=== PATIENT | female | born 1995 | race African-American/Black ===

== ENCOUNTER 2024-03-09 06:44 | Emergency (ER) | payer OTHER, SELFPAY ==
--- NOTE | ~2024-03-09 | US_ITS ---
Pelvic ultrasound. Clinical History: First trimester , pelvic pain Technique: Realtime transabdominal and transvaginal scanning of the pelvis was performed. Color flow Doppler and Doppler spectral analysis were performed. Findings: The uterus is retroverted.. There is an early intrauterine gestational sac, with estimated gestational age of 5 weeks 3 days based on average sac diameter 7 mm. Probable subtle yolk sac presen t without definite visible pole this time.. The right ovary measures 3.5 x 2.1 x 1.7 cm. No significant right ovarian or adnexal mass is seen. The left ovary measures 3.1 x 2.4 x 2.7 cm. Left ovarian corpus luteal cyst is seen. There is small amount of free fluid in the cul de sac. Impression: Intrauterine gestation with estimated gestational age of 5 weeks 3 days based on average sac diameter . No pole identified this time, commensurate with the early gestational age. Reviewed, dictated and finalized at [facility]. [employer]ER Impression: Intrauterine gestation with estimated gestational age of 5 weeks 3 days based o n average sac diameter. No pole identified this time, commensurate with t he early gestational age.
[2024-03-09 06:46] VITALS: BP 108/72; PULSE 79; RESP 17; TEMP 36.6; O2SAT 100
[2024-03-09 07:02] LABS: BEDSIDEPREGUCG Positive (Negative)
[2024-03-09 07:13] LABS: Add Urine Microscopic? YES; Appearance Urine Cloudy (Clear); Bacteria Urine Rare /hpf; Bilirubin Urine Negative (Negative); Blood Urine Negative (Negative); Color Urine Yellow (Yellow); Glucose Urine UA Negative (Negative); Ketones Urine Negative (Negative); Leukocyte Esterase Ur Negative LEU/UL (Negative); Nitrate Urine Negative (Negative); Non Pathogenic Casts 0-2; Protein Urine Negative (Negative); RBC Urine 0-2 /hpf (0-2); Specific Grav Ur 1.016 (1.001-1.035); Squamous Epithelial Cell Urine Many /hpf (Few); Urobilinogen Urine 0.2 mg/dL (<2.0); pH Urine 5.5 (5.0-9.0)
--- NOTE | 2024-03-09 08:04 | ED_ITS ---
HPI - Abdominal Pain General Chief Complaint: Abdominal Pain Stated Complaint: abd pain Time Seen by Provider: 03/09/24 07:10 History of Present Illness HPI narrative: Patient is a 29-year-old female who presents ER with lower abdominal cramping. Began this morning. She is , LMP January 31, 2024. Was diagnosed with BV last week but only took 4 pills. No dysuria. No vaginal bleeding. Denies fevers or chills or sweats. No additional concerns at this time. Related Data Allergies Allergy/AdvReac Type Severity Reaction Status Date / Time No Known Allergies Allergy Verified 03/09/24 06:51 Review of Systems 2 Review of Systems: All systems reviewed & are unremarkable except as noted in HPI and below Constitutional: Constitutional: Reports no additional constitutional complaints Cardiovascular: Cardiovascular: Reports no additional cardiovascular complaints Respiratory: Respiratory: Reports no additional respiratory complaints Gastrointestinal: Gastrointestinal: Reports no additional gastrointestinal complaints Genitourinary: Genitourinary: Denies abnormal vaginal bleeding, Denies nocturia, Denies dysuria, Reports pelvic pain and Reports vaginal discharge PMFSH Past Medical History Medical History (Updated 03/09/24 @ 10:53 by Enrico Odom MD) Healthy female adult Surgical History Surgical History (Updated 03/09/24 @ 08:05 by Enrico Odom MD) No history of previous surgery Exam 2 Narrative: GENERAL: Well-appearing, well-nourished, and in no acute distress. HEAD: Normocephalic, atraumatic. ENT: Mucous membranes moist. CHEST: Clear to auscultation. No respiratory distress. HEART: Regular rate and rhythm. Normal peripheral pulses. ABDOMEN: Soft, nontender, nondistended. Pelvic: Normal external genitalia, moderate thick white discharge. Cervix finger tip and non-friable. EXTREMITIES: Normal range of motion. No edema. SKIN: Warm, dry, no rash. NEURO: Alert and oriented x3. PSYCH: Normal mood and affect. Course Course Emergency Course: Patient resting comfortably. Informed of results. Discharge home. Will treat for BV. Vital Signs Vital signs: Vital Signs Temperature 97.8 F 03/09/24 06:46 Pulse Rate 79 03/09/24 06:46 Respiratory Rate 17 03/09/24 06:46 Blood Pressure 108/72 03/09/24 06:46 Pulse Oximetry 100 03/09/24 06:46 Oxygen Delivery Room Air 03/09/24 06:46 Temperature 97.8 F 03/09/24 06:46 Pulse Rate 89 03/09/24 10:48 Respiratory Rate 18 03/09/24 10:48 Blood Pressure 119/80 03/09/24 10:48 Pulse Oximetry 100 03/09/24 10:48 Oxygen Delivery Room Air 03/09/24 06:46 MDM - Abdominal Pain Lab Data 03/09/24 08:07 03/09/24 09:12 Labs: Lab Results 03/09/24 03/09/24 03/09/24 Range/Units 06:59 07:00 08:07 WBC 5.4 (4.5-10.0) K/mm3 RBC 5.07 (4.2-5.4) M/mm3 Hgb 14.1 (12.0-15.0) g/dL Hct 44.3 (37.0-47.0) % MCV 87.4 (80-100) fl MCH 27.8 (26-34) pg MCHC 31.8 L (32-36) g/dl RDW 13.6 (11.5-14.5) % Plt Count 196 (150-375) k/mm3 MPV 11.0 H (7.4-10.4) fl Immature Gran % (Auto) 0.6 H (0-0.5) % Neut % (Auto) 54.1 (45.5-73.1) % Lymph % (Auto) 37.0 (18.3-44.2) % [place] % (Auto) 6.8 (2.6-8.5) % Eos % (Auto) 0.9 (0-4.4) % Baso % (Auto) 0.6 (0.2-1.2) % Lymph # (Auto) 2.01 (0.9-3.2) K/mm3 [place] # (Auto) 0.4 (0.1-0.6) K/mm3 Eos # (Auto) 0.1 (0-0.3) K/mm3 Baso # (Auto) 0.0 (0.0-0.1) K/mm3 Abs Immat Gran (auto) 0.03 (0.00-0.031) K/mm3 Absolute Neuts (auto) 2.9 (1.3-6.7) K/mm3 Absolute Nucleated RBC 0.000 (0.0-0.012) K/mm3 Nucleated RBC % 0.0 (0.0-0.2) % Sodium (137-145) mmol/L Potassium (3.4-5.0) mmol/L Chloride (98-107) mmol/L Carbon Dioxide (22-30) mmol/L Anion Gap (4-12) mmol/L BUN (7-17) mg/dL Creatinine (0.7-1.0) mg/dL Estim Creat Clear Calc ml/min Estimated GFR (59 - ) Glucose (65-110) mg/dL Calcium (8.4-10.2) mg/dL Total Bilirubin (0.2-1.3) mg/dL AST (14-36) U/L ALT (6-35) U/L Alkaline Phosphatase (38-126) U/L Total Protein (6.3-8.2) g/dL Albumin (3.5-5.1) g/dL Lipase (23-300) U/L Urine Color Yellow (Yellow) Urine Appearance Cloudy H (Clear) Urine pH 5.5 (5.0-9.0) Ur Specific [place] 1.016 (1.001-1.035) Urine Protein Negative (Negative) mg/dL Urine Glucose (UA) Negative (Negative) mg/dL Urine Ketones Negative (Negative) mg/dL Ur Blood (Man) Negative (Negative) Urine Nitrate Negative (Negative) Urine Bilirubin Negative (Negative) Urine Urobilinogen 0.2 (<2.0) mg/dL Leukocyte Esterase Rfl Negative (Negative) JEFFRY/UL Urine RBC 0-2 (0-2) /hpf Urine WBC 6-10 H (0-3) /hpf Ur Squamous Epith Cells Many H (Few) /hpf Urine Bacteria Rare /hpf Urine Casts 0-2 POC Urine HCG, Qual Positive (Negative) C. trachomatis (PCR) Not detected (NOT DETECTE) N. gonorrhoeae (PCR) Not detected (NOT DETECTE) T. vaginalis (PCR) Not detected (NOT DETECTE) 03/09/24 Range/Units 09:12 WBC (4.5-10.0) K/mm3 RBC (4.2-5.4) M/mm3 Hgb (12.0-15.0) g/dL Hct (37.0-47.0) % MCV (80-100) fl MCH (26-34) pg MCHC (32-36) g/dl RDW (11.5-14.5) % Plt Count (150-375) k/mm3 MPV (7.4-10.4) fl Immature Gran % (Auto) (0-0.5) % Neut % (Auto) (45.5-73.1) % Lymph % (Auto) (18.3-44.2) % [place] % (Auto) (2.6-8.5) % Eos % (Auto) (0-4.4) % Baso % (Auto) (0.2-1.2) % Lymph # (Auto) (0.9-3.2) K/mm3 [place] # (Auto) (0.1-0.6) K/mm3 Eos # (Auto) (0-0.3) K/mm3 Baso # (Auto) (0.0-0.1) K/mm3 Abs Immat Gran (auto) (0.00-0.031) K/mm3 Absolute Neuts (auto) (1.3-6.7) K/mm3 Absolute Nucleated RBC (0.0-0.012) K/mm3 Nucleated RBC % (0.0-0.2) % Sodium 136 L (137-145) mmol/L Potassium 3.8 (3.4-5.0) mmol/L Chloride 106 (98-107) mmol/L Carbon Dioxide 21 L (22-30) mmol/L Anion Gap 9 (4-12) mmol/L BUN 9 (7-17) mg/dL Creatinine 0.80 (0.7-1.0) mg/dL Estim Creat Clear Calc 87 ml/min Estimated GFR > 60 (59 - ) Glucose 92 (65-110) mg/dL Calcium 9.6 (8.4-10.2) mg/dL Total Bilirubin 0.6 (0.2-1.3) mg/dL AST 21 (14-36) U/L ALT 17 (6-35) U/L Alkaline Phosphatase 70 (38-126) U/L Total Protein 9.0 H (6.3-8.2) g/dL Albumin 4.9 (3.5-5.1) g/dL Lipase 52 (23-300) U/L Urine Color (Yellow) Urine Appearance (Clear) Urine pH (5.0-9.0) Ur Specific [place] (1.001-1.035) Urine Protein (Negative) mg/dL Urine Glucose (UA) (Negative) mg/dL Urine Ketones (Negative) mg/dL Ur Blood (Man) (Negative) Urine Nitrate (Negative) Urine Bilirubin (Negative) Urine Urobilinogen (<2.0) mg/dL Leukocyte Esterase Rfl (Negative) JEFFRY/UL Urine RBC (0-2) /hpf Urine WBC (0-3) /hpf Ur Squamous Epith Cells (Few) /hpf Urine Bacteria /hpf Urine Casts POC Urine HCG, Qual (Negative) C. trachomatis (PCR) (NOT DETECTE) N. gonorrhoeae (PCR) (NOT DETECTE) T. vaginalis (PCR) (NOT DETECTE) Imaging Data Radiologist's impression: ITS Impressions Obstetrics Ultrasound 03/09/24 09:19 Impression: Intrauterine gestation with estimated gestational age of 5 weeks 3 days based on average sac diameter. No pole identified this time, commensurate with the early gestational age. Discharge Plan Discharge Clinical Impression: Bacterial vaginosis Patient Disposition: Home, Self-Care Condition: Stable Instructions: Bacterial Vaginosis (ED) Additional Instructions: Return to the emergency department if you develop severe abdominal pain, severe nausea and vomiting to the point where you are unable to keep down fluids, if you develop chest pain or difficulty breathing, blood in your stool, dizziness or fainting, or if you develop any other new or concerning symptoms as these could be signs of more serious medical illness. Try to stay well hydrated. Patient Language: Slovak Prescriptions: New ondansetron 4 mg tablet,disintegrating 4 mg PO Q6H PRN (Reason: nausea and vomiting) Qty: 10 0RF metronidazole 500 mg tablet 500 mg PO Q12H Qty: 14 0RF Follow-up/Referrals: Rober Cook MD [Primary Care Provider] - 1 Week
[2024-03-09 08:16] LABS: Basophils Percent Auto 0.6 % (0.2-1.2); Eosinophils Absolute Auto 0.1 K/mm3 (0-0.3); Eosinophils Percent Auto 0.9 % (0-4.4); Hematocrit 44.3 % (37.0-47.0); Hemoglobin 14.1 g/dL (12.0-15.0); Immature Granulocyte Absolute 0.03 K/mm3 (0.00-0.031); Immature Granulocyte Percent A 0.6 % (0-0.5); Lymphocytes Absolute Auto 2.01 K/mm3 (0.9-3.2); Mean Corpuscular HGB Conc 31.8 g/dl (32-36); Mean Corpuscular Hemoglobin 27.8 pg (26-34); Mean Corpuscular Volume 87.4 fl (80-100); Monocytes Absolute Auto 0.4 K/mm3 (0.1-0.6); Monocytes Percent Auto 6.8 % (2.6-8.5); Neutrophils Absolute Auto 2.9 K/mm3 (1.3-6.7); Neutrophils Percent Auto 54.1 % (45.5-73.1); Platelet Count Result 196 k/mm3 (150-375); Red Blood Count 5.07 M/mm3 (4.2-5.4); Red Cell Distribution Width 13.6 % (11.5-14.5); White Blood Count 5.4 K/mm3 (4.5-10.0)
[2024-03-09 09:37] LABS: Trichomonas Vag PCR NOT DETECTED (NOT DETECTE)
[2024-03-09 09:38] LABS: Alanine Aminotransferase 17 U/L (6-35); Albumin Level 4.9 g/dL (3.5-5.1); Alkaline Phosphatase 70 U/L (38-126); Anion Gap 9 mmol/L (4-12); Aspartate Amino Transferase 21 U/L (14-36); Bilirubin,Total 0.6 mg/dL (0.2-1.3); Blood Urea Nitrogen 9 mg/dL (7-17); Calcium 9.6 mg/dL (8.4-10.2); Carbon Dioxide 21 mmol/L (22-30); Chloride 106 mmol/L (98-107); Estimated CRCL calculation 87 ml/min; Estimated Glomerular Filt Rate > 60; Glucose 92 mg/dL (65-110); Lipase 52 U/L (23-300); Potassium 3.8 mmol/L (3.4-5.0); Sodium 136 mmol/L (137-145)
[2024-03-09 10:02] LABS: Chlamydia trachomatis NOT DETECTED (NOT DETECTE); Neisseria gonorrhoeae PCR NOT DETECTED (NOT DETECTE)
[2024-03-09 10:48] VITALS: BP 119/80; PULSE 89; RESP 18; O2SAT 100
== END 2024-03-09 11:08 | disposition home or self-care (01) ==
PROVIDERS: Emergency Medicine; Emergency Provider Emergency Medicine; PCP Family Medicine
DX: O23.591 Infection of other part of genital tract in pregnancy, first trimester (principal); N76.0 Acute vaginitis; B96.89 Other specified bacterial agents as the cause of diseases classified elsewhere; Z3A.01 Less than 8 weeks gestation of pregnancy
CPT/HCPCS: 36415; 76801; 76817; 80053; 81001; 81025; 83690; 85025; 87086; 87491; 87591; 87661; 99284

== ENCOUNTER 2024-03-16 12:38 | Emergency (ER) | payer OTHER, SELFPAY ==
[2024-03-16 12:43] VITALS: BP 125/80; PULSE 103; RESP 16; TEMP 36.4; O2SAT 100
--- NOTE | 2024-03-16 16:11 | ED.NAVMDI ---
HPI - Nausea/Vomiting/Diarrhea General Chief complaint: Nausea/Vomiting/Diarrhea Stated complaint: vomiting, 5 wks Focused HPI: this is a 29-year-old female who is reportedly 5 weeks presents to the ED for N/V over the past 4 days. Reports it got worse today so she came in. She is . This was unplanned and she plans to terminate electively at a later date. States that anything she tries to eat or drink comes right back up. She has not taken any antiemetics at home. Endorses radiation of epigastric pain into the chest. Denies fevers, chills, flank pain, urinary symptoms, vaginal symptoms, or lower abdominal pain. GENERAL: Well-appearing, well-nourished, and in no acute distress. HEAD: Normocephalic, atraumatic. CHEST: Clear to auscultation. No respiratory distress. HEART: Regular rate and rhythm. NEURO: Alert and oriented x3. Patient screened in triage and initial orders placed. Additional care and disposition to be based upon diagnostic testing and treatment. Source: patient Mode of arrival: ambulatory Limitations: no limitations Related Data Allergies Allergy/AdvReac Type Severity Reaction Status Date / Time No Known Allergies Allergy Verified 03/09/24 06:51 [facility] Past Medical History Medical History (Updated 03/10/24 @ 00:01 by Susan Soni) Healthy female adult Surgical History Surgical History (Updated 03/09/24 @ 08:05 by Enrico Odom MD) No history of previous surgery Course Vital Signs Vital signs: Vital Signs Temperature 97.6 F 03/16/24 12:43 Pulse Rate 103 H 03/16/24 12:43 Respiratory Rate 16 03/16/24 12:43 Blood Pressure 125/80 03/16/24 12:43 Pulse Oximetry 100 03/16/24 12:43 Oxygen Delivery Room Air 03/16/24 12:43 Temperature 97.6 F 03/16/24 12:43 Pulse Rate 103 H 03/16/24 12:43 Respiratory Rate 16 03/16/24 12:43 Blood Pressure 125/80 03/16/24 12:43 Pulse Oximetry 100 03/16/24 12:43 Oxygen Delivery Room Air 03/16/24 12:43 Discharge Plan Discharge Patient Language: Nepali Prescriptions: No Action ondansetron 4 mg tablet,disintegrating 4 mg PO Q6H PRN (Reason: nausea and vomiting) Qty: 10 0RF metronidazole 500 mg tablet 500 mg PO Q12H Qty: 14 0RF Follow-up/Referrals: PHYSICIAN,[employer] [Primary Care Provider] -
--- NOTE | 2024-03-16 19:22 | PC.NURSE ---
Called PT back to triage to obtain blood under [facility] orders. Pt came back and after I told her I was going to draw some blood, stated they just did this the other day when I was here and screwed up my arm, no thank you and proceeded back to triage, Ana Lombardo RN notified.
--- OUTSIDE RECORDS SUMMARY | 2024-03-24 00:24 | XMS_ITS | Encounter Summary ---
Author Organization [facility] Address [address] [place] [address] Care Team Providers Care Director Personal Name Role Phone Abhijit Solis MD Primary Care Provider Encounter Details Date Type Department Care Team (Latest Contact Info) Description 08/18/2023 Travel Social History Tobacco Use Types Packs/Day Years Used Date Smoking Tobacco: Never Assessed Sex and Gender Information Value Date Recorded Sex Assigned at Not on file Gender Identity Not on file Sexual Orientation Not on file documented as of this encounter Plan of Treatment Not on file documented as of this encounter Visit Diagnoses Not on filedocumented in this encounter Care Teams Director Personal Relationship Specialty Start Date End Date Abhijit Solis MD PCP - General 10/04/12 documented as of this encounter
--- OUTSIDE RECORDS SUMMARY | 2024-03-24 00:24 | XMS_ITS | Clinical Summary ---
Author Organization [facility] Address [address] [place] [address] Care Team Providers Care Dermatologist Managing Partner Name Role Phone No, Physician Primary Care Provider [phone] Allergies Active Allergy Reactions Criticality Noted Date Comments Ibuprofen Hives Medium 08/27/2020 Latex Hives Medium 05/11/2021 Other Rash High 05/16/2016 Shellfish Medications doxylamine (UNISOM) 25 mg tablet Take 1 tablet (25 mg total) by mouth nightly as needed for sleep 15 tablet 09/11/2023 Active pyridoxine (VITAMIN B6) 25 mg tablet Take 1 tablet (25 mg total) by mouth every 6 (six) hours as needed (nausea) 15 tablet 09/11/2023 Active Active Problems Estimated Date of Delivery Comme nts Yes 11/10/2024 No known active problems Encounters Date Type Department Care Team Description 03/23/2024 3:25 AM [facility] - 03/23/2024 12:49 PM [facility] Emergency [facility] [address] [place] [address] Miscarriage (Primary Dx); Hypokalemia; Hyponatremia Discharge Disposition: Discharge to home or self care 03/19/2024 5:28 PM [facility] - 03/19/2024 10:06 PM [facility] Emergency [facility] Emergency Department [address] [place] [id number] Discharge Disposition: Left without being seen from Last 3 Months Surgical History Surgery Date Site/Laterality Comments NO PAST SURGERIES Medical History Medical History Date Comments 1 para 1 Social History Tobacco Use Types Packs/Day Years Used Date Smoking Tobacco: Never Tobacco Cessation:Counseling Given: Not Answered Alcohol Use Standard Drinks/Week Comments Never 0 (1 standard drink = 0.6 oz pur e alcohol) Personal Safety Answer Date Recorded Have you ever been in or are you currently in a harmful physical or emotional relationship or is someone making you feel afraid or unsafe? Denies 03/23/2024 Estimated Date of Delivery Comme nts Yes 11/10/2024 Sex and Gender Information Value Date Recorded Sex Assigned at Not on file Legal Sex Female 9:02 PM ENTERPRISE ARCHITECT MANAGER Gender Identity Not on file Sexual Orientation Not on file Obstetrics History Para Term AB IAB SAB Ectopic Multiple Livin g Live Births 2 1 1 1 Date Outcome GA Total Labor Labor/2nd/3rd Weight Sex Type Anes PTL Yeimi A1 A5 Name Clin Term Current Summary Episode Dates Number of Fetuses Estimated Date of Delivery 09/11/2023 - Present (03/24/2024) 11/10/2024 (set by Leelee Carter RN on 03/19/2024 based on Last Menstrual Period on 02/04/2024) Dating Summary Based On JESSICA GA Diff Last Menstrual Period on 02/04/2024 11/10/2024 Working Vitals Pregravid Weight Height TWG (As of 03/24/2024) Pregrav id BMI 160 cm (5' 3 ) Date GA Fund Present FHR Mvmt BP Weight Edema Alb Glu Ket Dil/ Eff/Sta 4 -20w6d Inpatient data not displayed here. See encounter summary. Last Filed Vital Signs Vital Sign Reading Time Taken Comments Blood Pressure 123/86 03/23/2024 9:05 AM ENTERPRISE ARCHITECT MANAGER Pulse 92 03/23/2024 9:05 AM ENTERPRISE ARCHITECT MANAGER Temperature 36.6 ??C (97.9 ??F) 03/23/2024 3:40 AM CS T Respiratory Rate 16 03/23/2024 9:05 AM ENTERPRISE ARCHITECT MANAGER Oxygen Saturation 100% 03/23/2024 5:30 AM ENTERPRISE ARCHITECT MANAGER Inhaled Oxygen Concentration - - Weight 66.7 kg (147 lb) 03/23/2024 3:28 AM ENTERPRISE ARCHITECT MANAGER Height 157.5 cm (5' 2 ) 03/23/2024 3:28 AM ENTERPRISE ARCHITECT MANAGER Body Mass Index 26.89 03/23/2024 3:28 AM ENTERPRISE ARCHITECT MANAGER Plan of Treatment Health Maintenance Due Date Last Done Comments Cervical Cancer Screening 1997 Depression Screening 1997 Hepatitis C Screening 1997 HPV Vaccines (2 - 3-dose series) 12/05/2012 11/07/2012 Regular Well Visit/Exam 18-64 2015 Influenza Vaccine (#1) 2023 DTaP/Tdap/Td Vaccine (9 - Td or Tdap) 05/23/2025 05/24/2015, 05/24/2015, 11/07/2012, Additional history exists Varicella Vaccines Completed 11/07/2012, 10/23/1998 Pneumococcal vaccine <65 Aged Out No longer eligible based on patient's age to complete this topic Procedures Procedure Name Priority Date/Time Associated Diagnosis Comments EGFR STAT 03/23/2024 5:18 AM ENTERPRISE ARCHITECT MANAGER BASIC METABOLIC PANEL STAT 03/23/2024 5:18 AM ENTERPRISE ARCHITECT MANAGER MAGNESIUM STAT 03/23/2024 5:18 AM ENTERPRISE ARCHITECT MANAGER B ABO / RH CONFIRMATION TESTING STAT 03/23/2024 5:18 AM ENTERPRISE ARCHITECT MANAGER EGFR STAT 03/23/2024 3:39 AM ENTERPRISE ARCHITECT MANAGER DIFFERENTIAL AUTO STAT 03/23/2024 3:3 9 AM ENTERPRISE ARCHITECT MANAGER ANTIBODY SCREEN STAT 03/23/2024 3:39 AM ENTERPRISE ARCHITECT MANAGER ABO/RH STAT 03/23/2024 3:39 AM ENTERPRISE ARCHITECT MANAGER TYPE AND SCREEN STAT 03/23/2024 3:39 AM ENTERPRISE ARCHITECT MANAGER COMPREHENSIVE METABOLIC PANEL STAT 03/23/2024 3:39 AM ENTERPRISE ARCHITECT MANAGER CBC WITH AUTO DIFFERENTIAL STAT 03/23/2024 3:39 AM ENTERPRISE ARCHITECT MANAGER EGFR STAT 03/19/2024 6:42 PM ENTERPRISE ARCHITECT MANAGER DIFFERENTIAL AUTO STAT 03/19/2024 6:4 2 PM ENTERPRISE ARCHITECT MANAGER HCG, BLOOD, QUANTITATIVE STAT 03/19/2024 6:42 PM ENTERPRISE ARCHITECT MANAGER COMPREHENSIVE METABOLIC PANEL STAT 03/19/2024 6:42 PM ENTERPRISE ARCHITECT MANAGER CBC WITH AUTO DIFFERENTIAL STAT 03/19/2024 6:42 PM ENTERPRISE ARCHITECT MANAGER from Last 3 Months Results * eGFR (03/23/2024 5:18 AM ENTERPRISE ARCHITECT MANAGER) eGFR >90 >=60 mL/min/1. 73 m2 Comment: Interpretive Data Reference Interval Normal ?>/= 90 mL/min/1.73m2 Mildly decreased* ? 60 - 89 mL/min/1.73m2 Mildly to moderately decreased ?45 - 59 mL/min/1.73m2 Moderately to severely decreased ??30 - 44 mL/min/1.73m2 Severely decreased ?15 - 29 mL/min/1.73m2 Kidney Failure ?< 15 ??mL/min/1.73m2 *Relative to young adult level Estimated glomerular filtration rate is determined by the 2020 CKD-EPI equation recommended by the National Kidney Foundation (A Unifying Approach to GFR Estimation: Recommendations of the NKF-ASK Task Force on Reassessing the Inclusion of Race in Diagnosing Kidney Disease, JASN 2020). The CKD-EPI equation should not be used for patients with unstable renal function and has not been validated in children and those over 70. Current interpretive data was last reviewed 2021. Blood 03/23/2024 5:18 AM ENTERPRISE ARCHITECT MANAGER 03/23/2024 5:25 AM ENTERPRISE ARCHITECT MANAGER us Sonya SANCHEZ LAB BLOOD ORDERABLES Final Resul t [id number] [facility] Department [place] [address] * ABO / Rh Confirmation Testing (03/23/2024 5:18 AM ENTERPRISE ARCHITECT MANAGER) [facility] ABO/Rh Confirmation O Positive MHB Blood 03/23/2024 5:18 AM ENTERPRISE ARCHITECT MANAGER 03/23/2024 5:26 AM ENTERPRISE ARCHITECT MANAGER Roe Montgomery MD LAB BLOOD ORDERABLES Final Result Performing Organization Address [facility] de Phone Number [address] [address] MHB * Magnesium (03/23/2024 5:18 AM ENTERPRISE ARCHITECT MANAGER) [facility] Magnesium 1.9 1.4 - 2.5 mg/dL Blood 03/23/2024 5:18 AM ENTERPRISE ARCHITECT MANAGER 03/23/2024 5:25 AM ENTERPRISE ARCHITECT MANAGER Sonya SANCHEZ LAB BLOOD ORDERABLES Final Resul t Performing Organization Address [facility] de Phone Number [address] [address] * (ABNORMAL) Basic metabolic panel (03/23/2024 5:18 AM ENTERPRISE ARCHITECT MANAGER) [facility] Sodium 129(L) 135 - 145 mmol/L Potassium, pl 2.7(L) 3.3 - 4.9 mmol/L [facility] Chloride 94(L) 97 - 110 mmol/L [facility] CO2 22 22 - 32 mmol/L [facility] Anion gap 13 2 - 15 mmol/L [facility] BUN 9 6 - 25 mg/dL [facility] Creatinine 0.69 0.60 - 1.10 mg/dL [facility] Glucose 94 70 - 199 mg/dL [facility] Comment: Interpretive Data Fasting glucose >/= 126 mg/dl is diagnostic for diabetes. ?? Fasting is defined as no caloric intake for at least 8 hours. Fasting glucose between 100 mg/dl to 125 mg/dl is diagnostic of prediabetes. In a patient with classic symptoms of hyperglycemia or hyperglycemic crisis, a random glucose >/= 200 mg/dl is diagnostic for diabetes. In the absence of unequivocal hyperglycemia, results should be confirmed by repeat testing. The classification and Diagnosis of Diabetes Diabetes Care 202; 46: S19-S40. Current interpretive data was last revised 2022. Calcium 8.3(L) 8.5 - 10.3 mg/dL [facility] Blood 03/23/2024 5:18 AM ENTERPRISE ARCHITECT MANAGER 03/23/2024 5:25 AM ENTERPRISE ARCHITECT MANAGER us Sonya SANCHEZ LAB BLOOD ORDERABLES Final Resul t [facility] [id number] [facility] Department [place] [address] * eGFR (03/23/2024 3:39 AM ENTERPRISE ARCHITECT MANAGER) eGFR >90 >=60 mL/min/1. 73 m2 Comment: Interpretive Data Reference Interval Normal ?>/= 90 mL/min/1.73m2 Mildly decreased* ? 60 - 89 mL/min/1.73m2 Mildly to moderately decreased ?45 - 59 mL/min/1.73m2 Moderately to severely decreased ??30 - 44 mL/min/1.73m2 Severely decreased ?15 - 29 mL/min/1.73m2 Kidney Failure ?< 15 ??mL/min/1.73m2 *Relative to young adult level Estimated glomerular filtration rate is determined by the 2020 CKD-EPI equation recommended by the National Kidney Foundation (A Unifying Approach to GFR Estimation: Recommendations of the NKF-ASK Task Force on Reassessing the Inclusion of Race in Diagnosing Kidney Disease, JASN 2020). The CKD-EPI equation should not be used for patients with unstable renal function and has not been validated in children and those over 70. Current interpretive data was last reviewed 2021. Blood 03/23/2024 3:39 AM ENTERPRISE ARCHITECT MANAGER 03/23/2024 4:04 AM ENTERPRISE ARCHITECT MANAGER us Roe Montgomery MD LAB BLOOD ORDERABLES Final Result [facility] [id number] [facility] Department [place] [address] * (ABNORMAL) Differential, auto (03/23/2024 3:39 AM ENTERPRISE ARCHITECT MANAGER) Pathologist [facility] Neutrophil abs 3.7 1.5 - 6.5 K/cumm Imm gran abs 0.1 0.0 - 0.1 K/cumm [facility] Lymphocyte abs 1.9 0.8 - 3.3 K/cumm [facility] Monocyte abs 0.9(H) 0.2 - 0.8 K/cumm [facility] Eosinophil abs 0.0 0.0 - 0.5 K/cumm [facility] Basophil abs 0.1 0.0 - 0.1 K/cumm [facility] Neutrophil pct 55.3 % [facility] Comment: Interpretive Data Percent cell count reference ranges are not reported, since discordance with absolute values may lead to misinterpretation of CBC data. Current Interpretive Data was last revised on 2017. Imm gran pct 0.8 % [facility] Comment: Interpretive Data Percent cell count reference ranges are not reported, since discordance with absolute values may lead to misinterpretation of CBC data. Current Interpretive Data was last revised on 2017. Lymphocyte pct 29.1 % [facility] Comment: Interpretive Data Percent cell count reference ranges are not reported, since discordance with absolute values may lead to misinterpretation of CBC data. Current Interpretive Data was last revised on 2017. Monocyte pct 13.7 % [facility] Comment: Interpretive Data Percent cell count reference ranges are not reported, since discordance with absolute values may lead to misinterpretation of CBC data. Current Interpretive Data was last revised on 2017. Eosinophil pct 0.3 % [facility] Comment: Interpretive Data Percent cell count reference ranges are not reported, since discordance with absolute values may lead to misinterpretation of CBC data. Current Interpretive Data was last revised on 2017. Basophil pct 0.8 % [facility] Comment: Interpretive Data Percent cell count reference ranges are not reported, since discordance with absolute values may lead to misinterpretation of CBC data. Current Interpretive Data was last revised on 2017. Blood 03/23/2024 3:39 AM ENTERPRISE ARCHITECT MANAGER 03/23/2024 4:04 AM ENTERPRISE ARCHITECT MANAGER Roe Montgomery MD LAB BLOOD ORDERABLES Final Result Performing Organization Address [facility] Co de Phone Number [address] [place] [address] * (ABNORMAL) CBC with auto differential (03/23/2024 3:39 AM ENTERPRISE ARCHITECT MANAGER) [facility] WBC 6.6 3.8 - 9.9 K/cumm Hgb 13.5 11.9 - 15.5 g/dL [facility] Hct 38.4 35.6 - 45.5 % [facility] Plt 255 150 - 400 K/cumm [facility] MPV 11.8 9.1 - 12.3 fL [facility] RBC 4.85 3.90 - 5.20 M/cumm [facility] MCV 79.2(L) 81.3 - 96.4 fL [facility] MCH 27.8 27.1 - 33.3 pg [facility] MCHC 35.2 32.3 - 35.7 g/dL [facility] RDW CV 11.9 11.1 - 14.9 % [facility] RDW SD 34.0(L) 35.7 - 48.1 fL [facility] NRBC abs 0.00 0.00 - 0.01 K/cumm [facility] Blood 03/23/2024 3:39 AM ENTERPRISE ARCHITECT MANAGER 03/23/2024 4:04 AM ENTERPRISE ARCHITECT MANAGER Roe Montgomery MD LAB BLOOD ORDERABLES Final Result Performing Organization Address [facility] Co de Phone Number [facility] [address] [place] [phone] * ABO/Rh (03/23/2024 3:39 AM ENTERPRISE ARCHITECT MANAGER) [facility] ABO/Rh O Positive Blood 03/23/2024 3:39 AM ENTERPRISE ARCHITECT MANAGER 03/23/2024 4:03 AM ENTERPRISE ARCHITECT MANAGER Narrative [facility] - 03/23/2024 4:40 AM ENTERPRISE ARCHITECT MANAGER Has the patient had Daratumumab or Isatuximab in the past 6 months?->Unknown Roe Montgomery MD LAB BLOOD BANK TEST ORDERAB LES Final Result Performing Organization Address [facility] Co de Phone Number [address] [address] * Antibody screen (03/23/2024 3:39 AM ENTERPRISE ARCHITECT MANAGER) [facility] Bruce, indirect, Gel Interpretation Negative ABSC Blood 03/23/2024 3:39 AM ENTERPRISE ARCHITECT MANAGER 03/23/2024 4:03 AM ENTERPRISE ARCHITECT MANAGER Narrative [facility] - 03/23/2024 4:40 AM ENTERPRISE ARCHITECT MANAGER Has the patient had Daratumumab or Isatuximab in the past 6 months?->Unknown Roe Montgomery MD LAB BLOOD BANK TEST ORDERAB LES Final Result Performing Organization Address [facility] Phone Number [address] [address] * (ABNORMAL) Comprehensive metabolic panel (03/23/2024 3:39 AM ENTERPRISE ARCHITECT MANAGER) [facility] Sodium 125(L) 135 - 145 mmol/L Potassium, pl 2.6(L) 3.3 - 4.9 mmol/L [facility] Chloride 88(L) 97 - 110 mmol/L [facility] CO2 22 22 - 32 mmol/L [facility] Anion gap 15 2 - 15 mmol/L [facility] BUN 9 6 - 25 mg/dL [facility] Creatinine 0.74 0.60 - 1.10 mg/dL [facility] Glucose 128 70 - 199 mg/dL [facility] Comment: Interpretive Data Fasting glucose >/= 126 mg/dl is diagnostic for diabetes. ?? Fasting is defined as no caloric intake for at least 8 hours. Fasting glucose between 100 mg/dl to 125 mg/dl is diagnostic of prediabetes. In a patient with classic symptoms of hyperglycemia or hyperglycemic crisis, a random glucose >/= 200 mg/dl is diagnostic for diabetes. In the absence of unequivocal hyperglycemia, results should be confirmed by repeat testing. The classification and Diagnosis of Diabetes Diabetes Care 202; 46: S19-S40. Current interpretive data was last revised 2022. Calcium 9.7 8.5 - 10.3 mg/dL [facility] Bilirubin, total 1.6(H) 0.1 - 1.2 mg/dL [facility] Protein, pl 7.3 6.5 - 8.5 g/dL [facility] Albumin 4.3 3.5 - 5.0 g/dL [facility] Alk phos 68 40 - 130 Units/L [facility] ALT 55(H) 7 - 45 Units/L [facility] AST 35 10 - 45 Units/L [facility] Blood 03/23/2024 3:39 AM ENTERPRISE ARCHITECT MANAGER 03/23/2024 4:04 AM ENTERPRISE ARCHITECT MANAGER us Roe Montgomery MD LAB BLOOD ORDERABLES Final Result [facility] [address] [facility] Department [place] [address] * eGFR (03/19/2024 6:42 PM ENTERPRISE ARCHITECT MANAGER) eGFR >90 >=60 mL/min/1. 73 m2 Comment: Interpretive Data Reference Interval Normal ?>/= 90 mL/min/1.73m2 Mildly decreased* ? 60 - 89 mL/min/1.73m2 Mildly to moderately decreased ?45 - 59 mL/min/1.73m2 Moderately to severely decreased ??30 - 44 mL/min/1.73m2 Severely decreased ?15 - 29 mL/min/1.73m2 Kidney Failure ?< 15 ??mL/min/1.73m2 *Relative to young adult level Estimated glomerular filtration rate is determined by the 2020 CKD-EPI equation recommended by the National Kidney Foundation (A Unifying Approach to GFR Estimation: Recommendations of the NKF-ASK Task Force on Reassessing the Inclusion of Race in Diagnosing Kidney Disease, JASN 2020). The CKD-EPI equation should not be used for patients with unstable renal function and has not been validated in children and those over 70. Current interpretive data was last reviewed 2021. Testing performed by: [address] [address] Blood 03/19/2024 6:42 PM ENTERPRISE ARCHITECT MANAGER 03/19/2024 6:47 PM ENTERPRISE ARCHITECT MANAGER us Jonas Downing NP LAB BLOOD ORDERABLES Final Resul t [id number] Department [place] [address] * (ABNORMAL) Differential, auto (03/19/2024 6:42 PM ENTERPRISE ARCHITECT MANAGER) Neutrophil abs 6.0 1.5 - 6.5 K/cumm Comment:Testing performed by : [address] [address] Imm gran abs 0.0 0.0 - 0.1 K/cumm [facility] Comment:Testing performed by : [address] [address] Lymphocyte abs 2.5 0.8 - 3.3 K/cumm [facility] Comment:Testing performed by : [address] [address] Monocyte abs 0.9(H) 0.2 - 0.8 K/cumm [facility] Comment:Testing performed by : [address] [address] Eosinophil abs 0.0 0.0 - 0.5 K/cumm [facility] Comment:Testing performed by : [address] [address] Basophil abs 0.1 0.0 - 0.1 K/cumm [facility] Comment:Testing performed by : [address] [address] Neutrophil pct 62.9 % [facility] Comment: Interpretive Data Percent cell count reference ranges are not reported, since discordance with absolute values may lead to misinterpretation of CBC data. Current Interpretive Data was last revised on 2017. Testing performed by: [address] [address] Imm gran pct 0.4 % [facility] Comment: Interpretive Data Percent cell count reference ranges are not reported, since discordance with absolute values may lead to misinterpretation of CBC data. Current Interpretive Data was last revised on 2017. Testing performed by: [address] [address] Lymphocyte pct 26.0 % [facility] Comment: Interpretive Data Percent cell count reference ranges are not reported, since discordance with absolute values may lead to misinterpretation of CBC data. Current Interpretive Data was last revised on 2017. Testing performed by: [address] [address] Monocyte pct 9.6 % [facility] Comment: Interpretive Data Percent cell count reference ranges are not reported, since discordance with absolute values may lead to misinterpretation of CBC data. Current Interpretive Data was last revised on 2017. Testing performed by: [address] [address] Eosinophil pct 0.3 % [facility] Comment: Interpretive Data Percent cell count reference ranges are not reported, since discordance with absolute values may lead to misinterpretation of CBC data. Current Interpretive Data was last revised on 2017. Testing performed by: [address] [address] Basophil pct 0.8 % [facility] Comment: Interpretive Data Percent cell count reference ranges are not reported, since discordance with absolute values may lead to misinterpretation of CBC data. Current Interpretive Data was last revised on 2017. Testing performed by: [address] [address] Blood 03/19/2024 6:42 PM ENTERPRISE ARCHITECT MANAGER 03/19/2024 6:47 PM ENTERPRISE ARCHITECT MANAGER us Jonas Downing NP LAB BLOOD ORDERABLES Final Resul t [facility]ONG [address] [facility] Department [place] [address] * (ABNORMAL) CBC with auto differential (03/19/2024 6:42 PM ENTERPRISE ARCHITECT MANAGER) WBC 9.5 3.8 - 9.9 K/cumm Comment:Testing performed by : [address] [address] Hgb 15.2 11.9 - 15.5 g/dL [facility] CHONG Comment:Testing performed by : [address] [address] Hct 43.6 35.6 - 45.5 % [facility] Comment:Testing performed by : [address] [address] Plt 322 150 - 400 K/cumm [facility] Comment:Testing performed by : [address] [address] MPV 11.0 9.1 - 12.3 fL [facility] Comment:Testing performed by : [address] [address] RBC 5.43(H) 3.90 - 5.20 M/cumm [facility] Comment:Testing performed by : [address] [address] MCV 80.3(L) 81.3 - 96.4 fL [facility] Comment:Testing performed by : [address] [address] MCH 28.0 27.1 - 33.3 pg [facility] CHONG Comment:Testing performed by : [address] [address] MCHC 34.9 32.3 - 35.7 g/dL [facility] CHONG Comment:Testing performed by : [address] [address] RDW CV 12.6 11.1 - 14.9 % [facility] Comment:Testing performed by : [address] [address] RDW SD 35.8 35.7 - 48.1 fL [facility] CHONG Comment:Testing performed by : [address] [address] NRBC abs 0.00 0.00 - 0.01 K/cumm [facility] CHONG Comment:Testing performed by : [address] [address] Blood 03/19/2024 6:42 PM ENTERPRISE ARCHITECT MANAGER 03/19/2024 6:47 PM ENTERPRISE ARCHITECT MANAGER Jonas Downing LAB BLOOD ORDERABLES Final Resul t Performing Organization Address [facility] de Phone Number [address] [id number] * (ABNORMAL) hCG, blood, quantitative (03/19/2024 6:42 PM ENTERPRISE ARCHITECT MANAGER) Pathologist [facility] hCG, quant 56,680.0( H) 0.0 - 5.0 IUnits/L Comment: Interpretive Data Male: < 5 IU/L Non- premenopausal Female: <5 IU/L The [employer] hCG Beta Quant assay procedure was used. Results from different manufacturers or methods may not be comparable. ??Serial testing should be performed using the same method. Interpretive Data was last revised on 2023 Testing performed by: [address], [address] Blood 03/19/2024 6:42 PM ENTERPRISE ARCHITECT MANAGER 03/19/2024 6:47 PM ENTERPRISE ARCHITECT MANAGER Jonas Downing LAB BLOOD ORDERABLES Final Resul t Performing Organization Address [facility] de Phone Number [address] [place] [address] * (ABNORMAL) Comprehensive metabolic panel (03/19/2024 6:42 PM ENTERPRISE ARCHITECT MANAGER) [facility] Sodium 131(L) 135 - 145 mmol/L Comment:Testing performed by : [address] [address] Potassium, pl 3.0(L) 3.3 - 4.9 mmol/L [facility] Comment:Testing performed by : [address], [place]., [address] Chloride 94(L) 97 - 110 mmol/L [facility] Comment:Testing performed by : [address], [place]., [address] CO2 21(L) 22 - 32 mmol/L [facility] Comment:Testing performed by : [address], [place]., [address] Anion gap 16(H) 2 - 15 mmol/L [facility] Comment:Testing performed by : [address] [address] BUN 14 6 - 25 mg/dL [facility] Comment:Testing performed by : [address] [address] Creatinine 0.70 0.60 - 1.10 mg/dL [facility] Comment:Testing performed by : [address] [address] Glucose 108 70 - 199 mg/dL [facility] Comment: Interpretive Data Fasting glucose >/= 126 mg/dl is diagnostic for diabetes. ?? Fasting is defined as no caloric intake for at least 8 hours. Fasting glucose between 100 mg/dl to 125 mg/dl is diagnostic of prediabetes. In a patient with classic symptoms of hyperglycemia or hyperglycemic crisis, a random glucose >/= 200 mg/dl is diagnostic for diabetes. In the absence of unequivocal hyperglycemia, results should be confirmed by repeat testing. The classification and Diagnosis of Diabetes Diabetes Care 202; 46: S19-S40. Current interpretive data was last revised 2022. Testing performed by: [address] [address] Calcium 10.4(H) 8.5 - 10.3 mg/dL [facility] Comment:Testing performed by : [address], [place]., [address] Bilirubin, total 1.4(H) 0.1 - 1.2 mg/dL [facility] Comment:Testing performed by : [address] [address] Protein, pl 8.4 6.5 - 8.5 g/dL [facility] Comment:Testing performed by : [address] [address] Albumin 4.8 3.5 - 5.0 g/dL [facility] Comment:Testing performed by : [address] [address] Alk phos 72 40 - 130 Units/L [facility] Comment:Testing performed by : [address] [address] ALT 20 7 - 45 Units/L [facility] Comment:Testing performed by : [address] [address] AST 21 10 - 45 Units/L EMIR Comment:Testing performed by : [address] [address] Blood 03/19/2024 6:42 PM ENTERPRISE ARCHITECT MANAGER 03/19/2024 6:47 PM ENTERPRISE ARCHITECT MANAGER Jonas Downing NP LAB BLOOD ORDERABLES Final Resul t Performing Organization Address City/State/[facility] Co de Phone Number EMIR [address] [facility] Department [place] [address] from Last 3 Months [facility] AETNA BETTER [facility] Care Teams Dermatologist Managing Partner Relationship Specialty Start Date End Date No, Physician PCP - General 06/06/23
--- OUTSIDE RECORDS SUMMARY | 2024-03-24 00:24 | XMS_ITS | Referral Summary ---
Author Organization [facility] Address [address] [place] [address] Care Team Providers Care Filter Press Tender Name Role Phone No, Physician Primary Care Provider [phone] Encounters Date Type Department Care Team Description 03/23/2024 3:25 AM ELECTRIC METER INSTALLER - 03/23/2024 12:49 PM [facility] [address] [place] [address] Miscarriage (Primary Dx); Hypokalemia; Hyponatremia Discharge Disposition: Discharge to home or self care 03/19/2024 5:28 PM ELECTRIC METER INSTALLER - 03/19/2024 10:06 PM [facility] Emergency Department [address] [place] [id number] Discharge Disposition: Left without being seen from Last 3 Months Allergies Active Allergy Reactions Criticality Noted Date [...] nts Yes 11/10/2024 No known active problems Social History Tobacco Use Types Packs/Day Years [...] on file Legal Sex Female 9:02 PM ELECTRIC METER INSTALLER Gender Identity Not on file Sexual Orientation Not on file Last Filed Vital Signs Vital Sign Reading Time Taken Comments Blood Pressure 123/86 03/23/2024 9:05 AM ELECTRIC METER INSTALLER Pulse 92 03/23/2024 9:05 AM ELECTRIC METER INSTALLER Temperature 36.6 ??C (97.9 ??F) 03/23/2024 3:40 AM CS T Respiratory Rate 16 03/23/2024 9:05 AM ELECTRIC METER INSTALLER Oxygen Saturation 100% 03/23/2024 5:30 AM ELECTRIC METER INSTALLER Inhaled Oxygen Concentration - - Weight 66.7 kg (147 lb) 03/23/2024 3:28 AM ELECTRIC METER INSTALLER Height 157.5 cm (5' 2 ) 03/23/2024 3:28 AM ELECTRIC METER INSTALLER Body Mass Index 26.89 03/23/2024 3:28 AM ELECTRIC METER INSTALLER Plan of Treatment Not on file Procedures Procedure Name Priority Date/Time Associated Diagnosis Comments EGFR STAT 03/23/2024 5:18 AM ELECTRIC METER INSTALLER BASIC METABOLIC PANEL STAT 03/23/2024 5:18 AM ELECTRIC METER INSTALLER MAGNESIUM STAT 03/23/2024 5:18 AM ELECTRIC METER INSTALLER B ABO / RH CONFIRMATION TESTING STAT 03/23/2024 5:18 AM ELECTRIC METER INSTALLER EGFR STAT 03/23/2024 3:39 AM ELECTRIC METER INSTALLER DIFFERENTIAL AUTO STAT 03/23/2024 3:3 9 AM ELECTRIC METER INSTALLER ANTIBODY SCREEN STAT 03/23/2024 3:39 AM ELECTRIC METER INSTALLER ABO/RH STAT 03/23/2024 3:39 AM ELECTRIC METER INSTALLER TYPE AND SCREEN STAT 03/23/2024 3:39 AM ELECTRIC METER INSTALLER COMPREHENSIVE METABOLIC PANEL STAT 03/23/2024 3:39 AM ELECTRIC METER INSTALLER CBC WITH AUTO DIFFERENTIAL STAT 03/23/2024 3:39 AM ELECTRIC METER INSTALLER EGFR STAT 03/19/2024 6:42 PM ELECTRIC METER INSTALLER DIFFERENTIAL AUTO STAT 03/19/2024 6:4 2 PM ELECTRIC METER INSTALLER HCG, BLOOD, QUANTITATIVE STAT 03/19/2024 6:42 PM ELECTRIC METER INSTALLER COMPREHENSIVE METABOLIC PANEL STAT 03/19/2024 6:42 PM ELECTRIC METER INSTALLER CBC WITH AUTO DIFFERENTIAL STAT 03/19/2024 6:42 PM ELECTRIC METER INSTALLER from Last 3 Months Results * eGFR (03/23/2024 5:18 AM ELECTRIC METER INSTALLER) [facility] eGFR >90 >=60 mL/min/1. 73 m2 Comment: [...] last reviewed 2021. Blood 03/23/2024 5:18 AM ELECTRIC METER INSTALLER 03/23/2024 5:25 AM ELECTRIC METER INSTALLER Sonya SANCHEZ LAB BLOOD ORDERABLES Final Resul t Performing Organization Address [facility] de Phone Number [address] [address] * ABO / Rh Confirmation Testing (03/23/2024 5:18 AM ELECTRIC METER INSTALLER) Pathologist [facility] ABO/Rh Confirmation O Positive [facility] Blood 03/23/2024 5:18 AM ELECTRIC METER INSTALLER 03/23/2024 5:26 AM ELECTRIC METER INSTALLER Roe Montgomery MD LAB BLOOD ORDERABLES Final Result Performing Organization Address [facility] de Phone Number [address] [address] MHB * Magnesium (03/23/2024 5:18 AM ELECTRIC METER INSTALLER) [facility] Magnesium 1.9 1.4 - 2.5 mg/dL Blood 03/23/2024 5:18 AM ELECTRIC METER INSTALLER 03/23/2024 5:25 AM ELECTRIC METER INSTALLER Sonya SANCHEZ LAB BLOOD ORDERABLES Final Resul t Performing Organization Address [facility] de Phone Number [address] [address] * (ABNORMAL) Basic metabolic panel (03/23/2024 5:18 AM ELECTRIC METER INSTALLER) [facility] Sodium 129(L) 135 - 145 mmol/L Potassium, pl 2.7(L) 3.3 - 4.9 mmol/L [facility] Chloride 94(L) 97 - 110 mmol/L [facility] CO2 22 22 - 32 mmol/L [facility] Anion gap 13 2 - 15 mmol/L [facility] BUN 9 6 - 25 mg/dL [facility] Creatinine 0.69 0.60 - 1.10 mg/dL [facility] Glucose 94 70 - 199 mg/dL [facility] Comment: Interpretive Data Fasting glucose >/= [...] 2022. Calcium 8.3(L) 8.5 - 10.3 mg/dL [facility] Blood 03/23/2024 5:18 AM ELECTRIC METER INSTALLER 03/23/2024 5:25 AM ELECTRIC METER INSTALLER us Sonya SANCHEZ LAB BLOOD ORDERABLES Final Resul t [facility] [address] [facility] Department [place] [address] * eGFR (03/23/2024 3:39 AM ELECTRIC METER INSTALLER) eGFR >90 >=60 mL/min/1. 73 m2 Comment: [...] last reviewed 2021. Blood 03/23/2024 3:39 AM ELECTRIC METER INSTALLER 03/23/2024 4:04 AM ELECTRIC METER INSTALLER us Roe Montgomery MD LAB BLOOD ORDERABLES Final Result [place] [id number] [facility] Department [place] [address] * (ABNORMAL) Differential, auto (03/23/2024 3:39 AM ELECTRIC METER INSTALLER) Neutrophil abs 3.7 1.5 - 6.5 K/cumm Imm gran abs 0.1 0.0 - 0.1 K/cumm [facility] Lymphocyte abs 1.9 0.8 - 3.3 K/cumm [facility] Monocyte abs 0.9(H) 0.2 - 0.8 K/cumm [facility] Eosinophil abs 0.0 0.0 - 0.5 K/cumm [facility] Basophil abs 0.1 0.0 - 0.1 K/cumm [facility] Neutrophil pct 55.3 % [facility] Comment: Interpretive Data Percent cell count reference ranges are not reported, since discordance with absolute values may lead to misinterpretation of CBC data. Current Interpretive Data was last revised on 2017. Imm gran pct 0.8 % [facility] Comment: Interpretive Data Percent cell count reference ranges are not reported, since discordance with absolute values may lead to misinterpretation of CBC data. Current Interpretive Data was last revised on 2017. Lymphocyte pct 29.1 % [facility] Comment: Interpretive Data Percent cell count reference ranges are not reported, since discordance with absolute values may lead to misinterpretation of CBC data. Current Interpretive Data was last revised on 2017. Monocyte pct 13.7 % [facility] Comment: Interpretive Data Percent cell count reference ranges are not reported, since discordance with absolute values may lead to misinterpretation of CBC data. Current Interpretive Data was last revised on 2017. Eosinophil pct 0.3 % [facility] Comment: Interpretive Data Percent cell count reference ranges are not reported, since discordance with absolute values may lead to misinterpretation of CBC data. Current Interpretive Data was last revised on 2017. Basophil pct 0.8 % [facility] Comment: Interpretive Data Percent cell count reference ranges are not reported, since discordance with absolute values may lead to misinterpretation of CBC data. Current Interpretive Data was last revised on 2017. Blood 03/23/2024 3:39 AM ELECTRIC METER INSTALLER 03/23/2024 4:04 AM ELECTRIC METER INSTALLER us Roe Montgomery MD LAB BLOOD ORDERABLES Final Result [facility] [address] [facility] Department [place] [address] * (ABNORMAL) CBC with auto differential (03/23/2024 3:39 AM ELECTRIC METER INSTALLER) WBC 6.6 3.8 - 9.9 K/cumm Hgb 13.5 11.9 - 15.5 g/dL [facility] Hct 38.4 35.6 - 45.5 % [facility] Plt 255 150 - 400 K/cumm [facility] MPV 11.8 9.1 - 12.3 fL [facility] RBC 4.85 3.90 - 5.20 M/cumm [facility] MCV 79.2(L) 81.3 - 96.4 fL [facility] MCH 27.8 27.1 - 33.3 pg [facility] MCHC 35.2 32.3 - 35.7 g/dL [facility] RDW CV 11.9 11.1 - 14.9 % [facility] RDW SD 34.0(L) 35.7 - 48.1 fL [facility] NRBC abs 0.00 0.00 - 0.01 K/cumm [facility] Blood 03/23/2024 3:39 AM ELECTRIC METER INSTALLER 03/23/2024 4:04 AM ELECTRIC METER INSTALLER Roe Montgomery MD LAB BLOOD ORDERABLES Final Result Performing Organization Address [facility] Co de Phone Number [address] [address] * ABO/Rh (03/23/2024 3:39 AM ELECTRIC METER INSTALLER) Pathologist [facility] ABO/Rh O Positive Blood 03/23/2024 3:39 AM ELECTRIC METER INSTALLER 03/23/2024 4:03 AM ELECTRIC METER INSTALLER Narrative [facility] - 03/23/2024 4:40 AM ELECTRIC METER INSTALLER Has the patient had Daratumumab or Isatuximab in the past 6 months?->Unknown Roe Montgomery MD LAB BLOOD BANK TEST ORDERAB LES Final Result Performing Organization Address [facility] de Phone Number [address] [address] * Antibody screen (03/23/2024 3:39 AM ELECTRIC METER INSTALLER) Pathologist [facility] Bruce, indirect, Gel Interpretation Negative ABSC Blood 03/23/2024 3:39 AM ELECTRIC METER INSTALLER 03/23/2024 4:03 AM ELECTRIC METER INSTALLER Narrative [facility] - 03/23/2024 4:40 AM ELECTRIC METER INSTALLER Has the patient had Daratumumab or Isatuximab in the past 6 months?->Unknown Roe Montgomery MD LAB BLOOD BANK TEST ORDERAB LES Final Result Performing Organization Address [facility] de Phone Number [address] [address] * (ABNORMAL) Comprehensive metabolic panel (03/23/2024 3:39 AM ELECTRIC METER INSTALLER) [facility] Sodium 125(L) 135 - 145 mmol/L Potassium, pl 2.6(L) 3.3 - 4.9 mmol/L [facility] Chloride 88(L) 97 - 110 mmol/L [facility] CO2 22 22 - 32 mmol/L [facility] Anion gap 15 2 - 15 mmol/L [facility] BUN 9 6 - 25 mg/dL [facility] Creatinine 0.74 0.60 - 1.10 mg/dL [facility] Glucose 128 70 - 199 mg/dL [facility] Comment: Interpretive Data Fasting glucose >/= [...] 2022. Calcium 9.7 8.5 - 10.3 mg/dL [facility] Bilirubin, total 1.6(H) 0.1 - 1.2 mg/dL [facility] Protein, pl 7.3 6.5 - 8.5 g/dL [facility] Albumin 4.3 3.5 - 5.0 g/dL [facility] Alk phos 68 40 - 130 Units/L [facility] ALT 55(H) 7 - 45 Units/L [facility] AST 35 10 - 45 Units/L [facility] Blood 03/23/2024 3:39 AM ELECTRIC METER INSTALLER 03/23/2024 4:04 AM ELECTRIC METER INSTALLER us Roe Montgomery MD LAB BLOOD ORDERABLES Final Result [facility] [address] [facility] Department [place] [address] * eGFR (03/19/2024 6:42 PM ELECTRIC METER INSTALLER) eGFR >90 >=60 mL/min/1. 73 m2 Comment: [...] was last reviewed 2021. Testing performed by: [address] [address] Blood 03/19/2024 6:42 PM ELECTRIC METER INSTALLER 03/19/2024 6:47 PM ELECTRIC METER INSTALLER us Jonas Downing NP LAB BLOOD ORDERABLES Final Resul t [facility] [address] [facility] Department [place] [address] * (ABNORMAL) Differential, auto (03/19/2024 6:42 PM ELECTRIC METER INSTALLER) Neutrophil abs 6.0 1.5 - 6.5 K/cumm Comment:Testing performed by : [address] [address] Imm gran abs 0.0 0.0 - 0.1 K/cumm EMIR Comment:Testing performed by : [address] [address] Lymphocyte abs 2.5 0.8 - 3.3 K/cumm EMIR Comment:Testing performed by : [address] [address] Monocyte abs 0.9(H) 0.2 - 0.8 K/cumm [facility] Comment:Testing performed by : [address] [address] Eosinophil abs 0.0 0.0 - 0.5 K/cumm [facility] Comment:Testing performed by : [address] [address] Basophil abs 0.1 0.0 - 0.1 K/cumm [facility] Comment:Testing performed by : [address] [address] Neutrophil pct 62.9 % [facility] Comment: Interpretive Data Percent cell count reference ranges are not reported, since discordance with absolute values may lead to misinterpretation of CBC data. Current Interpretive Data was last revised on 2017. Testing performed by: [address] [address] Imm gran pct 0.4 % [facility] Comment: Interpretive Data Percent cell count reference ranges are not reported, since discordance with absolute values may lead to misinterpretation of CBC data. Current Interpretive Data was last revised on 2017. Testing performed by: [address] [address] Lymphocyte pct 26.0 % [facility] Comment: Interpretive Data Percent cell count reference ranges are not reported, since discordance with absolute values may lead to misinterpretation of CBC data. Current Interpretive Data was last revised on 2017. Testing performed by: [address] [address] Monocyte pct 9.6 % [facility] Comment: Interpretive Data Percent cell count reference ranges are not reported, since discordance with absolute values may lead to misinterpretation of CBC data. Current Interpretive Data was last revised on 2017. Testing performed by: [address] [address] Eosinophil pct 0.3 % [facility] Comment: Interpretive Data Percent cell count reference ranges are not reported, since discordance with absolute values may lead to misinterpretation of CBC data. Current Interpretive Data was last revised on 2017. Testing performed by: [address] [address] Basophil pct 0.8 % [facility]ONG Comment: Interpretive Data Percent cell count reference ranges are not reported, since discordance with absolute values may lead to misinterpretation of CBC data. Current Interpretive Data was last revised on 2017. Testing performed by: [address] [address] Blood 03/19/2024 6:42 PM ELECTRIC METER INSTALLER 03/19/2024 6:47 PM ELECTRIC METER INSTALLER us Jonas Downing NP LAB BLOOD ORDERABLES Final Resul t [facility]IR [facility] Department [place] [address] * (ABNORMAL) CBC with auto differential (03/19/2024 6:42 PM ELECTRIC METER INSTALLER) WBC 9.5 3.8 - 9.9 K/cumm Comment:Testing performed by : [address] [address] Hgb 15.2 11.9 - 15.5 g/dL EMIR CHONG Comment:Testing performed by : [address] [address] Hct 43.6 35.6 - 45.5 % EMIR CHONG Comment:Testing performed by : [address] [address] Plt 322 150 - 400 K/cumm EMIR CHONG Comment:Testing performed by : [address] [address] MPV 11.0 9.1 - 12.3 fL EMIR CHONG Comment:Testing performed by : [address] [address] RBC 5.43(H) 3.90 - 5.20 M/cumm EMIR CHONG Comment:Testing performed by : [address] [address] MCV 80.3(L) 81.3 - 96.4 fL EMIR CHONG Comment:Testing performed by : [address] [address] MCH 28.0 27.1 - 33.3 pg EMIR CHONG Comment:Testing performed by : [address] [address] MCHC 34.9 32.3 - 35.7 g/dL EMIR CHONG Comment:Testing performed by : [address] [address] RDW CV 12.6 11.1 - 14.9 % EMIR CHONG Comment:Testing performed by : [address] [address] RDW SD 35.8 35.7 - 48.1 fL EMIR CHONG Comment:Testing performed by : [address] [address] NRBC abs 0.00 0.00 - 0.01 K/cumm EMIR CHONG Comment:Testing performed by : [address] [address] Blood 03/19/2024 6:42 PM ELECTRIC METER INSTALLER 03/19/2024 6:47 PM ELECTRIC METER INSTALLER us Jonas Downing NP LAB BLOOD ORDERABLES Final Resul t [facility] [address] [facility] Department [place] [address] * (ABNORMAL) hCG, blood, quantitative (03/19/2024 6:42 PM ELECTRIC METER INSTALLER) [facility] hCG, quant 56,680.0( H) 0.0 - 5.0 IUnits/L Comment: Interpretive Data Male: < 5 IU/L Non- premenopausal Female: <5 IU/L The Yannick hCG Beta Quant assay procedure was used. Results from different manufacturers or methods may not be comparable. ??Serial testing should be performed using the same method. Interpretive Data was last revised on 2023 Testing performed by: [address] [address] Blood 03/19/2024 6:42 PM ELECTRIC METER INSTALLER 03/19/2024 6:47 PM ELECTRIC METER INSTALLER us Jonas Downing NP LAB BLOOD ORDERABLES Final Resul t [facility] [address] [facility] Department [place] [address] * (ABNORMAL) Comprehensive metabolic panel (03/19/2024 6:42 PM ELECTRIC METER INSTALLER) Sodium 131(L) 135 - 145 mmol/L Comment:Testing performed by : [address] [address] Potassium, pl 3.0(L) 3.3 - 4.9 mmol/L EMIR Comment:Testing performed by : [address] [address] Chloride 94(L) 97 - 110 mmol/L EMIR Comment:Testing performed by : [address] [address] CO2 21(L) 22 - 32 mmol/L EMIR Comment:Testing performed by : [address] [address] Anion gap 16(H) 2 - 15 mmol/L EMIR Comment:Testing performed by : [address] [address] BUN 14 6 - 25 mg/dL EMIR Comment:Testing performed by : [address] [address] Creatinine 0.70 0.60 - 1.10 mg/dL EMIR Comment:Testing performed by : [address] [address] Glucose 108 70 - 199 mg/dL EMIR Comment: Interpretive Data Fasting glucose >/= 126 [...] was last revised 2022. Testing performed by: [facility], [address] [place] [address]., [address] Calcium 10.4(H) 8.5 - 10.3 mg/dL EMIR Comment:Testing performed by : [address] [address] Bilirubin, total 1.4(H) 0.1 - 1.2 mg/dL EMIR Comment:Testing performed by : [address] [address] Protein, pl 8.4 6.5 - 8.5 g/dL EMIR Comment:Testing performed by : [address] [address] Albumin 4.8 3.5 - 5.0 g/dL EMIR Comment:Testing performed by : [address] [address] Alk phos 72 40 - 130 Units/L EMIR Comment:Testing performed by : [address] [address] ALT 20 7 - 45 Units/L EMIR Comment:Testing performed by : [address] [address] AST 21 10 - 45 Units/L EMIR Comment:Testing performed by : [address] [address] Blood 03/19/2024 6:42 PM ELECTRIC METER INSTALLER 03/19/2024 6:47 PM ELECTRIC METER INSTALLER us Jonas Downing NP LAB BLOOD ORDERABLES Final Resul t [facility] [address] [facility] Department [place] [address] from Last 3 [place] [address] [place] [facility] [place] AET[place] BETTER [facility] Care Teams Filter Press Tender Relationship Specialty Start Date End Date No, Physician PCP - General 06/06/23
--- OUTSIDE RECORDS SUMMARY | 2024-03-24 00:24 | XMS_ITS | Referral Summary ---
Author Organization [facility] Address [address] [place] [address] Care Team Providers Care Publicity Agent Name Role Phone Abhijit Solis MD Primary Care Provider [phone] Source Comments [facility],non-owned Affiliates and Associated Physician Practices is amultiple site organization consisting of ambulatory clinics and hospital sitesin [place], [place], [place] and [place]. This disclosure is being madepursuant to the Care Everywhere program and may not contain all information available regarding this patient. Last updated 17.[facility] Encounters Date Type Department Care Team Description 03/19/2024 Travel 03/19/2024 7:11 PM WET TRIMMER - 03/19/2024 8:05 PM [facility] Emergency [facility] [address] [place] [id number] Discharge Disposition: Left Against Medical Advice/Discontinued Care from Last 3 Months Allergies No known active allergies Medications * Be aware that medications may not be up to date on this document. Alwaysverify current medications with the patient. Medication Sig Dispensed Refills Start Date End Date Status hydrocodone-acetaminop hen (NORCO) 5-325 MG tablet Take 1 Tab by mouth every 8 hours as needed for Pain. 10 Tab 0 10/04/2012 Active Social History Tobacco Use Types Packs/Day Years Used Date Smoking Tobacco: Never Smokeless Tobacco: Never Tobacco Cessation:Counseling Given: Not Answered Alcohol Use Standard Drinks/Week Comments Not Currently 0 (1 standard drink = 0.6 oz pur e alcohol) Sex and Gender Information Value Date Recorded Sex Assigned at Not on file Gender Identity Not on file Sexual Orientation Not on file Last Filed Vital Signs Vital Sign Reading Time Taken Comments Blood Pressure 118/86 03/19/2024 2:38 PM WET TRIMMER Pulse 100 03/19/2024 2:38 PM WET TRIMMER Temperature 37.2 ??C (99 ??F) 03/19/2024 2:38 PM WET TRIMMER Respiratory Rate 18 03/19/2024 2:38 PM WET TRIMMER Oxygen Saturation 97% 03/19/2024 2:38 PM WET TRIMMER Inhaled Oxygen Concentration - - Weight 59 kg (130 lb) 03/19/2024 2:38 PM WET TRIMMER Height 160 cm (5' 3 ) 03/19/2024 2:38 PM WET TRIMMER Body Mass Index 23.03 03/19/2024 2:38 PM WET TRIMMER Plan of Treatment Not on file Care Teams Publicity Agent Relationship Specialty Start Date End Date Abhijit Solis MD PCP - General 10/04/12
--- OUTSIDE RECORDS SUMMARY | 2024-03-24 00:24 | XMS_ITS | Encounter Summary ---
Author Organization [facility] Healthcare Address [address] [place] [address] Care Team Providers Care Wood Filler Name Role Phone No, Physician Primary Care Provider [phone] Reason for Referral * Diagnostic Imaging (Routine) - Authorized Specialty Diagnoses / Procedures Referred By Contac t Referred To Contact Diagnoses Less than 8 weeks gestation of Procedures US Ob Limited Lisa Walker MD [address] [address] Phone: tel: fax: [address] [phone] Referral ID Status Reason Start Date Expiration Date V isits Requested Visits Authorized [id number] Authorized 09/11/2023 10/10/2024 1 1 Reason for Visit * Reason Comments Abdominal Pain Problem Encounter Details Date Type Department Care Team (Late st Contact Info) Description 09/11/2023 4:17 PM CDT - 09/11/2023 8:56 PM CDT Emergency [facility] Emergency Department [address] [place] [id number] Abdominal pain (Primary Dx); Less than 8 weeks gestation of Discharge Disposition: Discharge to home or self care Social History Tobacco Use Types Packs/Day Years Used Date Smoking Tobacco: Never Alcohol Use Standard Drinks/Week Comments Never 0 (1 standard drink = 0.6 oz pur e alcohol) Personal Safety Answer Date Recorded Have you ever been in or are you currently in a harmful physical or emotional relationship or is someone making you feel afraid or unsafe? 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 Gender Identity Not on file Sexual Orientation Not on file documented as of this encounter Last Filed Vital Signs Vital Sign Reading Time Taken Comments Blood Pressure 139/86 09/11/2023 8:30 PM CDT Pulse 90 09/11/2023 8:30 PM CDT Temperature 36.8 ??C (98.3 ??F) 09/11/2023 6:00 PM CD T Respiratory Rate 18 09/11/2023 8:30 PM CDT Oxygen Saturation 97% 09/11/2023 8:30 PM CDT Inhaled Oxygen Concentration - - Weight 66.7 kg (147 lb) 09/11/2023 2:48 PM CDT Height 160 cm (5' 3 ) 09/11/2023 2:48 PM CDT Body Mass Index 26.04 09/11/2023 2:48 PM CDT documented in this encounter Discharge Instructions * Discharge Instructions* Jonas Downing NP - 09/11/2023 8:41 PM CDT Take these medicines prescribed, follow up with OBGYN as was instructed to you, return to ED immediately for any worsening symptoms. documented in this encounter Medications at Time of Discharge doxylamine (UNISOM) 25 mg tablet Take 1 tablet (25 mg total) by mouth nightly as needed for sleep 15 tablet 09/11/2023 pyridoxine (VITAMIN B6) 25 mg tablet Take 1 tablet (25 mg total) by mouth every 6 (six) hours as needed (nausea) 15 tablet 09/11/2023 documented as of this encounter Ordered Prescriptions Prescription Sig Dispense Quantity Refills Last Filled Start Date End Date pyridoxine (VITAMIN B6) 25 mg tablet Take 1 tablet (25 mg total) by mouth every 6 (six) hours as needed (nausea) 15 tablet 09/11/2023 doxylamine (UNISOM) 25 mg tablet Take 1 tablet (25 mg total) by mouth nightly as needed for sleep 15 tablet 09/11/2023 documented in this encounter Discharge Disposition Disposition Code Departure Means Destination Comment s Discharge to home or self care documented in this encounter Consult Notes * Lisa Walker MD - 09/11/2023 6:24 PM CDTAssociated Order(s): IP CONSULT TO COMMUNITY SERVICE OFFICER COORDINATOR Images from the original note were not included. [facility] CONSULT NOTE Bed: [facility] ED3-03/ED3-03 Pelvic bed: Yes Reason for consult: r/o ectopic CC: c/f ectopic HPI: 28 y.o. patient at 5w3d by LMP p/w LLQ, nausea, and + test. ED provider examwith e/o yeast infection, no CMT. Vitals WNL. Hb 13.6. HCG ~45,000. Meena reports unintentional and undesired . Has LLQ pain since yesterday evening. Nausea has been significant over the past week. Improved with reglan in the ED. Has tolerated some PO intake. Denies vaginal bleeding, fevers, chills, SOB. Of note, she was seen in OSH ED on 08/17 for pelvic pain. UPT was negative at that time. She had STItesting that resulted negative. Left prior to being see. Medical History none Surgical History No PSH Obstetric History Gynecologic History Cycles: regular Contraception: none Prior STIs: gonorrhea,s/p treatment Most recent pap: reports abnormal one year ago Past Medical History: Diagnosis Date 1 para 1 Past Surgical History: Procedure Laterality Date NO PAST SURGERIES OB History 2 Para 1 Term 1 AB Living 1 SAB IAB Ectopic Multiple Live Births No current facility-administered medications for this encounter. No current outpatient medications on file. Allergies as of 09/11/2023 - Reviewed 09/11/2023 Allergen Reaction Noted Other Rash 05/16/2016 Ibuprofen Hives 08/27/2020 Latex Hives 05/11/2021 No family history on file. Social History Tobacco Use Smoking status: Never Smokeless tobacco: None Substance and Sexual Activity Alcohol use: Never Drug use: Never Sexual activity: Defer Labs: Labs Reviewed COMPREHENSIVE METABOLIC PANEL - Abnormal Result Value Sodium 135 Potassium, pl 3.3 Chloride 97 CO2 21 (*) Anion gap 17 (*) BUN 12 Creatinine 0.81 Glucose 80 Calcium 9.8 Bilirubin, total 1.0 Protein, pl 8.5 Albumin 5.1 (*) Alk phos 68 ALT 14 AST 17 HCG, BLOOD, QUANTITATIVE - Abnormal hCG, quant 44,938.0 (*) DIFFERENTIAL AUTO - Abnormal Neutrophil abs 5.2 Imm gran abs 0.0 Lymphocyte abs 2.5 Monocyte abs 0.9 (*) Eosinophil abs 0.0 Basophil abs 0.1 Neutrophil pct 59.5 Imm gran pct 0.5 Lymphocyte pct 29.0 Monocyte pct 9.9 Eosinophil pct 0.5 Basophil pct 0.6 POCT HCG, URINE - Abnormal HCG, ur, POC Positive (*) Lot Number [id number] QC Backgroud Clear Acceptable QC Control Line Acceptable URINALYSIS AND REFLEX TO MICROSCOPIC AND CULTURE N. GONORRHOEAE/C. TRACHOMATIS AMPLIFICATION TRICHOMONAS VAGINALIS PCR CBC WITH AUTO DIFFERENTIAL WBC 8.7 Hgb 13.6 Hct 41.1 Plt 272 MPV 11.4 RBC 4.88 MCV 84.2 MCH 27.9 MCHC 33.1 RDW CV 13.2 RDW SD 40.6 NRBC abs 0.00 LIPASE Lipase 18 EGFR eGFR >90 Imaging: BSUS: Uploaded to [facility] Intrauterine gestational sac seen: yes Gestational sac summary: yolk sac seen Right adnexa: irregular CL cyst in right adnexa Left adnexa: visualized and normal Fluid in Cul-de-sac: none Right adnexa w/ CL Physical exam: Temp: [36.8 ??C (98.2 ??F)-36.8 ??C (98.3 ??F)] 36.8 ??C (98.3 ??F) Pulse: [75-103] 87 Resp: [16-20] 18 BP: (104-123)/(72-85) 104/85 General: appears uncomfortable Pulmonary: non-labored and clear to ausculation bilaterally Cardiovascular: Regular rate and rhythm Abdomen: TTP suprapubic and LLQ, soft, nondistended, no rebound or guarding. Extremities: Warm and well perfused GENITAL EXAM: External: normal appearing Vagina: normal appearing vaginal mucosa, normal physiologic discharge Cervix: normal appearing cervix A/P: 28 y.o. p/w LLQ and IUP. #Early -GS with YS, no FP. RO ovary with what appears to be irregular corpus luteum, normal LO. - Hb 13.6, vitals wnl - Recommend formal US if she would like to continue . Will task for our clinic follow up with her - is currently undesired. Offered [place] Booklet and provided information on termination services #N/v of : -No signs or symptoms of infection, afebrile with normal WBC. -Agree w IVF, PRN anti-emetics per ED, please use reglan or compazine ats first line over zofran. -Please po challenge patient. If passes po challenge, dispo w rx for Pyridoxine 25mg po q6h PRN, Doxylamine 12.5mg po nightly #LLQ - Does not appear to be Plastic Top Assembler in origin. Consider r/o or GI etiologies. Patient number: See Epic demographics Discussed with Dr. Almanzar 09/11/23 Lisa Walker MD OBGYN PGY3 Cosigned by Corrie Almanzar MD at 09/12/2023 7:00 PM CDT Associated attestation - Corrie Almanzar MD - 09/12/2023 7:00 PM CDT The resident/fellow saw and examined the patient, we discussed their findings, and I am in agreement with the plan based on the discussion with the resident/fellow. I did not personally examine the patient. documented in this encounter ED Notes * Ana Galvez PA - 09/11/2023 4:49 PM CDT HPI Chief Complaint Patient presents with Abdominal Pain Problem eMena Muñoz is a 28 y.o. year-old female, with no past medical history, who presents to the ED with concerns for abdominal pain that began earlier today. Patient states that over the last 4 days she has been experiencing ongoing nausea and vomiting. She was seen at an outside hospital ED where she was treated for her symptoms and was told she is . At that time, the patient had negativeSTI testing as well. The patient notes that since leaving that ED, she has continued experiencing the nausea and vomiting; however, earlier today she developed LLQ/pelvic pain. Patient describes the pain as a pressure-like sensation and notes that it does not radiate. The patient denies any fevers, chills, diarrhea, chest pain, shortness of breath, dysuria, hematuria, or vaginal bleeding. LMP 08/02 History provided by: Patient and medical records Patient History: There are no problems to display for this patient. Past Medical History: Diagnosis Date 1 para 1 Past Surgical History: Procedure Laterality Date NO PAST SURGERIES No family history on file. Social History Tobacco Use Smoking status: Never Smokeless tobacco: None Substance and Sexual Activity Alcohol use: Never Drug use: Never Sexual activity: Defer Social History Social History Narrative Not on file Review of Systems Review of Systems Constitutional: Negative for chills and fever. HENT: Negative for ear pain and sore throat. Eyes: Negative for pain and visual disturbance. Respiratory: Negative for cough and shortness of breath. Cardiovascular: Negative for chest pain and palpitations. Gastrointestinal: Positive for abdominal pain, nausea and vomiting. Genitourinary: Positive for pelvic pain. Negative for dysuria and hematuria. Musculoskeletal: Negative for arthralgias and back pain. Skin: Negative for color change and rash. Neurological: Negative for syncope and light-headedness. All other systems reviewed and are negative. Physical Exam ED Triage Vitals [09/11/23 1448] Temp Pulse Resp BP SpO2 36.8 ??C (98.2 ??F) 103 20 123/78 100 % Temp src Heart Rate Source Patient Position BP Location FiO2 (%) Oral -- -- -- -- Height Height Method Weight Weight Method 1.6 m (5' 3 ) Stated 66.7 kg (147 lb) Stated Physical Exam Vitals and nursing note reviewed. Exam conducted with a roentgenologist present. Constitutional: General: She is not in acute distress. Appearance: She is well-developed. HENT: Head: Normocephalic and atraumatic. Mouth/Throat: Mouth: Mucous membranes are dry. Eyes: Conjunctiva/sclera: Conjunctivae normal. Cardiovascular: Rate and Rhythm: Normal rate and regular rhythm. Heart sounds: No murmur heard. Pulmonary: Effort: Pulmonary effort is normal. No respiratory distress. Breath sounds: Normal breath sounds. No decreased breath sounds, wheezing, rhonchi or rales. Abdominal: Palpations: Abdomen is soft. Tenderness: There is abdominal tenderness (mild) in the left lower quadrant. Genitourinary: General: Normal vulva. Cervix: Normal. No cervical motion tenderness, friability, lesion, erythema or cervical bleeding. Comments: No CMT. Moderate amount of white discharge in the vaginal canal. Musculoskeletal: General: No swelling. Cervical back: Neck supple. Skin: General: Skin is warm and dry. Capillary Refill: Capillary refill takes less than 2 seconds. Neurological: Mental Status: She is alert. Psychiatric: Mood and Affect: Mood normal. [facility] Medical Decision Making Patient is a 28 y.o. female with no past medical history, who presents to the ED with concerns for abdominal pain that began earlier today. Confirmed . No vaginal bleeding PEx as above. Non-toxic appearing. Vital signs stable. No hypoxia or tachypnea. No airway compromise or respiratory distress. Afebrile. Pt resting comfortably here in the ED. DDx: ectopic , PID, UTI, diverticulitis Plan: basic labs, UA, HCG, fluids, antiemetics, and OBGYN consult Dispo: pending workup and OBGYN recommendation Amount and/or Complexity of Data Reviewed External Data Reviewed: notes. Details: 08/17 - OSH ED visit Labs: ordered. Decision-making details documented in ED Course. Discussion of management or test interpretation with external provider(s): OBGYN Risk Prescription drug management. ED Course as of 09/11/23 2135 Time: 09/10 1641 Comment: Negative hCG on 08/17 at OSH. LMP 08/02 By: Ana Galvez PA Time: 09/11 1711 Value: HCG, ur, POC(!): Positive Comment: (Reviewed) By: Ana Galvez PA Time: 09/10 1820 Comment: Consult to OBGYN placed By: Ana Galvez PA Time: 09/10 1825 Comment: Discussed case with OBGYN who will come down and see the patient. By: Ana Galvez PA Time: 09/10 1856 Value: HCG, quant(!): 44,938.0 Comment: (Reviewed) By: Ana Galvez PA Time: 09/10 1899 Comment: Patient care signed out at shift change. Dispo pending OBGYN evaluation and treatment By: Ana Galvez PA Final diagnoses: Abdominal pain Ana Galvez PA 09/11/232137 * Fabiana Weller RN - 09/11/2023 2:43 PM CDT Pt complains of abd pain and vomiting states she feels a lot of pressure states was seen at [facility] 4 days ago and told she was 3 weeks denies nay vaginal bleeding documented in this encounter Miscellaneous Notes * ED Re-evaluation Note - Jonas Downing NP - 09/11/2023 8:41 PM CDT ED Re-evaluation Obtained care from DANIEL Perez. OB resident did ultrasound, notified me that there is no ectopic , she is recommended me medicine for nausea and vomiting that is prescribed to her, explained this to patient, advised to make sure to follow up with her OBGYN for re-evaluation return to ED immediately for any worsening symptoms. She agrees with this plan. Jonas Downing NP 09/11/232043 documented in this encounter Plan of Treatment Scheduled Orders Name Type Priority Associated Diagnoses Order Schedule Urinalysis reflex to microscopic and culture Urine Microbiology STAT STAT for 1 Occurrences starting 09/11/2023 until 09/11/2023 N. gonorrhoeae/C. trachomatis Amplification Urine Microbiology STAT STAT for 1 Occurrences starting 09/11/2023 until 09/11/2023 Trichomonas vaginalis PCR Urine Microbiology Routine Once for 1 Occurrences starting 09/11/2023 until 09/11/2023 Ob Limited Imaging Schedule Routine, Read Routine (OP Routine) Less than 8 weeks gestation of Expected: 09/11/2023, Expires: 09/10/2024 documented as of this encounter Procedures Procedure Name Priority Date/Time Associated Diagnosis Comments EGFR STAT 09/11/2023 5:51 PM CDT DIFFERENTIAL AUTO STAT 09/11/2023 5:5 1 PM CDT CBC WITH AUTO DIFFERENTIAL STAT 09/11/2023 5:51 PM CDT HCG, BLOOD, QUANTITATIVE STAT 09/11/2023 5:51 PM CDT LIPASE STAT 09/11/2023 5:51 PM CDT COMPREHENSIVE METABOLIC PANEL STAT 09/11/2023 5:51 PM CDT POCT HCG, URINE Routine 09/11/2023 5:01 PM CDT documented in this encounter Results * eGFR (09/11/2023 5:51 PM CDT) eGFR >90 >=60 mL/min/1. 73 m2 Comment: [...] of Race in Diagnosing Kidney Disease, JASN 202). The CKD-EPI equation should not be used for patients with unstable renal function and has not been validated in children and those over 70. Current interpretive data was last reviewed 2021. Blood 09/11/2023 5:51 PM CDT 09/11/2023 6:00 PM CDT Ana SANCHEZ LAB BLOOD ORDERABLES Final Result [facility] Department [place] [address] * (ABNORMAL) Differential, auto (09/11/2023 5:51 PM CDT) Neutrophil abs 5.2 1.5 - 6.5 K/cumm Imm gran abs 0.0 0.0 - 0.1 K/cumm [facility] Lymphocyte abs 2.5 0.8 - 3.3 K/cumm [facility] Monocyte abs 0.9(H) 0.2 - 0.8 K/cumm [facility] Eosinophil abs 0.0 0.0 - 0.5 K/cumm [facility] Basophil abs 0.1 0.0 - 0.1 K/cumm [facility] Neutrophil pct 59.5 % [facility] Comment: Interpretive Data Percent cell count reference ranges are not reported, since discordance with absolute values may lead to misinterpretation of CBC data. Current Interpretive Data was last revised on 2017. Imm gran pct 0.5 % [facility] Comment: Interpretive Data Percent cell count reference ranges are not reported, since discordance with absolute values may lead to misinterpretation of CBC data. Current Interpretive Data was last revised on 2017. Lymphocyte pct 29.0 % [facility] Comment: Interpretive Data Percent cell count reference ranges are not reported, since discordance with absolute values may lead to misinterpretation of CBC data. Current Interpretive Data was last revised on 2017. Monocyte pct 9.9 % [facility] Comment: Interpretive Data Percent cell count reference ranges are not reported, since discordance with absolute values may lead to misinterpretation of CBC data. Current Interpretive Data was last revised on 2017. Eosinophil pct 0.5 % [facility] Comment: Interpretive Data Percent cell count reference ranges are not reported, since discordance with absolute values may lead to misinterpretation of CBC data. Current Interpretive Data was last revised on 2017. Basophil pct 0.6 % [facility] Comment: Interpretive Data Percent cell count reference ranges are not reported, since discordance with absolute values may lead to misinterpretation of CBC data. Current Interpretive Data was last revised on 2017. Blood 09/11/2023 5:51 PM CDT 09/11/2023 6:00 PM CDT Ana SANCHEZ LAB BLOOD ORDERABLES Final Result Performing Organization Address [facility] Phone Number [facility] [place] [address] * Lipase (09/11/2023 5:51 PM CDT) Lipase 18 10 - 99 Units/L Blood 09/11/2023 5:51 PM CDT 09/11/2023 6:00 PM CDT Ana Galvez [place] LAB BLOOD ORDERABLES Final Result Performing Organization Address [facility] Phone Number [facility] [employer] [place] [address] * (ABNORMAL) hCG, blood, quantitative (09/11/2023 5:51 PM CDT) hCG, quant 44,938.0( H) 0.0 - 5.0 IUnits/L Comment: Interpretive Data Male: < 5 IU/L Non- premenopausal Female: <5 IU/L The Yannick hCG Beta Quant assay procedure was used. Results from different manufacturers or methods may not be comparable. ??Serial testing should be performed using the same method. Interpretive Data was last revised on 2023 Blood 09/11/2023 5:51 PM CDT 09/11/2023 6:00 PM CDT Ana Galvez [place] LAB BLOOD ORDERABLES Final Result Performing Organization Address [facility] de Phone Number [facility] [employer] [place] [address] * (ABNORMAL) Comprehensive metabolic panel (09/11/2023 5:51 PM CDT) Sodium 135 135 - 145 mmol/L Potassium, pl 3.3 3.3 - 4.9 mmol/L [facility] Chloride 97 97 - 110 mmol/L [facility] CO2 21(L) 22 - 32 mmol/L [facility] Anion gap 17(H) 2 - 15 mmol/L [facility] BUN 12 6 - 25 mg/dL [facility] Creatinine 0.81 0.60 - 1.10 mg/dL [facility] Glucose 80 70 - 199 mg/dL [facility] Comment: Interpretive Data Fasting glucose >/= 126 [...] classification and Diagnosis of Diabetes Diabetes Care 2021; 46: S19-S40. Current interpretive data was last revised 2022. Calcium 9.8 8.5 - 10.3 mg/dL [facility] Bilirubin, total 1.0 0.1 - 1.2 mg/dL [facility] Protein, pl 8.5 6.5 - 8.5 g/dL [facility] Albumin 5.1(H) 3.5 - 5.0 g/dL [facility] Alk phos 68 40 - 130 Units/L [facility] ALT 14 7 - 45 Units/L [facility] AST 17 10 - 45 Units/L [facility] Blood 09/11/2023 5:51 PM CDT 09/11/2023 6:00 PM CDT us Ana SANCHEZ LAB BLOOD ORDERABLES Final Result [facility] Department [place] [address] * CBC with auto differential (09/11/2023 5:51 PM CDT) [facility] WBC 8.7 3.8 - 9.9 K/cumm Hgb 13.6 11.9 - 15.5 g/dL [facility] Hct 41.1 35.6 - 45.5 % [facility] Plt 272 150 - 400 K/cumm [facility] MPV 11.4 9.1 - 12.3 fL [facility] RBC 4.88 3.90 - 5.20 M/cumm [facility] MCV 84.2 81.3 - 96.4 fL [facility] MCH 27.9 27.1 - 33.3 pg [facility] MCHC 33.1 32.3 - 35.7 g/dL [facility] RDW CV 13.2 11.1 - 14.9 % [facility] RDW SD 40.6 35.7 - 48.1 fL [facility] NRBC abs 0.00 0.00 - 0.01 K/cumm [facility] Blood 09/11/2023 5:51 PM CDT 09/11/2023 6:00 PM CDT Ana SANCHEZ LAB BLOOD ORDERABLES Final Result [facility] Department [place] [address] * (ABNORMAL) POCT hCG, urine (09/11/2023 5:01 PM CDT) [facility] HCG, ur, POC Positive(A) Negative Lot Number [id number] QC Backgroud Clear Acceptable QC Control Line Acceptable Urine 09/11/2023 5:01 PM CDT Ana SANCHEZ POINT OF CARE TEST ORDERABL ES Final Result documented in this encounter Visit Diagnoses Diagnosis Abdominal pain- Primary Abdominal pain, unspecified site Less than 8 weeks gestation of documented in this encounter Administered Medications Inactive Administered Medications - up to 3 most recent administrations Medication Order MAR Action Action Date Dose Rate Site metoclopramide (REGLAN) 5 mg/mL injection 10 mg 10 mg, intravenous, Administer over 1 Minutes, Once, On 09/11/23 at 1813, For 1 dose Given 09/11/2023 6:27 PM CDT 10 mg sodium chloride 0.9% bolus 1,000 mL 1,000 mL, intravenous, at 1,000 mL/hr, Administer over 1 Hours, Once, On 09/11/23 at 1758, For 1 dose New Bag 09/11/2023 6:27 PM CDT 1,000 mL 100 0 mL/hr documented in this encounter Active and Recently Administered Medications Times are shown in CDT. Scheduled Medication Order 09/09/2023 09/10/2023 09/11/2023 metoclopramide (REGLAN) 5 mg/mL injection 10 mg (COMPLETED) 10 mg, intravenous, Administer over 1 Minutes, Once, On 09/11/23 at 1813, For 1 dose 1827 (Given - Provid er: Raymond Mackay RN) sodium chloride 0.9% bolus 1,000 mL (COMPLETED) 1,000 mL, intravenous, at 1,000 mL/hr, Administer over 1 Hours, Once, On 09/11/23 at 1758, For 1 dose 1827 (New Bag - Prov ider: Raymond Mackay RN)2028 (Stopped - Provider: Raymond Mackay RN) documented in this encounter Orders Consult Count Last Ordered Date First Orde red Date IP CONSULT TO COMMUNITY SERVICE OFFICER COORDINATOR 1 09/11/2023 documented in this encounter Care Teams Wood Filler Relationship Specialty Start Date End Date No, Physician PCP - General 06/06/23 documented as of this encounter
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
--- OUTSIDE RECORDS SUMMARY | 2024-03-24 00:24 | XMS_ITS | Clinical Summary ---
Author Organization [facility] [employer] Address [address] [place] [address] Care Team Providers Care Paper Cleaner Name Role Phone Abhijit Solis MD Primary Care Provider [phone] Source Comments [facility],non-owned Affiliates and Associated Physician Practices is amultiple site organization consisting of ambulatory clinics and hospital sitesin [place], [place], [place] and [place]. This disclosure is being madepursuant to the Care Everywhere program and may not contain all information available regarding this patient. Last updated 17.[facility] Allergies No known active allergies Medications * Be aware that medications may not be up to date on this document. Alwaysverify current medications with the patient. Medication Sig Dispensed Refills Start Date End Date Status hydrocodone-acetaminop hen (NORCO) 5-325 MG tablet Take 1 Tab by mouth every 8 hours as needed for Pain. 10 Tab 0 10/04/2012 Active Encounters Date Type Department Care Team Description 03/19/2024 7:11 PM PRINTING PRESS MACHINE OPERATOR - 03/19/2024 8:05 PM [facility] Emergency [facility] [address] [place] [address] Discharge Disposition: Left Against Medical Advice/Discontinued Care 03/19/2024 Travel from Last 3 Months Social History Tobacco Use Types Packs/Day Years [...] Comments Blood Pressure 118/86 03/19/2024 2:38 PM PRINTING PRESS MACHINE OPERATOR Pulse 100 03/19/2024 2:38 PM PRINTING PRESS MACHINE OPERATOR Temperature 37.2 ??C (99 ??F) 03/19/2024 2:38 PM PRINTING PRESS MACHINE OPERATOR Respiratory Rate 18 03/19/2024 2:38 PM PRINTING PRESS MACHINE OPERATOR Oxygen Saturation 97% 03/19/2024 2:38 PM PRINTING PRESS MACHINE OPERATOR Inhaled Oxygen Concentration - - Weight 59 kg (130 lb) 03/19/2024 2:38 PM PRINTING PRESS MACHINE OPERATOR Height 160 cm (5' 3 ) 03/19/2024 2:38 PM PRINTING PRESS MACHINE OPERATOR Body Mass Index 23.03 03/19/2024 2:38 PM PRINTING PRESS MACHINE OPERATOR Plan of Treatment Health Maintenance Due Date Last Done Comments PAP SMEAR 1997 HIV SCREENING 02/16/2012 HEPATITIS C SCREENING 02/11/2015 DTAP/TDAP/TD VACCINES (1 - Tdap) 02/16/2016 HEPATITIS B VACCINE (1 of 3 - 19+ 3-dose series) 02/16/2016 COVID-19 VACCINE (2 - 2023-2 5 season) 2023 02/23/2023 INFLUENZA VACCINE (#1) 2023 02/23/2023 DEPRESSION SCREENING 03/21/2024 ZOSTER VACCINE (1 of 2) 2047 HIB VACCINE Aged Out No longer eligi ble based on patient's age to complete this topic HPV VACCINE Aged Out No longer eligi ble based on patient's age to complete this topic MENINGOCOCCAL VACCINE Aged Out No jeremy cindy eligible based on patient's age to complete this topic PNEUMOCOCCAL VACCINE Aged Out No long er eligible based on patient's age to complete this topic Care Teams Paper Cleaner Relationship Specialty Start Date End Date Abhijit Solis MD [facility] - General 10/04/12
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
--- OUTSIDE RECORDS SUMMARY | 2024-03-24 00:24 | XMS_ITS | Encounter Summary ---
Author Organization [facility] Healthcare Address [address] [place] [id number] Care Team Providers Care Communications Executive Name Role Phone No, Physician Primary Care Provider [phone] Reason for Visit * Reason Comments Nausea Vomiting Encounter Details Date Type Department Care Team (Late st Contact Info) Description 09/13/2023 10:53 AM CDT - 09/13/2023 12:53 PM CDT Emergency [facility] Emergency Department [address] [place] [address] Discharge Disposition: Left without being seen Social History Tobacco Use Types Packs/Day Years Used Date Smoking Tobacco: Never Alcohol Use Standard Drinks/Week Comments Never 0 (1 standard drink = 0.6 oz pur e alcohol) Personal Safety Answer Date Recorded Have you ever been in or are you currently in a harmful physical or emotional relationship or is someone making you feel afraid or unsafe? 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 Gender Identity Not on file Sexual Orientation Not on file documented as of this encounter Last Filed Vital Signs Vital Sign Reading Time Taken Comments Blood Pressure 107/74 09/13/2023 10:56 AM CDT Pulse 76 09/13/2023 10:56 AM CDT Temperature 36.8 ??C (98.3 ??F) 09/13/2023 10:56 AM C DT Respiratory Rate 16 09/13/2023 10:56 AM CDT Oxygen Saturation 99% 09/13/2023 10:56 AM CDT Inhaled Oxygen Concentration - - Weight - - Height - - Body Mass Index - - documented in this encounter Medications at Time of Discharge doxylamine (UNISOM) 25 mg tablet Take 1 tablet (25 mg total) by mouth nightly as needed for sleep 15 tablet 09/11/2023 pyridoxine (VITAMIN B6) 25 mg tablet Take 1 tablet (25 mg total) by mouth every 6 (six) hours as needed (nausea) 15 tablet 09/11/2023 documented as of this encounter Discharge Disposition Disposition Code Departure Means Destination Left without being seen documented in this encounter ED Notes * Karley Madsen RN - 09/13/2023 10:57 AM CDT Pt to ED w/ n/v & lower abd pain x1 day. Pt is 5wks 5days , no care set up. Ptalso endorsing yellow vaginal discharge. VSS, NAD documented in this encounter Plan of Treatment Not on file documented as of this encounter Procedures Procedure Name Priority Date/Time Associated Diagnosis Comments EGFR STAT 09/13/2023 11:19 AM CDT DIFFERENTIAL AUTO STAT 09/13/2023 11: 19 AM CDT CBC WITH AUTO DIFFERENTIAL STAT 09/13/2023 11:19 AM CDT LIPASE STAT 09/13/2023 11:19 AM CDT COMPREHENSIVE METABOLIC PANEL STAT 09/13/2023 11:19 AM CDT URINALYSIS AND REFLEX TO MICROSCOPIC STAT 09/13/2023 11:10 AM CDT URINALYSIS, MICROSCOPIC ONLY STAT 09/13/2023 11:10 AM CDT documented in this encounter Results * eGFR (09/13/2023 11:19 AM CDT) eGFR >90 >=60 mL/min/1. 73 m2 [...] interpretive data was last reviewed 2021. Blood 09/13/2023 11:1 9 AM CDT 09/13/2023 11:35 AM CDT us You Prado MD LAB BLOOD ORDERABLES Final Result Performing Organization Address City/State/[facility] Co de Phone Number [facility] [address] [place] [address] * Differential, auto (09/13/2023 11:19 AM CDT) Neutrophil abs 4.5 1.5 - 6.5 K/cumm Imm gran abs 0.0 0.0 - 0.1 K/cumm [facility] Lymphocyte abs 1.8 0.8 - 3.3 K/cumm [facility] Monocyte abs 0.6 0.2 - 0.8 K/cumm [facility] Eosinophil abs 0.0 0.0 - 0.5 K/cumm [facility] Basophil abs 0.1 0.0 - 0.1 K/cumm [facility] Neutrophil pct 64.1 % [facility] Comment: Interpretive Data Percent cell count reference ranges are not reported, since discordance with absolute values may lead to misinterpretation of CBC data. Current Interpretive Data was last revised on 2017. Imm gran pct 0.3 % [facility] Comment: Interpretive Data Percent cell count reference ranges are not reported, since discordance with absolute values may lead to misinterpretation of CBC data. Current Interpretive Data was last revised on 2017. Lymphocyte pct 25.9 % [facility] Comment: Interpretive Data Percent cell count reference ranges are not reported, since discordance with absolute values may lead to misinterpretation of CBC data. Current Interpretive Data was last revised on 2017. Monocyte pct 8.3 % [facility] Comment: Interpretive Data Percent cell count reference ranges are not reported, since discordance with absolute values may lead to misinterpretation of CBC data. Current Interpretive Data was last revised on 2017. Eosinophil pct 0.4 % [facility] Comment: Interpretive Data Percent cell count reference ranges are not reported, since discordance with absolute values may lead to misinterpretation of CBC data. Current Interpretive Data was last revised on 2017. Basophil pct 1.0 % [facility] Comment: Interpretive Data Percent cell count reference ranges are not reported, since discordance with absolute values may lead to misinterpretation of CBC data. Current Interpretive Data was last revised on 2017. Blood 09/13/2023 11:1 9 AM CDT 09/13/2023 11:35 AM CDT us You Prado MD LAB BLOOD ORDERABLES Final Result [facility] [address] [facility] Department [place] [address] * Lipase (09/13/2023 11:19 AM CDT) Lipase 20 10 - 99 Units/L Blood (Blood, Venous) 09/13/2023 11:19 AM CDT 09/13/2023 11:35 AM CDT us You Prado MD LAB BLOOD ORDERABLES Final Result [facility] [address] [facility] [place] [address] * (ABNORMAL) Comprehensive metabolic panel (09/13/2023 11:19 AM CDT) [facility] Sodium 137 135 - 145 mmol/L Potassium, pl 3.5 3.3 - 4.9 mmol/L [facility] Chloride 102 97 - 110 mmol/L [facility] CO2 20(L) 22 - 32 mmol/L [facility] Anion gap 15 2 - 15 mmol/L [facility] BUN 11 6 - 25 mg/dL [facility] Creatinine 0.78 0.60 - 1.10 mg/dL [facility] Glucose 77 70 - 199 mg/dL [facility] Comment: Interpretive Data Fasting glucose >/= [...] 2022. Calcium 9.8 8.5 - 10.3 mg/dL [facility] Bilirubin, total 1.1 0.1 - 1.2 mg/dL [facility] Protein, pl 8.3 6.5 - 8.5 g/dL [facility] Albumin 4.6 3.5 - 5.0 g/dL [facility] Alk phos 64 40 - 130 Units/L [facility] ALT 11 7 - 45 Units/L [facility] AST 20 10 - 45 Units/L [facility] Blood 09/13/2023 11:1 9 AM CDT 09/13/2023 11:35 AM CDT You Prado MD LAB BLOOD ORDERABLES Final Result Performing Organization Address City/[facility]/ZIP Co de Phone Number [facility] [place] [address] * CBC with auto differential (09/13/2023 11:19 AM CDT) Pathologist [facility] WBC 7.0 3.8 - 9.9 K/cumm Hgb 14.2 11.9 - 15.5 g/dL [facility] Hct 42.4 35.6 - 45.5 % [facility] Plt 257 150 - 400 K/cumm [facility] MPV 11.2 9.1 - 12.3 fL [facility] RBC 5.03 3.90 - 5.20 M/cumm [facility] MCV 84.3 81.3 - 96.4 fL [facility] MCH 28.2 27.1 - 33.3 pg [facility] MCHC 33.5 32.3 - 35.7 g/dL [facility] RDW CV 13.3 11.1 - 14.9 % [facility] RDW SD 41.0 35.7 - 48.1 fL [facility] NRBC abs 0.00 0.00 - 0.01 K/cumm [facility] Blood (Blood, Venous) 09/13/2023 11:19 AM CDT 09/13/2023 11:35 AM CDT You Prado MD LAB BLOOD ORDERABLES Final Result Performing Organization Address City/[facility]/ZIP Co de Phone Number [facility] [place] [address] * (ABNORMAL) Urinalysis, microscopic only (09/13/2023 11:10 AM CDT) WBC, ur 6-10(A) 0 - 5 /HPF RBC, ur 0-2 0 - 2 /HPF [facility] Epithelial cells, squamous, ur 6-10(A) 0 - 5 /HPF [facility] Comment:Suggestive of contam ination. Consider recollection by clean catch. Bacteria, ur Trace(A) [facility] Mucous, ur Present(A ) [facility] Urine 09/13/2023 11:1 0 AM CDT 09/13/2023 11:21 AM CDT You Prado MD LAB URINE ORDERABLES Final Result Performing Organization Address City/State/[facility] Co de Phone Number [facility] [address] [place] [address] * (ABNORMAL) Urinalysis reflex to microscopic (09/13/2023 11:10 AM CDT) Color, ur Yellow Yellow Clarity, ur Clear Clear [facility] Specific gravity, ur 1.036(H) 1.003 - 1.030 [facility] pH, urine 6.5 [facility] Comment: Interpretive Data ? Urine pH is affected by diet, medications, systemic acid-base disturbances, and renal tubular function. ??pH may affect urinary stone formation. ??For example, urine pH below 6.0 may help reduce the tendency for calcium phosphate stones and pH greater than 6.0 may reduce the tendency for uric acid stone formation. Source: [facility] Current Interpretive Data was last revised on 2017 Protein, ur ql 1+(A) Negative [facility] Glucose, ur ql Trace(A) Negative [facility] Ketones, ur 4+(A) Negative [facility] Bilirubin, ur Negative Negative [facility] Blood, ur Negative Negative [facility] Urobilinogen, ur 2.0(A) <2.0 mg/dL [facility] Nitrite, ur Negative Negative [facility] Leukocyte esterase, ur 3+(A) Negative [facility] UA reflex comment Reflex to microscopic UA will be performed. [facility] Urine 09/13/2023 11:1 0 AM CDT 09/13/2023 11:21 AM CDT You Prado MD LAB URINE ORDERABLES Final Result [facility] [address] Department [place] [address] documented in this encounter Visit Diagnoses Not on filedocumented in this encounter Active and Recently Administered Medications Orders Medications Ordered That Ja ht Not Have Been Administered Count Last Ordered Date First Ordered Date dextrose 5% and Lactated Ringer's infusion 1 09/13/2023 documented in this encounter Care Teams Communications Executive Relationship Specialty Start Date End Date No, Physician PCP - General 06/06/23 documented as of this encounter
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
--- OUTSIDE RECORDS SUMMARY | 2024-03-24 00:24 | XMS_ITS | Encounter Summary ---
Author Organization [facility] Address [address] [place] [address] Care Team Providers Care It Administrator Name Role Phone Abhijit Solis MD Primary Care Provider [phone] Reason for Visit * Reason Comments Pain Pelvic Pt states she had nolasco spicious cells when her pelvic was done last year. The pt was referred for further treatment, but she was afraid so she never sought treatment. Pt states that the last time she had intercourse it was very painful, especially on the left side. Encounter Details Date Type Department Care Team (Late st Contact Info) Description 08/18/2023 12:35 PM CDT - 08/18/2023 2:34 PM CDT Emergency [facility]PARTMENT [address] [place] [id number] Discharge Disposition: Left Against Medical Advice/Discontinued Care Social History Tobacco Use Types Packs/Day Years Used Date Smoking Tobacco: Never Assessed Sex and Gender Information Value Date Recorded Sex Assigned at Not on file Gender Identity Not on file Sexual Orientation Not on file documented as of this encounter Last Filed Vital Signs Vital Sign Reading Time Taken Comments Blood Pressure 129/83 08/18/2023 10:42 AM CDT Pulse 90 08/18/2023 10:42 AM CDT Temperature 36.6 ??C (97.8 ??F) 08/18/2023 10:42 AM C DT Respiratory Rate 18 08/18/2023 10:42 AM CDT Oxygen Saturation 100% 08/18/2023 10:42 AM CDT Inhaled Oxygen Concentration - - Weight 59 kg (130 lb) 08/18/2023 10:42 AM CDT Height 160 cm (5' 3 ) 08/18/2023 10:42 AM CDT Body Mass Index 23.03 08/18/2023 10:42 AM CDT documented in this encounter Medications at Time of Discharge Medication Sig Dispensed Refills Start Date End Date hydrocodone-acetaminophen (NORCO) 5-325 MG tablet Take 1 Tab by mouth every 8 hours as needed for Pain. 10 Tab 0 10/04/2012 documented as of this encounter ED Notes * Mena Hayes RN - 08/18/2023 2:30 PM CDT Pt not found in room or WR at this time. Pt believed to have left the ED. global director air and climate change notified. * Lyle Monterroso RN - 08/18/2023 1:50 PM CDT Patient pressed call light to ask about wait time. Patient requests to leave if doctor does not enter room before 1400 documented in this encounter Plan of Treatment Not on file documented as of this encounter Procedures Procedure Name Priority Date/Time Associated Diagnosis Comments URINE MICROSCOPIC ONLY REFLEX TO CULTURE STAT 08/18/2023 11:30 AM CDT TRICHOMONAS VAGINALIS AMPLIFIED PROBE STAT 08/18/2023 11:30 AM CDT CHLAMYDIA + GC AMPLIFIED PROBE STAT 08/18/2023 11:30 AM CDT URINALYSIS REFLEX MICROSCOPIC REFLEX CULTURE STAT 08/18/2023 11:30 AM CDT CULTURE URINE STAT 08/18/2023 11:30 AM CDT CBC W AUTO DIFFERENTIAL STAT 08/18/2023 11:14 AM CDT BASIC METABOLIC PANEL (CALCIUM TOTAL) STAT 08/18/2023 11:14 AM CDT HCG BETA BLOOD QUANTITATIVE STAT 08/18/2023 11:14 AM CDT documented in this encounter Results * TRICHOMONAS VAGINALIS AMPLIFIED PROBE (08/18/2023 11:30 AM CDT) Trichomonas vaginalis Amplified Probe Negative Negative 08/19/2023 12:24 AM CDT [facility]CROBI[facility] Microbiology URINE / Unknown Collection / Unknown 08/18/2023 11:30 AM CDT 08/18/2023 12:22 PM CDT Narrative [facility]CRO[facility] - 08/19/2023 12:24 AM CDT This test was developed and its performance characteristics determined by the [facility] Microbiology Laboratory, [facility]. Urine specimens tested by the [facility] have not been cleared or approved by [...] - MICROBIOLOGY Dayana SORIANO Performing Organization Address City/[facility] Co de Phone Number [facility] [address] [place], [place] [address] [place] [address] * CHLAMYDIA + GC AMPLIFIED PROBE (08/18/2023 11:30 AM CDT) Chlamydia Amplified Probe Negative Negative 08/19/2023 12:24 AM CDT [facility] GC Amplified Probe Negative Negative 08/19/2023 12:24 AM CDT [facility]CROBI[facility] Microbiology URINE / Unknown Collection / Unknown 08/18/2023 11:30 AM CDT 08/18/2023 12:22 PM CDT Narrative [facility]CRO[facility] - 08/19/2023 12:24 AM CDT Results based on detection/no detection of ribosomal RNA by amplified method. Agustin Sims MD LAB - MICROBIOLOGY O BO [facility]CROBI[facility] [address] [place] [address], [facility] [phone] * CULTURE URINE (08/18/2023 11:30 AM CDT) Culture Urine 10,000-50,000 CFU/mL urogenital estela MARCELINO 08/19/2023 4:46 PM CDT [facility] Urine URINE SPECIMEN OBTAINED BY CLEAN CATCH PROCEDURE / Unknown Collection / Unknown 08/18/2023 11:30 AM CDT 08/18/2023 11:54 AM CDT Agustin Sims MD LAB - MICROBIOLOGY O RDERABLES [facility] [address] [place] [address], [facility] [phone] * (ABNORMAL) URINE MICROSCOPIC ONLY REFLEX TO CULTURE (08/18/2023 11:30 AM CDT) Reflex Status Culture to follow 08/18/2023 11:54 AM CDT [facility] WBC UA 0-5 None Seen, 0-5 /HPF 08/18/2023 11:54 AM CDT [facility] Bacteria UA Trace(A) None /HPF 08/18/2023 11:54 AM CDT [facility] Squamous Epithelial Cells UA 11-20(A) None Seen, 0-2, 3-5 /HPF 08/18/2023 11:54 AM CDT [facility] Mucus UA 1+ /LPF 08/18/2023 11:54 AM CDT [facility] Urine URINE SPECIMEN OBTAINED BY CLEAN CATCH PROCEDURE / Unknown Collection / Unknown 08/18/2023 11:30 AM CDT 08/18/2023 11:33 AM CDT Narrative [facility] - 08/18/2023 11:54 AM CDT Agustin Sims MD LAB - URINALYSIS ORD ERABLES [facility] [address] [place] [address], [place] [phone] * (ABNORMAL) URINALYSIS REFLEX MICROSCOPIC REFLEX CULTURE (08/18/2023 11:30 AM CDT) Color UA Yellow Straw, Yellow 08/18/2023 11:43 AM [facility] Clarity UA t Cloudy(A) Clear 08/18/2023 11:43 AM [facility] Specific [place] UA 1.024 1.005 - 1.030 08/18/2023 11:43 AM [facility] pH UA 6.0 5.0 - 8.0 pH 08/18/2023 11:43 AM [facility] Protein UA Negative Negative 08/18/2023 11:43 AM [facility] Glucose UA Negative Negative 08/18/2023 11:43 AM [facility] Ketone UA Negative Negative 08/18/2023 11:43 AM [facility] Bilirubin UA Negative Negative 08/18/2023 11:43 AM [facility] Blood UA Negative Negative 08/18/2023 11:43 AM [facility] Nitrite UA Negative Negative 08/18/2023 11:43 AM [facility] Leukocyte Esterase Trace(A) Negative 08/18/2023 11:43 AM [facility] Urobilinogen UA Negative Negative mg/dL 08/18/2023 11:43 AM [facility] Urine URINE SPECIMEN OBTAINED BY CLEAN CATCH PROCEDURE / Unknown Collection / Unknown 08/18/2023 11:30 AM T 08/18/2023 11:33 AM [facility] Narrative [facility] - 08/18/2023 11:43 AM [facility] Agustin Sims MD LAB - URINALYSIS ORD ERABLES [facility] [address] [place] [id number], [facility] [phone] * HCG BETA BLOOD QUANTITATIVE (08/18/2023 11:14 AM CDT) Beta-hCG Total Quantitative <3 mIU/mL 08/18/2023 12:10 PM [facility] Comment: HCG Numeric Result Interpretation: ? Non- [...] Sims MD LAB - CHEMISTRY KACEY GONZALEZ [facility] [address] [place] [address], [facility] [phone] * (ABNORMAL) BASIC METABOLIC PANEL (CALCIUM TOTAL) (08/18/2023 11:14 AM CDT) BUN 12 7 - 26 mg/dL 08/18/2023 12:06 PM [facility] Creatinine 0.88 0.56 - 0.96 mg/dL 08/18/2023 12:06 PM [facility] Sodium 139 136 - 145 mmol/L 08/18/2023 12:06 PM [facility] Potassium 3.6 3.5 - 4.5 mmol/L 08/18/2023 12:06 PM [facility] Chloride 109(H) 98 - 107 mmol/L 08/18/2023 12:06 PM [facility] CO2 21(L) 22 - 29 mmol/L 08/18/2023 12:06 PM [facility] Glucose 90 70 - 115 mg/dL 08/18/2023 12:06 PM [facility] Calcium 8.8 8.4 - 10.2 mg/dL 08/18/2023 12:06 PM [facility] Anion Gap 9 6 - 16 08/18/2023 12:06 PM [facility] BUN/Creatinine Ratio 14 7 - 23 08/18/2023 12:06 PM [facility] Osmolality Calculated 287 275 - 295 mOsm/kg 08/18/2023 12:06 PM [facility] eGFR by CKD-EPI >90 >=90 mL/min/1.7 3 m2 08/18/2023 12:06 PM [facility] Blood BLOOD SPECIMEN / Unknown Venipuncture / Unknown 08/18/2023 11:14 AM CDT 08/18/2023 11:36 AM T Agustin Sims MD LAB - CHEMISTRY KACEY GONZALEZ [facility] Organization Address City/State/ZIP Co de Phone Number [facility] [address] [place] [address], [facility] [phone] * (ABNORMAL) CBC W AUTO DIFFERENTIAL (08/18/2023 11:14 AM T) WBC 4.4 4.0 - 10.7 x10E9/L 08/18/2023 11:41 AM [facility] RBC Count 4.69 3.90 - 5.20 x10E12/L 08/18/2023 11:41 AM [facility] Hemoglobin 12.9 11.9 - 15.8 g/dL 08/18/2023 11:41 AM [facility] Hematocrit 40.7 34.8 - 46.1 % 08/18/2023 11:41 AM [facility] MCV 86.8 80.0 - 98.0 fL 08/18/2023 11:41 AM [facility] MCH 27.5 26.7 - 33.6 pg 08/18/2023 11:41 AM [facility] MCHC 31.7 31.7 - 36.3 g/dL 08/18/2023 11:41 AM [facility] RDW-CV 13.6 11.3 - 14.8 % 08/18/2023 11:41 AM [facility] Platelet Count 226 150 - 420 x10E9/L 08/18/2023 11:41 AM [facility] MPV 11.4 7.8 - 11.4 fL 08/18/2023 11:41 AM [facility] Neutrophil % 40.0(L) 41.0 - 74.0 % 08/18/2023 11:41 AM [facility] Lymphocyte % 51.0(H) 17.0 - 47.0 % 08/18/2023 11:41 AM [facility] Monocyte % 7.0 3.0 - 11.0 % 08/18/2023 11:41 AM [facility] Eosinophil % 0.7 0.0 - 7.0 % 08/18/2023 11:41 AM [facility] Basophil % 1.1 0.0 - 1.6 % 08/18/2023 11:41 AM [facility] Immature Granulocytes % 0.2 0.0 - 1.0 % 08/18/2023 11:41 AM [facility] Neutrophil Absolute 1.77 1.60 - 7.50 x10E9/L 08/18/2023 11:41 AM [facility] Lymphocyte Absolute 2.26 1.00 - 4.40 x10E9/L 08/18/2023 11:41 AM [facility] Monocyte Absolute 0.31 0.15 - 1.00 x10E9/L 08/18/2023 11:41 AM [facility] Eosinophil Absolute 0.03 0.00 - 0.60 x10E9/L 08/18/2023 11:41 AM [facility] Basophil Absolute 0.05 0.00 - 0.13 x10E9/L 08/18/2023 11:41 AM [facility] Blood BLOOD SPECIMEN / Unknown Venipuncture / Unknown 08/18/2023 11:14 AM T 08/18/2023 11:36 AM [facility] Agustin Sims MD LAB - HEMATOLOGY ORD ERABLES [facility] [address] [place] [address], [facility] [phone] documented in this encounter Visit Diagnoses Not on filedocumented in this encounter Administered Medications Inactive Administered Medications - up to 3 most recent administrations Medication Order MAR Action Action Date Dose Rate Site 0.9% NaCl injection 1-10 mL 1-10 mL, Intracatheter, PRN, Other, peripheral line flush, Starting on Alondra 08/18/23 at 1106, Until Alondra 08/18/23 at 1535, Flush peripheral IV catheter with 1-10 mL of normal saline before and after medications and prn to clear blood from the line or to verify patency. 0.9% NaCl injection 3 mL 3 mL, Intracatheter, EVERY 8 HOURS, First dose on Alondra 08/18/23 at 1400, Until Discontinued, Flush peripheral IV catheter with 3 mL of normal saline every 8 hours. documented in this encounter Active and Recently Administered Medications Times are shown in CDT. Scheduled Medication Order 08/16/2023 08/17/2023 08/18/2023 0.9% NaCl injection 3 mL(Linked Group 1) 3 mL, Intracatheter, EVERY 8 HOURS, First dose on Alondra 08/18/23 at 1400, Until Discontinued, Flush peripheral IV catheter with 3 mL of normal saline every 8 hours. 1400 (Due) PRN Medication Order 08/16/2023 08/17/2023 08/18/2023 0.9% NaCl injection 1-10 mL(Linked Group 1) 1-10 mL, Intracatheter, PRN, Other, peripheral line flush, Starting on Alondra 08/18/23 at 1106, Until Alondra 08/18/23 at 1535, Flush peripheral IV catheter with 1-10 mL of normal saline before and after medications and prn to clear blood from the line or to verify patency. Linked Groups Order Group 1: SALINE LOCK, INSERT AND MAINTAIN (CANCELED) Routine, CONTINUOUS, Starting on Alondra 08/18/23 at 1115, Until Specified, New collection And 0.9% NaCl injection 3 mLJump to med 3 mL, Intracatheter, EVERY 8 HOURS, First dose on Alondra 08/18/23 at 1400, Until Discontinued, Flush peripheral IV catheter with 3 mL of normal saline every 8 hours. And 0.9% NaCl injection 1-10 mLJump to med 1-10 mL, Intracatheter, PRN, Other, peripheral line flush, Starting on Alondra 08/18/23 at 1106, Until Alondra 08/18/23 at 1535, Flush peripheral IV catheter with 1-10 mL of normal saline before and after medications and prn to clear blood from the line or to verify patency. documented in this encounter Care Teams It Administrator Relationship Specialty Start Date End Date Abhijit Solis MD PCP - General 10/04/12 documented as of this encounter
--- OUTSIDE RECORDS SUMMARY | 2024-03-24 00:25 | XMS_ITS | Encounter Summary ---
Author Organization [facility] Address [address] [place] [address] Care Team Providers Care Venue Attendant Name Role Phone Unavailable Primary Care Provider Unavailabl e Encounter Details Date Type Department Care Team (Latest Contact Info) Description 05/19/2015 12:03 PM ORIENTAL RUG STRETCHER - 05/19/2015 5:10 PM ORIENTAL RUG STRETCHER Hospital Encounter [facility] Josiah Cr MD [address] [place] [id number] Other specified diseases and conditions complicating , childbirth and the puerperium; 38 weeks gestation of Social History Tobacco Use Types Packs/Day Years Used Date Smoking Tobacco: Never Assessed Comments Unknown Sex and Gender Information Value Date Recorded Sex Assigned at Not on file Legal Sex Female 9:02 PM ORIENTAL RUG STRETCHER Gender Identity Not on file Sexual Orientation Not on file documented as of this encounter Last Filed Vital Signs Vital Sign Reading Time Taken Comments Blood Pressure 117/65 05/19/2015 12:25 PM ORIENTAL RUG STRETCHER Pulse 86 05/19/2015 12:25 PM ORIENTAL RUG STRETCHER Temperature 36.5 ??C (97.7 ??F) 05/19/2015 12:[address] Respiratory Rate - - Oxygen Saturation 100% 05/19/2015 12:25 PM ORIENTAL RUG STRETCHER Inhaled Oxygen Concentration - - Weight 64 kg (141 lb) 05/19/2015 12:25 PM ORIENTAL RUG STRETCHER Height 160 cm (5' 3 ) 05/19/2015 12:25 PM [employer]IENTAL RUG STRETCHER Body Mass Index 24.98 05/19/2015 12:25 PM ORIENTAL RUG STRETCHER Body Mass Index Percentile 81.46% 05/19/2015 12: 25 PM ORIENTAL RUG STRETCHER Growth Chart: CDC (Girls, 2- 20 Years) documented in this encounter Plan of Treatment Not on file documented as of this encounter Procedures Procedure Name Priority Date/Time Associated Diagnosis Comments URINALYSIS AND REFLEX TO MICROSCOPIC AND CULTURE Routine 05/19/2015 12:00 PM ORIENTAL RUG STRETCHER DRUGS OF ABUSE SCREEN, URINE WITHOUT CONFIRMATION Routine 05/19/2015 12:00 PM ORIENTAL RUG STRETCHER documented in this encounter Results * (ABNORMAL) Urinalysis reflex to microscopic and culture (05/19/2015 12:00 PM ORIENTAL RUG STRETCHER) Ur Collection Type CLEAN CATCH Ur Culture Indicated? C&S NOT INDICATED Urine Color STRAW YELLOW Urine Clarity HAZY CLEAR Urine Glucose (UA) NORMAL NORMAL mg/dL Urine Bilirubin NEGATIVE NEGATIVE mg/dl Urine Ketones 80(H) NEGATIVE mg/dL Ur Specific [place] 1.009 1.005 - 1.025 Urine Blood NEGATIVE NEGATIVE mg/dl Urine pH 7.0 5.0 - 8.0 Urine Protein NEGATIVE NEGATIVE mg/dL Urine Urobilinogen NORMAL NORMAL mg/dL Urine Nitrite NEGATIVE NEGATIVE Ur Leukocyte Esterase 250(H) NEGATIVE Dc/ul Ur Microscopic Review Indicated or Ordered Urine RBC 1 0 - 2 /HPF Urine WBC 1 0 - 2 /HPF Urine Bacteria Rare /HPF Urine Mucus Rare /LPF Ur Squamous Epith Cells Rare /HPF 05/19/2015 12:0 0 PM ORIENTAL RUG STRETCHER 05/19/2015 12:28 PM ORIENTAL RUG STRETCHER Narrative [facility] HISTORICAL RESULTS - 05/19/2015 12:37 PM ORIENTAL RUG STRETCHER us Josiah Cr MD LAB MICROBIOLOGY - GENERAL ORD ERABLES Final Result [facility] HISTORICAL RESULTS * Drug Screen, Urine (05/19/2015 12:00 PM ORIENTAL RUG STRETCHER) Ur Amphetamine Screen NEGATIVE NEGATIVE Comment: Cutoff Limit: ??1000 ng/mL ??Detects MDMA, MDA, d-Amphetamine, d-Methamphetamine, ?MBDB-HCl, MDEA and BDB-HCl Note: ??Positive results from this drug screen are unconfirmed. ??Unconfirmed screening results should not be used for non-medical purposes. Ur Barbiturates Screen NEGATIVE NEGATIVE Comment: Cutoff limit: ??200 ng/mL ??Detects Secobarbitol, Cyclopentobarbital, Aprobarbital, ?Butalbital, Allobarbital, Butabarbital, ?Pentobarbital, Amobarbital and Phenobarbital U Benzodiazepines Scrn NEGATIVE NEGATIVE Comment:Cutoff limit: 300 ng /mL U Cannabinoids Screen NEGATIVE NEGATIVE Comment:Cutoff Limit: 50 ng/ mL U Cocaine Metab Screen NEGATIVE NEGATIVE Comment:Cutoff limit: 300 ng /mL Urine Opiates Screen NEGATIVE NEGATIVE 05/19/2015 1:05 PM ORIENTAL RUG STRETCHER [facility] HISTORICAL RESULTS Comment: Cutoff Limit: ??300 ng/mL Detects Morphine, Codeine, Ethyl Morphine, ?Diacetylmorphine, 6-Acetylmorphine, Dihydrocodeine, ?[id number] and Hydrocodone Ur Oxycodone Screen NEGATIVE NEGATIVE 1:05 PM ORIENTAL RUG STRETCHER [facility] HISTORICAL RESULTS Comment:Cutoff Limit: 100 ng /mL Urine Creatinine/DARIAN 72.0 mg/dL Comment:If Creatinine is < 4 0 mg/dL, recollection is suggested. 05/19/2015 12:0 0 PM ORIENTAL RUG STRETCHER 05/19/2015 12:28 PM ORIENTAL RUG STRETCHER us Josiah Cr MD LAB URINE ORDERABLES Final Res ult [facility] HISTORICAL RESULTS documented in this encounter Visit Diagnoses Diagnosis Other specified diseases and conditions complicating , childbirth and the puerperium 38 weeks gestation of documented in this encounter
--- OUTSIDE RECORDS SUMMARY | 2024-03-24 00:25 | XMS_ITS | Encounter Summary ---
Author Organization [facility] Healthcare Address [address] [place] [address] Care Team Providers Care Certified Vehicle Fire Investigator Name Role Phone Unavailable Primary Care Provider Unavailabl e Encounter Details Date Type Department Care Team (Latest Contact Info) Description 04/08/2015 11:04 AM CLOTH DESIGNER - 04/08/2015 2:20 PM CLOTH DESIGNER Hospital Encounter [facility] Josiah Cr MD [address] [place] [id number] Other specified diseases and conditions complicating , childbirth and the puerperium; Abdominal pain; 32 weeks gestation of Social History Tobacco Use Types Packs/Day Years Used Date Smoking Tobacco: Never Assessed Comments Unknown Sex and Gender Information Value Date Recorded Sex Assigned at Not on file Legal Sex Female 9:02 PM CLOTH DESIGNER Gender Identity Not on file Sexual Orientation Not on file documented as of this encounter Last Filed Vital Signs Vital Sign Reading Time Taken Comments Blood Pressure 109/58 04/08/2015 11:15 AM CLOTH DESIGNER Pulse 102 04/08/2015 11:15 AM CLOTH DESIGNER Temperature 36.8 ??C (98.3 ??F) 04/08/2015 11:[address] Respiratory Rate - - Oxygen Saturation - - Inhaled Oxygen Concentration - - Weight 61.7 kg (136 lb) 04/08/2015 11:15 AM CLOTH DESIGNER Height 162.6 cm (5' 4 ) 04/08/2015 11:15 AM CLOTH DESIGNER Body Mass Index 23.34 04/08/2015 11:15 AM CLOTH DESIGNER Body Mass Index Percentile 71.15% 04/08/2015 11: 15 AM CLOTH DESIGNER Growth Chart: CDC (Girls, 2- 20 Years) documented in this encounter Plan of Treatment Not on file documented as of this encounter Procedures Procedure Name Priority Date/Time Associated Diagnosis Comments HIV-1 AND HIV-2 ANTIBODY, RAPID Routine 04/08/2015 1:45 PM CLOTH DESIGNER CBC WITH AUTO DIFFERENTIAL Routine 04/08/2015 1:45 PM CLOTH DESIGNER GLUCOSE TOLERANCE, 1 HOUR Routine 04/08/2015 1:45 PM CLOTH DESIGNER RUBELLA IGG Routine 04/08/2015 1:45 PM CLOTH DESIGNER RPR Routine 04/08/2015 1:45 PM CLOTH DESIGNER HEPATITIS B SURFACE ANTIGEN Routine 04/08/2015 1:45 PM CLOTH DESIGNER GLUCOSE, 1 HOUR 100GM, GESTATIONAL SCREEN Routine 04/08/2015 12:21 PM CLOTH DESIGNER MICROBIOLOGY SPECIMEN REPORT (CONVERTED) Routine 04/08/2015 11:15 AM CLOTH DESIGNER URINALYSIS AND REFLEX TO MICROSCOPIC AND CULTURE Routine 04/08/2015 11:15 AM CLOTH DESIGNER DRUGS OF ABUSE SCREEN, URINE WITHOUT CONFIRMATION Routine 04/08/2015 11:15 AM CLOTH DESIGNER documented in this encounter Results * (ABNORMAL) Glucose tolerance, 1 hour (04/08/2015 1:45 PM CLOTH DESIGNER) Glucose GTT 1 117(L) 120 - 170 mg/dL 04/08/2015 1:45 PM CLOTH DESIGNER 04/08/2015 1:50 PM CLOTH DESIGNER Narrative [facility] HISTORICAL RESULTS - 04/08/2015 2:16 PM CLOTH DESIGNER GTT1 GTT1 GEST GLU1 from [id number]. us Josiah Cr MD LAB BLOOD ORDERABLES Final Res ult [facility] HISTORICAL RESULTS * RPR, serum (04/08/2015 1:45 PM CLOTH DESIGNER) Treponemal IgG NONREACTIVE NONREACTIVE 04/08/19 16 2:33 PM CLOTH DESIGNER [facility] HISTORICAL RESULTS Comment: As of 15, new immunoassay to determine antibodies to Treponema pallidum is in use on ADVIA Centaur. 04/08/2015 1:45 PM CLOTH DESIGNER 04/08/2015 1:50 PM CLOTH DESIGNER Josiah Cr MD LAB MICROBIOLOGY - GENERAL ORD ERABLES Final Result Performing Organization Address [facility] de Phone Number [facility] HISTORICAL RESULTS * Rubella IgG (04/08/2015 1:45 PM CLOTH DESIGNER) Rubella IgG IMMUNE Comment: Siemens Centaur XP using chemiluminescent technology. Use of assay to diagnose current infection (acute and convalescent) is not recommended. 04/08/2015 1:45 PM CLOTH DESIGNER 04/08/2015 1:50 PM CLOTH DESIGNER Josiah Cr MD LAB MICROBIOLOGY - GENERAL ORD ERABLES Final Result Performing Organization Address [facility] Phone Number [facility] HISTORICAL RESULTS * HIV-1 and HIV-2 antibody, rapid (04/08/2015 1:45 PM CLOTH DESIGNER) HIV 1/2 Ab NONREACTIVE NONREACTIVE Comment: Note: ??A Non-Reactive result indicates an absence of detectable HIV-1/2 antibodies in the patient. However, it does not rule out recent exposure or past infection with HIV. 04/08/2015 1:45 PM CLOTH DESIGNER 04/08/2015 1:50 PM CLOTH DESIGNER Josiah Cr MD LAB BLOOD ORDERABLES Final Res ult Performing Organization Address [facility] Co de Phone Number [facility] HISTORICAL RESULTS * Hepatitis B Surface Antigen (04/08/2015 1:45 PM CLOTH DESIGNER) Pathologist [facility] HepBsAg NONREACT NONREACTIVE Comment: Siemens CentaurXP using REAL (chemiluminescent immunoassay) technology. NONREACTIVE: IgM antibodies to Hepatitis B Surface antigen not detected. REACTIVE: IgM antibodies to Hepatitis B Surface antigen detected. Reactive results will be confirmed by neutralization testing. 04/08/2015 1:45 PM CLOTH DESIGNER 04/08/2015 1:50 PM CLOTH DESIGNER us Josiah Cr MD LAB MICROBIOLOGY - GENERAL ORD ERABLES Final Result [facility] HISTORICAL RESULTS * (ABNORMAL) CBC with auto differential (04/08/2015 1:45 PM CLOTH DESIGNER) [facility] WBC 6.0 4.6 - 10.2 x10 3/ul 04/08/2015 1:55 PM [facility] RBC 3.42(L) 3.76 - 4.80 x10 6/ul Hemoglobin 9.4(L) 11.0 - 15.0 g/dl 04/08/2015 1:55 PM [facility] Hct 29.3(L) 33.0 - 43.0 % MCV 85.7 80.0 - 97.0 fl MCH 27.5 27.0 - 31.2 pg MCHC 32.1 31.8 - 35.4 g/dl 04/08/2015 1:55 PM [facility] RESULTS RDW 13.4 11.6 - 14.8 % Plt Count 167 124 - 400 x10 3/ul MPV 11.3(H) 7.4 - 10.4 fl 04/08/2015 1:55 PM [facility] Differential Method AUTOMATED DIFF --------- -- Neut % 62.0 37.0 - 85.0 % Immature Gran % 0.7 0.0 - 3.0 % Lymph % 27.6 5.0 - 45.0 % [place] % 7.9 3.0 - 15.0 % Eos % 1.3 0.0 - 7.0 % Baso % 0.5 0.0 - 2.0 % ABSOLUTE COUNTS ABSOLUTE COUNTS --------- -- Absolute Neuts (auto) 3.7 1.7 - 8.7 x10 3/ul Immature Gran # 0.0 0.0 - 0.3 x10 3/ul Absolute Lymphs (auto) 1.7 0.2 - 4.6 x10 3/ul Absolute Monos (auto) 0.5 0.1 - 1.5 x10 3/ul Absolute Eos (auto) 0.1 0.0 - 0.7 x10 3/ul Absolute Basos (auto) 0.0 0.0 - 0.2 x10 3/ul 04/08/2015 1:45 PM CLOTH DESIGNER 04/08/2015 1:50 PM [facility] us Josiah Cr MD LAB BLOOD ORDERABLES Final Res ult Performing Organization Address [facility] Co de Phone Number [facility] HISTORICAL RESULTS * Glucose, 1 hour 100gm, gestational screen (04/08/2015 12:21 PM CLOTH DESIGNER) Gestat Glucose Screen Comment: TRUTOL REQUIRED: 5.0 ounces (Screen for Gestational Diabetes) 04/08/2015 12:2 1 PM CLOTH DESIGNER Narrative [facility] HISTORICAL RESULTS - 04/08/2015 2:16 PM CLOTH DESIGNER us Josiah Cr MD LAB BLOOD ORDERABLES Final Res ult Performing Organization Address [facility] Co de Phone Number [facility] HISTORICAL RESULTS * Microbiology Specimen Report (Converted) (04/08/2015 11:15 AM CLOTH DESIGNER) 04/08/2015 11:1 5 AM CLOTH DESIGNER 04/08/2015 11:40 AM CLOTH DESIGNER Narrative [facility] HISTORICAL RESULTS - 04/08/2015 11:15 AM CLOTH DESIGNER Microbiology Specimen Report (Converted) SPECIMEN [id number] ?? COLLECTED: 2015-04-08 11:15:00 MT ?? REQ#: [id number] REQUESTING DR: Josiah Cr MD ?? SOURCE: URINE ?? SP DESC: CLEAN CATC --- PROCEDURE --- ?--- RESULT --- ?? CULTURE URINE ??(Final) ??- ??Performed at [facility] ?* COLONY COUNT: >100,000 CFU/ml ?* [facility] - [facility] ? [address] ? [place] [address] ? Ken Fan MD Procedure Note 06/10/2018 Microbiology Specimen Report (Converted) SPECIMEN [id number] COLLECTED: 2015-04-08 11:15:00 MO REQ#:[id number] REQUESTING DR: Josiah Cr MD SOURCE: URINE SP DESC: CLEAN CATC --- PROCEDURE --- --- RESULT --- CULTURE URINE (Final) - Performed at [facility] * COLONY COUNT: >100,000 CFU/ml * [facility] [address] [place] [address] Ken Fan MD Josiah Cr MD LAB BLOOD ORDERABLES Final Res ult [facility] HISTORICAL RESULTS * (ABNORMAL) Urinalysis reflex to microscopic and culture (04/08/2015 11:15 AM CLOTH DESIGNER) Ur Collection Type CLEAN CATCH Ur Culture Indicated? C&S INDICATED Comment:Culture report to viktoriya ellison. Urine Color YELLOW YELLOW Urine Clarity HAZY CLEAR Urine Glucose (UA) 150(H) NORMAL mg/dL Urine Bilirubin NEGATIVE NEGATIVE mg/dl Urine Ketones NEGATIVE NEGATIVE mg/dL Ur Specific [place] 1.012 1.005 - 1.025 Urine Blood NEGATIVE NEGATIVE mg/dl Urine pH 6.5 5.0 - 8.0 Urine Protein 10(H) NEGATIVE mg/dL Urine Urobilinogen NORMAL NORMAL mg/dL Urine Nitrite NEGATIVE NEGATIVE Ur Leukocyte Esterase 500(H) NEGATIVE Dc/ul Ur Microscopic Review Indicated or Ordered Urine RBC 1 0 - 2 /HPF Urine WBC 22 0 - 2 /HPF Urine Mucus Few /LPF Ur Squamous Epith Cells Mod /HPF 04/08/2015 11:1 5 AM CLOTH DESIGNER 04/08/2015 11:40 AM [facility] Narrative [facility] HISTORICAL RESULTS - 04/08/2015 12:02 PM CLOTH DESIGNER us Josiah Cr MD LAB MICROBIOLOGY - GENERAL ORD ERABLES Final Result [facility] HISTORICAL RESULTS * Drug Screen, Urine (04/08/2015 11:15 AM CLOTH DESIGNER) Ur Amphetamine Screen NEGATIVE NEGATIVE Comment: Cutoff Limit: ??1000 ng/mL Note: ??Positive results from this drug screen are unconfirmed. ??Unconfirmed screening results should not be used for non-medical purposes. Ur Barbiturates Screen NEGATIVE NEGATIVE Comment:Cutoff limit: 200 ng /mL U Benzodiazepines Scrn NEGATIVE NEGATIVE Comment:Cutoff limit: 300 ng /mL U Cannabinoids Screen NEGATIVE NEGATIVE Comment:Cutoff Limit: 50 ng/ mL U Cocaine Metab Screen NEGATIVE NEGATIVE Comment:Cutoff limit: 300 ng /mL Urine Opiates Screen NEGATIVE NEGATIVE Comment:Cutoff Limit: 300 ng /mL Urine Creatinine/DARIAN 138.0 mg/dL Comment:If Creatinine is < 4 0 mg/dL, recollection is suggested. 04/08/2015 11:1 5 AM CLOTH DESIGNER 04/08/2015 11:40 AM CLOTH DESIGNER Narrative [facility] HISTORICAL RESULTS - 04/08/2015 12:16 PM CLOTH DESIGNER Collected By mt us Josiah Cr MD LAB URINE ORDERABLES Final Res ult [facility] HISTORICAL RESULTS documented in this encounter Visit Diagnoses Diagnosis Other specified diseases and conditions complicating , childbirth and the puerperium Abdominal pain Abdominal pain, unspecified site 32 weeks gestation of documented in this encounter
--- OUTSIDE RECORDS SUMMARY | 2024-03-24 00:25 | XMS_ITS | Encounter Summary ---
Author Organization [facility] Healthcare Address [address] [place] [address] Care Team Providers Care Supervisory Air Intercept Controller Name Role Phone Mauro Grady MD Primary Care Provider [phone] Reason for Visit * Reason Comments GI Problem Encounter Details Date Type Department Care Team (Late st Contact Info) Description 11/28/2020 1:52 PM CDT - 11/28/2020 3:40 PM CDT Emergency [address] [address] Vaginal discharge (Primary Dx) Discharge Disposition: Discharge to home or self care Social History Tobacco Use Types Packs/Day Years Used Date Smoking Tobacco: Never Assessed Comments No Sex and Gender Information Value Date Recorded Sex Assigned at Not on file 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 Gender Identity Not on file Sexual Orientation Not on file documented as of this encounter Last Filed Vital Signs Vital Sign Reading Time Taken Comments Blood Pressure 116/74 11/28/2020 1:04 PM CDT Pulse 91 11/28/2020 1:04 PM CDT Temperature 36.6 ??C (97.8 ??F) 11/28/2020 1:04 PM CD T Respiratory Rate 22 11/28/2020 1:04 PM CDT Oxygen Saturation 100% 11/28/2020 1:04 PM CDT Inhaled Oxygen Concentration - - Weight 64.4 kg (142 lb) 11/28/2020 1:04 PM CDT Height 160 cm (5' 3 ) 11/28/2020 1:04 PM CDT Body Mass Index 25.15 11/28/2020 1:04 PM CDT documented in this encounter Discharge Instructions * Discharge Instructions* GeorgeJulee anderson NP - 11/28/2020 3:37 PM CDT Use over the counter Tylenol and Motrin per manufacturers guidelines for relief of pain and fever. Follow up with Dr. Grady without fail. * Attachments The following attachments cannot be sent through Care Everywhere. * Vaginal Discharge (AfterCare(R) Instructions(ER/ED)) (Paraguayan) documented in this encounter Medications at Time of Discharge metroNIDAZOLE (FLAGYL) 500 mg tablet Take 1 tablet (500 mg total) by mouth 3 (three) times a day for 10 days 30 tablet 11/28/2020 12/08/2020 documented as of this encounter Ordered Prescriptions Prescription Sig Dispense Quantity Refills Last Filled Start Date End Date fluconazole (DIFLUCAN) 200 mg tablet Take 1 tablet (200 mg total) by mouth daily for 1 day Repeat in 1 week if symptoms persist 1 tablet 11/28/2020 1 metroNIDAZOLE (FLAGYL) 500 mg tablet Take 1 tablet (500 mg total) by mouth 3 (three) times a day for 10 days 30 tablet 11/28/2020 1 documented in this encounter Discharge Disposition Disposition Code Departure Means Destination Discharge to home or self care documented in this encounter ED Notes * Julee Vazquez NP - 11/28/2020 3:40 PM CDT HPI Chief Complaint Patient presents with ??? GI Problem 25 y.o. year old female with No past medical history on file.; accompanied by self presents to ED with c/o GI Problem Denies fever, chills, nausea, vomiting, diarrhea, SOB, CP, numbness, tingling. Pt noticed thick white vaginal discharge with no odor for 1 day. Denies urinary urgency, frequency or burning. Pt is unsure of STD exposure. No other complaint at this time. Patient History: There are no problems to display for this patient. No past medical history on file. No past surgical history on file. No family history on file. Social History Tobacco Use ??? Smoking status: Not on file Substance Use Topics ??? Alcohol use: Not on file ??? Drug use: Not on file Social History Social History Narrative ??? Not on file Review of Systems Review of Systems Constitutional: Negative. HENT: Negative. Respiratory: Negative. Cardiovascular: Negative. Gastrointestinal: Negative. Genitourinary: Positive for vaginal discharge. Musculoskeletal: Negative. Skin: Negative. Neurological: Negative. All other systems reviewed and are negative. Physical Exam ED Triage Vitals [11/28/20 1304] Temp Pulse Resp BP SpO2 36.6 ??C (97.8 ??F) 91 22 116/74 100 % Temp src Heart Rate Source Patient Position BP Location FiO2 (%) Oral Monitor Sitting Right arm -- Physical Exam Vitals and nursing note reviewed. Constitutional: General: She is awake. She is not in acute distress. Appearance: Normal appearance. She is not ill-appearing, toxic-appearing or diaphoretic. HENT: Head: Normocephalic and atraumatic. Right Ear: Hearing and external ear normal. Left Ear: Hearing and external ear normal. Nose: Nose normal. Mouth/Throat: Lips: [place]. Mouth: Mucous membranes are moist. Eyes: General: Lids are normal. Cardiovascular: Pulses: Normal pulses. No decreased pulses. Pulmonary: Effort: Pulmonary effort is normal. Breath sounds: Normal breath sounds and air entry. No stridor, decreased air movement or transmitted upper airway sounds. No decreased breath sounds, wheezing, rhonchi or rales. Abdominal: General: Abdomen is flat. Bowel sounds are normal. Palpations: Abdomen is soft. Tenderness: There is no abdominal tenderness. There is no right CVA tenderness or left CVA tenderness. Musculoskeletal: Cervical back: Full passive range of motion without pain, normal range of motion and neck supple. Lymphadenopathy: Cervical: No cervical adenopathy. Skin: General: Skin is warm. Capillary Refill: Capillary refill takes less than 2 seconds. Neurological: General: No focal deficit present. Mental Status: She is alert and easily aroused. Psychiatric: Behavior: Behavior is cooperative. [facility] ED Course as of Nov 28 2299 Time: 11/28 1534 Comment: Discussed lab results with patient. Advised to use Tylenol and Motrin for relief of fever and pain, to follow up with PMD for further evaluation and treatment. Pt verbalized understanding. All questions answered at this time. By: Julee Vazquez NP Final diagnoses: Vaginal discharge Julee Vazquez NP 11/28/20 2300 Cosigned by Zara Brito MD at 12/11/2020 11:55 AM CDT * Swathi Santos RN - 11/28/2020 1:13 PM CDT Patient c/o lower abdominal pain and bladder pain with white vaginal discharge that started last noc. Denies itching, denies urinary sx. Had unprotected sexual encounter documented in this encounter Plan of Treatment Not on file documented as of this encounter Procedures Procedure Name Priority Date/Time Associated Diagnosis Comments N. GONORRHOEAE/C. TRACHOMATIS AMPLIFICATION STAT 11/28/2020 1:26 PM CDT TRICHOMONAS VAGINALIS PCR STAT 11/28/2020 1:26 PM CDT URINALYSIS AND REFLEX TO MICROSCOPIC AND CULTURE STAT 11/28/2020 1:26 PM CDT URINALYSIS, MICROSCOPIC ONLY STAT 11/28/2020 1:26 PM CDT documented in this encounter Results * (ABNORMAL) Urinalysis, microscopic only (11/28/2020 1:26 PM CDT) WBC, ur 0-5 0 - 5 /HPF CERNER RBC, ur 3-5(A) 0 - 2 /HPF [facility] Epithelial cells, squamous, ur >50(A) 0 - 5 /HPF [facility] Comment:Suggestive of contam ination. Consider recollection by clean catch. Mucous, ur Present(A) [facility] Culture Reflex Comment Reflex conditions for urine culture (WBC >10) not met. [facility] Urine 11/28/2020 1:26 PM CDT 11/28/2020 1:38 PM CDT Julee Vazquez LAB URINE ORDERABLES Final Result Performing Organization Address [facility] Co de Phone Number [address] [place] [place] [address] * Trichomonas vaginalis PCR Urine (11/28/2020 1:26 PM CDT) Trichomonas DNA Not Detected Not Detected [facility] Comment: Interpretive Data Testing performed by [facility] using Nucleic Acid Amplification with the [employer] Xpert TV Assay. ??This assay detects DNA from Trichomonas vaginalis using Real-Time PCR. ??This test is cleared by the [place] Food and Drug Administration for endocervical swabs, vaginal swabs, female urine (first-catch), and male urine (first-catch). ??The performance characteristics for these specimen types have been verified by the [facility]. ??Excess blood in specimens may be inhibitory and result in false negative results. ??The performance of this test has not been evaluated in women or individuals less than 18 years of age. Current Interpretive Data was last revised on 2018. Testing performed by: [facility], [address] [place]., [address] Urine 11/28/2020 1:26 PM CDT 11/28/2020 4:19 PM CDT Julee Vazquez NP LAB MICROBIOLOGY - GENERAL ORDERABLES Final Result Performing Organization Address [facility]/ZIP Co de Phone Number [place] [email or web address] [facility] [place] [address] * N. gonorrhoeae/C. trachomatis Amplification Urine (11/28/2020 1:26 PM CDT) C. trachomatis Not Detected Not Detected [facility] Comment:Testing performed by : [facility], [address] [place] [address]., [id number] N. gonorrhoeae Not Detected Not Detected [facility] Comment: Testing performed by the [facility]. This assay detects Chlamydia trachomatis and Neisseria gonorrhoeae by nucleic acid amplification testing (NAAT). This test is approved by the [facility] Food and Drug Administration and the performance characteristics have been verified by the laboratory. The performance characteristics of this test have not been evaluated in women or individuals less than 16 years of age. Testing performed by: [facility], [address] [place] [address]., [id number] Urine (None) 11/28/2020 1:26 PM CDT 11/30/2020 9:18 PM CDT Julee Vazquez NP LAB MICROBIOLOGY - GENERAL ORDERABLES Final Result [place] [id number] [facility] Department [place] [address] * (ABNORMAL) Urinalysis reflex to microscopic and culture Urine (11/28/2020 1:26 PM CDT) Color, ur Yellow Yellow [facility] Clarity, ur Cloudy(A) Clear [facility] Specific gravity, ur 1.027(H) 1.010 - 1.025 [facility] pH, urine 6.0 [facility] Protein, ur ql 1+(A) Negative [facility] Glucose, ur ql Negative Negative [facility] Ketones, ur Negative Negative [facility] Bilirubin, ur Negative Negative [facility] Blood, ur Negative Negative [facility] Urobilinogen, ur <2.0 <2.0 mg/dL [facility] Nitrite, ur Negative Negative [facility] Leukocyte esterase, ur 3+(A) Negative [facility] UA reflex comment Reflex to microscopic UA will be performed. [facility] Urine 11/28/2020 1:26 PM CDT 11/28/2020 1:38 PM CDT Narrative EMIR CHONG - 11/28/2020 1:43 PM CDT ?? Urine pH is affected by diet, medications, systemic acid-base disturbances, and renal tubular function. ??pH may affect urinary stone formation. ??For example, urine pH below 6.0 may help reduce the tendency for calcium phosphate stones and pH greater than 6.0 may reduce the tendency for uric acid stone formation. Source: [employer]. Last revised 03-31-2017 us Julee Vazquez NP LAB MICROBIOLOGY - GENERAL ORDERABLES Final Result EMIR CHONG [address] [facility] Department [place] [address] documented in this encounter Visit Diagnoses Diagnosis Vaginal discharge- Primary Leukorrhea, not specified as infective documented in this encounter Care Teams Supervisory Air Intercept Controller Relationship Specialty Start Date End Date Mauro Grady MD PCP - General 07/30/20 06/05/23 documented as of this encounter
--- OUTSIDE RECORDS SUMMARY | 2024-03-24 00:25 | XMS_ITS | Encounter Summary ---
Author Organization [facility] Healthcare Address [address] [place] [address] Care Team Providers Care Cider Press Operator Name Role Phone Mauro Grady MD Primary Care Provider [phone] Reason for Visit * Reason Comments Vomiting Encounter Details Date Type Department Care Team (Late st Contact Info) Description 03/16/2021 6:56 PM EXTRUSION ENGINEER - 03/16/2021 10:12 PM EXTRUSION ENGINEER Emergency [address] [address] Discharge Disposition: Left without being seen Social History Tobacco Use Types Packs/Day Years Used Date Smoking Tobacco: Never Comments No Sex and Gender Information Value Date Recorded Sex Assigned at Not on file Legal Sex Female 9:02 PM EXTRUSION ENGINEER Gender Identity Not on file Sexual Orientation Not on file documented as of this encounter Last Filed Vital Signs Vital Sign Reading Time Taken Comments Blood Pressure 113/69 03/16/2021 7:00 PM EXTRUSION ENGINEER Pulse 88 03/16/2021 7:00 PM EXTRUSION ENGINEER Temperature 36.7 ??C (98.1 ??F) 03/16/2021 7:00 PM CS T Respiratory Rate 18 03/16/2021 7:00 PM EXTRUSION ENGINEER Oxygen Saturation 99% 03/16/2021 7:00 PM EXTRUSION ENGINEER Inhaled Oxygen Concentration - - Weight 62.6 kg (138 lb 0.1 oz) 03/16/2021 7:00 P M EXTRUSION ENGINEER Height 160 cm (5' 3 ) 03/16/2021 7:00 PM EXTRUSION ENGINEER Body Mass Index 24.45 03/16/2021 7:00 PM EXTRUSION ENGINEER documented in this encounter Discharge Disposition Disposition Code Departure Means Destination Left without being seen documented in this encounter ED Notes * Nneka Newby, FATIMAH - 03/16/2021 7:14 PM CST PT states, I feel light headed and I've been vomiting for a few days. I only threw up once today. EMS told me my blood sugar was low USION ENGINEER documented in this encounter Plan of Treatment Scheduled Orders Name Type Priority Associated Diagnoses Orde r Schedule Urinalysis reflex to microscopic and culture Urine Microbiology STAT STAT for 1 Occurrences starting 03/16/2021 until 03/16/2021 documented as of this encounter Procedures Procedure Name Priority Date/Time Associated Diagnosis Comments ECG 12-LEAD Routine 03/16/2021 7:30 PM EXTRUSION ENGINEER POCT GLUCOSE DEVICE Routine 03/16/2021 7 :20 PM EXTRUSION ENGINEER documented in this encounter Results * ECG 12 lead (03/16/2021 7:30 PM EXTRUSION ENGINEER) Pathologist [facility] Ventricular Rate EKG/Min 82 BPM [facility] Atrial Rate 82 BPM [facility] DC-Interval (MSEC) 134 ms [facility] QRS-Interval (MSEC) 82 ms [facility] QT-Interval (MSEC) 350 ms [facility] QTc 408 ms [facility] P [place] 81 degrees [facility] R [place] 77 degrees [facility] T [place] 52 degrees [facility] Diagnosis Normal sinus rhythm T wave abnormality, consider anterior ischemia Abnormal ECG When compared with ECG of 27-AUG-2020 02:23, T wave inversion now evident in Anterior leads [facility] 03/16/2021 7:30 PM EXTRUSION ENGINEER 03/16/2021 8:00 PM EXTRUSION ENGINEER us Ashley SANCHEZ ECG ORDERABLES Final Result [facility] * POCT glucose (03/16/2021 7:20 PM EXTRUSION ENGINEER) Glucose, POC 98 70 - 199 mg/dL [facility] Blood 03/16/2021 7:20 PM EXTRUSION ENGINEER 03/16/2021 7:20 PM EXTRUSION ENGINEER us Notinfile Unknown LAB POCT ORDERABLES - DEVICE F inal Result [facility] Department [place] [address] documented in this encounter Visit Diagnoses Not on filedocumented in this encounter Administered Medications Inactive Administered Medications - up to 3 most recent administrations Medication Order MAR Action Action Date Dose Rate Site ondansetron ODT (ZOFRAN-ODT) disintegrating tablet 4 mg 4 mg, oral, Once, On Tue03/16/21 at 1920, For 1 dose Given 03/16/2021 7:22 PM EXTRUSION ENGINEER 4 mg documented in this encounter Active and Recently Administered Medications Times are shown in EXTRUSION ENGINEER. Scheduled Medication Order 03/14/2021 03/15/2021 03/16/2021 ondansetron ODT (ZOFRAN-ODT) disintegrating tablet 4 mg (COMPLETED) 4 mg, oral, Once, On Tue03/16/21 at 1920, For 1 dose 1921 (Given - Provid er: Nneka Newby RN) documented in this encounter Orders Medications Ordered That Ja ht Not Have Been Administered Count Last Ordered Date First Ordered Date ondansetron ODT (ZOFRAN-ODT) disintegrating tablet 4 mg 1 03/16/2021 sodium chloride 0.9% bolus 1,000 mL 1 03/16 Lab Orders Without Results Count Last Ordered D ate First Ordered Date POCT GLUCOSE DEVICE 1 03/16/2021 documented in this encounter Care Teams Cider Press Operator Relationship Specialty Start Date End Date Mauro Grady MD PCP - General 07/30/20 06/05/23 documented as of this encounter
--- OUTSIDE RECORDS SUMMARY | 2024-03-24 00:25 | XMS_ITS | Encounter Summary ---
Author Organization [facility] Healthcare Address [address] [place] [address] Care Team Providers Care Oyster Grader Name Role Phone Unavailable Primary Care Provider Unavailabl e Encounter Details Date Type Department Care Team (Late st Contact Info) Description 01/02/2020 7:30 PM CDT Lab [address] [address] Social History Tobacco Use Types Packs/Day Years Used Date Smoking Tobacco: Never Assessed Comments Unknown Sex and Gender Information Value Date Recorded Sex Assigned at Not on file Legal Sex Female 9:02 PM AUTO BODY CUSTOMIZER Gender Identity Not on file Sexual Orientation Not on file documented as of this encounter Plan of Treatment Not on file documented as of this encounter Procedures Procedure Name Priority Date/Time Associated Diagnosis Comments MEASLES IGG ANTIBODY Routine 01/02/2020 3:45 PM CDT RUBELLA IGG Routine 01/02/2020 3:45 PM CDT VARICELLA ZOSTER ANTIBODY, IGG Routine 01/02/2020 3:45 PM CDT MUMPS IGG ANTIBODY Routine 01/02/2020 3: 45 PM CDT documented in this encounter Results * Varicella Zoster (VZV) IgG Blood (01/02/2020 3:45 PM CDT) VZV IgG Nonreactive Nonreactive [facility] Comment:No IgG antibodies sp ecific to Varicella Zoster virus detected.?? Patient is presumed not to have had a previous exposure to Varicella Zoster through??infection or vaccination. ?? Blood specimen (specimen) 01/02/2020 3:45 PM CDT 01/02/2020 7:26 PM CDT Frank Boykin MD LAB MICROBIOLOGY - GENERAL OR DERABLES Final Result Performing Organization Address [facility] Co de Phone Number [facility] [place] [address] * (ABNORMAL) Rubeola antibody IgG (01/02/2020 3:45 PM CDT) Measles IgG Positive(A ) Negative [facility] Blood specimen (specimen) 01/02/2020 3:45 PM CDT 01/02/2020 7:26 PM CDT Frank Boykin MD LAB MICROBIOLOGY - GENERAL OR DERABLES Final Result Performing Organization Address [facility] [place] [address] * Rubella IgG (01/02/2020 3:45 PM CDT) Rubella IgG Reactive [facility] Comment: Interpretive Data Nonreactive: ??No detectable antibody to rubella. Such individuals are presumed to be uninfected with rubella and to be susceptible to primary infection. Equivocal: Presence or absence of detectable antibody to rubella cannot be determined and test should be repeated. ?? Reactive: Indicates the presence of detectable antibody to rubella. ??Indicative of current or past infection. Current Interpretive Data was last revised on 2018. Blood specimen (specimen) 01/02/2020 3:45 PM CDT 01/02/2020 7:26 PM CDT Frank Boykin MD LAB MICROBIOLOGY - GENERAL OR DERABLES Final Result Performing Organization Address [facility] [place] [address] * (ABNORMAL) Mumps antibody, IgG (01/02/2020 3:45 PM CDT) Mumps IgG Positive( A) Negative [facility] Comment: Interpretive Data Negative: No detectable IgG antibody to mumps. Such individuals are presumed to be uninfected with the mumps and to be susceptible to primary infection. Equivocal: Presence or absence of the Mumps IgG antibody cannot be determined. Positive: Indicates presence of detectable IgG antibody to mumps. Indicative of current or previous infection or vaccination. The individual may be at risk of transmitting mumps infection, but is not necessarily currently contagious. Current interpretive data was last revised on 2016. Blood specimen (specimen) 01/02/2020 3:45 PM CDT 01/02/2020 7:26 PM CDT us Frank oBykin MD LAB MICROBIOLOGY - GENERAL OR DERABLES Final Result [facility] [place] [facility] Department [place] [address] documented in this encounter Visit Diagnoses Not on filedocumented in this encounter
--- OUTSIDE RECORDS SUMMARY | 2024-03-24 00:25 | XMS_ITS | Encounter Summary ---
Author Organization [facility] Healthcare Address [address] [place] [id number] Care Team Providers Care Dining Room Attendant Name Role Phone Mauro Grady MD Primary Care Provider Reason for Visit * Reason Comments Vaginal Discharge Encounter Details Date Type Department Care Team (Late st Contact Info) Description 05/11/2021 10:02 AM PRESETTER OPERATOR - 05/11/2021 11:45 AM PRESETTER OPERATOR Emergency [address] [address] Vulvovaginal candidiasis (Primary Dx); Concern about STD in female without diagnosis Discharge Disposition: Discharge to home or self care Social History Tobacco Use Types Packs/Day Years Used Date Smoking Tobacco: Never Alcohol Use Standard Drinks/Week Comments Never 0 (1 standard drink = 0.6 oz pur e alcohol) Comments No Sex and Gender Information Value Date Recorded Sex Assigned at Not on file Legal Sex Female 9:02 PM PRESETTER OPERATOR Gender Identity Not on file Sexual Orientation Not on file documented as of this encounter Last Filed Vital Signs Vital Sign Reading Time Taken Comments Blood Pressure 108/62 05/11/2021 9:20 AM PRESETTER OPERATOR Pulse 88 05/11/2021 9:20 AM PRESETTER OPERATOR Temperature 36.8 ??C (98.2 ??F) 05/11/2021 9:20 AM CS T Respiratory Rate 18 05/11/2021 9:20 AM PRESETTER OPERATOR Oxygen Saturation 100% 05/11/2021 9:20 AM PRESETTER OPERATOR Inhaled Oxygen Concentration - - Weight 62.7 kg (138 lb 3.7 oz) 05/11/2021 9:20 A M PRESETTER OPERATOR Height 160 cm (5' 3 ) 05/11/2021 9:20 AM PRESETTER OPERATOR Body Mass Index 24.49 05/11/2021 9:20 AM PRESETTER OPERATOR documented in this encounter Discharge Instructions * Discharge Instructions* Shandra Roberts PA - 05/11/2021 10:55 AM PRESETTER OPERATOR Return immediately for any new symptoms, worsening of symptoms, or persistent symptoms Follow-up as recommended is mandatory You MUST follow up for further evaluation of all incidental abnormal radiographic and laboratory findings, Have your physician obtain records from this visit and address all the incidental abnormal findings. This may include final results of lab testing, cultures, final x-ray reports which may not have been available during the time of the visit. ETTER OPERATOR * Attachments The following attachments cannot be sent through Care Everywhere. * Vulvovaginal Candidiasis (AfterCare(R) Instructions(ER/ED)) (Togolese) documented in this encounter Medications at Time of Discharge fluconazole (DIFLUCAN) 150 mg tablet Take 1 tablet (150 mg total) by mouth once for 1 dose 1 tablet 05/11/2021 05/11/2021 documented as of this encounter Ordered Prescriptions Prescription Sig Dispense Quantity Refills Last Filled Start Date End Date fluconazole (DIFLUCAN) 150 mg tablet Take 1 tablet (150 mg total) by mouth once for 1 dose 1 tablet 05/11/2021 05/11/2021 documented in this encounter Discharge Disposition Disposition Code Departure Means Destination Comment s Discharge to home or self care seen and dc by erp documented in this encounter ED Notes * Shandra Roberts PA - 05/11/2021 11:45 AM CST HPI Chief Complaint Patient presents with ??? Vaginal Discharge HPI 9:49 PM Meena Muñoz is a 26 y.o. female presenting to the ED c/o thick white vaginal discharge, vaginal itching after using clindamycin vaginal cream. States she was seen at outside hospital, treated for STDs as well as a bacterial infection. She is on day 3 of the clindamycin cream. Denies any other new medications, no change in hygiene products, no urinary symptoms, no vaginal bleeding. She finds return home to [place] today. Patient History: History reviewed. No pertinent past medical history. History reviewed. No pertinent surgical history. History reviewed. No pertinent family history. Social History Tobacco Use ??? Smoking status: Never Smoker Substance Use Topics ??? Alcohol use: Never ??? Drug use: Never No current facility-administered medications for this encounter. No current outpatient medications on file. Review of Systems Review of Systems Constitutional: Negative for chills and fever. HENT: Negative for ear pain and sore throat. Eyes: Negative for pain and visual disturbance. Respiratory: Negative for cough and shortness of breath. Cardiovascular: Negative for chest pain and palpitations. Gastrointestinal: Negative for abdominal pain, nausea and vomiting. Genitourinary: Positive for vaginal discharge. Negative for dysuria, flank pain, frequency, hematuria, pelvic pain, urgency and vaginal bleeding. Musculoskeletal: Negative for arthralgias and back pain. Skin: Negative for color change and rash. Neurological: Negative for seizures and syncope. All other systems reviewed and are negative. All systems reviewed and are neg or non contributory for this patients presentation today other than as stated in the HPI . Physical Exam ED Triage Vitals [05/11/21 0920] Temp Pulse Resp BP SpO2 36.8 ??C (98.2 ??F) 88 18 108/62 100 % Temp src Heart Rate Source Patient Position BP Location FiO2 (%) Oral Monitor Sitting Right arm -- Physical Exam Vitals and nursing note reviewed. Constitutional: General: She is not in acute distress. Appearance: Normal appearance. She is well-developed. HENT: Head: Normocephalic and atraumatic. Right Ear: External ear normal. Left Ear: External ear normal. Nose: Nose normal. Mouth/Throat: Mouth: Mucous membranes are moist. Eyes: Conjunctiva/sclera: Conjunctivae normal. Cardiovascular: Rate and Rhythm: Normal rate and regular rhythm. Heart sounds: Normal heart sounds. No murmur heard. Pulmonary: Effort: Pulmonary effort is normal. No respiratory distress. Breath sounds: Normal breath sounds. Musculoskeletal: General: Normal range of motion. Cervical back: Neck supple. Skin: General: Skin is warm and dry. Neurological: Mental Status: She is alert and oriented to person, place, and time. Procedures MDM Labs Reviewed URINALYSIS AND REFLEX TO MICROSCOPIC AND CULTURE - Abnormal Result Value Color, ur Raisa Clarity, ur Turbid (*) Specific gravity, ur 1.027 pH, urine 5.0 Protein, ur ql 1+ (*) Glucose, ur ql Negative Ketones, ur Negative Bilirubin, ur Negative Blood, ur Negative Urobilinogen, ur <2.0 Nitrite, ur Negative Leukocyte esterase, ur 4+ (*) UA reflex comment Reflex to microscopic UA will be performed. Narrative: Urine pH is affected by diet, medications, systemic acid-base disturbances, and renal tubular function. pH may affect urinary stone formation. For example, urine pH below 6.0 may help reduce the tendency for calcium phosphate stones and pH greater than 6.0 may reduce the tendency for uric acid stone formation. Source: [facility] [place].Last revised 03-31-2017 URINALYSIS, MICROSCOPIC ONLY - Abnormal WBC, ur >50 (*) RBC, ur >50 (*) Epithelial cells, squamous, ur >50 (*) Mucous, ur Present (*) Culture Reflex Comment Reflex to urine culture will be performed. URINE CULTURE Report Value: Final Report: Less than 100,000 colonies/mL (clinically insignificant growth based on current clinical standards) Organism (CLINICALLY INSIGNIFICANT GROWTH Narrative: Urine culture reflexed based upon urinalysis results. Testing performed by [facility] ([phone]) POCT HCG, URINE HCG, ur, POC Negative Lot Number [id number] QC Backgroud Clear Acceptable QC Control Line Acceptable No orders to display BP 108/62 (BP Location: Right arm, Patient Position: Sitting) Pulse 88 Temp 36.8 ??C (98.2 ??F)(Oral) Resp 18 Ht 160 cm (5' 3 ) Wt 62.7 kg (138 lb 3.7 oz) LMP 04/30/2021 (Exact Date) SpO2 100% BMI 24.49 kg/m?? [facility] ED Course as of 05/12/21 2150 Time: 05/11 1032 Value: Urinalysis reflex to microscopic and culture Urine, clean voided(!): Color, ur Raisa Clarity, ur Turbid(!) Specific gravity, ur 1.027 pH, urine 5.0 Protein, ur ql 1+(!) Glucose, ur ql Negative Ketones, ur Negative Bilirubin, ur Negative Blood, ur Negative Urobilinogen, ur <2.0 Nitrite, ur Negative Leukocyte esterase, ur 4+(!) UA reflex comment Reflex to microscopic UA will be performed. Comment: (Reviewed) By: Shandra Roberts PA Time: 05/11 1031 Value: Urinalysis, microscopic only(!): WBC, ur >50(!) RBC, ur >50(!) Epithelial cells, squamous, ur >50(!) Mucous, ur Present(!) Culture Reflex Comment Reflex to urine culture will be performed. Comment: (Reviewed) By: Shandra Roberts PA Time: 05/11 1031 Value: POCT hCG, urine: HCG, ur, POC Negative Lot # [id number] QC Backgroud Clear Acceptable QC Control Line Acceptable Comment: (Reviewed) By: Shandra Roberts PA Time: 05/12 2148 Comment: Will treat for a yeast infection. By: Shandra Roberts PA This examination was transcribed using the [employer] voice recognition system without human payment collector. In an effort to expedite patient care, this report has not been adjusted for typographical, grammatical, and syntax by a trained medical office manager. Clinical Impression: Vulvovaginal candidiasis Concern about STD in female without diagnosis Shandra Roberts PA 05/12/212149 Cosigned by Deuce Alcantara DO at 05/21/2021 2:12 AM PRESETTER OPERATOR ETTER OPERATOR ETTER OPERATOR Associated attestation - Deuce Alcantara DO - 05/21/2021 2:12 AM PRESETTER OPERATOR ED Attestation This patient was independently evaluated by the APC. I was available for immediate consultation andin-person evaluation if required but was not asked to do so. * Criss Graham RN - 05/11/2021 11:45 AM CST This RN attempted to call the pt as a discharge follow up with no success. No VM was left at this time due to the mailbox being full. Criss Graham RN 05/12/21 1157 Criss Graham RN 05/12/21 1158 ETTER OPERATOR ETTER OPERATOR * Ashkan Dang RN - 05/11/2021 9:54 AM CST Pt states shew was prescribed an antibacterial cream and has increased tenderness and white vaginaldischarge. ETTER OPERATOR documented in this encounter Plan of Treatment Not on file documented as of this encounter Procedures Procedure Name Priority Date/Time Associated Diagnosis Comments POCT HCG, URINE Routine 05/11/2021 10:11 AM PRESETTER OPERATOR URINALYSIS AND REFLEX TO MICROSCOPIC AND CULTURE STAT 05/11/2021 10:04 AM PRESETTER OPERATOR URINALYSIS, MICROSCOPIC ONLY STAT 05/11/2021 10:04 AM PRESETTER OPERATOR URINE CULTURE STAT 05/11/2021 10:04 AM PRESETTER OPERATOR documented in this encounter Results * POCT hCG, urine (05/11/2021 10:11 AM PRESETTER OPERATOR) HCG, ur, POC Negative Lot Number [id number] QC Backgroud Clear Acceptable QC Control Line Acceptable Urine 05/11/2021 10:1 1 AM PRESETTER OPERATOR Shandra SANCHEZ POINT OF CARE TEST ORDERABLES Final Result * Urine culture Urine, clean voided (05/11/2021 10:04 AM PRESETTER OPERATOR) Report Final Report: Less than 100,000 colonies/mL (clinically insignificant growth based on current clinical standards) EMIR Comment:Testing performed by : [facility], [address] [place]., [address] Organism (CLINICALLY INSIGNIFICANT GROWTH EMIR Urine, clean voided 05/11/2021 10:04 AM PRESETTER OPERATOR 05/11/2021 2:06 PM PRESETTER OPERATOR Narrative EMIR - 05/12/2021 4:27 PM PRESETTER OPERATOR Urine culture reflexed based upon urinalysis results. Testing performed by [facility] ([phone]) Shandra SANCHEZ LAB MICROBIOLOGY - GENERAL OR DERABLES Final Result [facility] [address] [facility] [place] [address] * (ABNORMAL) Urinalysis, microscopic only (05/11/2021 10:04 AM PRESETTER OPERATOR) WBC, ur >50(A) 0 - 5 /HPF [facility] RBC, ur >50(A) 0 - 2 /HPF [facility] Epithelial cells, squamous, ur >50(A) 0 - 5 /HPF [facility] Comment:Suggestive of contam ination. Consider recollection by clean catch. Mucous, ur Present(A) EMIR Culture Reflex Comment Reflex to urine culture will be performed. EMIR Urine, clean voided 05/11/2021 10:04 AM PRESETTER OPERATOR 05/11/2021 10:10 AM PRESETTER OPERATOR Shandra SANCHEZ LAB URINE ORDERABLES Final Re sult Performing Organization Address [facility]/ZIP Co de Phone Number EMIR CHONG [phone] [facility] [place] [address] * (ABNORMAL) Urinalysis reflex to microscopic and culture Urine, clean voided (05/11/2021 10:04 AM PRESETTER OPERATOR) Color, ur Raisa Yellow [facility] Clarity, ur Turbid(A) Clear [facility] Specific gravity, ur 1.027 1.003 - 1.030 [facility] pH, urine 5.0 [facility] Protein, ur ql 1+(A) Negative [facility] Glucose, ur ql Negative Negative [facility] Ketones, ur Negative Negative [facility] Bilirubin, ur Negative Negative [facility] Blood, ur Negative Negative [facility] Urobilinogen, ur <2.0 <2.0 mg/dL [facility] Nitrite, ur Negative Negative [facility] Leukocyte esterase, ur 4+(A) Negative [facility] UA reflex comment Reflex to microscopic UA will be performed. [facility] Urine, clean voided 05/11/2021 10:04 AM PRESETTER OPERATOR 05/11/2021 10:10 AM PRESETTER OPERATOR Narrative [facility] - 05/11/2021 10:14 AM PRESETTER OPERATOR ?? Urine pH is affected by diet, medications, systemic acid-base disturbances, and renal tubular function. ??pH may affect urinary stone formation. ??For example, urine pH below 6.0 may help reduce the tendency for calcium phosphate stones and pH greater than 6.0 may reduce the tendency for uric acid stone formation. Source: [facility] [place]. Last revised 03-31-2017 Shandra SANCHEZ LAB MICROBIOLOGY - GENERAL OR DERABLES Final Result Performing Organization Address [facility] Co de Phone Number EMIR CHONG [phone] [facility] Department [place] [address] documented in this encounter Visit Diagnoses Diagnosis Vulvovaginal candidiasis- Primary Concern about STD in female without diagnosis documented in this encounter Administered Medications Inactive Administered Medications - up to 3 most recent administrations Medication Order MAR Action Action Date Dose Rate Site cefTRIAXone (ROCEPHIN) 500 mg in lidocaine PF (XYLOCAINE) 1.4 mL injection 500 mg, intramuscular, Once, On Tue05/11/21 at 1056, For 1 dose, Reconstitute 500 mg vial with 1 mL Lidocaine 1% for injection. Resulting solution is 350 mg/mL., Indications: Sexually Transmitted InfectionIndications:Sexu ally Transmitted Infection Given 05/11/2021 10:59 AM PRESETTER OPERATOR 500 mg Right Dorsogluteal/Butto ck documented in this encounter Active and Recently Administered Medications Times are shown in PRESETTER OPERATOR. Scheduled Medication Order 05/09/2021 05/10/2021 05/11/2021 cefTRIAXone (ROCEPHIN) 500 mg in lidocaine PF (XYLOCAINE) 1.4 mL injection (COMPLETED) 500 mg, intramuscular, Once, On Tue05/11/21 at 1056, For 1 dose, Reconstitute 500 mg vial with 1 mL Lidocaine 1% for injection. Resulting solution is 350 mg/mL., Indications: Sexually Transmitted Infection 1059 (Given - Provid er: Mercy Munoz RN) documented in this encounter Orders Medications Ordered That Ja ht Not Have Been Administered Count Last Ordered Date First Ordered Date cefTRIAXone (ROCEPHIN) 500 m g in lidocaine PF (XYLOCAINE) 1.4 mL injection 1 05/11/2021 documented in this encounter Care Teams Dining Room Attendant Relationship Specialty Start Date End Date Mauro Grady MD PCP - General 07/30/20 06/05/23 documented as of this encounter
--- OUTSIDE RECORDS SUMMARY | 2024-03-24 00:25 | XMS_ITS | Encounter Summary ---
Author Organization [facility] Healthcare Address [address] [place] [id number] Care Team Providers Care Cnc Machinist 2Nd Shift Name Role Phone Mauro Grady MD Primary Care Provider [phone] Reason for Visit * Reason Comments Vaginal Bleeding Encounter Details Date Type Department Care Team (Late st Contact Info) Description 05/07/2023 7:34 PM JAVA SOFTWARE DEVELOPER - 05/07/2023 9:03 PM [facility] Emergency [facility] Emergency Department [facility] [place] [address] Enrico Fu MD [address] [place] [id number] Vaginal bleeding (Primary Dx) Discharge Disposition: Discharge to home [...] making you feel afraid or unsafe? Denies 05/07/2023 Comments No Sex and Gender Information Value Date Recorded Sex Assigned at Not on file Legal Sex Female 9:02 PM JAVA SOFTWARE DEVELOPER Gender Identity Not on file Sexual Orientation Not on file documented as of this encounter Last Filed Vital Signs Vital Sign Reading Time Taken Comments Blood Pressure 112/85 05/07/2023 8:00 PM JAVA SOFTWARE DEVELOPER Pulse 78 05/07/2023 8:00 PM JAVA SOFTWARE DEVELOPER Temperature 36.8 ??C (98.2 ??F) 05/07/2023 6:07 PM CS T Respiratory Rate 18 05/07/2023 8:00 PM JAVA SOFTWARE DEVELOPER Oxygen Saturation 100% 05/07/2023 8:00 PM JAVA SOFTWARE DEVELOPER Inhaled Oxygen Concentration - - Weight 83 kg (182 lb 15.7 oz) 05/07/2023 6:07 PM JAVA SOFTWARE DEVELOPER Height 160 cm (5' 3 ) 05/07/2023 6:07 PM JAVA SOFTWARE DEVELOPER Body Mass Index 32.41 05/07/2023 6:07 PM JAVA SOFTWARE DEVELOPER documented in this encounter Discharge Instructions * Discharge Instructions* Enrico Fu MD - 05/07/2023 8:39 PM JAVA SOFTWARE DEVELOPER You were seen today for vaginal bleeding after taking Plan B. This is expected. For pain you may take 2 aleve twice daily as needed. If you need additional pain medication, take 2 extra strength tylenol every 4-6 hours as needed. Call your screen stretcher in [place] to schedule a follow-up appointment. Also follow-up with your primary care provider. Return to the emergency department of worsening bleeding, dizziness, lightheadedness, uncontrolled pain, fever, or for other concern. SOFTWARE DEVELOPER * Attachments The following attachments cannot be sent through Care Everywhere. * Abnormal (Dysfunctional) Uterine Bleeding (AfterCare(R) Instructions(ER/ED)) (Yemeni) documented in this encounter Discharge Disposition Disposition Code Departure Means Destination Comment s Discharge to home or self care documented in this encounter ED Notes * Enrico Fu MD - 05/07/2023 8:29 PM CST HPI Chief Complaint Patient presents with Vaginal Bleeding Pt presents for vaginal bleeding after taking Plan B. She is a , LMP ~2 wks ago. Had unprotected sex Tuesday. Sat took Plan B. Has been having vaginal bleeding and low abd cramping. Using 4-5 pads/ day. No preceding vaginal discharge. No dysuria / flank pain. No orthostatic dizziness, lightheadedness, or other complaint. Has has a PULP TESTER provider in [place] but did not call her. States she did not know what the effects of Plan B would be. Patient History: There are no problems to display for this patient. Past Medical History: Diagnosis Date 1 para 1 Past Surgical History: Procedure Laterality Date NO PAST SURGERIES History reviewed. No pertinent family history. Social History Tobacco Use Smoking status: Never Smokeless tobacco: None Substance and Sexual Activity Alcohol use: Never Drug use: Never Sexual activity: Defer Social History Social History Narrative Not on file Review of Systems Review of Systems Constitutional: Negative for chills and fever. Cardiovascular: Negative for chest pain. Gastrointestinal: Positive for abdominal pain and nausea. Negative for diarrhea and vomiting. Genitourinary: Positive for vaginal bleeding. Negative for dysuria, flank pain and vaginal discharge. Musculoskeletal: Negative for back pain and neck pain. Skin: Negative for rash. Neurological: Negative for dizziness and light-headedness. Psychiatric/Behavioral: Negative for confusion. Physical Exam ED Triage Vitals [05/07/23 1807] Temp Pulse Resp BP SpO2 36.8 ??C (98.2 ??F) 84 18 111/79 100 % Temp src Heart Rate Source Patient Position BP Location FiO2 (%) Oral -- -- -- -- Height Height Method Weight Weight Method 1.6 m (5' 3 ) Stated 83 kg (182 lb 15.7 oz) -- Physical Exam Vitals and nursing note reviewed. Constitutional: General: She is not in acute distress. HENT: Head: Normocephalic and atraumatic. Nose: Nose normal. Mouth/Throat: Mouth: Mucous membranes are moist. Eyes: Extraocular Movements: Extraocular movements intact. Cardiovascular: Rate and Rhythm: Normal rate and regular rhythm. Pulses: Normal pulses. Heart sounds: Normal heart sounds. Pulmonary: Effort: Pulmonary effort is normal. Breath sounds: Normal breath sounds. Abdominal: General: Abdomen is flat. Bowel sounds are normal. Palpations: Abdomen is soft. Tenderness: There is no abdominal tenderness. There is no right CVA tenderness, left CVA tenderness, guarding or rebound. Musculoskeletal: General: No swelling or tenderness. Normal range of motion. Skin: General: Skin is warm and dry. Capillary Refill: Capillary refill takes less than 2 seconds. Neurological: Mental Status: She is alert. Psychiatric: Mood and Affect: Mood normal. Behavior: Behavior normal. Thought Content: Thought content normal. Judgment: Judgment normal. [facility] Medical Decision Making Pt presents for vaginal bleeding after taking Plan B. She is a , LMP ~2 wks ago. Had unprotected sex Tuesday. Sat took Plan B. Has been having vaginal bleeding and low abd cramping. Using 4-5 pads/ day. No preceding vaginal discharge. No dysuria / flank pain. No orthostatic dizziness, lightheadedness, or other complaint. Has has a PULP TESTER provider in [place] but did not call her. States she did not know what the effects of Plan B would be. DDx includes effect of Plan B, DUB, miscarriage, ectopic Amount and/or Complexity of Data Reviewed External Data Reviewed: labs, radiology and notes. Labs: ordered. Decision-making details documented in ED Course. Risk Decision regarding hospitalization. ED Course as of 05/07/232039 Time: 05/07 2019 Comment: CBC unremarkable CMP unremarkable HCG neg By: Enrico Fu MD Time: 05/07 2019 Value: Nitrite, ur: Negative Comment: (Reviewed) By: Enrico Fu MD Time: 05/07 2019 Value: Leukocyte esterase, ur: Negative Comment: (Reviewed) By: Enrico Fu MD Time: 05/07 2019 Value: WBC, ur(!): 21-50 Comment: (Reviewed) By: Enrico Fu MD Time: 05/07 2019 Value: RBC, ur(!): >50 Comment: (Reviewed) By: Enrico Fu MD Time: 05/07 2019 Value: Epithelial cells, squamous, ur(!): >50 Comment: (Reviewed) By: Enrico Fu MD Time: 05/07 2038 Comment: DC / Follow-up instructions You were seen today for vaginal bleeding after taking Plan B. This is expected. For pain you may take 2 aleve twice daily as needed. If you need additional pain medication, take 2 extra strength tylenol every 4-6 hours as needed. Call your screen stretcher in [place] to schedule a follow-up appointment. Also follow-up with your primary care provider. Return to the emergency department of worsening bleeding, dizziness, lightheadedness, uncontrolled pain, fever, or for other concern. By: Enrico Fu MD Final diagnoses: Vaginal bleeding Enrico Fu MD 05/07/232039 SOFTWARE DEVELOPER * Jodie Warner RN - 05/07/2023 6:05 PM CST Pt reports that since Tuesday she has been bleeding through 4 pads a day. Pt states that she had unprotected sex a week ago and took plan B the next morning. Pt also endorses suprapubic abd pain SOFTWARE DEVELOPER documented in this encounter Plan of Treatment Not on file documented as of this encounter Procedures Procedure Name Priority Date/Time Associated Diagnosis Comments N. GONORRHOEAE/C. TRACHOMATIS AMPLIFICATION STAT 05/07/2023 7:38 PM JAVA SOFTWARE DEVELOPER TRICHOMONAS VAGINALIS PCR STAT 05/07/2023 7:38 PM JAVA SOFTWARE DEVELOPER POCT HCG, URINE Routine 05/07/2023 6:43 PM JAVA SOFTWARE DEVELOPER URINALYSIS AND REFLEX TO MICROSCOPIC AND CULTURE STAT 05/07/2023 6:20 PM JAVA SOFTWARE DEVELOPER URINALYSIS, MICROSCOPIC ONLY STAT 05/07/2023 6:20 PM JAVA SOFTWARE DEVELOPER URINE CULTURE STAT 05/07/2023 6:20 PM JAVA SOFTWARE DEVELOPER EGFR STAT 05/07/2023 6:18 PM JAVA SOFTWARE DEVELOPER DIFFERENTIAL AUTO STAT 05/07/2023 6:1 8 PM JAVA SOFTWARE DEVELOPER CBC WITH AUTO DIFFERENTIAL STAT 05/07/2023 6:18 PM JAVA SOFTWARE DEVELOPER COMPREHENSIVE METABOLIC PANEL STAT 05/07/2023 6:18 PM JAVA SOFTWARE DEVELOPER documented in this encounter Results * Trichomonas vaginalis PCR Urine (05/07/2023 7:38 PM JAVA SOFTWARE DEVELOPER) Trichomonas DNA Not Detected Not Detected [facility] Comment: Interpretive Data This assay detects Trichomonas vaginalis by nucleic acid amplification testing (NAAT). This assay has been cleared by the [place] Food and Drug administration. The performance characteristics of this test have been verified by the [facility] Molecular Infectious Disease laboratory. Excess blood in specimens may be inhibitory and result in false negative results. ??The performance of this test has not been evaluated in women or individuals less than 18 years of age. Current Interpretive Data last revised 2023. Testing performed by: [facility], [address] [facility], [place]., [address] Urine 05/07/2023 7:38 PM JAVA SOFTWARE DEVELOPER 05/07/2023 10:15 PM JAVA SOFTWARE DEVELOPER Sonya SANCHEZ LAB MICROBIOLOGY - GENERAL ORDER KACEY Final Result Performing Organization Address [facility] de Phone Number [id number] [address] * (ABNORMAL) N. gonorrhoeae/C. trachomatis Amplification Urine (05/07/2023 7:38 PM JAVA SOFTWARE DEVELOPER) Pathologist [facility] C. trachomatis Not Detected Not Detected [facility] Comment:Testing performed by : [facility], [address] [place] [address]., [address] N. gonorrhoeae Detected(A) Not Detected [facility] Comment: Interpretive Data This assay detects Chlamydia trachomatis and Neisseria gonorrhoeae by nucleic acid amplification testing (NAAT). This assay has been cleared by the [place] Food and Drug administration. The performance characteristics of this test have been verified by the [facility]. The performance characteristics of this test have not been evaluated in individuals less than 14 years of age. Current Interpretive Data last revised 2023. Testing performed by: [facility], [address] [place] [address]., [address] Urine (None) 05/07/2023 7:38 PM JAVA SOFTWARE DEVELOPER 05/07/2023 7:43 PM JAVA SOFTWARE DEVELOPER Carole SANCHEZ LAB MICROBIOLOGY - GEN ERAL ORDERABLES Final Result Performing Organization Address [facility] de Phone Number [place] [phone] [facility] [place] [address] * POCT hCG, urine (05/07/2023 6:43 PM JAVA SOFTWARE DEVELOPER) Pathologist [facility] HCG, ur, POC Negative Negative Lot Number [id number] QC Backgroud Clear Acceptable QC Control Line Acceptable Urine 05/07/2023 6:43 PM JAVA SOFTWARE DEVELOPER Enrico Fu MD POINT OF CARE TEST ORDERAB LES Final Result * Urine culture Urine (05/07/2023 6:20 PM JAVA SOFTWARE DEVELOPER) Report Final Report: Less than 100,000 colonies/mL (clinically insignificant growth based on current clinical standards) [facility] Comment:Testing performed by : [facility], [address] [place]., [address] Organism (CLINICALLY INSIGNIFICANT GROWTH [facility] Urine 05/07/2023 6:20 PM JAVA SOFTWARE DEVELOPER 05/07/2023 9:43 PM JAVA SOFTWARE DEVELOPER Narrative [facility]IR - 05/09/2023 7:34 AM JAVA SOFTWARE DEVELOPER Urine culture reflexed based upon urinalysis results. Testing performed by [facility] Microbiology Laboratory ([phone]) us Aldair Cerrato MD LAB MICROBIOLOGY - GENERAL ORDER KACEY Final Result [facility] Department [place] [address] * (ABNORMAL) Urinalysis, microscopic only (05/07/2023 6:20 PM JAVA SOFTWARE DEVELOPER) WBC, ur 21-50(A) 0 - 5 /HPF [facility] Comment:Testing performed by : [address] [address] RBC, ur >50(A) 0 - 2 /HPF [facility] Comment:Testing performed by : [address] [address] Epithelial cells, squamous, ur >50(A) 0 - 5 /HPF [facility] Comment:Testing performed by : [address] [address] Mucous, ur Present(A) [facility] Comment:Testing performed by : [address] [address] Culture Reflex Comment Reflex to urine culture will be performed. [facility] Comment:Testing performed by : [address] [address] Urine 05/07/2023 6:20 PM JAVA SOFTWARE DEVELOPER 05/07/2023 6:48 PM JAVA SOFTWARE DEVELOPER us Enrico Fu MD LAB URINE ORDERABLES Final Result [facility] [address] [facility] Department [place] [address] * (ABNORMAL) Urinalysis reflex to microscopic and culture Urine (05/07/2023 6:20 PM JAVA SOFTWARE DEVELOPER) Color, ur Yellow Yellow [facility] CHONG Comment:Testing performed by : [address] [address] Clarity, ur Clear Clear [facility] Comment:Testing performed by : [address] [address] Specific gravity, ur 1.023 1.003 - 1.030 [facility] Comment:Testing performed by : [address] [address] pH, urine 5.5 [facility] Comment: Interpretive Data ? Urine pH is affected by diet, medications, systemic acid-base disturbances, and renal tubular function. ??pH may affect urinary stone formation. ??For example, urine pH below 6.0 may help reduce the tendency for calcium phosphate stones and pH greater than 6.0 may reduce the tendency for uric acid stone formation. Source: [facility] [employer] Current Interpretive Data was last revised on 2017 Testing performed by: [address] [address] Protein, ur ql Trace(A) Negative [facility] CHONG Comment:Testing performed by : [address] [address] Glucose, ur ql Negative Negative [facility] CHONG Comment:Testing performed by : [address] [address] Ketones, ur Negative Negative [facility] CHONG Comment:Testing performed by : [address] [address] Bilirubin, ur Negative Negative [facility] CHONG Comment:Testing performed by : [address] [address] Blood, ur 3+(A) Negative [facility] CHONG Comment:Testing performed by : [address] [place]., [address] Urobilinogen, ur <2.0 <2.0 mg/dL [facility] CHONG Comment:Testing performed by : [address] [address] Nitrite, ur Negative Negative [facility] CHONG Comment:Testing performed by : [address] [address] Leukocyte esterase, ur Negative Negative [facility] CHONG Comment:Testing performed by : [address] [address] UA reflex comment Reflex to microscopic UA will be performed. [facility] CHONG Comment:Testing performed by : [address] [address] Urine 05/07/2023 6:20 PM JAVA SOFTWARE DEVELOPER 05/07/2023 6:48 PM JAVA SOFTWARE DEVELOPER us Enrico Fu MD LAB MICROBIOLOGY - GENERAL ORDERABLES Final Result Performing Organization Address City/State/[facility] Co de Phone Number EMIR [address] [facility] Department [place] [address] * eGFR (05/07/2023 6:18 PM JAVA SOFTWARE DEVELOPER) eGFR 80 mL/min/1. 73 m2 [facility] CHONG Comment: Interpretive Data Reference Interval Normal ?>/= [...] was last reviewed 2021. Testing performed by: [address] [address] Blood 05/07/2023 6:18 PM JAVA SOFTWARE DEVELOPER 05/07/2023 6:34 PM JAVA SOFTWARE DEVELOPER us Enrico Fu MD LAB BLOOD ORDERABLES Final Result [facility] Department [place] [address] * Differential, auto (05/07/2023 6:18 PM JAVA SOFTWARE DEVELOPER) Neutrophil abs 2.6 1.5 - 6.5 K/cumm EMIR Comment:Testing performed by : [address] [address] Imm gran abs 0.0 0.0 - 0.1 K/cumm EMIR Comment:Testing performed by : [address] [address] Lymphocyte abs 2.5 0.8 - 3.3 K/cumm EMIR Comment:Testing performed by : [address] [address] Monocyte abs 0.3 0.2 - 0.8 K/cumm EMIR Comment:Testing performed by : [address] [address] Eosinophil abs 0.1 0.0 - 0.5 K/cumm EMIR Comment:Testing performed by : [address] [address] Basophil abs 0.0 0.0 - 0.1 K/cumm EMIR Comment:Testing performed by : [address] [address] Neutrophil pct 47.6 % EMIR Comment: Interpretive Data Percent cell count reference ranges are not reported, since discordance with absolute values may lead to misinterpretation of CBC data. Current Interpretive Data was last revised on 2017. Testing performed by: [address] [address] Imm gran pct 0.2 % [facility] Comment: Interpretive Data Percent cell count reference ranges are not reported, since discordance with absolute values may lead to misinterpretation of CBC data. Current Interpretive Data was last revised on 2017. Testing performed by: [address] [address] Lymphocyte pct 45.5 % [facility] Comment: Interpretive Data Percent cell count reference ranges are not reported, since discordance with absolute values may lead to misinterpretation of CBC data. Current Interpretive Data was last revised on 2017. Testing performed by: [address] [address] Monocyte pct 5.1 % [facility] Comment: Interpretive Data Percent cell count reference ranges are not reported, since discordance with absolute values may lead to misinterpretation of CBC data. Current Interpretive Data was last revised on 2017. Testing performed by: [address] [address] Eosinophil pct 0.9 % [facility] Comment: Interpretive Data Percent cell count reference ranges are not reported, since discordance with absolute values may lead to misinterpretation of CBC data. Current Interpretive Data was last revised on 2017. Testing performed by: [address] [address] Basophil pct 0.7 % [facility] Comment: Interpretive Data Percent cell count reference ranges are not reported, since discordance with absolute values may lead to misinterpretation of CBC data. Current Interpretive Data was last revised on 2017. Testing performed by: [address] [address] Blood 05/07/2023 6:18 PM JAVA SOFTWARE DEVELOPER 05/07/2023 6:34 PM JAVA SOFTWARE DEVELOPER Enrico Fu MD LAB BLOOD ORDERABLES Final Result [facility] [address] [facility] Department [place] [address] * Comprehensive metabolic panel (05/07/2023 6:18 PM JAVA SOFTWARE DEVELOPER) Sodium 139 135 - 145 mmol/L [facility] Comment:Testing performed by : [address] [address] Potassium, pl 4.0 3.3 - 4.9 mmol/L [facility] Comment:Testing performed by : [address] [address] Chloride 102 97 - 110 mmol/L EM[facility] Comment:Testing performed by : [address] [address] CO2 25 22 - 32 mmol/L [facility] Comment:Testing performed by : [address] [address] Anion gap 12 2 - 15 mmol/L [facility] Comment:Testing performed by : [address] [address] BUN 10 6 - 25 mg/dL EM[facility] Comment:Testing performed by : [address] [address] Creatinine 1.00 0.60 - 1.10 mg/dL EM[facility] Comment:Testing performed by : [address] [address] Glucose 100 70 - 199 mg/dL EMIR Comment: Interpretive [...] was last revised 2022. Testing performed by: [address] [address] Calcium 9.0 8.5 - 10.3 mg/dL [facility] Comment:Testing performed by : [address] [address] Bilirubin, total 0.4 0.1 - 1.2 mg/dL [facility] Comment:Testing performed by : [address] [address] Protein, pl 7.6 6.5 - 8.5 g/dL [facility] Comment:Testing performed by : [address] [address] Albumin 4.6 3.5 - 5.0 g/dL [facility] Comment:Testing performed by : [address] [address] Alk phos 67 40 - 130 Units/L [facility] Comment:Testing performed by : [address] [address] ALT 12 7 - 45 Units/L [facility] Comment:Testing performed by : [address] [address] AST 17 10 - 45 Units/L [facility] Comment:Testing performed by : [address] [address] Blood 05/07/2023 6:18 PM JAVA SOFTWARE DEVELOPER 05/07/2023 6:34 PM JAVA SOFTWARE DEVELOPER us Enrico Fu MD LAB BLOOD ORDERABLES Final Result Performing Organization Address City/State/[facility] Co de Phone Number [facility] [address] [facility] Department of Laboratories [place], [place] [id number] * (ABNORMAL) CBC with auto differential (05/07/2023 6:18 PM JAVA SOFTWARE DEVELOPER) WBC 5.5 3.8 - 9.9 K/cumm [facility] CHONG Comment:Testing performed by : [address] [address] Hgb 14.0 11.9 - 15.5 g/dL EM[facility] Comment:Testing performed by : [address] [address] Hct 43.7 35.6 - 45.5 % [facility] CHONG Comment:Testing performed by : [address] [address] Plt 222 150 - 400 K/cumm [facility] CHONG Comment:Testing performed by : [address] [address] MPV 10.8 9.1 - 12.3 fL [facility] CHONG Comment:Testing performed by : [address] [address] RBC 5.03 3.90 - 5.20 M/cumm [facility] CHONG Comment:Testing performed by : [address] [address] MCV 86.9 81.3 - 96.4 fL EM[facility] Comment:Testing performed by : [address] [address] MCH 27.8 27.1 - 33.3 pg EM[facility] CHONG Comment:Testing performed by : [address] [address] MCHC 32.0(L) 32.3 - 35.7 g/dL EM[facility] Comment:Testing performed by : [address], [address] RDW CV 13.7 11.1 - 14.9 % EMIR Comment:Testing performed by : [address] [address] RDW SD 43.8 35.7 - 48.1 fL EMIR Comment:Testing performed by : [address] [address] NRBC abs 0.00 0.00 - 0.01 K/cumm EMIR CHONG Comment:Testing performed by : [address] [address] Blood 05/07/2023 6:18 PM JAVA SOFTWARE DEVELOPER 05/07/2023 6:34 PM JAVA SOFTWARE DEVELOPER us Enrico Fu MD LAB BLOOD ORDERABLES Final Result [facility] [address] [facility] Department [place] [address] documented in this encounter Visit Diagnoses Diagnosis Vaginal bleeding- Primary Other specified noninflammatory disorder of vagina documented in this encounter Administered Medications Inactive Administered Medications - up to 3 most recent administrations Medication Order MAR Action Action Date Dose Rate Site acetaminophen (TYLENOL) tablet 975 mg 975 mg (rounded from 1,000 mg), oral, Once, On 05/07/23 at 2030, For 1 dose Given 05/07/2023 8:46 PM JAVA SOFTWARE DEVELOPER 975 mg ondansetron ODT (ZOFRAN-ODT) disintegrating tablet 4 mg 4 mg, oral, Once, On 05/07/23 at 2037, For 1 dose Given 05/07/2023 8:46 PM JAVA SOFTWARE DEVELOPER 4 mg traMADoL (ULTRAM) tablet 50 mg 50 mg, oral, Once, On 05/07/23 at 2030, For 1 dose Given 05/07/2023 8:46 PM JAVA SOFTWARE DEVELOPER 50 mg documented in this encounter Active and Recently Administered Medications Times are shown in JAVA SOFTWARE DEVELOPER. Scheduled Medication Order 05/05/2023 05/06/2023 05/07/2023 acetaminophen (TYLENOL) tablet 975 mg (COMPLETED) 975 mg (rounded from 1,000 mg), oral, Once, On 05/07/23 at 2030, For 1 dose 2045 (Given - Provid er: Debbi Martinez RN) ondansetron ODT (ZOFRAN-ODT) disintegrating tablet 4 mg (COMPLETED) 4 mg, oral, Once, On 05/07/23 at 2037, For 1 dose 2045 (Given - Provid er: Debbi Martinez RN) traMADoL (ULTRAM) tablet 50 mg (COMPLETED) 50 mg, oral, Once, On 05/07/23 at 2030, For 1 dose 2045 (Given - Provid er: Debbi Martinez RN) documented in this encounter Care Teams Cnc Machinist 2Nd Shift Relationship Specialty Start Date End Date Mauro Grady MD PCP - General 07/30/20 06/05/23 documented as of this encounter
--- OUTSIDE RECORDS SUMMARY | 2024-03-24 00:25 | XMS_ITS | Encounter Summary ---
Author Organization [facility] Healthcare Address [address] [place] [address] Care Team Providers Care Rack Loader Name Role Phone Unavailable Primary Care Provider Unavailabl e Encounter Details Date Type Department Care Team (Latest Contact Info) Description 05/15/2015 9:21 PM FISHERIES INSPECTOR - 05/16/2015 10:00 AM FISHERIES INSPECTOR Hospital Encounter [facility] Josiah Cr MD [address] [place] [id number] False labor after 37 completed weeks of gestation; 38 weeks gestation of Social History Tobacco Use Types Packs/Day Years Used Date Smoking Tobacco: Never Assessed Comments Unknown Sex and Gender Information Value Date Recorded Sex Assigned at Not on file Legal Sex Female 9:02 PM FISHERIES INSPECTOR Gender Identity Not on file Sexual Orientation Not on file documented as of this encounter Last Filed Vital Signs Vital Sign Reading Time Taken Comments Blood Pressure 106/69 05/15/2015 9:40 PM FISHERIES INSPECTOR Pulse 90 05/15/2015 9:40 PM FISHERIES INSPECTOR Temperature 36.5 ??C (97.7 ??F) 05/15/2015 9:40 PM CS T Respiratory Rate - - Oxygen Saturation 98% 05/15/2015 9:40 PM FISHERIES INSPECTOR Inhaled Oxygen Concentration - - Weight 64 kg (141 lb) 05/15/2015 9:40 PM FISHERIES INSPECTOR Height 160 cm (5' 3 ) 05/15/2015 9:40 PM FISHERIES INSPECTOR Body Mass Index 24.98 05/15/2015 9:40 PM FISHERIES INSPECTOR Body Mass Index Percentile 81.48% 05/15/2015 9:4 0 PM FISHERIES INSPECTOR Growth Chart: CDC (Girls, 2- 20 Years) documented in this encounter Plan of Treatment Not on file documented as of this encounter Procedures Procedure Name Priority Date/Time Associated Diagnosis Comments URINALYSIS AND REFLEX TO MICROSCOPIC AND CULTURE Routine 05/15/2015 9:15 PM FISHERIES INSPECTOR DRUGS OF ABUSE SCREEN, URINE WITHOUT CONFIRMATION Routine 05/15/2015 9:15 PM FISHERIES INSPECTOR documented in this encounter Results * Drug Screen, Urine (05/15/2015 9:15 PM FISHERIES INSPECTOR) Ur Amphetamine Screen NEGATIVE NEGATIVE Comment: Cutoff [...] ng /mL Urine Opiates Screen NEGATIVE NEGATIVE Comment: Cutoff Limit: ??300 ng/mL Detects Morphine, Codeine, Ethyl Morphine, ?Diacetylmorphine, 6-Acetylmorphine, Dihydrocodeine, ?[id number] and Hydrocodone Ur Oxycodone Screen NEGATIVE NEGATIVE 05/15 10:09 PM [facility] HISTORICAL RESULTS Comment:Cutoff Limit: 100 ng /mL Urine Creatinine/DARIAN 42.0 mg/dL Comment:If Creatinine is < 4 0 mg/dL, recollection is suggested. 05/15/2015 9:15 PM FISHERIES INSPECTOR 05/15/2015 9:43 PM FISHERIES INSPECTOR us Josiah Cr MD LAB URINE ORDERABLES Final Res ult [facility] HISTORICAL RESULTS * (ABNORMAL) Urinalysis reflex to microscopic and culture (05/15/2015 9:15 PM FISHERIES INSPECTOR) Ur Collection Type CLEAN CATCH Ur Culture Indicated? C&S NOT INDICATED Urine Color STRAW YELLOW Urine Clarity CLEAR CLEAR Urine Glucose (UA) 30(H) NORMAL mg/dL Urine Bilirubin NEGATIVE NEGATIVE mg/dl Urine Ketones NEGATIVE NEGATIVE mg/dL Ur Specific [place] 1.005 1.005 - 1.025 Urine Blood NEGATIVE NEGATIVE mg/dl Urine pH 6.5 5.0 - 8.0 Urine Protein NEGATIVE NEGATIVE mg/dL Urine Urobilinogen NORMAL NORMAL mg/dL Urine Nitrite NEGATIVE NEGATIVE 05/15/2015 9:50 PM FISHERIES INSPECTOR [facility] HISTORICAL RESULTS Ur Leukocyte Esterase NEGATIVE NEGATIVE Dc/ul 05/15/2015 9:50 PM FISHERIES INSPECTOR [facility] HISTORICAL RESULTS Ur Microscopic Review Indicated or Ordered 05/15/2015 9:50 PM FISHERIES INSPECTOR [facility] HISTORICAL RESULTS Urine RBC 1 0 - 2 /HPF 05/15/2015 9:50 PM FISHERIES INSPECTOR [facility] HISTORICAL RESULTS Urine WBC 1 0 - 2 /HPF 05/15/2015 9:50 PM FISHERIES INSPECTOR [facility] HISTORICAL RESULTS Urine Bacteria Rare /HPF 05/15/2015 9:50 PM FISHERIES INSPECTOR [facility] HISTORICAL RESULTS Ur Squamous Epith Cells Rare /HPF 05/15/2015 9:15 PM FISHERIES INSPECTOR 05/15/2015 9:43 PM FISHERIES INSPECTOR us Josiah Cr MD LAB MICROBIOLOGY - GENERAL ORD ERABLES Final Result [facility] HISTORICAL RESULTS documented in this encounter Visit Diagnoses Diagnosis False labor after 37 completed weeks of gestation 38 weeks gestation of documented in this encounter
--- OUTSIDE RECORDS SUMMARY | 2024-03-24 00:25 | XMS_ITS | Encounter Summary ---
Author Organization [facility] Healthcare Address [address] [place] [address] Care Team Providers Care Home Economist Name Role Phone Unavailable Primary Care Provider Unavailabl e Encounter Details Date Type Department Care Team (Late st Contact Info) Description 10/19/2018 11:50 AM CDT - 10/19/2018 7:41 PM CDT Hospital Encounter [facility] [id number] [place] [address] Unknown, Enrico Kelly, [address] [place] [address] Discharge Disposition: Discharge to home or self care Social History Tobacco Use Types Packs/Day Years Used Date Smoking Tobacco: Never Assessed Comments Unknown Sex and Gender Information Value Date Recorded Sex Assigned at Not on file Legal Sex Female 9:02 PM MOBILE HOME PARK MANAGER Gender Identity Not on file Sexual Orientation Not on file documented as of this encounter Last Filed Vital Signs Vital Sign Reading Time Taken Comments Blood Pressure 120/70 10/19/2018 12:00 PM CDT Pulse 88 10/19/2018 12:00 PM CDT Temperature 37.1 ??C (98.8 ??F) 10/19/2018 12:00 PM C DT Respiratory Rate - - Oxygen Saturation 100% 10/19/2018 12:00 PM CDT Inhaled Oxygen Concentration - - Weight 57.9 kg (127 lb 9.6 oz) 10/19/2018 12:00 PM CDT Height 160 cm (5' 3 ) 10/19/2018 12:00 PM CDT Body Mass Index 22.6 10/19/2018 12:00 PM CDT documented in this encounter Discharge Disposition Disposition Code Departure Means Destination Discharge to home or self care documented in this encounter Plan of Treatment Not on file documented as of this encounter Procedures Procedure Name Priority Date/Time Associated Diagnosis Comments VAGINITIS PANEL Routine 10/19/2018 5:27 PM CDT N. GONORRHOEAE/C. TRACHOMATIS AMPLIFICATION TEST Routine 10/19/2018 5:27 PM CDT CBC WITH AUTO DIFFERENTIAL Routine 10/19/2018 2:05 PM CDT APTT Routine 10/19/2018 2:05 PM CDT PROTIME-INR Routine 10/19/2018 2:05 PM CDT HCG, BLOOD, QUANTITATIVE Routine 10/19/2018 2:05 PM CDT COMPREHENSIVE METABOLIC PANEL Routine 10/19/2018 2:05 PM CDT URINALYSIS, COMPLETE W/REFLEX TO CULTURE Routine 10/19/2018 1:00 PM CDT URINALYSIS AND REFLEX TO MICROSCOPIC AND CULTURE Routine 10/19/2018 1:00 PM CDT documented in this encounter Results * N. gonorrhoeae/C. trachomatis amplification test (10/19/2018 5:27 PM CDT) C. trachomatis RNA NOT DETECTED [facility] Comment: Chlamydia trachomatis is not detected. N. gonorrhoeae RNA NOT DETECTED [facility] Comment: Neisseria gonorrhoeae is not detected. Chlamydia/GC Source ENDO/VAG [facility] Comment: Per protocol for females ages 14-15, the positive result was confirmed by repeat testing. Xpert CT/NG Assay performance has not been evaluated in patients with a history of hysterectomy. 10/19/2018 5:27 PM CDT 10/19/2018 5:40 PM CDT Narrative [facility] - 10/19/2018 7:15 PM CDT Collected By Endocervical/Vaginal Resulting Agency Comment ER Basia Wu NP LAB MICROBIOLOGY - GENERA L ORDERABLES Final Result Performing Organization Address [facility] Co de Phone Number [address] [phone] * Bacterial vaginitis panel (10/19/2018 5:27 PM CDT) Pathologist [facility] Trichomonas vaginalis NEGATIVE NEGATIVE [facility] GARDNERELLA SCREEN POSITIVE NEGATIVE M [facility] Carla species DNA NEGATIVE NEGATIVE [facility] Comment: A positive result for Carla, Gardnerella and/or Trichomonas means nucleic acid for Carla species (C.albicans,C.glabrata,Ckefyr,C.krusei,C.parapsilosis, C.tropicalis),G.vaginalis and/or T.vaginalis,respectively, is present in the sample and indicates the patient has candidiasis, bacterial vaginosis, and/or trichomoniasis when consistent with clinical signs and symptoms. Simultaneous infections by more than one organism are common. Negative results, for Carla, Gardnerella,or Trichomonas test suggest the patient does not have candidiasis,bacterial vaginosis and/or trichomoniasis, respectively, when consistent with clinical signs and symptoms. 10/19/2018 5:27 PM CDT 10/19/2018 5:40 PM CDT Narrative [facility] - 10/19/2018 7:15 PM CDT Collected By Endocervical/Vaginal Resulting Agency Comment ER Basia Wu NP LAB MICROBIOLOGY - GENERA L ORDERABLES Final Result [address] [phone] * (ABNORMAL) hCG, blood, quantitative (10/19/2018 2:05 PM CDT) Beta HCG, Quant 174,546.0 (H) 0.0 - 4.0 mIU/mL [facility] Comment: Female Reference Intervals(): ??Negative ? < 5.0 mIU/mL ??Indeterminate ??5.0-25.0 mIU/mL ??Positive ? > 25.0 mIU/mL Values between 5.0 and 25.0 mIU/mL are indeterminate for . Repeat testing of indeterminate results is suggested in 72 hours. Plasma hCG levels cannot be used to date a . In normal , values should double every 48-72 hours for the first 6 weeks.In postmenopausal women, an hCG level up to 14.0 mIU/mL can be considered normal. This result is not interpretable as a tumor marker in females. 10/19/2018 2:05 PM CDT 10/19/2018 2:48 PM CDT Narrative Resulting Agency Comment ER Basia Wu NP LAB BLOOD ORDERABLES Antonella rubi Result [facility] [address] [phone] * (ABNORMAL) Comprehensive metabolic panel (10/19/2018 2:05 PM CDT) Sodium 137 135 - 145 mmol/L [facility] Potassium 3.7 3.3 - 5.1 mmol/L [facility] Chloride 103 96 - 108 mmol/L [facility] Carbon Dioxide 19(L) 22 - 32 mmol/L [facility] Anion Gap 15 7 - [address] [facility] Glucose 79 70 - 100 mg/dL [facility] BUN 12 8 - 25 mg/dL [facility] Creatinine 0.5 0.5 - 1.1 mg/dL [facility] Comment: NOTE: Estimated GFR (Cockroft-Gault) will NOT be calculated unless patient Height and Weight were entered. Also, Kidney Disease Stage (GFR) and Estimated GFR (Cockroft-Gault) will NOT be calculated if Creatinine result is <0.2. Kidney Disease Stage >90 mL/MIN [facility] Comment: NOTE; ??The GFR is an estimated value using the creatinine, sex, age, and race of the patient. THE Estimated Kidney Disease GFR is validated for AGES 18-70 YEARS STAGE ?mL/Min ?DESCRIPTION ??1 ?90 mL/min or more ?Normal or elevated GFR ??2 ? 60-89 mL/min ?Mildly decreased GFR ??3 ? 30-59 mL/min ?Moderately decreased GFR ??4 ? 15-29 mL/min ?Severely decreased GFR ??5 ? <15 mL/min ? Kidney failure or on dialysis Est GFR (Cockcroft-G) 153 ml/MIN [facility] Comment: Estimated GFR(Cockroft-Gault)is used to calculate patient medication dosage Calcium 9.7 8.6 - 10.3 mg/dL [facility] Total Protein 7.9 6.4 - 8.3 g/dL [facility] Albumin 4.2 3.5 - 5.0 g/dL [facility] Globulin 3.7(H) 2.3 - 3.5 gm/dL [facility] Albumin/Globulin Ratio 1.1 1.1 - 1.[address] [facility] Total Bilirubin 0.4 0.0 - 1.2 mg/dL [facility] AST 14 0 - 32 U/L [facility] ALT 10 0 - 33 U/L [facility] Alkaline Phosphatase 53 35 - 104 U/L [facility] 10/19/2018 2:05 PM CDT 10/19/2018 2:09 PM CDT Narrative Resulting Agency Comment ER us Basia Renteria Alcava PRINTED CIRCUIT BOARD PREASSEMBLER LAB BLOOD ORDERABLES Antonella l Result [address] [phone] * aPTT (10/19/2018 2:05 PM CDT) APTT 27 27 - [address] [facility] Comment: New reference ranges in use 09-15-18. 10/19/2018 2:05 PM CDT 10/19/2018 2:09 PM CDT Narrative Resulting Agency Comment ER [facility] BLOOD ORDERABLES Antonella l Result Performing Organization Address [facility] Co de Phone Number [address] [phone] * Protime-INR (10/19/2018 2:05 PM CDT) PT 13.1 12.2 - 14.[address] [facility] Comment: New reference ranges in use 09-15-18. INR 0.[address] [facility] Comment: Recommended Therapeutic range for Oral Anticoagulant Therapy No anti-coagulation therapy ? Normal Range: ?0.8-1.4 Anti-coagulation therapy ? Low intensity therapy ?2.0-3.0 ? High intensity therapy ?? 2.5-3.5 Critical Value ? Greater than or equal to 5.0 Patients should be monitored for serious bleeding. 10/19/2018 2:05 PM CDT 10/19/2018 2:09 PM CDT Narrative Resulting Agency Comment ER Basia Nicholsonsteffen PRINTED CIRCUIT BOARD PREASSEMBLER LAB BLOOD ORDERABLES Antonella l Result Performing Organization Address City/[facility]/ZIP Co de Phone Number [address] [phone] * (ABNORMAL) CBC with auto differential (10/19/2018 2:05 PM CDT) [facility] WBC 7.9 3.8 - 9.9 X10 3/ul [facility] RBC 4.99 3.90 - 5.20 x10 6/ul [facility] Hemoglobin 11.2(L) 11.9 - 15.5 g/dL [facility] Hct 36.6 35.6 - 45.5 % [facility] MCV 73.3(L) 81.3 - 96.[address] [facility] MCH 22.4(L) 27.1 - 33.[address] [facility] MCHC 30.6(L) 32.3 - 35.7 g/dl [facility] RDW 21.2(H) 11.1 - 14.9 % [facility] Plt Count 290 150 - 400 x10 3/ul [facility] MPV 10.4 9.1 - 12.[address] [facility] Neut % 75.4 % [facility] Immature Gran % 0.4 % [facility] Lymph % 18.0 % [facility] [place] % 5.7 % [facility] Eos % 0.1 % [facility] AUTO BASO % 0.4 % [facility] NEUTROPHIL ABS # 6.0 1.7 - 6.5 x10 3/ul [facility] Immature Gran # 0.0 0.0 - 0.1 x10 3/ul [facility] Absolute Lymphs (auto) 1.4 0.8 - 3.3 x10 3/ul [facility] Absolute Monos (auto) 0.5 0.2 - 0.8 x10 3/ul [facility] Absolute Eos (auto) 0.0 0.0 - 0.5 x10 3/ul [facility] BASOPHIL ABS # 0.0 0.0 - 0.1 x10 3/ul [facility] Nucleat RBC Rel Count 0.0 #/100WBC [facility] NRBC abs 0.00 0.00 - 0.01 x10 3/ul [facility] Absolute Neutrophils 6,000 200 - 8,000 /ul [facility] 10/19/2018 2:05 PM CDT 10/19/2018 2:09 PM CDT Narrative Resulting Agency Comment ER Basia Wu PRINTED CIRCUIT BOARD PREASSEMBLER LAB BLOOD ORDERABLES Antonella l Result [facility] [address] [place] [address], [facility] [phone] * (ABNORMAL) URINALYSIS, COMPLETE W/REFLEX TO CULTURE (10/19/2018 1:00 PM CDT) Ur Collection Type CLEAN CATCH [facility] Ur Culture Indicated? C S NOT INDICATED [facility] Urine Color YELLOW YELLOW [facility] Urine Clarity Slightly-[place] udy CLEAR [facility] Urine Glucose (UA) NORMAL NORMAL mg/dL [facility] Urine Bilirubin NEGATIVE NEGATIVE mg/dl [facility] Urine Ketones 80(A) NEGATIVE mg/dL [facility] Ur Specific [place] 1.033(H) 1.005 - 1.[address] [facility] Urine Blood NEGATIVE NEGATIVE mg/dl [facility] Urine pH 5.0 5.0 - 8.[address] [facility] Urine Protein 30(A) NEGATIVE mg/dL [facility] Urine Urobilinogen NORMAL NORMAL mg/dL [facility] Urine Nitrite NEGATIVE NEGATIVE [facility] Ur Leukocyte Esterase 25(A) NEGATIVE Dc/ul [facility] Ur Microscopic Review Indicated or Ordered [facility] Urine RBC 1 0 - 2 /HPF [facility] Urine WBC 4 0 - 2 /HPF [facility] Urine Mucus Mod /LPF [facility] Ur Squamous Epith Cells Few /HPF [facility] 10/19/2018 1:00 PM CDT 10/19/2018 1:04 PM CDT Narrative [facility] - 10/19/2018 1:20 PM CDT Indication(s) for ordering ?? pt Clean catch Resulting Agency Comment ER Basia Wu PRINTED CIRCUIT BOARD PREASSEMBLER LAB URINE ORDERABLES Antonella l Result [facility] [address] [place], [place] [address] [phone] * (ABNORMAL) Urinalysis reflex to microscopic and culture (10/19/2018 1:00 PM CDT) Ur Collection Type CLEAN CATCH [facility] Ur Culture Indicated? C S NOT INDICATED [facility] Urine Color YELLOW YELLOW [facility] Urine Clarity Slightly-[place] udy CLEAR [facility] Urine Glucose (UA) NORMAL NORMAL mg/dL [facility] Urine Bilirubin NEGATIVE NEGATIVE mg/dl [facility] Urine Ketones 80(A) NEGATIVE mg/dL [facility] Ur Specific [place] 1.033(H) 1.005 - 1.[address] [facility] Urine Blood NEGATIVE NEGATIVE mg/dl [facility] Urine pH 5.0 5.0 - 8.[address] [facility] Urine Protein 30(A) NEGATIVE mg/dL [facility] Urine Urobilinogen NORMAL NORMAL mg/dL [facility] Urine Nitrite NEGATIVE NEGATIVE [facility] Ur Leukocyte Esterase 25(A) NEGATIVE Dc/ul [facility] Ur Microscopic Review Indicated or Ordered [facility] Urine RBC 1 0 - 2 /HPF [facility] Urine WBC 4 0 - 2 /HPF [facility] Urine Mucus Mod /LPF [facility] Ur Squamous Epith Cells Few /HPF [facility] 10/19/2018 1:00 PM CDT 10/19/2018 1:04 PM CDT Narrative [facility] - 10/19/2018 1:20 PM CDT Indication(s) for ordering ?? pt Clean catch Resulting Agency Comment ER us Basia Wu PRINTED CIRCUIT BOARD PREASSEMBLER LAB MICROBIOLOGY - GENERA L ORDERABLES Final Result Performing Organization Address City/State/[facility] Co de Phone Number [facility] [address] [place] [address], [facility] [phone] documented in this encounter Visit Diagnoses Not on filedocumented in this encounter
--- OUTSIDE RECORDS SUMMARY | 2024-03-24 00:25 | XMS_ITS | Encounter Summary ---
Author Organization [facility] Healthcare Address [address] [place] [address] Care Team Providers Care Victims Advocate Clerk/Specialist Name Role Phone Mauro Grady MD Primary Care Provider [phone] Encounter Details Date Type Department Care Team (Late st Contact Info) Description 05/12/[address] [address] Criss Graham, FATIMAH Social History Tobacco Use Types Packs/Day Years Used Date Smoking Tobacco: Never Alcohol Use Standard Drinks/Week Comments Never 0 (1 standard drink = 0.6 oz pur e alcohol) Comments No Sex and Gender Information Value Date Recorded Sex Assigned at Not on file Legal Sex Female 9:02 PM PRECISE WINDER Gender Identity Not on file Sexual Orientation Not on file documented as of this encounter Plan of Treatment Not on file documented as of this encounter Visit Diagnoses Not on filedocumented in this encounter Care Teams Victims Advocate Clerk/Specialist Relationship Specialty Start Date End Date Mauro Grady MD PCP - General 07/30/20 06/05/23 documented as of this encounter
--- OUTSIDE RECORDS SUMMARY | 2024-03-24 00:25 | XMS_ITS | Encounter Summary ---
Author Organization [facility] Healthcare Address [address] [place] [address] Care Team Providers Care Broadband Engineer Name Role Phone Mauro Grady MD Primary Care Provider Encounter Details Date Type Department Care Team (Late st Contact Info) Description 05/06/2020 6:25 PM AUTOMATIC PROFILE SANDER OPERATOR - 05/06/2020 8:25 PM AUTOMATIC PROFILE SANDER OPERATOR Emergency [facility] [address] [place] [address] Unknown, NotinfKasey Painter, HOME SALES CONSULTANT [address] [address] Discharge Disposition: Discharge to home or self care Social History Tobacco Use Types Packs/Day Years Used Date Smoking Tobacco: Never Assessed Comments Unknown Sex and Gender Information Value Date Recorded Sex Assigned at Not on file Legal Sex Female 9:02 PM AUTOMATIC PROFILE SANDER OPERATOR Gender Identity Not on file Sexual Orientation Not on file documented as of this encounter Last Filed Vital Signs Vital Sign Reading Time Taken Comments Blood Pressure 123/79 05/06/2020 6:26 PM AUTOMATIC PROFILE SANDER OPERATOR Pulse 93 05/06/2020 6:26 PM AUTOMATIC PROFILE SANDER OPERATOR Temperature 37 ??C (98.6 ??F) 05/06/2020 6:26 PM AUTOMATIC PROFILE SANDER OPERATOR Respiratory Rate - - Oxygen Saturation 100% 05/06/2020 6:26 PM AUTOMATIC PROFILE SANDER OPERATOR Inhaled Oxygen Concentration - - Weight 62.5 kg (137 lb 12.6 oz) 05/06/2020 6:26 PM AUTOMATIC PROFILE SANDER OPERATOR Height 160 cm (5' 3 ) 05/06/2020 6:26 PM AUTOMATIC PROFILE SANDER OPERATOR Body Mass Index 24.41 05/06/2020 6:26 PM AUTOMATIC PROFILE SANDER OPERATOR documented in this encounter Discharge Disposition Disposition Code Departure Means Destination Discharge to home or self care documented in this encounter Plan of Treatment Not on file documented as of this encounter Procedures Procedure Name Priority Date/Time Associated Diagnosis Comments XR RADIUS ULNA RIGHT 2 VIEWS 05/06/2020 12:00 AM AUTOMATIC PROFILE SANDER OPERATOR documented in this encounter Results * XR Radius Ulna Right 2 Views (05/06/2020 12:00 AM AUTOMATIC PROFILE SANDER OPERATOR) Anatomical Region Laterality Modality Upper Extremities, Forearm Right Radio graphic Imaging 05/06/2020 7:17 PM AUTOMATIC PROFILE SANDER OPERATOR Narrative 05/06/2020 7:18 PM AUTOMATIC PROFILE SANDER OPERATOR Patient Name: TANA MUÑOZ ?Ordering Dr: Kasey Echavarria ANP ?? D.O.B: 1995 ? Exam Date: 05/06/20 ?? 0000 ?? Age: 25 ?Sex: Female ? MR#: [id number] ?? Loc: ? RADIOLOGY REPORT ?? Order #[id number] ?? Radiology ? Forearm RT 2 View ? Signed ?? EXAM DESCRIPTION: ?? Forearm RT 2 View ? REASON FOR STUDY: ?? shooting pain from 5th digit to elbow today. no known ?? injury. ? TECHNIQUE: ?? Frontal and lateral views of the right forearm were obtained. ? COMPARISON: ?? None available ? FINDINGS: ? BONES: ??No acute fracture. No suspicious bone lesions. ? SOFT TISSUES: ??Unremarkable. ? OTHER: ??No other significant finding. ? IMPRESSION: ?? No acute osseous abnormality. ? THIS IS AN ELECTRONICALLY VERIFIED FINAL REPORT ?? 05/06/2020 7:18 PM - Electronically signed by Daphne Sam M.D. ?? Daphne Sam M.D. ? JS ?? D: ??05/06/2020 7:18 PM ?? T: ? Report ID: [id number] ?? Reading Location: ??[id number] ? REPORT ELECTRONICALLY SIGNED IN OTHER VENDOR SYSTEM ?? Resulting Agency Comment P Procedure Note Daphne Sam MD - 05/06/2020 Patient Name: TANA MUÑOZ Dr: Kasey Echavarria D.O.B: 1995 Exam Date: 05/06/20 0000 Age: 25 Sex: Female MR#: [id number] Loc: RADIOLOGY REPORT Order #[id number] Radiology Forearm RT 2 View Signed EXAM DESCRIPTION: Forearm RT 2 View REASON FOR STUDY: shooting pain from 5th digit to elbow today. no known injury. TECHNIQUE: Frontal and lateral views of the right forearm wereobtained. COMPARISON: None available FINDINGS: BONES: No acute fracture. No suspicious bone lesions. SOFT TISSUES: Unremarkable. OTHER: No other significant finding. IMPRESSION: No acute osseous abnormality. THIS IS AN ELECTRONICALLY VERIFIED FINAL REPORT 05/06/2020 7:18 PM - Electronically signed by Daphne FOLEY T: Report ID: [id number] Reading Location: [place] [id number] REPORT ELECTRONICALLY SIGNED IN OTHER VENDOR SYSTEM Kasey Echavarria HOME SALES CONSULTANT IMG XR PROCEDURES Final Result documented in this encounter Visit Diagnoses Not on filedocumented in this encounter Care Teams Broadband Engineer Relationship Specialty Start Date End Date Mauro Grady MD PCP - General 05/06/20 07/25/20 documented as of this encounter
--- OUTSIDE RECORDS SUMMARY | 2024-03-24 00:25 | XMS_ITS | Encounter Summary ---
Author Organization [facility] Healthcare Address [facility] [place] [address] Care Team Providers Care Chief Dispatcher Service Name Role Phone Unavailable Primary Care Provider Unavailabl e Encounter Details Date Type Department Care Team (Latest Contact Info) Description 05/23/2015 6:13 AM HOP GROWER - 05/25/2015 11:10 AM HOP GROWER Hospital Encounter [facility] Josiah Cr MD [address] [place] [id number] Anemia of puerperium; Single live ; Encounter for immunization; Allergy to seafood; 39 weeks gestation of Social History Tobacco Use Types Packs/Day Years Used Date Smoking Tobacco: Never Assessed Comments Unknown Sex and Gender Information Value Date Recorded Sex Assigned at Not on file Legal Sex Female 9:02 PM HOP GROWER Gender Identity Not on file Sexual Orientation Not on file documented as of this encounter Last Filed Vital Signs Vital Sign Reading Time Taken Comments Blood Pressure 101/64 05/23/2015 6:28 AM HOP GROWER Pulse 76 05/23/2015 6:28 AM HOP GROWER Temperature 36.3 ??C (97.3 ??F) 05/23/2015 6:28 AM CS T Respiratory Rate - - Oxygen Saturation 100% 05/23/2015 6:28 AM HOP GROWER Inhaled Oxygen Concentration - - Weight 64 kg (141 lb) 05/23/2015 6:28 AM HOP GROWER Height 160 cm (5' 3 ) 05/23/2015 6:28 AM HOP GROWER Body Mass Index 24.98 05/23/2015 6:28 AM HOP GROWER Body Mass Index Percentile 81.43% 05/23/2015 6:2 8 AM HOP GROWER Growth Chart: CDC (Girls, 2- 20 Years) documented in this encounter Plan of Treatment Not on file documented as of this encounter Procedures Procedure Name Priority Date/Time Associated Diagnosis Comments HEMOGLOBIN AND HEMATOCRIT Routine 05/24/2015 6:19 AM HOP GROWER CBC WITH AUTO DIFFERENTIAL Routine 05/23/2015 7:20 AM HOP GROWER RPR Routine 05/23/2015 7:20 AM HOP GROWER URINALYSIS AND REFLEX TO MICROSCOPIC AND CULTURE Routine 05/23/2015 6:07 AM HOP GROWER DRUGS OF ABUSE SCREEN, URINE WITHOUT CONFIRMATION Routine 05/23/2015 6:07 AM HOP GROWER documented in this encounter Results * (ABNORMAL) Hemoglobin and hematocrit (05/24/2015 6:19 AM HOP GROWER) Hemoglobin 8.1(L) 11.0 - 15.0 g/dl 05/24/2015 7:26 AM [facility] RESULTS Comment:Results reviewed Hct 25.3(L) 33.0 - 43.0 % 05/24/2015 7:26 AM H[facility] HISTORICAL RESULTS 05/24/2015 6:19 AM HOP GROWER 05/24/2015 6:51 AM H[facility]OWER us Josiah Cr MD LAB BLOOD ORDERABLES Final Res ult [facility]IST[facility]ICAL RES[facility] * RPR, serum (05/23/2015 7:20 AM HOP GROWER) Treponemal IgG NONREACTIVE NONREACTIVE 05/23/19 16 8:17 AM H[facility] GR[facility]IST[facility]ICAL RESULTS Comment: As of 15, new immunoassay to determine antibodies to Treponema pallidum is in use on [employer]. 05/23/2015 7:20 AM [facility] 05/23/2015 7:34 AM [facility] us Josiah Cr MD LAB MICROBIOLOGY - GENERAL ORD ERABLES Final Result [facility]IST[facility] RES[facility] * (ABNORMAL) CBC with auto differential (05/23/2015 7:20 AM HOP GROWER) WBC 6.7 4.6 - 10.2 x10 3/ul 05/23/2015 8:00 AM [facility] RBC 3.80 3.76 - 4.80 x10 6/ul 05/23/2015 8:00 AM [facility]IST[facility]ICAL RESULTS Hemoglobin 9.8(L) 11.0 - 15.0 g/dl 05/23/2015 8:00 AM [facility] Hct 30.9(L) 33.0 - 43.0 % 05/23/2015 8:00 AM [facility] RES[facility] MCV 81.3 80.0 - 97.0 fl 05/23/2015 8:00 AM [facility] MCH 25.8(L) 27.0 - 31.2 pg 05/23/2015 8:00 AM [facility] RES[facility] MCHC 31.7(L) 31.8 - 35.4 g/dl 05/23/2015 8:00 AM [facility] RESULTS RDW 14.6 11.6 - 14.8 % 05/23/2015 8:00 AM [facility] [employer] [facility] Plt Count 167 124 - 400 x10 3/ul 05/23/2015 8:00 AM [facility] RES[facility] MPV 12.5(H) 7.4 - 10.4 fl 05/23/2015 8:00 AM [facility] Differential Method AUTOMATED DIFF --------- -- Neut % 50.9 37.0 - 85.0 % 05/23/2015 8:00 AM [facility] Immature Gran % 0.9 0.0 - 3.0 % 05/23/2015 8:00 AM [facility] RESULTS Lymph % 36.4 5.0 - 45.0 % 05/23/2015 8:00 AM [facility] RESULTS [place] % 10.3 3.0 - 15.0 % 05/23/2015 8:00 AM [facility] RESULTS Eos % 0.9 0.0 - 7.0 % Baso % 0.6 0.0 - 2.0 % ABSOLUTE COUNTS ABSOLUTE COUNTS --------- -- Absolute Neuts (auto) 3.4 1.7 - 8.7 x10 3/ul Immature Gran # 0.1 0.0 - 0.3 x10 3/ul Absolute Lymphs (auto) 2.4 0.2 - 4.6 x10 3/ul Absolute Monos (auto) 0.7 0.1 - 1.5 x10 3/ul Absolute Eos (auto) 0.1 0.0 - 0.7 x10 3/ul Absolute Basos (auto) 0.0 0.0 - 0.2 x10 3/ul 05/23/2015 7:20 AM H[facility]OWER 05/23/2015 7:34 AM H[facility]OWER us Josiah Cr MD LAB BLOOD ORDERABLES Final Res ult [facility]IST[facility] RESULTS * Drug Screen, Urine (05/23/2015 6:07 AM HOP GROWER) Pathologist [facility] Ur Amphetamine Screen NEGATIVE NEGATIVE Comment: Cutoff [...] Morphine, Codeine, Ethyl Morphine, ?Diacetylmorphine, 6-Acetylmorphine, Dihydrocodeine, ?[id number] and Hydrocodone Ur Oxycodone Screen NEGATIVE NEGATIVE 05/22 7:10 AM [facility] HISTORICAL RESULTS Comment:Cutoff Limit: 100 ng /mL Urine Creatinine/DARIAN 58.0 mg/dL Comment:If Creatinine is < 4 0 mg/dL, recollection is suggested. 05/23/2015 6:07 AM H[facility]OWER 05/23/2015 6:41 AM [facility] us Josiah Cr MD LAB URINE ORDERABLES Final Res ult [facility]IST[facility] RESULTS * (ABNORMAL) Urinalysis reflex to microscopic and culture (05/23/2015 6:07 AM H[facility]) Ur Collection Type CLEAN CATCH Ur Culture Indicated? C&S NOT INDICATED 05/23/2015 7:26 AM [facility]IST[facility] RESULTS Urine Color STRAW YELLOW Urine Clarity CLEAR CLEAR Urine Glucose (UA) NORMAL NORMAL mg/dL 05/23/2015 7:26 AM H[facility] GROWER [facility] HISTORICAL RESULTS Urine Bilirubin NEGATIVE NEGATIVE mg/dl Urine Ketones NEGATIVE NEGATIVE mg/dL Ur Specific [place] 1.005 1.005 - 1.025 Urine Blood NEGATIVE NEGATIVE mg/dl Urine pH 6.5 5.0 - 8.0 Urine Protein NEGATIVE NEGATIVE mg/dL Urine Urobilinogen NORMAL NORMAL mg/dL Urine Nitrite NEGATIVE NEGATIVE Ur Leukocyte Esterase 75(H) NEGATIVE Dc/ul Ur Microscopic Review Indicated or Ordered Urine RBC 2 0 - 2 /HPF Urine WBC 2 0 - 2 /HPF Ur Squamous Epith Cells Rare /HPF 05/23/2015 6:07 AM [facility] 05/23/2015 7:13 AM [facility] us Josiah Cr MD LAB MICROBIOLOGY - GENERAL ORD ERABLES Final Result [facility] HIST[facility]ICAL RESULTS documented in this encounter Visit Diagnoses Diagnosis Anemia of puerperium Single live Encounter for immunization Allergy to seafood 39 weeks gestation of documented in this encounter
--- OUTSIDE RECORDS SUMMARY | 2024-03-24 00:25 | XMS_ITS | Encounter Summary ---
Author Organization [facility] Healthcare Address [address] [place] [id number] Care Team Providers Care Electrical Line Mechanic Name Role Phone Unavailable Primary Care Provider Unavailabl e Encounter Details Date Type Department Care Team (Latest Contact Info) Description 01/08/2016 9:40 PM CDT - 01/09/2016 2:33 AM CDT Hospital Encounter [facility] MARTA Nash Enrico Paul, DO [address] [facility] [place], [place] [id number] Acute streptococcal tonsillitis Social History Tobacco Use Types Packs/Day Years Used Date Smoking Tobacco: Never Assessed Comments Unknown Sex and Gender Information Value Date Recorded Sex Assigned at Not on file Legal Sex Female 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 Gender Identity Not on file Sexual Orientation Not on file documented as of this encounter Last Filed Vital Signs Vital Sign Reading Time Taken Comments Blood Pressure 117/70 01/08/2016 9:48 PM CDT Pulse 103 01/08/2016 9:48 PM CDT Temperature 37.2 ??C (99 ??F) 01/08/2016 9:48 PM CDT Respiratory Rate - - Oxygen Saturation 100% 01/08/2016 9:48 PM CDT Inhaled Oxygen Concentration - - Weight 58.1 kg (128 lb) 01/08/2016 9:48 PM CDT Height - - Body Mass Index 22.67 09/27/2015 9:46 AM CDT Body Mass Index Percentile 62.98% 01/08/2016 9:4 8 PM CDT Growth Chart: CDC (Girls, 2- 20 Years) documented in this encounter Plan of Treatment Not on file documented as of this encounter Procedures Procedure Name Priority Date/Time Associated Diagnosis Comments STREP A DNA, QUANTITATIVE Routine 01/08/2016 11:13 PM CDT CBC WITH AUTO DIFFERENTIAL Routine 01/08/2016 11:06 PM CDT COMPREHENSIVE METABOLIC PANEL Routine 01/08/2016 11:06 PM CDT XR NECK SOFT TISSUE Routine 01/08/2016 1 2:00 AM CDT documented in this encounter Results * Strep A DNA, quantitative (01/08/2016 11:13 PM CDT) Pathologist [facility] Rapid Strep A POSITIVE NEGATIVE 01/09/2016 12:54 AM CDT [facility] HISTORICAL RESULTS Comment: GROUP A STREP ARE PREDICTABLY SUSCEPTIBLE TO PENICILLIN, WHICH IS THE DRUG OF CHOICE. SUSCEPTIBILITY STUDIES ARE NOT ROUTINELY PERFORMED. 01/08/2016 11:1 3 PM CDT 01/08/2016 11:35 PM CDT Nayana Oates RAILROAD WORKER LAB BODY FLUIDS AND STOO LS ORDERABLES Final Result [facility] HISTORICAL RESULTS * Comprehensive metabolic panel (01/08/2016 11:06 PM CDT) Pathologist [facility] Sodium 138 135 - 145 mmol/L 01/08/2016 11:40 PM CDT [facility] HISTORICAL RESULTS Potassium 3.6 3.3 - 5.1 mmol/L 01/08/2016 11:40 PM CDT [facility] HISTORICAL RESULTS Chloride 103 96 - 108 mmol/L 01/08/2016 11:40 PM CDT [facility] HISTORICAL RESULTS Carbon Dioxide 23 22 - 32 mmol/L 01/08/2016 11:40 PM CDT [facility] HISTORICAL RESULTS Anion Gap 12 7 - 16 01/08/2016 11:40 PM T [facility] HISTORICAL RESULTS Glucose 90 70 - 100 mg/dL 01/08/2016 11:40 PM CDT [facility] HISTORICAL RESULTS BUN 10 6 - 20 mg/dL 01/08/2016 11:40 PM CDT [facility] HISTORICAL RESULTS Creatinine 0.8 0.5 - 1.1 mg/dL Comment: NOTE: Estimated GFR (Cockroft-Gault) will NOT be calculated unless patient Height and Weight were entered. Also, Kidney Disease Stage (GFR) and Estimated GFR (Cockroft-Gault) will NOT be calculated if Creatinine result is <0.2. Kidney Disease Stage > 90 mL/MIN Comment: NOTE; ??The GFR is an estimated [...] mL/min ? Kidney failure or on dialysis @ Calcium 9.2 8.6 - 10.0 mg/dL Total Protein 7.8 6.4 - 8.3 g/dL Albumin 4.8 3.5 - 5.2 g/dL Globulin 3.0 2.3 - 3.5 gm/dL Albumin/Globulin Ratio 1.6 1.1 - 1.8 Total Bilirubin 0.5 0.0 - 1.2 mg/dL 01/08/2016 11:40 PM CDT [facility] HISTORICAL RESULTS AST 18 0 - 32 U/L 01/08/2016 11:40 PM CDT [facility] HISTORICAL RESULTS ALT 13 0 - 33 U/L 01/08/2016 11:40 PM CDT [facility] HISTORICAL RESULTS Alkaline Phosphatase 91 35 - 104 U/L 01/08/2016 11:40 PM CDT [facility] HISTORICAL RESULTS 01/08/2016 11:0 6 PM CDT 01/08/2016 11:10 PM CDT us Nayana Oates RAILROAD WORKER LAB BLOOD ORDERABLES Fin al Result [facility] HISTORICAL RESULTS * (ABNORMAL) CBC with auto differential (01/08/2016 11:06 PM CDT) WBC 13.0(H) 4.6 - 10.2 x10 3/ul 01/08/2016 11:13 PM CDT [facility] HISTORICAL RESULTS RBC 4.67 3.76 - 4.80 x10 6/ul 01/08/2016 11:13 PM T [facility] HISTORICAL RESULTS Hemoglobin 10.0(L) 11.0 - 15.0 g/dl 01/08/2016 11:13 PM T [facility] HISTORICAL RESULTS Hct 33.4 33.0 - 43.0 % 01/08/2016 11:13 PM T [facility] HISTORICAL RESULTS MCV 71.5(L) 80.0 - 97.0 fl 01/08/2016 11:13 PM CDT [facility] HISTORICAL RESULTS MCH 21.4(L) 27.0 - 31.2 pg 01/08/2016 11:13 PM CDT [facility] HISTORICAL RESULTS MCHC 29.9(L) 31.8 - 35.4 g/dl 01/08/2016 11:13 PM CDT [facility] HISTORICAL RESULTS RDW 19.7(H) 11.6 - 14.8 % 01/08/2016 11:13 PM CDT [facility] HISTORICAL RESULTS Plt Count 260 124 - 400 x10 3/ul MPV 10.5(H) 7.4 - 10.4 fl Neut % 76.7 37.0 - 85.0 % Immature Gran % 0.3 0.0 - 3.0 % Lymph % 15.2 5.0 - 45.0 % [place] % 6.6 3.0 - 15.0 % Eos % 0.7 0.0 - 7.0 % Baso % 0.5 0.0 - 2.0 % Absolute Neuts (auto) 10.0(H) 1.7 - 8.7 x10 3/ul Immature Gran # 0.0 0.0 - 0.3 x10 3/ul Absolute Lymphs (auto) 2.0 0.2 - 4.6 x10 3/ul Absolute Monos (auto) 0.9 0.1 - 1.5 x10 3/ul Absolute Eos (auto) 0.1 0.0 - 0.7 x10 3/ul Absolute Basos (auto) 0.1 0.0 - 0.2 x10 3/ul 01/08/2016 11:0 6 PM CDT 01/08/2016 11:10 PM CDT Nayana D. Reichling RAILROAD WORKER LAB BLOOD ORDERABLES Fin al Result [facility] HISTORICAL RESULTS * XR Neck Soft Tissue (01/08/2016 12:00 AM CDT) Anatomical Region Laterality Modality Head and Neck N/A Radiographic Lucero ging 01/08/2016 Impressions 01/08/2016 11:54 PM CDT ??Unremarkable soft tissue neck THIS IS AN ELECTRONICALLY VERIFIED REPORT 01/08/2016 11:51 PM: ??Derrek Shelton M.D. ?? Derrek Shelton M.D. GR:gr 11:51 PM 11:51 PM RIL [EOD] Narrative 01/08/2016 11:54 PM CDT EXAMINATION: ??Soft tissue neck HISTORY: swelling and pain to throat deviated uvula towards right, difficulty swallowing ??symptoms x 1 hour COMPARISON: ??None TECHNIQUE: ??2 views of the soft tissue neck were obtained. ?? FINDINGS: ??The prevertebral soft tissues are normal. ??There is normal caliber of the airway. ??There is no significant degenerative disease. The lung apices are clear. Procedure Note Provider, [place], - 08/05/2020 EXAMINATION: Soft tissue neck HISTORY: swelling and pain to throat deviated uvula towards right, difficulty swallowing symptoms x 1 hour COMPARISON: None TECHNIQUE: 2 views of the soft tissue neck were obtained. FINDINGS: The prevertebral soft tissues are normal. There is normalcaliber of the airway. There is no significant degenerative disease. The lungapices are clear. IMPRESSION: Unremarkable soft tissue neck THIS IS AN ELECTRONICALLY VERIFIED REPORT 01/08/2016 11:51 PM: Derrek Shelton M.D. Derrek Shelton M.D. GR:aaron 11:51 PM 11:51 PM VALERIE [EOD] Nayana Oates RAILROAD WORKER IMG XR PROCEDURES Final Result documented in this encounter Visit Diagnoses Diagnosis Acute streptococcal tonsillitis documented in this encounter
--- OUTSIDE RECORDS SUMMARY | 2024-03-24 00:25 | XMS_ITS | Encounter Summary ---
Author Organization [facility] Healthcare Address [address] [place] [address] Care Team Providers Care Aluminum Hydroxide Process Operator Name Role Phone Unavailable Primary Care Provider Unavailabl e Encounter Details Date Type Department Care Team (Late st Contact Info) Description 09/27/2015 9:45 AM CDT - 09/27/2015 11:01 AM CDT Hospital Encounter [facility] ER Enrico Nash, DO [address] [facility] EMERGENCY DEPT [place], [place] [id number] Pain of right arm Social History Tobacco Use Types Packs/Day Years Used Date Smoking Tobacco: Never Assessed Comments Unknown Sex and Gender Information Value Date Recorded Sex Assigned at Not on file Legal Sex 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 Gender Identity Not on file Sexual Orientation Not on file documented as of this encounter Last Filed Vital Signs Vital Sign Reading Time Taken Comments Blood Pressure 126/74 09/27/2015 9:46 AM CDT Pulse 88 09/27/2015 9:46 AM CDT Temperature 36.7 ??C (98.1 ??F) 09/27/2015 9:46 AM CD T Respiratory Rate - - Oxygen Saturation 100% 09/27/2015 9:46 AM CDT Inhaled Oxygen Concentration - - Weight 59 kg (130 lb) 09/27/2015 9:46 AM CDT Height 160 cm (5' 3 ) 09/27/2015 9:46 AM CDT Body Mass Index 23.03 09/27/2015 9:46 AM CDT Body Mass Index Percentile 67.16% 09/27/2015 9:4 6 AM CDT Growth Chart: CDC (Girls, 2- 20 Years) documented in this encounter Plan of Treatment Not on file documented as of this encounter Procedures Procedure Name Priority Date/Time Associated Diagnosis Comments XR ELBOW RIGHT 3 OR MORE VIEWS Routine 09/27/2015 12:00 AM CDT XR HUMERUS RIGHT 2 OR MORE VIEWS Routine 09/27/2015 12:00 AM CDT XR SHOULDER RIGHT 2 OR MORE VIEWS Routine 09/27/2015 12:00 AM CDT documented in this encounter Results * XR Elbow Right 3 or More Views (09/27/2015 12:00 AM CDT) Anatomical Region Laterality Modality Upper Extremities, Elbow Right Radiogr aphic Imaging 09/27/2015 Impressions 09/27/2015 10:52 AM CDT 1. Normal radiographs of the right upper extremity as above. THIS IS AN ELECTRONICALLY VERIFIED REPORT 09/27/2015 10:49 AM: ??Rolan Miguel M.D. ?? Rolan Miguel M.D. MN:pr 10:49 AM 10:49 AM PAH [EOD] Narrative 09/27/2015 10:52 AM CDT EXAMINATION: 1. ??Right elbow 3 views 2.. ??Right humerus 2 views 3. ??Right shoulder 2 views HISTORY: No known injury. ??Patient woke up this morning with sharp right upper extremity pain. COMPARISON: None FINDINGS: 3 views of the right elbow are submitted for interpretation. ?? Alignment is normal. ??Joint spaces are normal. ??No fracture is seen. 2 views of the right humerus are submitted for interpretation. ??Alignment is normal. ??There is no fracture. 3 views of the right shoulder are submitted for interpretation. ??Alignment is normal. ??There is no fracture or dislocation. ??Joint spaces are normal. Procedure Note Provider, MD [place] - 08/05/2020 EXAMINATION: 1. Right elbow 3 views 2.. Right humerus 2 views 3. Right shoulder 2 views HISTORY: No known injury. Patient woke up this morning with sharp rightupper extremity pain. COMPARISON: None FINDINGS: 3 views of the right elbow are submitted for interpretation. Alignment is normal. Joint spaces are normal. No fracture is seen. 2 views of the right humerus are submitted for interpretation. Alignmentis normal. There is no fracture. 3 views of the right shoulder are submitted for interpretation. Alignmentis normal. There is no fracture or dislocation. Joint spaces are normal. IMPRESSION: 1. Normal radiographs of the right upper extremity as above. THIS IS AN ELECTRONICALLY VERIFIED REPORT 09/27/2015 10:49 AM: Rolan Miguel M.D. Rolan Miguel M.D. MN:pr 10:49 AM 10:49 AM PAH [EOD] Basia Wu REFRIGERATOR REPAIR TECHNICIAN IMG XR PROCEDURES Final R esult * XR Shoulder Right 2 or More Views (09/27/2015 12:00 AM CDT) Anatomical Region Laterality Modality Upper Extremities, Shoulder Right Radi ographic Imaging 09/27/2015 Impressions 09/27/2015 10:53 AM CDT 1. Normal radiographs of the right upper extremity as above. THIS IS AN ELECTRONICALLY VERIFIED REPORT 09/27/2015 10:49 AM: ??Rolan Miguel M.D. ?? Rolan Miguel M.D. MN:pr 10:49 AM 10:49 AM PAH [EOD] Narrative 09/27/2015 10:53 AM CDT EXAMINATION: 1. ??Right elbow 3 views 2.. ??Right humerus 2 views 3. ??Right shoulder 2 views HISTORY: No known injury. ??Patient woke up this morning with sharp right upper extremity pain. COMPARISON: None FINDINGS: 3 views of the right elbow are submitted for interpretation. ?? Alignment is normal. ??Joint spaces are normal. ??No fracture is seen. 2 views of the right humerus are submitted for interpretation. ??Alignment is normal. ??There is no fracture. 3 views of the right shoulder are submitted for interpretation. ??Alignment is normal. ??There is no fracture or dislocation. ??Joint spaces are normal. Procedure Note Provider, MD [place] - 08/05/2020 EXAMINATION: 1. Right elbow 3 views 2.. Right humerus 2 views 3. Right shoulder 2 views HISTORY: No known injury. Patient woke up this morning with sharp rightupper extremity pain. COMPARISON: None FINDINGS: 3 views of the right elbow are submitted for interpretation. Alignment is normal. Joint spaces are normal. No fracture is seen. 2 views of the right humerus are submitted for interpretation. Alignmentis normal. There is no fracture. 3 views of the right shoulder are submitted for interpretation. Alignmentis normal. There is no fracture or dislocation. Joint spaces are normal. IMPRESSION: 1. Normal radiographs of the right upper extremity as above. THIS IS AN ELECTRONICALLY VERIFIED REPORT 09/27/2015 10:49 AM: Rolan Miguel M.D. Rolan Miguel M.D. MN:kira 10:49 AM 10:49 AM PAH [EOD] Basia Wu NP IMG XR PROCEDURES Final R esult * XR Humerus Right 2 or More Views (09/27/2015 12:00 AM CDT) Anatomical Region Laterality Modality Upper Extremities, Upper Arm Right Rad iographic Imaging 09/27/2015 Impressions 09/27/2015 10:52 AM CDT 1. Normal radiographs of the right upper extremity as above. THIS IS AN ELECTRONICALLY VERIFIED REPORT 09/27/2015 10:49 AM: ??Rolan Miguel M.D. ?? Rolan Miguel M.D. MN:pr 10:49 AM 10:49 AM PAH [EOD] Narrative 09/27/2015 10:52 AM CDT EXAMINATION: 1. ??Right elbow 3 views 2.. ??Right humerus 2 views 3. ??Right shoulder 2 views HISTORY: No known injury. ??Patient woke up this morning with sharp right upper extremity pain. COMPARISON: None FINDINGS: 3 views of the right elbow are submitted for interpretation. ?? Alignment is normal. ??Joint spaces are normal. ??No fracture is seen. 2 views of the right humerus are submitted for interpretation. ??Alignment is normal. ??There is no fracture. 3 views of the right shoulder are submitted for interpretation. ??Alignment is normal. ??There is no fracture or dislocation. ??Joint spaces are normal. Procedure Note Provider, MD [place] - 08/05/2020 EXAMINATION: 1. Right elbow 3 views 2.. Right humerus 2 views 3. Right shoulder 2 views HISTORY: No known injury. Patient woke up this morning with sharp rightupper extremity pain. COMPARISON: None FINDINGS: 3 views of the right elbow are submitted for interpretation. Alignment is normal. Joint spaces are normal. No fracture is seen. 2 views of the right humerus are submitted for interpretation. Alignmentis normal. There is no fracture. 3 views of the right shoulder are submitted for interpretation. Alignmentis normal. There is no fracture or dislocation. Joint spaces are normal. IMPRESSION: 1. Normal radiographs of the right upper extremity as above. THIS IS AN ELECTRONICALLY VERIFIED REPORT 09/27/2015 10:49 AM: Rolan Miguel M.D. Rolan Miguel M.D. MN:pr 10:49 AM 10:49 AM PAH [EOD] Basia Wu NP IMG XR PROCEDURES Final R esult documented in this encounter Visit Diagnoses Diagnosis Pain of right arm documented in this encounter
--- OUTSIDE RECORDS SUMMARY | 2024-03-24 00:25 | XMS_ITS | Encounter Summary ---
Author Organization [facility] Healthcare Address [address] [place] [address] Care Team Providers Care Advertising Sales Manager Name Role Phone Unavailable Primary Care Provider Unavailabl e Encounter Details Date Type Department Care Team (Latest Contact Info) Description 05/16/2016 1:01 AM METEOROLOGICAL EQUIPMENT REPAIRER - 05/16/2016 3:54 AM METEOROLOGICAL EQUIPMENT REPAIRER Hospital Encounter [facility] [place] Celestine Chito Rash and other nonspecific skin eruption Social History Tobacco Use Types Packs/Day Years Used Date Smoking Tobacco: Never Assessed Comments Unknown Sex and Gender Information Value Date Recorded Sex Assigned at Not on file Legal Sex Female 9:02 PM METEOROLOGICAL EQUIPMENT REPAIRER Gender Identity Not on file Sexual Orientation Not on file documented as of this encounter Last Filed Vital Signs Vital Sign Reading Time Taken Comments Blood Pressure 107/56 05/16/2016 1:08 AM METEOROLOGICAL EQUIPMENT REPAIRER Pulse 97 05/16/2016 1:08 AM METEOROLOGICAL EQUIPMENT REPAIRER Temperature 37.1 ??C (98.8 ??F) 05/16/2016 1:08 AM CS T Respiratory Rate - - Oxygen Saturation 99% 05/16/2016 1:08 AM METEOROLOGICAL EQUIPMENT REPAIRER Inhaled Oxygen Concentration - - Weight 52.5 kg (115 lb 11.9 oz) 05/16/2016 1:08 AM METEOROLOGICAL EQUIPMENT REPAIRER Height 160 cm (5' 3 ) 05/16/2016 1:08 AM METEOROLOGICAL EQUIPMENT REPAIRER Body Mass Index 20.5 05/16/2016 1:08 AM METEOROLOGICAL EQUIPMENT REPAIRER documented in this encounter Plan of Treatment Not on file documented as of this encounter Procedures Procedure Name Priority Date/Time Associated Diagnosis Comments VAGINAL PATHOGEN SCREEN Routine 05/16/2016 2:50 AM METEOROLOGICAL EQUIPMENT REPAIRER HERPES SIMPLEX VIRUS (HSV) PCR, QUALITATIVE Routine 05/16/2016 2:50 AM METEOROLOGICAL EQUIPMENT REPAIRER N. GONORRHOEAE DNA PROBE GENITAL OR URINE Routine 05/16/2016 2:50 AM METEOROLOGICAL EQUIPMENT REPAIRER MICROBIOLOGY SPECIMEN REPORT (CONVERTED) Routine 05/16/2016 2:05 AM METEOROLOGICAL EQUIPMENT REPAIRER URINALYSIS AND REFLEX TO MICROSCOPIC AND CULTURE Routine 05/16/2016 2:05 AM METEOROLOGICAL EQUIPMENT REPAIRER documented in this encounter Results * (ABNORMAL) Herpes simplex virus (HSV) PCR, qualitative (blood, CSF, ocular fluid) (05/16/2016 2:50 AM METEOROLOGICAL EQUIPMENT REPAIRER) HSV SOURCE Vesicle 05/19/2016 9:48 AM METEOROLOGICAL EQUIPMENT REPAIRER [facility] HISTORICAL RESULTS HSV DNA Detected(H) 05/19/2016 9:48 AM METEOROLOGICAL EQUIPMENT REPAIRER [facility] HISTORICAL RESULTS Comment: INTERPRETIVE INFORMATION: Herpes Simplex Virus by PCR ?? Test developed and characteristics determined by [facility] ?? Laboratories. See Compliance Statement B: [employer]/ ?? Performed by [employer], ?? [address] [place] [address],[place] [id number] ?? [email or web address], Antelmo Amos MD, Lab. Director ?? 05/16/2016 2:50 AM METEOROLOGICAL EQUIPMENT REPAIRER 05/16/2016 3:18 AM METEOROLOGICAL EQUIPMENT REPAIRER Narrative [facility] HISTORICAL RESULTS - 05/19/2016 9:48 AM METEOROLOGICAL EQUIPMENT REPAIRER Source Skin Vesicles Celestine Ríos LAB MICROBIOLOGY - GENERA L ORDERABLES Final Result [facility] HISTORICAL RESULTS * N. gonorrhoeae DNA probe, genital or urine (05/16/2016 2:50 AM METEOROLOGICAL EQUIPMENT REPAIRER) C. trachomatis RNA CT NOT DETECTED 05/16/2016 7:55 AM METEOROLOGICAL EQUIPMENT REPAIRER [facility] HISTORICAL RESULTS Comment:Chlamydia trachomati s is not detected. C. trachomatis RNA NG NOT DETECTED 05/16/2016 7:55 AM METEOROLOGICAL EQUIPMENT REPAIRER [facility] HISTORICAL RESULTS Comment:Neisseria gonorrhoea e is not detected. Chlamydia/GC Source ENDO/VAG 05/16/2016 3:20 AM METEOROLOGICAL EQUIPMENT REPAIRER [facility] HISTORICAL RESULTS Comment: Xpert CT/NG Assay performance has not been evaluated in female patients <14 years of age and male patients <17 years of age. Xpert CT/NG Assay performance has not been evaluated in patients with a history of hysterectomy. For patients <=14 years old The [employer] Chlamydia trachomatis/Neisseria gonorrhoeae Amplified DNA Assay should not be used for the evaluation of suspected sexual abuse or for other medico-legal indications. Additional testing is recommended in any circumstance when false positive or false negative results could lead to adverse medical, social or psychological consequences. 05/16/2016 2:50 AM METEOROLOGICAL EQUIPMENT REPAIRER 05/16/2016 3:18 AM METEOROLOGICAL EQUIPMENT REPAIRER Narrative [facility] HISTORICAL RESULTS - 05/16/2016 3:20 AM METEOROLOGICAL EQUIPMENT REPAIRER Collected By EAS ?? Comment ? collected by Graciela Hewitt, under MD supervision ?? Collected By MICHELLE ?? Comment collected by Graciela Hewitt, under MD supervision Celestine Ríos LAB MICROBIOLOGY - GENERA L ORDERABLES Final Result [facility] HISTORICAL RESULTS * VAGINAL PATHOGEN SCREEN (05/16/2016 2:50 AM METEOROLOGICAL EQUIPMENT REPAIRER) Trichomonas vaginalis POSITIVE NEGATIVE 05/16/2016 6:17 AM METEOROLOGICAL EQUIPMENT REPAIRER [facility] HISTORICAL RESULTS GARDNERELLA SCREEN POSITIVE NEGATIVE 2016 6:17 AM METEOROLOGICAL EQUIPMENT REPAIRER [facility] HISTORICAL RESULTS Carla species DNA NEGATIVE NEGATIVE 05/16/2016 6:17 AM METEOROLOGICAL EQUIPMENT REPAIRER [facility] HISTORICAL RESULTS Comment: A positive result for Carla, Gardnerella and/or Trichomonas means nucleic acid for Carla species (C.albicans,C.glabrata,Ckefyr,C.krusei,C.parapsilosis, C.tropicalis),G.vaginalis and/or T.vaginalis,respectively, is present in the sample and indicates the patient has candidasis, bacterial vaginosis, and/or trichomoniasis when consisent with clinical signs and symptoms. Simultaneous infections by more than one organism are common. Negative results,for Carla,Gardnerella,or Trichomonas test suggest the patient does not have candidasis,bacterial vaginosis and/or trichomoniasis, respectively, when consistent with clinical signs and symptoms. 05/16/2016 2:50 AM METEOROLOGICAL EQUIPMENT REPAIRER 05/16/2016 3:18 AM METEOROLOGICAL EQUIPMENT REPAIRER Narrative [facility] HISTORICAL RESULTS - 05/16/2016 6:17 AM METEOROLOGICAL EQUIPMENT REPAIRER Collected By EAS ?? Comment ? collected by Graciela Hewitt, under supervision ?? Collected By MICHELLE ?? Comment collected by Graciela Hewitt, under MD supervision us Celestine Ríos LAB BLOOD ORDERABLES Antonella l Result [facility] HISTORICAL RESULTS * Microbiology Specimen Report (Converted) (05/16/2016 2:05 AM METEOROLOGICAL EQUIPMENT REPAIRER) 05/16/2016 2:05 AM METEOROLOGICAL EQUIPMENT REPAIRER 05/16/2016 2:17 AM METEOROLOGICAL EQUIPMENT REPAIRER Narrative [facility] HISTORICAL RESULTS - 05/16/2016 2:05 AM METEOROLOGICAL EQUIPMENT REPAIRER Microbiology Specimen Report (Converted) SPECIMEN [id number] ?? COLLECTED: 2016-05-16 02:05:00 RR ?? REQ#: [id number] REQUESTING DR: Celestine Ríos MD ?? SOURCE: URINE ?? SP DESC: CLEAN CATC --- PROCEDURE --- ?--- RESULT --- ?? CULTURE URINE ??(Final) ??- ??Performed at [facility] ?* COLONY COUNT: 50,000 CFU/ml ?* MIXED GRAM POSITIVE ORGANISMS ?? * Organism 1 - STREPTOCOCCUS GROUP B [STREP GR B] ?* COLONY COUNT: 20,000 CFU/ml ? This laboratory routinely screens urine cultures for any ? amount of Group B Streptococcus in reproductive age women. ? Recovery of this isolate may be significant in ? women, however, the recovery of the organism in small ? quantities in non- women represents contamination ? with periurethral estela. ? . ? Culture yielded multiple organisms. This generally indicates ? contamination by normal periurethral estela at time of ? collection. No further testing will be performed on this ? specimen. Please resubmit if clinically indicated. - [facility] ? [address] [place] [address] ? [place] [address] ? Ken Fan MD Procedure Note 06/10/2018 Microbiology Specimen Report (Converted) SPECIMEN [id number] COLLECTED: 2016-05-16 02:05:00 RR REQ#:[id number] REQUESTING DR: Celestine Ríos MD SOURCE: URINE SP DESC: CLEAN CATC --- PROCEDURE --- --- RESULT --- CULTURE URINE (Final) - Performed at [facility] * COLONY COUNT: 50,000 CFU/ml * MIXED GRAM POSITIVE ORGANISMS * Organism 1 - STREPTOCOCCUS GROUP B [STREP GR B] * COLONY COUNT: 20,000 CFU/ml This laboratory routinely screens urine cultures for any amount of Group B Streptococcus in reproductive age women. Recovery of this isolate may be significant in women, however, the recovery of the organism in small quantities in non- women represents contamination with periurethral estela. . Culture yielded multiple organisms. This generally indicates contamination by normal periurethral estela at time of collection. No further testing will be performed on this specimen. Please resubmit if clinically indicated. - [place] [id number] Ken Fan MD us Celestine Ríos LAB BLOOD ORDERABLES Antonella rubi Result [facility] HISTORICAL RESULTS * (ABNORMAL) Urinalysis reflex to microscopic and culture (05/16/2016 2:05 AM METEOROLOGICAL EQUIPMENT REPAIRER) Ur Collection Type CLEAN CATCH 05/16/2016 2:36 AM METEOROLOGICAL EQUIPMENT REPAIRER [facility] HISTORICAL RESULTS Ur Culture Indicated? C&S INDICATED Comment:Culture report to viktoriya terra. Urine Color YELLOW YELLOW Urine Clarity HAZY CLEAR Urine Glucose (UA) NORMAL NORMAL mg/dL Urine Bilirubin NEGATIVE NEGATIVE mg/dl Urine Ketones 5(H) NEGATIVE mg/dL Ur Specific Hannacroix 1.033(H) 1.005 - 1.025 Urine Blood NEGATIVE NEGATIVE mg/dl Urine pH 5.0 5.0 - 8.0 Urine Protein 30(H) NEGATIVE mg/dL Urine Urobilinogen NORMAL NORMAL mg/dL Urine Nitrite NEGATIVE NEGATIVE Ur Leukocyte Esterase 75(H) NEGATIVE Dc/ul Ur Microscopic Review Indicated or Ordered Urine RBC 11 0 - 2 /HPF Urine WBC 29 0 - 2 /HPF Urine Mucus Marked /LPF Ur Squamous Epith Cells Rare /LPF 05/16/2016 2:05 AM METEOROLOGICAL EQUIPMENT REPAIRER 05/16/2016 2:17 AM METEOROLOGICAL EQUIPMENT REPAIRER Narrative [facility] HISTORICAL RESULTS - 05/16/2016 2:36 AM METEOROLOGICAL EQUIPMENT REPAIRER us Celestine Ríos LAB MICROBIOLOGY - GENERA L ORDERABLES Final Result [facility] HISTORICAL RESULTS documented in this encounter Visit Diagnoses Diagnosis Rash and other nonspecific skin eruption documented in this encounter
--- OUTSIDE RECORDS SUMMARY | 2024-03-24 00:25 | XMS_ITS | Encounter Summary ---
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 GONORRHOEAE/C. TRACHOMATIS AMPLIFICATION Routine 07/26/2020 10:23 AM CDT documented in this encounter Results * N. gonorrhoeae/C. trachomatis Amplification Urine (07/26/2020 10:23 AM CDT) C. trachomatis Not Detected Not Detected [facility] N. gonorrhoeae Not Detected Not Detected [facility] Comment: Testing performed by the [facility]. This assay detects Chlamydia trachomatis and Neisseria gonorrhoeae by nucleic acid amplification testing (NAAT). This test is approved by the [place] Food and Drug Administration and the performance characteristics have been verified by the laboratory. The performance characteristics of this test have not been evaluated in women or individuals less than 16 years of age. Urine 07/26/2020 10:2 3 AM CDT 07/28/2020 12:10 PM CDT us Notinfile Unknown LAB MICROBIOLOGY - GENERAL ORD ERABLES Final Result [facility] [address] Department [place] [address] documented in this encounter Visit Diagnoses Not on filedocumented in this encounter Care Teams Pharmacy Messenger Relationship Specialty Start Date End Date Mauro Grady MD PCP - General 07/26/20 07/29/20 documented as of this encounter
--- OUTSIDE RECORDS SUMMARY | 2024-03-24 00:25 | XMS_ITS | Encounter Summary ---
Author Organization [facility] Healthcare Address [address] [place] [address] Care Team Providers Care Manager Food Beverage Name Role Phone Mauro Grady MD Primary Care Provider [phone] Encounter Details Date Type Department Care Team (Late st Contact Info) Description 07/26/2020 10:02 AM CDT - 07/26/2020 11:05 AM CDT Emergency [address] [address] Unknown, Faby De León, DO [address] 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 Gender Identity Not on file Sexual Orientation Not on file documented as of this encounter Last Filed Vital Signs Vital Sign Reading Time Taken Comments Blood Pressure 117/72 07/26/2020 10:05 AM CDT Pulse 84 07/26/2020 10:05 AM CDT Temperature 36.7 ??C (98 ??F) 07/26/2020 10:05 AM CDT Respiratory Rate - - Oxygen Saturation 100% 07/26/2020 10:05 AM CDT Inhaled Oxygen Concentration - - Weight 63.7 kg (140 lb 7 oz) 07/26/2020 10:05 AM CDT Height 160 cm (5' 3 ) 07/26/2020 10:05 AM CDT Body Mass Index 24.88 07/26/2020 10:05 AM CDT documented in this encounter Discharge Disposition Disposition Code Departure Means Destination Discharge to home or self care documented in this encounter Plan of Treatment Not on file documented as of this encounter Procedures Procedure Name Priority Date/Time Associated Diagnosis Comments SCAN - LABS 07/29/2020 12:00 AM CDT CTNG MISC Routine 07/26/2020 10:23 AM CDT TRICHOMONAS URINE EXAM,MALE Routine 07/26/2020 10:23 AM CDT N. GONORRHOEAE/C. TRACHOMATIS AMPLIFICATION TEST Routine 07/26/2020 10:23 AM CDT documented in this encounter Results * SCAN - LABS (07/29/2020 12:00 AM CDT) Narrative 07/29/2020 12:00 AM CDT Ordered by an unspecified provider. us Historical Provider MD Final Res ult * CTNG Misc (07/26/2020 10:23 AM CDT) CT Pending Comment COMMENT [facility] Comment: Note: Results via Scanned Reports in EMR or by paper report only. Specimen sent to Reference lab. Results usually in 24 Hours. CTNG Test Name CTNG [facility] TEST [facility] 07/26/2020 10:2 3 AM CDT 07/26/2020 10:34 AM CDT Narrative Resulting Agency Comment ER us Notinfile Unknown LAB BLOOD ORDERABLES Final Res ult [facility] [address] [place] [address], [facility] [phone] [facility] [address] [place] [address] * TRICHOMONAS URINE EXAM,MALE (07/26/2020 10:23 AM CDT) U Trichomonas Species NEGATIVE NEGATIVE [facility] 07/26/2020 10:2 3 AM CDT 07/26/2020 10:30 AM CDT Narrative [facility] - 07/26/2020 10:48 AM CDT Collected By CJ Urine collection method First catch lessthan 50ml Resulting Agency Comment ER Shandra SANCHEZ LAB BLOOD ORDERABLES Final Re sult [address] [phone] * N. gonorrhoeae/C. trachomatis amplification test (07/26/2020 10:23 AM CDT) [facility] C. trachomatis RNA [facility] Comment: Testing to be performed at [facility]. See paper report or scanned report in the EMR. N. gonorrhoeae RNA [facility] Comment: Testing to be performed at [facility]. See paper report or scanned report in the EMR. Chlamydia/GC Source URINE [facility] Comment: This assay detects Chlamydia trachomatis and Neisseria gonorrhoeae by nucleic acid amplification testing (NAAT). Disclaimer: This Test is not FDA approved in females less than 14 years of age and in males less than 17 years of age. All positive CT/NG results on non-FDA approved pediatric age group patients have been confirmed positive by repeat testing. 07/26/2020 10:2 3 AM CDT 07/26/2020 10:30 AM CDT Narrative [facility] - 07/26/2020 10:37 AM CDT Urine collection method First catch lessthan 50ml Collected By CJ Urine Resulting Agency Comment ER Shandra SANCHEZ LAB MICROBIOLOGY - GENERAL OR DERABLES Final Result Performing Organization Address City/[facility]/ZIP Co de Phone Number [address] [phone] documented in this encounter Visit Diagnoses Not on filedocumented in this encounter Care Teams Manager Food Beverage Relationship Specialty Start Date End Date Mauro rGady MD PCP - General 07/26/20 07/29/20 documented as of this encounter
--- OUTSIDE RECORDS SUMMARY | 2024-03-24 00:25 | XMS_ITS | Encounter Summary ---
Author Organization [facility] Healthcare Address [address] [place] [address] Care Team Providers Care Farm Mechanic Name Role Phone Unavailable Primary Care Provider Unavailabl e Encounter Details Date Type Department Care Team (Late st Contact Info) Description 02/24/2019 12:29 PM SKIDDER DRIVER - 02/24/2019 3:20 PM SKIDDER DRIVER Hospital Encounter [facility] Emergency Department [address] [place] [address] Unknown, Kp Laura II, MD [facility] [place] [address] Discharge Disposition: Discharge to home or self care Social History Tobacco Use Types Packs/Day Years Used Date Smoking Tobacco: Never Assessed Comments Unknown Sex and Gender Information Value Date Recorded Sex Assigned at Not on file Legal Sex Female 9:02 PM SKIDDER DRIVER Gender Identity Not on file Sexual Orientation Not on file documented as of this encounter Last Filed Vital Signs Vital Sign Reading Time Taken Comments Blood Pressure 112/78 02/24/2019 12:36 PM SKIDDER DRIVER Pulse 75 02/24/2019 12:36 PM SKIDDER DRIVER Temperature 36.6 ??C (97.9 ??F) 02/24/2019 12:[address] Respiratory Rate - - Oxygen Saturation 99% 02/24/2019 12:36 PM SKIDDER DRIVER Inhaled Oxygen Concentration - - Weight 60.9 kg (134 lb 4.2 oz) 02/24/2019 12:36 PM SKIDDER DRIVER Height 160 cm (5' 3 ) 02/24/2019 12:36 PM SKIDDER DRIVER Body Mass Index 23.78 02/24/2019 12:36 PM SKIDDER DRIVER documented in this encounter Discharge Disposition Disposition Code Departure Means Destination Discharge to home or self care documented in this encounter Plan of Treatment Not on file documented as of this encounter Procedures Procedure Name Priority Date/Time Associated Diagnosis Comments CBC WITH AUTO DIFFERENTIAL Routine 02/24/2019 1:01 PM SKIDDER DRIVER LIPASE Routine 02/24/2019 1:00 PM SKIDDER DRIVER COMPREHENSIVE METABOLIC PANEL Routine 02/24/2019 1:00 PM SKIDDER DRIVER URINALYSIS, COMPLETE W/REFLEX TO CULTURE Routine 02/24/2019 12:47 PM SKIDDER DRIVER URINE CULTURE Routine 02/24/2019 12:47 PM SKIDDER DRIVER XR RIBS LEFT W PA CHEST 02/24/2019 12:37 PM SKIDDER DRIVER documented in this encounter Results * (ABNORMAL) CBC with auto differential (02/24/2019 1:01 PM SKIDDER DRIVER) WBC 4.5 3.8 - 9.9 X10 3/ul [facility] RBC 4.72 3.90 - 5.20 x10 6/ul [facility] Hemoglobin 10.2(L) 11.9 - 15.5 g/dL [facility] Hct 34.4(L) 35.6 - 45.5 % [facility] MCV 72.9(L) 81.3 - 96.4 fl [facility] MCH 21.6(L) 27.1 - 33.3 pg [facility] MCHC 29.7(L) 32.3 - 35.7 g/dl [facility] RDW 18.9(H) 11.1 - 14.9 % [facility] Plt Count 207 150 - 400 x10 3/ul [facility] MPV 11.4 9.1 - 12.3 fl [facility] Neut % 34.2 % [facility] Immature Gran % 0.0 % [facility] Lymph % 56.0 % [facility] [place] % 7.6 % [facility] Eos % 1.1 % [facility] - True [employer] Systems[employer]CH AUTO BASO % 1.1 % [facility] NEUTROPHIL ABS # 1.5(L) 1.7 - 6.5 x10 3/ul [facility] Immature Gran # 0.0 0.0 - 0.1 x10 3/ul [facility] Absolute Lymphs (auto) 2.5 0.8 - 3.3 x10 3/ul [facility] Absolute Monos (auto) 0.3 0.2 - 0.8 x10 3/ul [facility] Absolute Eos (auto) 0.1 0.0 - 0.5 x10 3/ul [facility] BASOPHIL ABS # 0.1 0.0 - 0.1 x10 3/ul [facility] Nucleat RBC Rel Count 0.0 #/100WBC [facility] NRBC abs 0.00 0.00 - 0.01 x10 3/ul [facility] Absolute Neutrophils 1,500 200 - 8,000 /ul [facility] 02/24/2019 1:01 PM SKIDDER DRIVER 02/24/2019 1:06 PM SKIDDER DRIVER Narrative Resulting Agency Comment ER Susan SANCHEZ LAB BLOOD ORDERABLES Final Resul t Performing Organization Address City/[facility] de Phone Number [address] [phone] * Lipase (02/24/2019 1:00 PM SKIDDER DRIVER) Lipase 28 13 - 60 U/L [facility] 02/24/2019 1:00 PM SKIDDER DRIVER 02/24/2019 1:06 PM SKIDDER DRIVER Narrative Resulting Agency Comment ER Susan SANCHEZ LAB BLOOD ORDERABLES Final Resul t Performing Organization Address [facility]/ZIP Co de Phone Number [address] [phone] * Comprehensive metabolic panel (02/24/2019 1:00 PM SKIDDER DRIVER) Sodium 138 135 - 145 mmol/L [facility] Potassium 3.6 3.3 - 5.1 mmol/L [facility] Chloride 103 96 - 108 mmol/L [facility] Carbon Dioxide 24 22 - 32 mmol/L [facility] Anion Gap 11 7 - 16 [facility] Glucose 89 70 - 100 mg/dL [facility] BUN 8 8 - 25 mg/dL [facility] Creatinine 0.7 0.5 - 1.1 mg/dL [facility] Comment: NOTE: Estimated GFR (Cockroft-Gault) will NOT be calculated unless patient Height and Weight were entered. Also, Kidney Disease Stage (GFR) and Estimated GFR (Cockroft-Gault) will NOT be calculated if Creatinine result is <0.2. Kidney Disease Stage >90 mL/MIN [facility] Comment: NOTE; ??The GFR is an estimated [...] failure or on dialysis Est GFR (Cockcroft-G) 111 ml/MIN [facility] Comment: Estimated GFR(Cockroft-Gault)is used to calculate patient medication dosage Calcium 9.2 8.6 - 10.3 mg/dL [facility] Total Protein 7.7 6.4 - 8.3 g/dL [facility] Albumin 4.5 3.5 - 5.0 g/dL [facility] Globulin 3.2 2.3 - 3.5 gm/dL [facility] Albumin/Globulin Ratio 1.4 1.1 - 1.8 [facility] Total Bilirubin 0.3 0.0 - 1.2 mg/dL [facility] AST 17 0 - 32 U/L [facility] ALT 13 0 - 33 U/L [facility] Alkaline Phosphatase 69 35 - 104 U/L [facility] 02/24/2019 1:00 PM SKIDDER DRIVER 02/24/2019 1:06 PM SKIDDER DRIVER Narrative Resulting Agency Comment ER Susan SANCHEZ LAB BLOOD ORDERABLES Final Resul t Performing Organization Address City/[facility] Co de Phone Number [facility] [address] [place] [address] * Urine culture Urine, clean voided (02/24/2019 12:47 PM SKIDDER DRIVER) CULTURE URINE Culture yielded multiple organisms. This generally indicates contamination by normal periurethral estela at time of collection. No further testing will be performed on this specimen. Please resubmit if clinically indicated. >100,000 CFU/ml MIXED GRAM POSITIVE ORGANISMS [facility] Urine, clean voided 02/24/2019 12:47 PM SKIDDER DRIVER 02/24/2019 1:06 PM SKIDDER DRIVER Susan SANCHEZ LAB MICROBIOLOGY - GENERAL ORDER KACEY Final Result Performing Organization Address City/[facility] Co de Phone Number [facility] [address] [place] [address], [place] [phone] * (ABNORMAL) URINALYSIS, COMPLETE W/REFLEX TO CULTURE (02/24/2019 12:47 PM SKIDDER DRIVER) Ur Collection Type CLEAN CATCH [facility] Ur Culture Indicated? C S INDICATED [facility] Comment: Culture report to follow. Urine Color YELLOW YELLOW [facility] Urine Clarity [facility]OUDY [facility] Urine Glucose (UA) NORMAL NORMAL mg/dL [facility] Urine Bilirubin NEGATIVE NEGATIVE mg/dl [facility] Urine Ketones NEGATIVE NEGATIVE mg/dL [facility] Ur Specific [place] 1.019 1.005 - 1.025 [facility] Urine Blood 0.2(A) NEGATIVE mg/dl [facility] Urine pH 5.0 5.0 - 8.0 [facility] Urine Protein NEGATIVE NEGATIVE mg/dL [facility] Urine Urobilinogen NORMAL NORMAL mg/dL [facility] Urine Nitrite NEGATIVE NEGATIVE [facility] Ur Leukocyte Esterase 500(A) NEGATIVE Dc/ul [facility] Ur Microscopic Review Indicated or Ordered [facility] Urine RBC 44 0 - 2 /HPF [facility] Urine WBC 18 0 - 2 /HPF [facility] Urine Bacteria Rare /HPF [facility] Urine Mucus RARE /LPF [facility] Ur Squamous Epith Cells Mod /LPF [facility] 02/24/2019 12:4 7 PM SKIDDER DRIVER 02/24/2019 1:06 PM SKIDDER DRIVER Narrative [facility] - 02/24/2019 1:16 PM SKIDDER DRIVER Indication(s) for ordering ?? Other - enter in comments bhp Clean catch Resulting Agency Comment ER Susan SANCHEZ LAB URINE ORDERABLES Final Resul t Performing Organization Address City/State/[facility] Co de Phone Number [address] [phone] * XR Ribs Left W PA Chest 3 or More Views (02/24/2019 12:37 PM SKIDDER DRIVER) Anatomical Region Laterality Modality Rib, Chest Left Radiographic Lucero ging 02/24/2019 2:42 PM SKIDDER DRIVER Narrative 02/24/2019 2:43 PM SKIDDER DRIVER Patient Name: TANA MUÑOZ Jagdeep ?Ordering : Susan Navarro PA-C ?? D.O.B: 1995 ? Exam Date: 02/24/ ?? 1237 ?? Age: 24 ?Sex: Female ? MR#: [id number] ?? Loc: ? RADIOLOGY REPORT ?? Order #[id number] ?? Radiology ? Ribs Left W/Chest PA ? Signed ? EXAM DESCRIPTION: ??Ribs Left W/Chest PA ? REASON FOR STUDY: ??Left-sided rib pain for 2 days. ? TECHNIQUE: ??Frontal view of the chest and 3 additional views of the left ribs ?? acquired. ? COMPARISON: ??None available. ? FINDINGS: ? LUNGS/PLEURA: Lungs are well expanded and clear. ??There is no pleural ?? effusion. ??No pneumothorax. ? HEART/MEDIASTINUM: Heart size is normal. Normal mediastinal and hilar contours. ? RIBS: No acute displaced left-sided rib fractures noted. ??No suspicious lytic ?? or blastic lesions. ? HARDWARE/LINES/TUBES: None. ? BONES: No acute findings. ? OTHER: No other significant finding. ? IMPRESSION: ??No acute findings in the chest. ??No left-sided rib fractures ?? noted. ? THIS IS AN ELECTRONICALLY VERIFIED FINAL REPORT ?? 02/24/2019 2:43 PM - Electronically signed by Abdias Browning M.D. ?? Abdias Browning M.D. ? RL: RL ?? D: ??02/24/2019 2:43 PM ?? T: ??02/24/2019 2:43 PM ? Report ID: [id number] ?? Reading Location: ??[id number] ? REPORT ELECTRONICALLY SIGNED IN OTHER VENDOR SYSTEM ?? Resulting Agency Comment E Procedure Note Abdais Browning MD - 02/24/2019 Patient Name: TANA MUOÑZ Dr: Susan Navarro PA-C, D.O.B: 1995 Exam Date: 02/24/19 1237 Age: 24 Sex: Female MR#: [id number] Loc: RADIOLOGY REPORT Order #[id number] Radiology Ribs Left W/Chest PA Signed EXAM DESCRIPTION: Ribs Left W/Chest PA REASON FOR STUDY: Left-sided rib pain for 2 days. TECHNIQUE: Frontal view of the chest and 3 additional views of the leftribs acquired. COMPARISON: None available. FINDINGS: LUNGS/PLEURA: Lungs are well expanded and clear. There is no pleural effusion. No pneumothorax. HEART/MEDIASTINUM: Heart size is normal. Normal mediastinal and hilarcontours. RIBS: No acute displaced left-sided rib fractures noted. No suspiciouslytic or blastic lesions. HARDWARE/LINES/TUBES: None. BONES: No acute findings. OTHER: No other significant finding. IMPRESSION: No acute findings in the chest. No left-sided rib fractures noted. THIS IS AN ELECTRONICALLY VERIFIED FINAL REPORT 02/24/2019 2:43 PM - Electronically signed by Abdias Browning M.D. RL: [place] Report ID: [id number] Reading Location: [id number] REPORT ELECTRONICALLY SIGNED IN OTHER VENDOR SYSTEM Susan SANCHEZ IMG XR PROCEDURES Final Result documented in this encounter Visit Diagnoses Not on filedocumented in this encounter
--- OUTSIDE RECORDS SUMMARY | 2024-03-24 00:25 | XMS_ITS | Encounter Summary ---
Author Organization [facility] Healthcare Address [address] [place] [id number] Care Team Providers Care Retail Cashier Name Role Phone Unavailable Primary Care Provider Unavailabl e Encounter Details Date Type Department Care Team (Late st Contact Info) Description 03/31/2020 4:17 PM CAD OPERATOR - 03/31/2020 9:00 PM CAD OPERATOR Emergency [address] [address] Unknown, NotiSantos Maier [address] [address] Discharge Disposition: Discharge to home or self care Social History Tobacco Use Types Packs/Day Years Used Date Smoking Tobacco: Never Assessed Comments Unknown Sex and Gender Information Value Date Recorded Sex Assigned at Not on file Legal Sex Female 9:02 PM CAD OPERATOR Gender Identity Not on file Sexual Orientation Not on file documented as of this encounter Last Filed Vital Signs Vital Sign Reading Time Taken Comments Blood Pressure 113/68 03/31/2020 4:21 PM CAD OPERATOR Pulse 87 03/31/2020 4:21 PM CAD OPERATOR Temperature 36.6 ??C (97.8 ??F) 03/31/2020 4:21 PM CS T Respiratory Rate - - Oxygen Saturation 98% 03/31/2020 4:21 PM CAD OPERATOR Inhaled Oxygen Concentration - - Weight 72.6 kg (160 lb 0.9 oz) 03/31/2020 4:21 P M CAD OPERATOR Height 160 cm (5' 3 ) 03/31/2020 4:21 PM CAD OPERATOR Body Mass Index 28.35 03/31/2020 4:21 PM CAD OPERATOR documented in this encounter Discharge Disposition Disposition Code Departure Means Destination Discharge to home or self care documented in this encounter Plan of Treatment Not on file documented as of this encounter Procedures Procedure Name Priority Date/Time Associated Diagnosis Comments URINALYSIS, COMPLETE W/REFLEX TO CULTURE Routine 03/31/2020 4:44 PM CAD OPERATOR CBC WITH AUTO DIFFERENTIAL Routine 03/31/2020 4:37 PM CAD OPERATOR LIPASE Routine 03/31/2020 4:37 PM CAD OPERATOR COMPREHENSIVE METABOLIC PANEL Routine 03/31/2020 4:[address] ABDOMEN PELVIS W CONTRAST 03/31/2020 4:29 PM CAD OPERATOR documented in this encounter Results * (ABNORMAL) URINALYSIS, COMPLETE W/REFLEX TO CULTURE (03/31/2020 4:44 PM CAD OPERATOR) Ur Collection Type CLEAN CATCH [facility] Ur Culture Indicated? C S NOT INDICATED [facility] Urine Color YELLOW YELLOW [facility] Urine Clarity Slightly-Raven udy CLEAR [facility] Urine Glucose (UA) NORMAL NORMAL mg/dL [facility] Urine Bilirubin NEGATIVE NEGATIVE mg/dl [facility] Urine Ketones NEGATIVE NEGATIVE mg/dL [facility] Ur Specific Peosta 1.020 1.005 - 1.025 [facility] Urine Blood >=1.0 NEGATIVE mg/dl [facility] Urine pH 7.0 5.0 - 8.0 [facility] Urine Protein NEGATIVE NEGATIVE mg/dL [facility] Urine Urobilinogen NORMAL NORMAL mg/dL [facility] Urine Nitrite NEGATIVE NEGATIVE [facility] Ur Leukocyte Esterase 25(A) NEGATIVE Dc/ul [facility] Ur Microscopic Review Indicated or Ordered [facility] Urine RBC 0-2 0 - 2 /HPF [facility] Urine WBC 0-5 0 - 2 /HPF [facility] Urine Mucus Present /LPF [facility] Ur Squamous Epith Cells 6-10 /HPF [facility] 03/31/2020 4:44 PM CAD OPERATOR 03/31/2020 5:14 PM CAD OPERATOR Narrative [facility] - 03/31/2020 5:29 PM CAD OPERATOR Indication(s) for ordering ?? Dysuria cd Clean catch Resulting Agency Comment ER Zoey SANCHEZ LAB URINE ORDERABLE S Final Result Performing Organization Address City/[facility]/ZIP Co de Phone Number [address] [phone] * Lipase (03/31/2020 4:37 PM CAD OPERATOR) Lipase 29 13 - 60 U/L [facility] 03/31/2020 4:37 PM CAD OPERATOR 03/31/2020 5:08 PM CAD OPERATOR Narrative Resulting Agency Comment ER Zoey SANCHEZ LAB BLOOD ORDERABLE S Final Result Performing Organization Address [facility] [place] [address], [facility] [phone] * Comprehensive metabolic panel (03/31/2020 4:37 PM CAD OPERATOR) Sodium 138 135 - 145 mmol/L [facility] Potassium 4.1 3.3 - 5.1 mmol/L [facility] Chloride 107 96 - 108 mmol/L [facility] Carbon Dioxide 23 22 - 32 mmol/L [facility] Anion Gap 8 7 - 16 [facility] Glucose 97 70 - 100 mg/dL [facility] BUN 11 8 - 25 mg/dL [facility] Creatinine 0.8 0.5 - 1.1 mg/dL [facility] Comment: NOTE: Estimated GFR (Cockroft-Gault) will NOT be calculated unless patient Height and Weight were entered. Also, Kidney Disease Stage (GFR) and Estimated GFR (Cockroft-Gault) will NOT be calculated if Creatinine result is <0.2. Kidney Disease Stage >90 mL/MIN [facility] Comment: NOTE; ??The GFR is an estimated [...] failure or on dialysis Est GFR (Cockcroft-G) 104 ml/MIN [facility] Comment: Estimated GFR(Cockroft-Gault)is used to calculate patient medication dosage Calcium 9.0 8.6 - 10.3 mg/dL [facility] Total Protein 7.5 6.4 - 8.3 g/dL [facility] Albumin 4.5 3.5 - 5.0 g/dL [facility] Globulin 3.0 2.3 - 3.5 gm/dL [facility] Albumin/Globulin Ratio 1.5 1.1 - 1.8 [facility] Total Bilirubin 0.2 0.0 - 1.2 mg/dL [facility] AST 15 0 - 32 U/L [facility] ALT 11 0 - 33 U/L [facility] Alkaline Phosphatase 66 35 - 104 U/L [facility] 03/31/2020 4:37 PM CAD OPERATOR 03/31/2020 5:08 PM CAD OPERATOR Narrative Resulting Agency Comment ER us Zoey SANCHEZ LAB BLOOD ORDERABLE S Final Result [facility] [address] [place] [address], [facility] [phone] * (ABNORMAL) CBC with auto differential (03/31/2020 4:37 PM CAD OPERATOR) WBC 5.3 3.8 - 9.9 X10 3/ul [facility] RBC 4.68 3.90 - 5.20 x10 6/ul [facility] Hemoglobin 11.2(L) 11.9 - 15.5 g/dL [facility] Hct 37.6 35.6 - 45.5 % [facility] MCV 80.3(L) 81.3 - 96.4 fl [facility] MCH 23.9(L) 27.1 - 33.3 pg [facility] MCHC 29.8(L) 32.3 - 35.7 g/dl [facility] RDW 16.3(H) 11.1 - 14.9 % [facility] Plt Count 278 150 - 400 x10 3/ul [facility] MPV 11.7 9.1 - 12.3 fl [facility] Neut % 36.4 % [facility] Immature Gran % 0.2 % [facility] Lymph % 52.4 % [facility] Adair % 8.9 % [facility] Eos % 1.3 % [facility] AUTO BASO % 0.8 % [facility] NEUTROPHIL ABS # 1.9 1.7 - 6.5 x10 3/ul [facility] Immature Gran # 0.0 0.0 - 0.1 x10 3/ul [facility] Absolute Lymphs (auto) 2.8 0.8 - 3.3 x10 3/ul [facility] Absolute Monos (auto) 0.5 0.2 - 0.8 x10 3/ul [facility] Absolute Eos (auto) 0.1 0.0 - 0.5 x10 3/ul [facility] BASOPHIL ABS # 0.0 0.0 - 0.1 x10 3/ul [facility] Nucleat RBC Rel Count 0.0 #/100WBC [facility] NRBC abs 0.00 0.00 - 0.01 x10 3/ul [facility] Absolute Neutrophils 1,900 200 - 8,000 /ul [facility] 03/31/2020 4:37 PM CAD OPERATOR 03/31/2020 5:08 PM CAD OPERATOR Narrative Resulting Agency Comment ER us Zoey SANCHEZ LAB BLOOD ORDERABLE S Final Result [facility] [address] [phone] * CT Abdomen Pelvis W Contrast (03/31/2020 4:29 PM CAD OPERATOR) Anatomical Region Laterality Modality Body N/A Computed Tomogra phy 03/31/2020 8:21 PM CAD OPERATOR Narrative 03/31/2020 8:40 PM CAD OPERATOR Patient Name: TANA MUÑOZ ?Ordering : Zoey Castaneda PA-C ?? D.O.B: 1995 ? Exam Date: 01/11/21 ?? 1629 ?? Age: 25 ?Sex: Female ? MR#: [id number] ?? Loc: ? RADIOLOGY REPORT ?? Order #[id number] ?? CT Scan ? CT Abd/Pelvis W IV Contrast ? Signed ?? EXAM DESCRIPTION: ?? CT Abd/Pelvis W IV Contrast ? REASON FOR STUDY: ?? Right lower quadrant abdominal pain, lower abdominal pain ?? with vaginal pain and bleeding for 1 day. ??History of kidney stones. ? TECHNIQUE: ??CT scan of the abdomen and pelvis performed with intravenous and ? without oral contrast using helical scanning technique with dynamic ?? intravenous contrast injection. Reconstructed coronal and sagittal MPR images ?? reviewed. All images stored on PACS. ? Automated exposure control was used as a dose optimization technique for this ?? examination. ? CONTRAST TYPE/DOSE: ?? 100 cc Optiray 350 injected via ??left antecubital. ? COMPARISON: ?? None ? FINDINGS: ? LOWER CHEST: ??No significant pulmonary abnormalities. No effusion. ? LIVER: ??Normal size. ??No identified cystic or solid masses. ? GALLBLADDER: ??No stones identified. No wall thickening or inflammatory changes. ? BILE DUCTS: ??No intrahepatic or extrahepatic ductal dilatation. ? SPLEEN: ??Normal size. ??No focal lesions. ? PANCREAS: ??No identified cystic or solid masses. No significant ?? calcifications. No adjacent inflammation or peripancreatic fluid collections. ?? Pancreatic duct not dilated. ? ADRENALS: ??Normal. ? KIDNEYS/URINARY TRACT: ??No identified significant cystic or solid masses. No ?? visualized stones. No hydronephrosis or hydroureter. Symmetric enhancement. ? Urinary bladder is unremarkable. ? GI: ??No dilated bowel loops. No obvious wall thickening. ??Normal appendix. ??No ?? significant diverticular disease. ? PERITONEUM: ??No ascites or free air. ? RETROPERITONEUM: ??No mass or adenopathy. ? REPRODUCTIVE: ??No significant abnormality. ? VASCULATURE: ??No abdominal aortic aneurysm. ? MUSCULOSKELETAL: ??No significant abnormality. ? OTHER: ??No other abnormality. ? IMPRESSION: ?? No acute finding. ? THIS IS AN ELECTRONICALLY VERIFIED FINAL REPORT ?? 03/31/2020 8:40 PM - Electronically signed by Grant Marie ?? Grant Marie ? KT ?? D: ??03/31/2020 8:40 PM ?? T: ? Report ID: [id number] ?? Reading Location: ??[id number] ? REPORT ELECTRONICALLY SIGNED IN OTHER VENDOR SYSTEM ?? Resulting Agency Comment E Procedure Note Grant Marie MD - 03/31/2020 Patient Name: TANA MUÑOZ Dr: Zoey Castaneda PA-C DReemaO.B: 1995 Exam Date: 03/31/20 1629 Age: 25 Sex: Female MR#: [id number] Loc: [facility]#: [id number] RADIOLOGY REPORT Order #[id number] CT Scan CT Abd/Pelvis W IV Contrast Signed EXAM DESCRIPTION: CT Abd/Pelvis W IV Contrast REASON FOR STUDY: Right lower quadrant abdominal pain, lower abdominalpain with vaginal pain and bleeding for 1 day. History of kidney stones. TECHNIQUE: CT scan of the abdomen and pelvis performed with intravenousand without oral contrast using helical scanning technique with dynamic intravenous contrast injection. Reconstructed coronal and sagittal MPRimages reviewed. All images stored on PACS. Automated exposure control was used as a dose optimization technique forthis examination. CONTRAST TYPE/DOSE: 100 cc Optiray 350 injected via left antecubital. COMPARISON: None FINDINGS: LOWER CHEST: No significant pulmonary abnormalities. No effusion. LIVER: Normal size. No identified cystic or solid masses. GALLBLADDER: No stones identified. No wall thickening or inflammatorychanges. BILE DUCTS: No intrahepatic or extrahepatic ductal dilatation. SPLEEN: Normal size. No focal lesions. PANCREAS: No identified cystic or solid masses. No significant calcifications. No adjacent inflammation or peripancreatic fluidcollections. Pancreatic duct not dilated. ADRENALS: Normal. KIDNEYS/URINARY TRACT: No identified significant cystic or solid masses.No visualized stones. No hydronephrosis or hydroureter. Symmetricenhancement. Urinary bladder is unremarkable. GI: No dilated bowel loops. No obvious wall thickening. Normalappendix. No significant diverticular disease. PERITONEUM: No ascites or free air. RETROPERITONEUM: No mass or adenopathy. REPRODUCTIVE: No significant abnormality. VASCULATURE: No abdominal aortic aneurysm. MUSCULOSKELETAL: No significant abnormality. OTHER: No other abnormality. IMPRESSION: No acute finding. THIS IS AN ELECTRONICALLY VERIFIED FINAL REPORT 03/31/2020 8:40 PM - Electronically signed by Grant Marie KT T: Report ID: [id number] Reading Location: [place] [address] REPORT ELECTRONICALLY SIGNED IN OTHER VENDOR SYSTEM Zoey SANCHEZ IMG CT PROCEDURES F inal Result documented in this encounter Visit Diagnoses Not on filedocumented in this encounter
--- OUTSIDE RECORDS SUMMARY | 2024-03-24 00:25 | XMS_ITS | Encounter Summary ---
Author Organization [facility] Healthcare Address [address] [place] [address] Care Team Providers Care Nanny Caregiver Name Role Phone Mauro Grady MD Primary Care Provider [phone] Reason for Visit * Reason Comments Headache Encounter Details Date Type Department Care Team (Late st Contact Info) Description 03/20/2021 11:43 AM COMPLIANCE ASSISTANT - 03/20/2021 2:20 PM COMPLIANCE ASSISTANT Emergency [address] [address] Discharge Disposition: Left without being seen Social History Tobacco Use Types Packs/Day Years Used Date Smoking Tobacco: Never Comments No Sex and Gender Information Value Date Recorded Sex Assigned at Not on file Legal Sex Female 9:02 PM COMPLIANCE ASSISTANT Gender Identity Not on file Sexual Orientation Not on file documented as of this encounter Last Filed Vital Signs Vital Sign Reading Time Taken Comments Blood Pressure 112/67 03/20/2021 10:43 AM COMPLIANCE ASSISTANT Pulse 95 03/20/2021 10:43 AM COMPLIANCE ASSISTANT Temperature 36.8 ??C (98.2 ??F) 03/20/2021 10:[address] Respiratory Rate 16 03/20/2021 10:43 AM COMPLIANCE ASSISTANT Oxygen Saturation 98% 03/20/2021 10:43 AM COMPLIANCE ASSISTANT Inhaled Oxygen Concentration - - Weight 57 kg (125 lb 10.6 oz) 03/20/2021 10:43 A M COMPLIANCE ASSISTANT Height 160 cm (5' 3 ) 03/20/2021 10:43 AM COMPLIANCE ASSISTANT Body Mass Index 22.26 03/20/2021 10:43 AM COMPLIANCE ASSISTANT documented in this encounter Discharge Disposition Disposition Code Departure Means Destination Left without being seen documented in this encounter ED Notes * Lizabeth Arango, FATIMAH - 03/20/2021 11:33 AM CST Pt to ED with c/o BUTCHER, productive cough with yellow sputum, generalized body aches, and chills that started last night. LIANCE ASSISTANT documented in this encounter Plan of Treatment Not on file documented as of this encounter Visit Diagnoses Not on filedocumented in this encounter Care Teams Nanny Caregiver Relationship Specialty Start Date End Date Mauro Grady MD PCP - General 07/30/20 06/05/23 documented as of this encounter
--- OUTSIDE RECORDS SUMMARY | 2024-03-24 00:25 | XMS_ITS | Encounter Summary ---
Author Organization [facility] Healthcare Address [address] [place] [address] Care Team Providers Care Noc Technician Name Role Phone Mauro Grady MD Primary Care Provider [phone] Reason for Visit * Reason Comments Vaginal discharge Encounter Details Date Type Department Care Team (Late st Contact Info) Description 04/14/2022 12:03 AM POULTRY BUYER - 04/14/2022 4:25 AM POULTRY BUYER Emergency [address] [address] Bacterial vaginosis (Primary Dx) Discharge Disposition: Discharge to home or self care Social History Tobacco Use Types Packs/Day Years Used Date Smoking Tobacco: Never Alcohol Use Standard Drinks/Week Comments Never 0 (1 standard drink = 0.6 oz pur e alcohol) Comments No Sex and Gender Information Value Date Recorded Sex Assigned at Not on file Legal Sex Female 9:02 PM POULTRY BUYER Gender Identity Not on file Sexual Orientation Not on file documented as of this encounter Last Filed Vital Signs Vital Sign Reading Time Taken Comments Blood Pressure 114/69 04/14/2022 12:24 AM POULTRY BUYER Pulse 86 04/14/2022 12:24 AM POULTRY BUYER Temperature 36.5 ??C (97.7 ??F) 04/14/2022 12:[address] Respiratory Rate 17 04/14/2022 12:24 AM POULTRY BUYER Oxygen Saturation 99% 04/14/2022 12:24 AM POULTRY BUYER Inhaled Oxygen Concentration - - Weight 54.9 kg (121 lb) 04/14/2022 12:24 AM POULTRY BUYER Height - - Body Mass Index 21.43 05/11/2021 9:20 AM POULTRY BUYER documented in this encounter Discharge Instructions * Discharge Instructions* Santos Fox PA - 04/14/2022 3:33 AM POULTRY BUYER Return to ER immediately for any new or worsening symptoms. Follow-up as recommended is mandatory. You MUST follow up for further evaluation of all incidental abnormal radiographic and laboratory findings. Have your physician obtain records from this visit and address all the incidental abnormal findings. This may include final results of lab testing, cultures, final x-ray reports which may not have been available during the time of the visit. TRY BUYER * Attachments The following attachments cannot be sent through Care Everywhere. * Bacterial Vaginosis (AfterCare(R) Instructions(ER/ED)) (Maltese) documented in this encounter Medications at Time of Discharge metroNIDAZOLE (FLAGYL) 500 mg tablet Take 1 tablet (500 mg total) by mouth 2 (two) times a day for 7 days 14 tablet 04/14/2022 04/21/2022 documented as of this encounter Ordered Prescriptions Prescription Sig Dispense Quantity Refills Last Filled Start Date End Date metroNIDAZOLE (FLAGYL) 500 mg tablet Take 1 tablet (500 mg total) by mouth 2 (two) times a day for 7 days 14 tablet 04/14/2022 04/21/2022 documented in this encounter Discharge Disposition Disposition Code Departure Means Destination Discharge to home or self care documented in this encounter ED Notes * Santos Fox PA - 04/14/2022 3:31 AM CST CHIEF COMPLAINT: Chief Complaint Patient presents with Vaginal discharge HPI 3:39 AM Meena Muñoz is a 27 y.o. female presenting to the ED c/o white vaginal discharge onset yesterday. She denies any associated symptoms including fever, chills, abdominal pain, urinary symptoms, vaginal irritation, genital sores. Patient is requesting STD testing. History provided by patient PCP: Mauro Grady MD PAST MEDICAL HISTORY No past medical history on file. PAST SURGICAL HISTORY No past surgical history on file. FAMILY HISTORY No family history on file. MEDICATIONS GIVEN IN THE ED Medications metroNIDAZOLE (FLAGYL) tablet 500 mg (500 mg oral Given 04/14/22 0327) CURRENT HOME MEDICATIONS No current facility-administered medications for this encounter. Current Outpatient Medications: metroNIDAZOLE (FLAGYL) 500 mg tablet, Take 1 tablet (500 mg total) by mouth 2 (two) times a day for7 days, Disp: 14 tablet, Rfl: 0 ALLERGIES Allergies Allergen Reactions Other Rash Shellfish Ibuprofen Hives Latex Hives SOCIAL HISTORY Social History Tobacco Use Smoking status: Never Smokeless tobacco: Not on file Substance and Sexual Activity Drug use: Never Sexual activity: Defer Alcohol Use: Not on file PHYSICAL EXAM TRIAGE VITAL SIGNS: ED Triage Vitals [04/14/22 0024] Temp Pulse Resp BP SpO2 36.5 ??C (97.7 ??F) 86 17 114/69 99 % Temp src Heart Rate Source Patient Position BP Location FiO2 (%) -- -- -- -- -- Height Height Method Weight Weight Method -- -- 54.9 kg (121 lb) -- Physical Exam LABS Labs Reviewed VAGINITIS PANEL - Abnormal Result Value Connor DNA probe Not Detected Gardnerella DNA probe Detected (*) Trichomonas DNA probe Not Detected URINALYSIS AND REFLEX TO MICROSCOPIC AND CULTURE - Abnormal Color, ur Yellow Clarity, ur Clear Specific gravity, ur 1.025 pH, urine 7.0 Protein, ur ql 1+ (*) Glucose, ur ql Negative Ketones, ur Negative Bilirubin, ur Negative Blood, ur Negative Urobilinogen, ur 2.0 (*) Nitrite, ur Negative Leukocyte esterase, ur Negative UA reflex comment Reflex to microscopic UA will be performed. Narrative: Urine pH is affected by diet, medications, systemic acid-base disturbances, and renal tubular function. pH may affect urinary stone formation. For example, urine pH below 6.0 may help reduce the tendency for calcium phosphate stones and pH greater than 6.0 may reduce the tendency for uric acid stone formation. Source: [employer].Last revised 03-31-2017 URINALYSIS, MICROSCOPIC ONLY - Abnormal WBC, ur 0-5 RBC, ur 3-5 (*) Epithelial cells, squamous, ur 11-20 (*) Mucous, ur Present (*) Culture Reflex Comment Value: Reflex conditions for urine culture (WBC >10) not met. N. GONORRHOEAE/C. TRACHOMATIS AMPLIFICATION C. trachomatis Not Detected N. gonorrhoeae Not Detected RADIOLOGY No results found. ED COURSE/MEDICAL DECISION MAKING Differential diagnosis included but not limited to STD, BV, connor. Patient's medical records were reviewed. ED Course as of 04/14/22338 Time: 04/14 338 Comment: Gardnerella positive. Connor, Trichomonas, chlamydia, gonorrhea negative. Urinalysis negative. Patient given 1st dose of p.o. Flagyl. Will discharge home with p.o. Flagyl. She was instructed to follow up closely with her primary care provider and return to ED with any new or worsening symptoms. By: Santos Fox PA Procedures FINAL IMPRESSION Bacterial vaginosis DISPOSITION: Home All findings were discussed with patient. Pt agreeable with plan. Non toxic appearing, vitals stable. Patient stable for discharge home. Given return to ER precautions Close outpatient follow-up with a low threshold to return has been mandated , concerning symptoms have been emphasized in detail, and this patient expresses understanding PATIENT INSTRUCTED TO FOLLOW UP Mauro Grady MD [address] [address] Schedule an appointment as soon as possible for a visit in 3 days DISCHARGE MEDICATIONS Your medication list START taking these medications Instructions Last Dose Given Next Dose Due metroNIDAZOLE 500 mg tablet Commonly known as: FLAGYL Take 1 tablet (500 mg total) by mouth 2 (two) times a day for 7 days Where to Get Your Medications These medications were sent to [facility]/pharmacy #[id number] - [facility] [address] [facility] [address] [facility] [address] Hours: 24-hours metroNIDAZOLE 500 mg tablet This examination was transcribed using the [employer] voice recognition system without human hoistman. In an effort to expedite patient care, this report has not been adjusted for typographical, grammatical, and syntax by a trained medical underwriter. Santos Fox PA 04/19/221944 Cosigned by Jane Mendoza DO at 04/22/2022 4:51 AM POULTRY BUYER TRY BUYER TRY BUYER Associated attestation - Jane Mendoza DO - 04/22/2022 4:51 AM POULTRY BUYER ED Attestation I did not see this patient. However, I was personally available for consultation in the ED for thispatient if the Advanced Practice Provider (SINCERE) needed any assistance. The SINCERE evaluated the patient independently and completed their own examination, documentation, and disposition. * Yosef Hicks RN - 04/14/2022 12:25 AM CST Pt c/o vaginal discharge that started on yesterday. Pt denies abdominal pain and difficulty urinating. Pt is concerned of STD. TRY BUYER TRY BUYER documented in this encounter Plan of Treatment Not on file documented as of this encounter Procedures Procedure Name Priority Date/Time Associated Diagnosis Comments N. GONORRHOEAE/C. TRACHOMATIS AMPLIFICATION STAT 04/14/2022 12:58 AM POULTRY BUYER VAGINITIS PANEL STAT 04/14/2022 12:58 AM POULTRY BUYER URINALYSIS AND REFLEX TO MICROSCOPIC AND CULTURE STAT 04/14/2022 12:58 AM POULTRY BUYER URINALYSIS, MICROSCOPIC ONLY STAT 04/14/2022 12:58 AM POULTRY BUYER documented in this encounter Results * (ABNORMAL) Urinalysis, microscopic only (04/14/2022 12:58 AM POULTRY BUYER) WBC, ur 0-5 0 - 5 /HPF [facility] RBC, ur 3-5(A) 0 - 2 /HPF [facility] Epithelial cells, squamous, ur 11-20(A) 0 - 5 /HPF [facility] Comment:Suggestive of contam ination. Consider recollection by clean catch. Mucous, ur Present(A) [facility] Culture Reflex Comment Reflex conditions for urine culture (WBC >10) not met. [facility] Urine 04/14/2022 12:5 8 AM POULTRY BUYER 04/14/2022 1:05 AM POULTRY BUYER Santos SANCHEZ LAB URINE ORDERABLES Final R esult [facility] [address] Department [place] [address] * (ABNORMAL) Urinalysis reflex to microscopic and culture Urine (04/14/2022 12:58 AM POULTRY BUYER) Color, ur Yellow Yellow [facility] Clarity, ur Clear Clear [facility] Specific gravity, ur 1.025 1.003 - 1.030 [facility] pH, urine 7.0 [facility] Protein, ur ql 1+(A) Negative [facility] Glucose, ur ql Negative Negative [facility] Ketones, ur Negative Negative [facility] Bilirubin, ur Negative Negative [facility] Blood, ur Negative Negative [facility] Urobilinogen, ur 2.0(A) <2.0 mg/dL [facility] Nitrite, ur Negative Negative [facility] Leukocyte esterase, ur Negative Negative [facility] UA reflex comment Reflex to microscopic UA will be performed. [facility] Urine 04/14/2022 12:5 8 AM POULTRY BUYER 04/14/2022 1:05 AM POULTRY BUYER Narrative [facility] - 04/14/2022 1:09 AM POULTRY BUYER ?? Urine pH is affected by diet, medications, systemic acid-base disturbances, and renal tubular function. ??pH may affect urinary stone formation. ??For example, urine pH below 6.0 may help reduce the tendency for calcium phosphate stones and pH greater than 6.0 may reduce the tendency for uric acid stone formation. Source: [facility] [employer]. Last revised 03-31-2017 Santos SANCHEZ LAB MICROBIOLOGY - GENERAL O RDERABLES Final Result Performing Organization Address [facility] de Phone Number EMIR CHONG [address] [place] [address] * N. gonorrhoeae/C. trachomatis Amplification Urine (04/14/2022 12:58 AM POULTRY BUYER) Pathologist [facility] C. trachomatis Not Detected Not Detected [facility] N. gonorrhoeae Not Detected Not Detected EMIR Comment: Interpretive Data Testing performed by the [facility]. This assay detects Chlamydia trachomatis and Neisseria gonorrhoeae by nucleic acid amplification testing (NAAT). This test is approved by the [place] Food and Drug Administration and the performance characteristics have been verified by the laboratory. The performance characteristics of this test have not been evaluated in individuals less than 14 years of age. Current Interpretive Data was last revised on 2019. Urine (None) 04/14/2022 12:5 8 AM POULTRY BUYER 04/14/2022 1:10 AM POULTRY BUYER Santos SANCHEZ LAB MICROBIOLOGY - GENERAL O RDERABLES Final Result Performing Organization Address [facility] de Phone Number EMIR [address] [place] [address] * (ABNORMAL) Vaginitis panel Vaginal (04/14/2022 12:58 AM POULTRY BUYER) Pathologist [facility] Connor DNA probe Not Detected Not Detected [facility] Gardnerella DNA probe Detected(A) Not Detected [facility] Trichomonas DNA probe Not Detected Not Detected EMIR Comment: Interpretive Data Testing performed by [facility] via [employer] VPIII Microbial Identification Test, a DNA probe test for use in the detection and identification of Connor species, Gardnerella vaginalis and Trichomonas vaginalis nucleic acid in vaginal fluid specimens from patients with symptoms of vaginitis/vaginosis. Negative results for these tests suggest the patient does not have candidiasis, bacterial vaginosis and/or trichomoniasis when consistent with clinical signs and symptoms. Current interpretive data was last revised on 2020. Vaginal 04/14/2022 12:5 8 AM POULTRY BUYER 04/14/2022 1:17 AM POULTRY BUYER us Santos SANCHEZ LAB MICROBIOLOGY - GENERAL O RDERABLES Final Result EMIR [address] Department [place] [address] documented in this encounter Visit Diagnoses Diagnosis Bacterial vaginosis- Primary Unspecified vaginitis and vulvovaginitis documented in this encounter Administered Medications Inactive Administered Medications - up to 3 most recent administrations Medication Order MAR Action Action Date Dose Rate Site metroNIDAZOLE (FLAGYL) tablet 500 mg 500 mg, oral, Once, On Tue04/14/22 at 0304, For 1 dose, Indications: Abdominal/Pelvic InfectionIndications:Abdominal/Pel leah Infection Given 04/14/2022 3:27 AM POULTRY BUYER 500 mg documented in this encounter Active and Recently Administered Medications Times are shown in POULTRY BUYER. Scheduled Medication Order 04/12/2022 04/13/2022 04/14/2022 metroNIDAZOLE (FLAGYL) tablet 500 mg (COMPLETED) 500 mg, oral, Once, On Tue04/14/22 at 0304, For 1 dose, Indications: Abdominal/Pelvic Infection 0327 (Given - Provid er: Yosef Hicks RN) documented in this encounter Orders Medications Ordered That Ja ht Not Have Been Administered Count Last Ordered Date First Ordered Date metroNIDAZOLE (FLAGYL) tablet 500 mg 03/22 documented in this encounter Care Teams Noc Technician Relationship Specialty Start Date End Date Mauro Grady MD PCP - General 07/30/20 06/05/23 documented as of this encounter
--- OUTSIDE RECORDS SUMMARY | 2024-03-24 00:25 | XMS_ITS | Encounter Summary ---
Author Organization [facility] Healthcare Address [address] [place] [address] Care Team Providers Care Special Service Representative Name Role Phone Unavailable Primary Care Provider Unavailabl e Encounter Details Date Type Department Care Team (Latest Contact Info) Description 12/16/2013 7:42 AM CDT - 12/16/2013 11:32 AM CDT Hospital Encounter [facility] Valerie Berger MD [address] [place] [address] Other and unspecified noninfectious gastroenteritis and colitis Social History Tobacco Use Types Packs/Day Years Used Date Smoking Tobacco: Never Assessed Comments Unknown Sex and Gender Information Value Date Recorded Sex Assigned at Not on file Legal Sex 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 Gender Identity Not on file Sexual Orientation Not on file documented as of this encounter Last Filed Vital Signs Vital Sign Reading Time Taken Comments Blood Pressure 97/57 12/16/2013 7:42 AM CDT Pulse 69 12/16/2013 7:42 AM CDT Temperature 36.9 ??C (98.5 ??F) 12/16/2013 7:42 AM CD T Respiratory Rate - - Oxygen Saturation 100% 12/16/2013 7:42 AM CDT Inhaled Oxygen Concentration - - Weight 58.5 kg (129 lb) 12/16/2013 7:42 AM CDT Height 160 cm (5' 3 ) 12/16/2013 7:42 AM CDT Body Mass Index 22.85 12/16/2013 7:42 AM CDT Body Mass Index Percentile 71.54% 12/16/2013 7:4 2 AM CDT Growth Chart: CDC (Girls, 2- 20 Years) documented in this encounter Plan of Treatment Not on file documented as of this encounter Procedures Procedure Name Priority Date/Time Associated Diagnosis Comments URINALYSIS AND REFLEX TO MICROSCOPIC AND CULTURE Routine 12/16/2013 9:15 AM CDT CBC WITH AUTO DIFFERENTIAL Routine 12/16/2013 8:00 AM CDT LIPASE Routine 12/16/2013 8:00 AM CDT COMPREHENSIVE METABOLIC PANEL Routine 12/16/2013 8:00 AM CDT documented in this encounter Results * (ABNORMAL) Urinalysis reflex to microscopic and culture (12/16/2013 9:15 AM CDT) Ur Collection Type CLEAN CATCH 12/16/2013 9:30 AM [facility] [employer] HISTORICAL RESULTS Ur Culture Indicated? C&S NOT INDICATED 12/16/2013 9:30 AM [facility] [employer] HISTORICAL RESULTS Urine Color YELLOW YELLOW 12/16/2013 9:30 AM [facility] [employer] HISTORICAL RESULTS Urine Clarity HAZY CLEAR 12/16/2013 9:30 AM [facility] [employer] HISTORICAL RESULTS Urine Glucose (UA) 1000(H) NORMAL mg/dL 12/16/2013 9:30 AM [facility] [employer] HISTORICAL RESULTS Urine Bilirubin NEGATIVE NEGATIVE mg/dl 12/16/2013 9:30 AM [facility] [employer] HISTORICAL RESULTS Urine Ketones 150(H) NEGATIVE mg/dL 12/16/2013 9:30 AM [facility] [employer] HISTORICAL RESULTS Comment: Note: ??This combination of a positive urine glucose and a ?? moderate or greater urine ketone is a Critical Value. ? CRITICAL VALUE CALLED and REPEATED. ?? at:92712/16/13 by:Barbara Baez to:ANNABELLA DEL ANGEL Ur Specific Silvis 1.020 1.005 - 1.025 12/16/2013 9:30 AM [facility] [employer] HISTORICAL RESULTS Urine Blood NEGATIVE NEGATIVE mg/dl 12/16/2013 9:30 AM [facility] [employer] HISTORICAL RESULTS Urine pH 5.5 5.0 - 8.0 12/16/2013 9:30 AM [facility] [employer] HISTORICAL RESULTS Urine Protein 10(H) NEGATIVE mg/dL Urine Urobilinogen NORMAL NORMAL mg/dL 12/16/2013 9:30 AM [facility] HISTORICAL RESULTS Urine Nitrite NEGATIVE NEGATIVE 12/16/2013 9:30 AM [facility] HISTORICAL RESULTS Ur Leukocyte Esterase NEGATIVE NEGATIVE Dc/ul Ur Microscopic Review Indicated or Ordered 12/16/2013 9:30 AM [facility] HISTORICAL RESULTS Urine RBC 1 0 - 2 /HPF Urine WBC 1 0 - 2 /HPF Urine Bacteria Rare /HPF Urine Mucus Mod /LPF Ur Squamous Epith Cells Few /HPF 12/16/2013 9:15 AM CDT 12/16/2013 9:21 AM CDT [employer] [facility] HISTORICAL RESULTS - 12/16/2013 9:30 AM CDT Collected By kw ?? 623 ?? us Historical Provider LAB MICROBIOLOGY - GENERA L ORDERABLES Final Result [facility] HISTORICAL RESULTS * Lipase (12/16/2013 8:00 AM CDT) Lipase 14 13 - 60 U/L 12/16/2013 8:00 AM CDT 12/16/2013 8:12 AM CDT [employer] [facility] HISTORICAL RESULTS - 12/16/2013 8:37 AM CDT us Historical Provider LAB BLOOD ORDERABLES Antonella l Result Performing Organization Address City/[facility]/ZIP Co de Phone Number [facility] HISTORICAL RESULTS * (ABNORMAL) Comprehensive metabolic panel (12/16/2013 8:00 AM CDT) Sodium 136 135 - 145 mmol/L Potassium 3.5 3.4 - 4.7 mmol/L Chloride 97 96 - 108 mmol/L Carbon Dioxide 24 22 - 32 mmol/L Anion Gap 15 7 - 16 Glucose 63(L) 70 - 110 mg/dL BUN 15 5 - 18 mg/dL Creatinine 0.9 0.5 - 1.1 mg/dL Kidney Disease Stage TNP mL/MIN Comment:PATIENT LESS THAN 18 YEARS OLD Calcium 10.2 8.4 - 10.2 mg/dL Total Protein 8.5(H) 6.4 - 8.3 g/dL Albumin 5.3(H) 3.2 - 4.5 g/dL Globulin 3.2 2.3 - 3.5 gm/dL Albumin/Globulin Ratio 1.7 1.1 - 1.8 Total Bilirubin 0.5 0.0 - 1.2 mg/dL AST 24 15 - 50 U/L ALT 13 0 - 33 U/L Alkaline Phosphatase 85 0 - 186 U/L 12/16/2013 8:00 AM CDT 12/16/2013 8:12 AM CDT Narrative [facility] HISTORICAL RESULTS - 12/16/2013 8:37 AM CDT us Historical Provider LAB BLOOD ORDERABLES Antonella rubi Result [facility] HISTORICAL RESULTS * (ABNORMAL) CBC with auto differential (12/16/2013 8:00 AM CDT) WBC 6.5 4.6 - 10.2 x10 3/ul RBC 4.61 3.76 - 4.80 x10 6/ul Hemoglobin 11.4 11.0 - 15.0 g/dl Hct 36.3 33.0 - 43.0 % MCV 78.7(L) 80.0 - 97.0 fl MCH 24.7(L) 27.0 - 31.2 pg MCHC 31.4(L) 31.8 - 35.4 g/dl RDW 17.2(H) 11.6 - 14.8 % Plt Count 258 124 - 400 x10 3/ul MPV 10.9(H) 7.4 - 10.4 fl Differential Method AUTOMATED DIFF --------- -- Neut % 73.6 37.0 - 85.0 % Immature Gran % 0.3 0.0 - 3.0 % Lymph % 21.1 5.0 - 45.0 % [place] % 3.7 3.0 - 15.0 % Eos % 0.5 0.0 - 7.0 % Baso % 0.8 0.0 - 2.0 % ABSOLUTE COUNTS ABSOLUTE COUNTS --------- -- Absolute Neuts (auto) 4.8 1.7 - 8.7 x10 3/ul Immature Gran # 0.0 0.0 - 0.3 x10 3/ul Absolute Lymphs (auto) 1.4 0.2 - 4.6 x10 3/ul Absolute Monos (auto) 0.2 0.1 - 1.5 x10 3/ul Absolute Eos (auto) 0.0 0.0 - 0.7 x10 3/ul Absolute Basos (auto) 0.1 0.0 - 0.2 x10 3/ul 12/16/2013 8:00 AM [facility] 12/16/2013 8:12 AM [facility] Narrative [facility] HISTORICAL RESULTS - 12/16/2013 8:22 AM CDT us Historical Provider LAB BLOOD ORDERABLES Antonella rubi Result [facility] HISTORICAL RESULTS documented in this encounter Visit Diagnoses Diagnosis Other and unspecified noninfectious gastroenteritis and colitis documented in this encounter
--- OUTSIDE RECORDS SUMMARY | 2024-03-24 00:25 | XMS_ITS | Encounter Summary ---
Author Organization [facility] Healthcare Address [address] [place] [id number] Care Team Providers Care Block Press Operator Name Role Phone No, Physician Primary Care Provider [phone] Reason for Visit * Reason Comments Abdominal Pain Encounter Details Date Type Department Care Team (Late st Contact Info) Description 06/06/2023 5:54 PM CDT - 06/06/2023 6:34 PM CDT Emergency [facility] Emergency Department [address] [place], [place] [id number] Enrico Nash, DO [address] [facility] EMERGENCY DEPT [place], [place] [id number] Gonorrhea (Primary Dx) Discharge Disposition: Discharge to home [...] feel afraid or unsafe? 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 Gender Identity Not on file Sexual Orientation Not on file documented as of this encounter Last Filed Vital Signs Vital Sign Reading Time Taken Comments Blood Pressure 111/69 06/06/2023 3:06 PM CDT Pulse 81 06/06/2023 3:06 PM CDT Temperature 37.4 ??C (99.3 ??F) 06/06/2023 3:06 PM CD T Respiratory Rate 18 06/06/2023 3:06 PM CDT Oxygen Saturation 100% 06/06/2023 3:06 PM CDT Inhaled Oxygen Concentration - - Weight 66.6 kg (146 lb 13.2 oz) 06/06/2023 3:06 PM CDT Height - - Body Mass Index 26.01 05/07/2023 6:07 PM KITCHEN MANAGER documented in this encounter Discharge Instructions * Discharge Instructions* Sonya Humphries PA - 06/06/2023 6:21 PM CDT You are being tested for STDs. Received the 1 time treatment for gonorrhea today. You will receive a call if any of the results are positive and sent medication. If the results are negative you will not receive a call. You can continue to look for your results on [email or web address] if desired. Please refrain from any sexual intercourse until receiving your results. If your results are positive please remainfrom sexual intercourse until you receive a negative test of cure after finishing all antibiotics. Please have all partners tested. If you do not take all antibiotics and/or have your partner tested you are at risk for passing the infection back and forth with your partner. Please follow-up with your primary care doctor and/or the health department. Follow-up as recommended is mandatory. You have received emergency care only at your visit today. This is not a substitute for ongoing care, further evaluation and treatment and therefore follow-up as directed is not optional but mandatory You MUST follow up for further evaluation of all incidental abnormal radiographic and laboratory findings, Have your physician obtain records from this visit and address all the incidental abnormal findings. This may include final results of lab testing, cultures, final x-ray reports which may not have been available during the time of the visit. You must not drive or walk home. Besides the medical condition that may preclude this it is quite likely you may have been given medications that may impair your ability to do so causing a danger to yourself. Return immediately for any new symptoms, worsening of symptoms, or persistent symptoms * Attachments The following attachments cannot be sent through Care Everywhere. * Gonorrhea (Discharge Care) (Greek) documented in this encounter Discharge Disposition Disposition Code Departure Means Destination Comment s Discharge to home or self care documented in this encounter ED Notes * Sonya Humphries PA - 06/06/2023 6:34 PM CDT CHIEF COMPLAINT: Chief Complaint Patient presents with Abdominal Pain HPI 12:20 PM Meena Muñoz is a 28 y.o. female presenting to the ED c/o abdominal pain and vaginal discharge. Pt states she was diagnosed with gonorrhea but never got treated because she was out of town. Pt states he has had mild intermitted cramping sensation in her suprapubic area. Denies any nausea, vomiting, or back pain. States does not have the pain right now but would like to be treated for the gonorrhea today. Pt states she has some white vaginal discharge with itching. Does not have an obright now. History provided by patient PCP: No, Physician PAST MEDICAL HISTORY Past Medical History: Diagnosis Date 1 para 1 PAST SURGICAL HISTORY Past Surgical History: Procedure Laterality Date NO PAST SURGERIES FAMILY HISTORY No family history on file. MEDICATIONS GIVEN IN THE ED Medications cefTRIAXone (ROCEPHIN) 500 mg in sterile water injection (500 mg intramuscular Given 06/06/23 1825) CURRENT HOME MEDICATIONS No current facility-administered medications for this encounter. No current outpatient medications on file. ALLERGIES Allergies Allergen Reactions Other Rash Shellfish Ibuprofen Hives Latex Hives SOCIAL HISTORY Social History Tobacco Use Smoking status: Never Smokeless tobacco: Not on file Substance and Sexual Activity Drug use: Never Sexual activity: Defer Alcohol Use: Not on file PHYSICAL EXAM TRIAGE VITAL SIGNS: ED Triage Vitals [06/06/23 1506] Temp Pulse Resp BP SpO2 37.4 ??C (99.3 ??F) 81 18 111/69 100 % Temp src Heart Rate Source Patient Position BP Location FiO2 (%) Oral -- -- -- -- Height Height Method Weight Weight Method -- -- 66.6 kg (146 lb 13.2 oz) Standing scale Physical Exam Vitals and nursing note reviewed. Constitutional: General: She is not in acute distress. Appearance: Normal appearance. She is normal weight. She is not ill-appearing, toxic-appearing or diaphoretic. HENT: Head: Normocephalic and atraumatic. Eyes: Pupils: Pupils are equal, round, and reactive to light. Cardiovascular: Rate and Rhythm: Normal rate and regular rhythm. Heart sounds: No murmur heard. No friction rub. No gallop. Pulmonary: Effort: Pulmonary effort is normal. No respiratory distress. Breath sounds: Normal breath sounds. No stridor. No wheezing, rhonchi or rales. Abdominal: General: There is no distension. Palpations: Abdomen is soft. Tenderness: There is no abdominal tenderness. There is no right CVA tenderness, left CVA tenderness, guarding or rebound. Skin: General: Skin is warm and dry. Neurological: General: No focal deficit present. Mental Status: She is alert and oriented to person, place, and time. Mental status is at baseline. Psychiatric: Mood and Affect: Mood normal. LABS Labs Reviewed URINALYSIS AND REFLEX TO MICROSCOPIC AND CULTURE - Abnormal Result Value Color, ur Yellow Clarity, ur Cloudy (*) Specific gravity, ur 1.025 pH, urine 6.5 Protein, ur ql Trace (*) Glucose, ur ql Negative Ketones, ur Negative Bilirubin, ur Negative Blood, ur Negative Urobilinogen, ur <2.0 Nitrite, ur Negative Leukocyte esterase, ur 2+ (*) UA reflex comment Reflex to microscopic UA will be performed. N. GONORRHOEAE/C. TRACHOMATIS AMPLIFICATION - Abnormal C. trachomatis Not Detected N. gonorrhoeae Detected (*) VAGINITIS PANEL - Abnormal Carla DNA probe Not Detected Gardnerella DNA probe Detected (*) Trichomonas DNA probe Not Detected URINALYSIS, MICROSCOPIC ONLY - Abnormal WBC, ur 0-5 RBC, ur 3-5 (*) Epithelial cells, squamous, ur >50 (*) Mucous, ur Present (*) Culture Reflex Comment Value: Reflex conditions for urine culture (WBC >10) not met. POCT HCG, URINE - Normal HCG, ur, POC Negative Lot Number [id number] QC Backgroud Clear Acceptable QC Control Line Acceptable TRICHOMONAS VAGINALIS PCR Trichomonas DNA Not Detected CBC WITH AUTO DIFFERENTIAL WBC 5.9 Hgb 13.4 Hct 40.9 Plt 232 MPV 11.1 RBC 4.79 MCV 85.4 MCH 28.0 MCHC 32.8 RDW CV 13.3 RDW SD 41.8 NRBC abs 0.00 COMPREHENSIVE METABOLIC PANEL Sodium 139 Potassium, pl 4.0 Chloride 104 CO2 25 Anion gap 10 BUN 11 Creatinine 0.90 Glucose 76 Calcium 9.4 Bilirubin, total 0.4 Protein, pl 7.2 Albumin 4.4 Alk phos 64 ALT 13 AST 16 LIPASE Lipase 26 DIFFERENTIAL AUTO Neutrophil abs 2.4 Imm gran abs 0.0 Lymphocyte abs 2.9 Monocyte abs 0.6 Eosinophil abs 0.1 Basophil abs 0.1 Neutrophil pct 39.8 Imm gran pct 0.2 Lymphocyte pct 48.6 Monocyte pct 9.4 Eosinophil pct 1.0 Basophil pct 1.0 EGFR eGFR 90 RADIOLOGY No results found. ED COURSE/MEDICAL DECISION MAKING Differential diagnosis included but not limited to gonorrhea, PID, other std Patient's medical records were reviewed. I discussed management or test interpretation with the following outside physician, caregiver, longterm staff: n/a ED Course as of 06/07/23 1220 Time: 06/07 1215 Comment: Pt is a 28 year old female who presented to the ED with complaints of positive gonorrhea test and intermittent abdominal pain. Pt never was treated for gonorrhea. Pt labs unremarkable for any elevation of wbc count. No abdominal pain on palpation. Less likely PID. Pt to be treated for gonorrhea. Vaginitis swab pending. Pt needs to follow up with obgyn and I have stressed the importanve of this. Pt was instructed to follow up immediately and return with any worsening of sx. By: Sonya Humphries PA Time: 06/067 Comment: Recheck on patient. Non toxic appearing, vitals stable. Patient stable for discharge home. Discussed with patient work up, relevant results, and plan for discharge. Patient was given ED warnings, discharge instructions, and follow up instructions. Patient understands and agrees with plan for discharge. Patient was informed and verbalizes understanding to return to ER immediately if sympto ms worsen or persist, new concerns arise, new symptoms develop or if follow up cannot be obtained. Any questions have been addressed. Patient feels comfortable going home at this time. By: Sonya Humphries PA Procedures FINAL IMPRESSION Gonorrhea DISPOSITION: Home PATIENT INSTRUCTED TO FOLLOW UP Physician referral line list on this document Schedule an appointment as soon as possible for a visit in 3 days [facility] [address] [facility] [address] [facility] [id number] Schedule an appointment as soon as possible for a visit Jumana Grover MD [address] [facility] [address] [facility] [address] DISCHARGE MEDICATIONS Your medication list as of June 06, 2023 6:21 PM You have not been prescribed any medications. This examination was transcribed using the orderbolt voice recognition system without human net web application developer. In an effort to expedite patient care, this report has not been adjusted for typographical, grammatical, and syntax by a trained medical administrative assistant. Sonya Humphries PA 06/07/23 1220 Cosigned by Enrico Nash DO at 06/08/2023 6:11 AM CDT * Nikki Harris RN - 06/06/2023 2:59 PM CDT Pt c/o lower mid abd pain x 1 wk. +gonorrhea in April , was suppose to follow up but was out of town. No meds ACTUARY documented in this encounter Plan of Treatment Not on file documented as of this encounter Procedures Procedure Name Priority Date/Time Associated Diagnosis Comments VAGINITIS PANEL STAT 06/06/2023 6:17 PM CDT N. GONORRHOEAE/C. TRACHOMATIS AMPLIFICATION STAT 06/06/2023 3:55 PM CDT TRICHOMONAS VAGINALIS PCR STAT 06/06/2023 3:55 PM CDT POCT HCG, URINE Routine 06/06/2023 3:22 PM CDT EGFR STAT 06/06/2023 3:17 PM CDT DIFFERENTIAL AUTO STAT 06/06/2023 3:1 7 PM CDT URINALYSIS AND REFLEX TO MICROSCOPIC AND CULTURE STAT 06/06/2023 3:17 PM CDT CBC WITH AUTO DIFFERENTIAL STAT 06/06/2023 3:17 PM CDT URINALYSIS, MICROSCOPIC ONLY STAT 06/06/2023 3:17 PM CDT LIPASE STAT 06/06/2023 3:17 PM CDT COMPREHENSIVE METABOLIC PANEL STAT 06/06/2023 3:17 PM CDT documented in this encounter Results * (ABNORMAL) Vaginitis panel Vaginal (06/06/2023 6:17 PM CDT) Pathologist [facility] Carla DNA probe Not Detected Not Detected Comment:Testing performed by : [facility], [address] [place] [address]., [id number] Gardnerella DNA probe Detected(A) Not Detected EMIR Comment:Testing performed by : [facility], [address] [place] [address]., [address] Trichomonas DNA probe Not Detected Not Detected EMIR Comment: Interpretive Data Testing performed by [facility] via [employer]irm VPIII Microbial Identification Test, a DNA probe test for use in the detection and identification of Carla species, Gardnerella vaginalis and Trichomonas vaginalis nucleic acid in vaginal fluid specimens from patients with symptoms of vaginitis/vaginosis. Negative results for these tests suggest the patient does not have candidiasis, bacterial vaginosis and/or trichomoniasis when consistent with clinical signs and symptoms. Current interpretive data was last revised on 2020. Testing performed by: [facility], [address] [place] [address]., [address] Vaginal 06/06/2023 6:17 PM CDT 06/06/2023 6:23 PM CDT Placed LAB MICROBIOLOGY - GENERAL ORDER KACEY Final Result Performing Organization Address [facility] Co de Phone Number EMIR [address] [place] [address] * Trichomonas vaginalis PCR Urine (06/06/2023 3:55 PM CDT) Pathologist [facility] Trichomonas DNA Not Detected Not Detected Comment: Interpretive Data This assay detects Trichomonas vaginalis by nucleic acid amplification testing (NAAT). This assay has been cleared by the [place] Food and Drug administration. The performance characteristics of this test have been verified by the [facility] laboratory. Excess blood in specimens may be inhibitory and result in false negative results. The performance of this test has not been evaluated in women or individuals less than 18 years of age. Current Interpretive Data was last revised on 2023. Testing performed by: [facility], [address] [place] [address]., [address] Urine 06/06/2023 3:55 PM CDT 06/06/2023 4:02 PM CDT [employer] LAB MICROBIOLOGY - GENERAL ORDER KACEY Final Result Performing Organization Address [facility] de Phone Number EMIR [address] [place] [address] * (ABNORMAL) N. gonorrhoeae/C. trachomatis Amplification Urine (06/06/2023 3:55 PM CDT) Pathologist [facility] C. trachomatis Not Detected Not Detected Comment:Testing performed by : [address] [address] N. gonorrhoeae Detected(A) Not Detected EMIR Comment: Interpretive Data This assay detects Chlamydia trachomatis and Neisseria gonorrhoeae by nucleic acid amplification testing (NAAT). This assay has been cleared by the [place] Food and Drug administration. The performance characteristics of this test have been verified by the [facility] Laboratory. The performance characteristics of this test have not been evaluated in individuals less than 14 years of age. Current Interpretive Data last revised 2023. Testing performed by: [facility], [address] [place] [address], [place]., [address] Urine (None) 06/06/2023 3:55 PM CDT 06/06/2023 4:02 PM CDT us Sonya SANCHEZ LAB MICROBIOLOGY - GENERAL ORDER KACEY Final Result EMIR [address] [facility] Department [place] [address] * POCT hCG, urine (06/06/2023 3:22 PM CDT) HCG, ur, POC Negative Negative Lot Number [id number] QC Backgroud Clear Acceptable QC Control Line Acceptable Urine 06/06/2023 3:22 PM CDT us Enrico Nash DO POINT OF CARE TEST ORDERABL ES Final Result * eGFR (06/06/2023 3:17 PM CDT) eGFR 90 mL/min/1. 73 m2 Comment: Interpretive Data Reference [...] was last reviewed 2021. Testing performed by: [address] [address] Blood 06/06/2023 3:17 PM CDT 06/06/2023 3:33 PM CDT Enrico Nash DO LAB BLOOD ORDERABLES Final Result Performing Organization Address [facility] Co de Phone Number EMIR [facility] Department [place] [address] * (ABNORMAL) Urinalysis, microscopic only (06/06/2023 3:17 PM CDT) WBC, ur 0-5 0 - 5 /HPF Comment:Testing performed by : [address] [address] RBC, ur 3-5(A) 0 - 2 /HPF EMIR Comment:Testing performed by : [address] [address] Epithelial cells, squamous, ur >50(A) 0 - 5 /HPF EMIR Comment:Testing performed by : [address] [address] Mucous, ur Present(A) EMIR Comment:Testing performed by : [address] [address] Culture Reflex Comment Reflex conditions for urine culture (WBC >10) not met. EMIR Comment:Testing performed by : [address] [address] Urine 06/06/2023 3:17 PM CDT 06/06/2023 3:33 PM CDT Enrico Nash DO LAB URINE ORDERABLES Final Result Performing Organization Address [facility] Co de Phone Number [facility] [address] [facility] Department [place] [address] * Differential, auto (06/06/2023 3:17 PM CDT) Neutrophil abs 2.4 1.5 - 6.5 K/cumm Comment:Testing performed by : [address] [address] Imm gran abs 0.0 0.0 - 0.1 K/cumm EMIR Comment:Testing performed by : [address] [address] Lymphocyte abs 2.9 0.8 - 3.3 K/cumm EMIR Comment:Testing performed by : [address] [address] Monocyte abs 0.6 0.2 - 0.8 K/cumm EMIR Comment:Testing performed by : [address] [address] Eosinophil abs 0.1 0.0 - 0.5 K/cumm EMIR Comment:Testing performed by : [address] [address] Basophil abs 0.1 0.0 - 0.1 K/cumm EMIR Comment:Testing performed by : [address] [address] Neutrophil pct 39.8 % EMIR Comment: Interpretive Data Percent cell count reference ranges are not reported, since discordance with absolute values may lead to misinterpretation of CBC data. Current Interpretive Data was last revised on 2017. Testing performed by: [address] [address] Imm gran pct 0.2 % EMIR Comment: Interpretive Data Percent cell count reference ranges are not reported, since discordance with absolute values may lead to misinterpretation of CBC data. Current Interpretive Data was last revised on 2017. Testing performed by: [address] [address] Lymphocyte pct 48.6 % EMIR Comment: Interpretive Data Percent cell count reference ranges are not reported, since discordance with absolute values may lead to misinterpretation of CBC data. Current Interpretive Data was last revised on 2017. Testing performed by: [address] [address] Monocyte pct 9.4 % EMIR Comment: Interpretive Data Percent cell count reference ranges are not reported, since discordance with absolute values may lead to misinterpretation of CBC data. Current Interpretive Data was last revised on 2017. Testing performed by: [address] [address] Eosinophil pct 1.0 % EMIR Comment: Interpretive Data Percent cell count reference ranges are not reported, since discordance with absolute values may lead to misinterpretation of CBC data. Current Interpretive Data was last revised on 2017. Testing performed by: [address] [address] Basophil pct 1.0 % EMIR Comment: Interpretive Data Percent cell count reference ranges are not reported, since discordance with absolute values may lead to misinterpretation of CBC data. Current Interpretive Data was last revised on 2017. Testing performed by: [address] [address] Blood 06/06/2023 3:17 PM CDT 06/06/2023 3:33 PM CDT us Enrico Nash DO LAB BLOOD ORDERABLES Final Result [facility] [address] [facility] Department of Laboratories [place], [place] [id number] * (ABNORMAL) Urinalysis reflex to microscopic and culture Urine (06/06/2023 3:17 PM CDT) Color, ur Yellow Yellow Comment:Testing performed by : [address] [address] Clarity, ur Cloudy(A) Clear EMIR Comment:Testing performed by : [address] [address] Specific gravity, ur 1.025 1.003 - 1.030 EMIR Comment:Testing performed by : [address] [place] [address] pH, urine 6.5 EMIR Comment: Interpretive Data ? Urine pH is affected by diet, medications, systemic acid-base disturbances, and renal tubular function. ??pH may affect urinary stone formation. ??For example, urine pH below 6.0 may help reduce the tendency for calcium phosphate stones and pH greater than 6.0 may reduce the tendency for uric acid stone formation. Source: [facility] Current Interpretive Data was last revised on 2017 Testing performed by: [facility], [address] [place] [address], [place]., [address] Protein, ur ql Trace(A) Negative EMIR Comment:Testing performed by : [address], [place]., [address] Glucose, ur ql Negative Negative EMIR Comment:Testing performed by : [address], [place]., [address] Ketones, ur Negative Negative EMIR Comment:Testing performed by : [address], [place]., [address] Bilirubin, ur Negative Negative EMIR Comment:Testing performed by : [address], [place]., [address] Blood, ur Negative Negative EMIR Comment:Testing performed by : [address], [place]., [address] Urobilinogen, ur <2.0 <2.0 mg/dL EMIR Comment:Testing performed by : [address] [address] Nitrite, ur Negative Negative EMIR Comment:Testing performed by : [address], [place]., [address] Leukocyte esterase, ur 2+(A) Negative EMIR Comment:Testing performed by : [address], [place]., [address] UA reflex comment Reflex to microscopic UA will be performed. EMIR Comment:Testing performed by : [address], [place]., [address] Urine 06/06/2023 3:17 PM CDT 06/06/2023 3:33 PM CDT Enrico Nash DO LAB MICROBIOLOGY - GENERAL ORDERABLES Final Result EMIR [address] [address] * Lipase (06/06/2023 3:17 PM CDT) Lipase 26 10 - 99 Units/L Comment:Testing performed by : [address] [address] Blood (Blood, Venous) 06/06/2023 3:17 PM CDT 06/06/2023 3:33 PM CDT Enrico Nash DO LAB BLOOD ORDERABLES Final Result Performing Organization Address [facility] Co de Phone Number EMIR [address] [address] * Comprehensive metabolic panel (06/06/2023 3:17 PM CDT) Sodium 139 135 - 145 mmol/L Comment:Testing performed by : [address] [address] Potassium, pl 4.0 3.3 - 4.9 mmol/L EMIR Comment:Testing performed by : [address] [address] Chloride 104 97 - 110 mmol/L EMIR Comment:Testing performed by : [address] [address] CO2 25 22 - 32 mmol/L EMIR Comment:Testing performed by : [address] [address] Anion gap 10 2 - 15 mmol/L EMIR Comment:Testing performed by : [address] [address] BUN 11 6 - 25 mg/dL EMIR Comment:Testing performed by : [address] [address] Creatinine 0.90 0.60 - 1.10 mg/dL EMIR Comment:Testing performed by : [address] [address] Glucose 76 70 - 199 mg/dL EMIR Comment: Interpretive [...] was last revised 2022. Testing performed by: [address] [address] Calcium 9.4 8.5 - 10.3 mg/dL EMIR Comment:Testing performed by : [address] [address] Bilirubin, total 0.4 0.1 - 1.2 mg/dL EMIR Comment:Testing performed by : [address] [address] Protein, pl 7.2 6.5 - 8.5 g/dL EMIR Comment:Testing performed by : [address] [address] Albumin 4.4 3.5 - 5.0 g/dL EMIR Comment:Testing performed by : [address] [address] Alk phos 64 40 - 130 Units/L EMIR Comment:Testing performed by : [address] [address] ALT 13 7 - 45 Units/L EMIR Comment:Testing performed by : [address] [address] AST 16 10 - 45 Units/L EMIR Comment:Testing performed by : [address] [address] Blood 06/06/2023 3:17 PM CDT 06/06/2023 3:33 PM CDT us Enrico Nash DO LAB BLOOD ORDERABLES Final Result EMIR [address] [facility] Department of Laboratories [place], [place] [id number] * CBC with auto differential (06/06/2023 3:17 PM CDT) WBC 5.9 3.8 - 9.9 K/cumm Comment:Testing performed by : [address] [address] Hgb 13.4 11.9 - 15.5 g/dL EMIR Comment:Testing performed by : [address] [address] Hct 40.9 35.6 - 45.5 % EMIR Comment:Testing performed by : [address] [address] Plt 232 150 - 400 K/cumm EMIR Comment:Testing performed by : [address] [address] MPV 11.1 9.1 - 12.3 fL EMIR Comment:Testing performed by : [address] [address] RBC 4.79 3.90 - 5.20 M/cumm EMIR Comment:Testing performed by : [address] [address] MCV 85.4 81.3 - 96.4 fL EMIR Comment:Testing performed by : [address] [address] MCH 28.0 27.1 - 33.3 pg EMIR Comment:Testing performed by : [address] [address] MCHC 32.8 32.3 - 35.7 g/dL EMIR Comment:Testing performed by : [address], [address] RDW CV 13.3 11.1 - 14.9 % EMIR Comment:Testing performed by : [address], [address] RDW SD 41.8 35.7 - 48.1 fL EMIR CHONG Comment:Testing performed by : [facility], [address] [place] [address]., [id number] NRBC abs 0.00 0.00 - 0.01 K/cumm EMIR CHONG Comment:Testing performed by : [facility], [address] [place] [address]., [address] Blood (Blood, Venous) 06/06/2023 3:17 PM CDT 06/06/2023 3:33 PM CDT us Enrico Nash DO LAB BLOOD ORDERABLES Final Result EMIR CHONG [id number] [facility] Department [place] [address] documented in this encounter Visit Diagnoses Diagnosis Gonorrhea- Primary Gonococcal infection (acute) of lower genitourinary tract documented in this encounter Administered Medications Inactive Administered Medications - up to 3 most recent administrations Medication Order MAR Action Action Date Dose Rate Site cefTRIAXone (ROCEPHIN) 500 mg in sterile water injection 500 mg, intramuscular, Once, On Tue06/06/23 at 1809, For 1 dose, Reconstitute 500 mg vial with 1 mL sterile water for injection. Resulting solution is 350 mg/mL., Indications: Sexually Transmitted InfectionIndications:Sexu ally Transmitted Infection Given 06/06/2023 6:25 PM CDT 500 mg Right Dorsogluteal/Butto ck documented in this encounter Active and Recently Administered Medications Times are shown in CDT. Scheduled Medication Order 06/04/2023 06/05/2023 06/06/2023 cefTRIAXone (ROCEPHIN) 500 mg in sterile water injection (COMPLETED) 500 mg, intramuscular, Once, On Tue06/06/23 at 1809, For 1 dose, Reconstitute 500 mg vial with 1 mL sterile water for injection. Resulting solution is 350 mg/mL., Indications: Sexually Transmitted Infection 1824 (Given - Provid er: Katiuska Xiong RN) documented in this encounter Orders Medications Ordered That Ja ht Not Have Been Administered Count Last Ordered Date First Ordered Date cefTRIAXone (ROCEPHIN) 500 m g in sterile water injection 1 06/06/2023 Nursing Count Last Ordered Date First Orde red Date MISCELLANEOUS NURSING CARE ORDER (SPECIFY) 1 06/06/2023 IV Count Last Ordered Date First Orde red Date SALINE LOCK IV 1 06/06/2023 documented in this encounter Care Teams Block Press Operator Relationship Specialty Start Date End Date No, Physician PCP - General 06/06/23 documented as of this encounter
--- OUTSIDE RECORDS SUMMARY | 2024-03-24 00:25 | XMS_ITS | Encounter Summary ---
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 Treated for gonorrhea, inform partners. Alsopositive for gardnerella, a bacterial infection. 500mg flagyl BID x 7 days. No alcohol x 3 days before or after documented in this encounter Plan of Treatment Not on file documented as of this encounter Visit Diagnoses Not on filedocumented in this encounter Care Teams Customer Quality Engineer Relationship Specialty Start Date End Date No, Physician PCP - General 06/06/23 documented as of this encounter
--- OUTSIDE RECORDS SUMMARY | 2024-03-24 00:25 | XMS_ITS | Encounter Summary ---
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
--- OUTSIDE RECORDS SUMMARY | 2024-03-24 00:25 | XMS_ITS | Encounter Summary ---
Author Organization [facility] Healthcare Address [address] [place] [address] Care Team Providers Care Navy Material Inspector Name Role Phone Mauro Grady MD Primary Care Provider [phone] Encounter Details Date Type Department Care Team (Late st Contact Info) Description 05/13/2023 Telephone [facility] Emergency Department [address] [place] [address] Alexis Lozano RN Social History Tobacco Use Types Packs/Day [...] on file Legal Sex Female 9:02 PM SILK SCREEN PRINTER MACHINE Gender Identity Not on file Sexual Orientation Not on file documented as of this encounter ED Notes * Alexis Lozano RN - 05/13/2023 4:12 PM CST Called pt and informed of positive gonorrhea test and need to return to the ED for Rocephin shot and instructed the patient to refrain from any sexual intercourse until herself and all partners are treated and to follow-up with her portfolio director immediately as instructed in note by DANIEL Humphries. Pt voiced understanding and stated would present to the ED today and follow up with Convertible Power Shovel Operator. Alexis Lozano RN 05/13/23 4740 SCREEN PRINTER MACHINE documented in this encounter Miscellaneous Notes * Telephone Encounter - Alexis Lozano RN - 05/13/2023 4:11 PM SILK SCREEN PRINTER MACHINE ----- Message from DANIEL Cisneros sent at 05/12/2023 9:09 AM SILK SCREEN PRINTER MACHINE ----- Please call the patient back regarding positive gonorrhea test. Please inform the patient to returnto the ED for Rocephin shot. Instruct the patient to remain from any sexual intercourse until herself and all partners are treated. Please instruct the patient to follow-up with her portfolio director immediately. SCREEN PRINTER MACHINE documented in this encounter Plan of Treatment Not on file documented as of this encounter Visit Diagnoses Not on filedocumented in this encounter Care Teams Navy Material Inspector Relationship Specialty Start Date End Date Mauro Grady MD PCP - General 07/30/20 06/05/23 documented as of this encounter
--- OUTSIDE RECORDS SUMMARY | 2024-03-24 00:25 | XMS_ITS | Encounter Summary ---
Author Organization [facility] Healthcare Address [address] [place] [address] Care Team Providers Care Media Production Support Manager Name Role Phone Mauro Grady MD Primary Care Provider [phone] Reason for Visit * Reason Comments COVID-19 EVALUATION Cough Fatigue Headache Encounter Details Date Type Department Care Team (Late st Contact Info) Description 03/20/2021 6:04 PM WAREHOUSE LEAD - 03/20/2021 7:25 PM WAREHOUSE LEAD Emergency [facility] Emergency Department [address] [place] [id number] Encounter for laboratory testing for COVID-19 virus (Primary Dx) Discharge Disposition: Discharge to home or self care Social History Tobacco Use Types Packs/Day Years Used Date Smoking Tobacco: Never Comments No Sex and Gender Information Value Date Recorded Sex Assigned at Not on file Legal Sex Female 9:02 PM WAREHOUSE LEAD Gender Identity Not on file Sexual Orientation Not on file documented as of this encounter Last Filed Vital Signs Vital Sign Reading Time Taken Comments Blood Pressure 109/74 03/20/2021 6:17 PM WAREHOUSE LEAD Pulse 113 03/20/2021 6:17 PM WAREHOUSE LEAD Temperature 36.9 ??C (98.5 ??F) 03/20/2021 6:17 PM CS T Respiratory Rate 18 03/20/2021 6:17 PM WAREHOUSE LEAD Oxygen Saturation 99% 03/20/2021 6:17 PM WAREHOUSE LEAD Inhaled Oxygen Concentration - - Weight 62.5 kg (137 lb 12.6 oz) 03/20/2021 6:17 PM WAREHOUSE LEAD Height 160 cm (5' 3 ) 03/20/2021 6:17 PM WAREHOUSE LEAD Body Mass Index 24.41 03/20/2021 6:17 PM WAREHOUSE LEAD documented in this encounter Discharge Instructions * Discharge Instructions* Ashley Rothman PA - 03/20/2021 7:18 PM WAREHOUSE LEAD Images from the original note were not included. You can obtain your results in [facility]. Instructions are included in your discharge packet. PER NEW CDC GUIDELINES PLEASE FOLLOW THE COVID QUARANTINE RULES AT CDC.GOV. Any household members that are exposed to you should also quarantine, following strict CDC guidelines for exposure based on vaccination status. Do not leave your home, no one should come to your home, have essentials delivered to your front door. Wear a mask and practice strict hand hygiene. If your COVID-19 symptoms are getting worse: Call your primary care physician, inform them of your COVID-19 status and ask for guidance. Put on a face mask before seeking medical care. If you develop severe shortness of breath or difficulty breathing, chest pain, or a high fever thatcannot be controlled with medication, go immediately to an emergency department or call 911 FOR EVERYONE WHO TESTS POSITIVE, REGARDLESS OF VACCINATION STATUS Stay home for 5 days. If you have no symptoms or your symptoms are resolving after 5 days, you can leave your house. Continue to wear a mask around others for 5 additional days. If you have a fever, continue to stay home until your fever resolves without fever reducing medication. FOR SYMPTOM RELIEF: Erov-bbf-wjjchj meds such as Motrin, Tylenol, Delsym, Theraflu, Dayquil/Nyquil, cough drops, etc. Follow the instructions on the packages. Drink plenty of fluids and rest. Note that medicines do not ???cure?? the illness and therefore do not stop you from spreading germs. HOUSE LEAD HOUSE LEAD documented in this encounter Discharge Disposition Disposition Code Departure Means Destination Discharge to home or self care documented in this encounter ED Notes * Ashley Rothman PA - 03/20/2021 7:17 PM CST HPI Chief Complaint Patient presents with ??? COVID-19 EVALUATION ??? Cough ??? Fatigue ??? Headache HPI 7:17 PM Meena Muñoz is a 26 y.o. female presenting to the ED for a Covid evaluation. Pt states she has no health problems. She was seen at [facility] earlier today for a covid evaluation and called EMS to bring her to this facility when she was told she would not be swabbed due to being lowacuity. Pt now requesting urine test and tylenol. Patient History: No past medical history on file. No past surgical history on file. No family history on file. Social History Tobacco Use ??? Smoking status: Never Smoker ??? Smokeless tobacco: Not on file Substance Use Topics ??? Alcohol use: Not on file ??? Drug use: Never No current facility-administered medications for this encounter. No current outpatient medications on file. Review of Systems Review of Systems A review of systems was performed. Patient requesting Covid evaluation for symptoms of Covid, including fatigue, sore throat, congestion, cough, myalgias, headache. Physical Exam BP 109/74 Pulse 113 Temp 36.9 ??C (98.5 ??F) (Oral) Resp 18 Ht 160 cm (5' 3 ) Wt 62.5 kg (137 lb 12.6 oz) LMP 02/14/2021 SpO2 99% BMI 24.41 kg/m?? Nursing notes and Vital signs have been reviewed HEAD: Atraumatic EYES: Conjunctiva, sclera clear bilaterally ENT: No rhinorrhea NECK: Supple RESP: Normal respiratory effort, lungs clear to ausculation bilaterally EXT: No Edema SKIN: Warm and dry; good turgor NEURO: Alert, moves all extremities equally, follow commands without difficulty MDM SpO2 > 92% on RA, RR < 22, lungs clear Pt does NOT meet any of the following criteria that would quality him/her for monoclonal antibody treatment or high likelihood of worsening disease due to covid-19: ill appearing, in acute distress, of older age, BMI > 35, , has CKD, diabetes, cardiovascular disease, hypertension, chronic lung disease, sickle cell disease, neurodevelopmental disorder, immunosuppressive disease/treatment, medically complex, medical-related technological dependence. ED Course: Patient provided information regarding quarantine, OTC treatment, and RTER precautions, including for symptoms of chest pain, shortness of breath, difficulty breathing, or fever that does not resolvewith medication. Patient is non toxic appearing with stable vitals and stable for discharge home with information regarding Covid testing facilities to undergo testing at. Pt given tylenol. Urine preg neg. Not high risk. Disposition: Home This examination was transcribed using the [employer] voice recognition system without human location manager. In an effort to expedite patient care, this report has not been adjusted for typographical, grammatical, and syntax by a trained medical care manager. Clinical Impression: Z20.822: Encounter for laboratory testing for COVID-19 virus Ashley Rothman PA 03/20/211919 Cosigned by Eileen Torres MD at 03/21/2021 6:01 AM WAREHOUSE LEAD HOUSE LEAD HOUSE LEAD * Aviva David RN - 03/20/2021 6:12 PM CST Pt to ER by EMS for cough, headache and bodyaches and chills that started last night. Pt was to [facility] this morning and given testing sites to be tested at. Pt also wants a test to see if she is . States last menstrual period was 02/14. HOUSE LEAD documented in this encounter Plan of Treatment Not on file documented as of this encounter Procedures Procedure Name Priority Date/Time Associated Diagnosis Comments POCT HCG, URINE Routine 03/20/2021 7:17 PM WAREHOUSE LEAD documented in this encounter Results * POCT hCG, urine (03/20/2021 7:17 PM WAREHOUSE LEAD) HCG, ur, POC Negative Lot Number [id number] QC Backgroud Clear Acceptable QC Control Line Acceptable Urine 03/20/2021 7:17 PM WAREHOUSE LEAD Ashley SANCHEZ POINT OF CARE TEST ORDERABLE S Final Result documented in this encounter Visit Diagnoses Diagnosis Encounter for laboratory testing for COVID-19 virus- Primary documented in this encounter Administered Medications Inactive Administered Medications - up to 3 most recent administrations Medication Order MAR Action Action Date Dose Rate Site acetaminophen (TYLENOL) tablet 650 mg 650 mg, oral, Once, On Tue03/20/21 at 1918, For 1 dose Given 03/20/2021 7:20 PM WAREHOUSE LEAD 650 mg documented in this encounter Active and Recently Administered Medications Times are shown in WAREHOUSE LEAD. Scheduled Medication Order 03/18/2021 03/19/2021 03/20/2021 acetaminophen (TYLENOL) tablet 650 mg (COMPLETED) 650 mg, oral, Once, On Tue03/20/21 at 1918, For 1 dose 1920 (Given - Provid er: Joanie Kowalski RN) documented in this encounter Orders Medications Ordered That Ja ht Not Have Been Administered Count Last Ordered Date First Ordered Date acetaminophen (TYLENOL) tablet 650 mg 1 documented in this encounter Care Teams Media Production Support Manager Relationship Specialty Start Date End Date Mauro Grady MD PCP - General 07/30/20 06/05/23 documented as of this encounter
--- OUTSIDE RECORDS SUMMARY | 2024-03-24 00:25 | XMS_ITS | Encounter Summary ---
Author Organization [facility] Address [address] [place] [address] Care Team Providers Care Strand Forming Machine Operator Name Role Phone Mauro Grady MD Primary Care Provider [phone] Encounter Details Date Type Department Care Team (Late st Contact Info) Description 05/30/2020 4:06 PM OVERLOCK HEMMER - 05/30/2020 7:55 PM OVERLOCK HEMMER Emergency [address] [address] Unknown, Bella Antonio [address] [address] Discharge Disposition: Discharge to home or self care Social History Tobacco Use Types Packs/Day Years Used Date Smoking Tobacco: Never Assessed Comments Unknown Sex and Gender Information Value Date Recorded Sex Assigned at Not on file Legal Sex Female 9:02 PM OVERLOCK HEMMER Gender Identity Not on file Sexual Orientation Not on file documented as of this encounter Last Filed Vital Signs Vital Sign Reading Time Taken Comments Blood Pressure 127/73 05/30/2020 4:20 PM OVERLOCK HEMMER Pulse 60 05/30/2020 4:20 PM OVERLOCK HEMMER Temperature 36.9 ??C (98.4 ??F) 05/30/2020 4:20 PM CS T Respiratory Rate - - Oxygen Saturation 99% 05/30/2020 4:20 PM OVERLOCK HEMMER Inhaled Oxygen Concentration - - Weight - - Height - - Body Mass Index - - documented in this encounter Discharge Disposition Disposition Code Departure Means Destination Discharge to home or self care documented in this encounter Plan of Treatment Not on file documented as of this encounter Procedures Procedure Name Priority Date/Time Associated Diagnosis Comments ECG 12-LEAD 05/30/2020 4:42 PM OVERLOCK HEMMER INFLUENZA A/B, RSV, AND COVID-19 PCR Routine 05/30/2020 4:40 PM OVERLOCK HEMMER STREPTOCOCCUS GROUP A PCR Routine 05/30/2020 4:40 PM OVERLOCK HEMMER CBC WITH AUTO DIFFERENTIAL Routine 05/30/2020 4:31 PM OVERLOCK HEMMER TROPONIN I Routine 05/30/2020 4:31 PM OVERLOCK HEMMER COMPREHENSIVE METABOLIC PANEL Routine 05/30/2020 4:31 PM OVERLOCK HEMMER XR CHEST 1 VIEW 05/30/2020 4:27 PM OVERLOCK HEMMER documented in this encounter Results * ECG 12 lead (05/30/2020 4:42 PM OVERLOCK HEMMER) Ventricular Rate EKG/Min 85 BPM ER RADIOLOGY Atrial Rate 85 BPM ER RADIOLOGY GA-Interval (MSEC) 136 ms ER RADIOLOGY QRS-Interval (MSEC) 70 ms ER RADIOLOGY QT-Interval (MSEC) 364 ms ER RADIOLOGY QTc 433 ms ER RADIOLOGY P [place] 68 degrees ER RADIOLOGY R [place] 69 degrees ER RADIOLOGY T [place] 48 degrees ER RADIOLOGY Diagnosis Normal sinus rhythm Normal ECG No previous ECGs available ER RADIOLOGY 05/30/2020 4:42 PM OVERLOCK HEMMER 06/01/2020 5:17 PM CDT Narrative Resulting Agency Comment TORIBIO us Nan SANCHEZ ECG ORDERABLES Final Res ult ER RADIOLOGY * Influenza A/B, RSV, and COVID-19 PCR (05/30/2020 4:40 PM OVERLOCK HEMMER) Pathologist [facility] [place] Influenza A RNA NEGATIVE NEGATIVE [facility] Influenza B RNA NEGATIVE NEGATIVE [facility] RSV RNA NEGATIVE NEGATIVE [facility] COVID-19 RNA NEGATIVE [facility] Comment: Testing was performed on the [employer] App Xpert Xpress SARS-CoV-2 real-time RT-PCR platform under FDA Emergency Use Authorization. ??This test is validated only for appropriately collected nasopharyngeal swab specimens. ??A negative result does not preclude infection with COVID-19 and should not be used as the sole basis for treatment or other patient management decisions. 05/30/2020 4:40 PM OVERLOCK HEMMER 05/30/2020 4:55 PM OVERLOCK HEMMER Narrative [facility] - 05/30/2020 5:48 PM OVERLOCK HEMMER [id number] Yes No No No No Yes CoughShort of Breath Likely to be discharged Resulting Agency Comment ER Nan SANCHEZ LAB MICROBIOLOGY - GENERA L ORDERABLES Final Result Performing Organization Address [facility]/ZIP Co de Phone Number [address] [phone] * Streptococcus Group A PCR (05/30/2020 4:40 PM OVERLOCK HEMMER) Pathologist [facility] [place] Strep A DNA NOT DETECTED NEGATIVE [facility] 05/30/2020 4:40 PM OVERLOCK HEMMER 05/30/2020 4:55 PM OVERLOCK HEMMER [facility] - 05/30/2020 5:48 PM OVERLOCK HEMMER [id number] Yes No No No No Yes CoughShort of Breath Likely to be discharged Resulting Agency Comment ER Nan SANCHEZ LAB MICROBIOLOGY - GENERA L ORDERABLES Final Result Performing Organization Address [facility]/ZIP Co de Phone Number [address] [phone] * Troponin I (05/30/2020 4:31 PM OVERLOCK HEMMER) [facility] Troponin I <0.300 0.000 - 0.300 ng/mL [facility] Comment: Reference using JEET Chemiluminescence ? Negative: Repeat in 4-6 hours as indicated. 05/30/2020 4:31 PM OVERLOCK HEMMER 05/30/2020 4:36 PM OVERLOCK HEMMER Narrative Resulting Agency Comment ER us Nan SANCHEZ LAB BLOOD ORDERABLES Antonella rubi Result [facility] [address] [place] [address], [place] [phone] * (ABNORMAL) Comprehensive metabolic panel (05/30/2020 4:31 PM OVERLOCK HEMMER) Sodium 134(L) 135 - 145 mmol/L [facility] Potassium 3.5 3.3 - 5.1 mmol/L [facility] Chloride 101 96 - 108 mmol/L [facility] Carbon Dioxide 25 22 - 32 mmol/L [facility] Anion Gap 8 7 - 16 [facility] Glucose 78 70 - 100 mg/dL [facility] BUN 9 8 - 25 mg/dL [facility] Creatinine 0.9 0.5 - 1.1 mg/dL [facility] Comment: NOTE: Estimated GFR (Cockroft-Gault) will NOT be calculated unless patient Height and Weight were entered. Also, Kidney Disease Stage (GFR) and Estimated GFR (Cockroft-Gault) will NOT be calculated if Creatinine result is <0.2. Kidney Disease Stage >90 mL/MIN [facility] Comment: NOTE; ??The GFR is an estimated [...] mL/min ? Kidney failure or on dialysis Calcium 9.5 8.6 - 10.3 mg/dL [facility] Total Protein 7.2 6.4 - 8.3 g/dL [facility] Albumin 4.2 3.5 - 5.0 g/dL [facility] Globulin 3.0 2.3 - 3.5 gm/dL [facility] Albumin/Globulin Ratio 1.4 1.1 - 1.8 [facility] Total Bilirubin 0.2 0.0 - 1.2 mg/dL [facility] AST 16 0 - 32 U/L [facility] ALT 11 0 - 33 U/L [facility] Alkaline Phosphatase 61 35 - 104 U/L [facility] 05/30/2020 4:31 PM OVERLOCK HEMMER 05/30/2020 4:36 PM OVERLOCK HEMMER Narrative Resulting Agency Comment ER Nan SANCHEZ LAB BLOOD ORDERABLES Antonella l Result [facility] [address] [place] [address], [place] [phone] * (ABNORMAL) CBC with auto differential (05/30/2020 4:31 PM OVERLOCK HEMMER) WBC 5.5 3.8 - 9.9 X10 3/ul [facility] RBC 4.65 3.90 - 5.20 x10 6/ul [facility] Hemoglobin 11.0(L) 11.9 - 15.5 g/dL [facility] Hct 35.9 35.6 - 45.5 % [facility] MCV 77.2(L) 81.3 - 96.4 fl [facility] MCH 23.7(L) 27.1 - 33.3 pg [facility] MCHC 30.6(L) 32.3 - 35.7 g/dl [facility] RDW 15.6(H) 11.1 - 14.9 % [facility] Plt Count 201 150 - 400 x10 3/ul [facility] MPV 11.3 9.1 - 12.3 fl [facility] Neut % 56.3 % [facility] Immature Gran % 0.2 % [facility] Lymph % 31.8 % [facility] [place] % 10.3 % [facility] Eos % 0.9 % [facility] AUTO BASO % 0.5 % [facility] NEUTROPHIL ABS # 3.1 1.7 - 6.5 x10 3/ul [facility] Immature Gran # 0.0 0.0 - 0.1 x10 3/ul [facility] Absolute Lymphs (auto) 1.8 0.8 - 3.3 x10 3/ul [facility] Absolute Monos (auto) 0.6 0.2 - 0.8 x10 3/ul [facility] Absolute Eos (auto) 0.1 0.0 - 0.5 x10 3/ul [facility] BASOPHIL ABS # 0.0 0.0 - 0.1 x10 3/ul [facility] Nucleat RBC Rel Count 0.0 #/100WBC [facility] NRBC abs 0.00 0.00 - 0.01 x10 3/ul [facility] Absolute Neutrophils 3,100 200 - 8,000 /ul [facility] 05/30/2020 4:31 PM OVERLOCK HEMMER 05/30/2020 4:36 PM OVERLOCK HEMMER Narrative Resulting Agency Comment ER us Nan SANCHEZ LAB BLOOD ORDERABLES Antonella rubi Result [facility] [address] [place] [address], [place] [phone] * XR Chest 1 View (05/30/2020 4:27 PM OVERLOCK HEMMER) Anatomical Region Laterality Modality Body, Chest N/A Radiographic Lucero ging 05/30/2020 4:40 PM OVERLOCK HEMMER Narrative 05/30/2020 4:42 PM OVERLOCK HEMMER Patient Name: TANA MUÑOZ ?Ordering Dr: Nan Mcgowan PA-C ?? D.O.B: 1995 ? Exam Date: 05/30/20 ?? 1627 ?? Age: 25 ?Sex: Female ? MR#: [id number] ?? Loc: ? RADIOLOGY REPORT ?? Order #[id number] ?? Radiology ? Chest 1 View Portable ? Signed ?? EXAM DESCRIPTION: ?? Chest 1 View Portable ? REASON FOR STUDY: ?? cough, left side chest pain today ? TECHNIQUE: ?? Frontal radiographic view of the chest acquired. ? COMPARISON: ?? 02/24/2019 ? FINDINGS: ?LUNGS/PLEURA: No focal consolidation, pneumothorax, or pleural effusion. ? HEART/MEDIASTINUM: The heart size and pulmonary vasculature appear normal. ? HARDWARE/LINES/TUBES: None. ? BONES: There is no acute fracture identified. ? IMPRESSION: ??No acute cardiopulmonary abnormality. ? THIS IS AN ELECTRONICALLY VERIFIED FINAL REPORT ?? 05/30/2020 4:42 PM - Electronically signed by Terrell Chao M.D. ?? Terrell Chao M.D. ? CATHY ?? D: ??05/30/2020 4:42 PM ?? T: ? Report ID: [id number] ?? Reading Location: ??[id number] ? REPORT ELECTRONICALLY SIGNED IN OTHER VENDOR SYSTEM ?? Resulting Agency Comment P Procedure Note Terrell Chao MD - 05/30/2020 Patient Name: TANA MUÑOZ Ramin Dr: Nan Mcgowan PA-CO.B: 1995 Exam Date: 05/30/201626 Age: 25 Sex: Female MR#: [id number] Loc: RADIOLOGY REPORT Order #[id number] Radiology Chest 1 View Portable Signed EXAM DESCRIPTION: Chest 1 View Portable REASON FOR STUDY: cough, left side chest pain today TECHNIQUE: Frontal radiographic view of the chest acquired. COMPARISON: 02/24/2019 FINDINGS: LUNGS/PLEURA: No focal consolidation, pneumothorax, or pleural effusion. HEART/MEDIASTINUM: The heart size and pulmonary vasculature appearnormal. HARDWARE/LINES/TUBES: None. BONES: There is no acute fracture identified. IMPRESSION: No acute cardiopulmonary abnormality. THIS IS AN ELECTRONICALLY VERIFIED FINAL REPORT 05/30/2020 4:42 PM - Electronically signed by Terrell Chao M.D. CATHY T: Report ID: [id number] Reading Location: [id number] REPORT ELECTRONICALLY SIGNED IN OTHER VENDOR SYSTEM Nan SANCHEZ IMG XR PROCEDURES Final R esult documented in this encounter Visit Diagnoses Not on filedocumented in this encounter Care Teams Strand Forming Machine Operator Relationship Specialty Start Date End Date Mauro Grady MD PCP - General 05/06/20 07/25/20 documented as of this encounter
--- OUTSIDE RECORDS SUMMARY | 2024-03-24 00:25 | XMS_ITS | Encounter Summary ---
Author Organization [facility] Healthcare Address [address] [place] [address] Care Team Providers Care Bench Molder Name Role Phone Mauro Grady MD Primary Care Provider [phone] Reason for Visit * Reason Comments Dental Pain pt reports tooth ach e x 2 days. pt reports that she took 2 tramadols for the pain and about 30 minutes after she has L sided CP. 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 Gender Identity Not on file Sexual Orientation Not on file documented as of this encounter Last Filed Vital Signs Vital Sign Reading Time Taken Comments Blood Pressure 110/75 08/27/2020 6:56 AM CDT Pulse 82 08/27/2020 6:56 AM CDT Temperature 36.6 ??C (97.9 ??F) 08/27/2020 2:13 AM CD T Respiratory Rate 16 08/27/2020 6:56 AM CDT Oxygen Saturation 99% 08/27/2020 6:56 AM CDT Inhaled Oxygen Concentration - - Weight 63.5 kg (139 lb 15.9 oz) 08/27/2020 2:13 AM CDT Height 160 cm (5' 3 ) 08/27/2020 2:13 AM CDT Body Mass Index 24.8 08/27/2020 2:13 AM CDT documented in this encounter Discharge Instructions * Discharge Instructions* Rajendra Strickland MD - 08/27/2020 6:50 AM CDT Return immediately for any new symptoms, worsening [...] available during the time of the visit. * Attachments The following attachments cannot be sent through Care Everywhere. * Toothache (AfterCare(R) Instructions(ER/ED)) (Salvadorean) * Dental Caries (AfterCare(R) Instructions(ER/ED)) (Salvadorean) documented in this encounter Medications at Time of Discharge penicillin v potassium (VEETID) 500 mg tablet Take 1 tablet (500 mg total) by mouth 2 (two) times a day for 7 days 14 tablet 08/27/2020 09/03/2020 documented as of this encounter Ordered Prescriptions Prescription Sig Dispense Quantity Refills Last Filled Start Date End Date penicillin v potassium (VEETID) 500 mg tablet Take 1 tablet (500 mg total) by mouth 2 (two) times a day for 7 days 14 tablet 08/27/2020 09/03/2020 documented in this encounter Discharge Disposition Disposition Code Departure Means Destination Discharge to home or self care documented in this encounter ED Notes * Rajendra Strickland MD - 08/27/2020 6:31 AM CDT HPI Chief Complaint Patient presents with ??? Dental Pain pt reports tooth ache x 2 days. pt reports that she took 2 tramadols for the pain and about 30 minutes after she has L sided CP. ??? Chest Pain 25-year-old female without significant previous medical history presents with right lower tooth pain for 2 days. She has had this previously and has an appointment scheduled with the dentist on the of this month. However this seems worse and previously. She feels like it is swollen on the right side and painful to touch. Sensitive to the hot and cold. No difficulty swallowing, no change in voice, no fever chills. She does get some right ear pain associated. No trauma. 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 Currently no complaints. Dental Pain Location: Lower Quality: Aching, constant and dull Severity: Moderate Onset quality: Gradual Duration: 2 days Progression: Worsening Context: dental caries Relieved by: Nothing Ineffective treatments: tramadol. Associated symptoms: facial pain and gum swelling Associated symptoms: no difficulty swallowing, no drooling, no headaches, no neck pain and no trismus 6:31 AM Meena Muñoz is a 25 y.o. female presenting to the ED c/o Patient History: No past medical history on file. No past surgical history on file. No family history on file. Social History Tobacco Use ??? Smoking status: Not on file Substance Use Topics ??? Alcohol use: Not on file ??? Drug use: Not on file Current Facility-Administered Medications: ??? acetaminophen (TYLENOL) tablet 975 mg, 975 mg, oral, Once Current Outpatient Medications: ??? penicillin v potassium (VEETID) 500 mg tablet Review of Systems Review of Systems HENT: Negative for drooling. Respiratory: Negative for shortness of breath. Musculoskeletal: Negative for neck pain. Neurological: Negative for headaches. All systems reviewed and are neg or non contributory for this patients presentation today other than as stated in the HPI . Physical Exam ED Triage Vitals Temp Pulse Resp BP SpO2 08/27/20 0213 08/27/20 02108/27/20 02108/27/20 02108/27/20212 36.6 ??C (97.9 ??F) 81 20 122/78 98 % Temp src Heart Rate Source Patient Position BP Location FiO2 (%) 08/27/2021208/27/20415 -- 08/27/20415 -- Temporal Monitor Right arm Physical Exam GENERAL: Patient is conscious alert and oriented x3 and in no acute distress. HEENT: Head is normocephalic and atraumatic. Extraocular muscles are intact. TMs are clear bilaterally. No facial swelling. She has tenderness in the right submandibular region without lymphadenopathy. She has several dental caries on her right lower molars without significant gingival swelling or pointing abscess. No trismus. Normal voice, no drooling, uvula is midline, no exudate, no tonsillar swelling. She does have percussion tenderness to lower and upper rear molars on the right side. NECK: Trachea is midline. No meningeal signs. No lymphadenopathy. No meningismus. LUNGS: Lungs are clear to auscultation bilaterally. There is good respiratory effort. HEART: Regular rate and rhythm, no murmur. There is no gallop or rub. No pitting edema. ABDOMEN: Soft and nontender to palpation. There is no guarding or rebound. There are no masses. No CVA tenderness. MUSCULOSKELETAL: Moves all extremities x4. There is no obvious deformity. Radial pulses are intact. SKIN: Exposed skin shows no obvious erythema. Skin is warm and dry. There is no rash. NEUROLOGIC: Patient is conscious, alert and oriented x3. No focal neurologic defect is noted. PSYCH: Normal affect. Procedures [facility] Labs Reviewed - No data to display No orders to display BP 116/76 (BP Location: Right arm) Pulse 84 Temp 36.6 ??C (97.9 ??F) (Temporal) Resp 16 Ht 160 cm (5' 3 ) Wt 63.5 kg (139 lb 15.9 oz) LMP 08/27/2020 (Exact Date) SpO2 99% No BMI 24.80 kg/m?? [facility] Number of Diagnoses or Management Options Diagnosis management comments: Suspect dental caries. Benign tooth pain. Patient has dental appointment coming up on the . Will give her antibiotics, recommended not taking prescription medications that are not hers such as tramadol. Recommend alternating Naprosyn and Tylenol for pain. Will give her list of dental follow-up providers. Return precautions discussed. This examination was transcribed using the sailsquare voice recognition system without human vac press operator. In an effort to expedite patient care, this report has not been adjusted for typographical, grammatical, and syntax by a trained medical stenographer. Clinical Impression: Pain, dental Rajendra Strickland MD 08/27/201929 documented in this encounter Plan of Treatment Not on file documented as of this encounter Procedures Procedure Name Priority Date/Time Associated Diagnosis Comments ECG 12-LEAD Routine 08/27/2020 2:23 AM CDT documented in this encounter Results * ECG 12 lead (08/27/2020 2:23 AM CDT) Ventricular Rate EKG/Min 77 BPM [facility] Atrial Rate 77 BPM [facility] SC-Interval (MSEC) 142 ms [facility] QRS-Interval (MSEC) 72 ms [facility] QT-Interval (MSEC) 372 ms [facility] QTc 420 ms [facility] P [place] 69 degrees [facility] R [place] 81 degrees [facility] T [place] 69 degrees [facility] Diagnosis Normal sinus rhythm with sinus arrhythmia Normal ECG When compared with ECG of 30-MAY-2020 NEEDS COMPARISON STATEMENT No significant change [facility] 08/27/2020 2:23 AM CDT 08/27/2020 8:43 PM CDT Jane Mendoza DO ECG ORDERABLES Final Result [facility] documented in this encounter Visit Diagnoses Diagnosis Pain, dental- Primary documented in this encounter Administered Medications Inactive Administered Medications - up to 3 most recent administrations Medication Order MAR Action Action Date Dose Rate Site acetaminophen (TYLENOL) tablet 975 mg 975 mg (rounded from 1,000 mg), oral, Once, On Tue08/27/20 at 0647, For 1 dose Given 08/27/2020 6:55 AM CDT 975 mg documented in this encounter Active and Recently Administered Medications Times are shown in CDT. Scheduled Medication Order 08/25/2020 08/26/2020 08/27/2020 acetaminophen (TYLENOL) tablet 975 mg (COMPLETED) 975 mg (rounded from 1,000 mg), oral, Once, On Tue08/27/20 at 0647, For 1 dose 0655 (Given - Provid er: Rajendra Kelly RN) documented in this encounter Orders Medications Ordered That Ja ht Not Have Been Administered Count Last Ordered Date First Ordered Date acetaminophen (TYLENOL) tablet 975 mg 1 11/2020 documented in this encounter Care Teams Bench Molder Relationship Specialty Start Date End Date Mauro Grady MD PCP - General 07/30/20 06/05/23 documented as of this encounter
--- OUTSIDE RECORDS SUMMARY | 2024-03-24 00:30 | XMS_ITS | Data Portability ---
Author Organization [facility] CAR[facility]ny Randhawa Address [address] [place] [address] Assessment Encounter Date Assessment Date Assessment LastModified by Organization Details LastModified Time 12/03/2019 12/03/2019 24yo here for treatment of gonorrhea, diagnosed 11/27 [email or web address] Not available 12/03/2019 11:22:58 Plan of Treatment Reminders Order Date Submit Date Provider Last Modified By Organization Details Last Modified Time Details Appointments None recorded. Lab cytology report, thin prep, smear or scraping, cervical or vaginal 2022 023 [facility], [address] [place] [address], [address], [place], [address], 3 15:09:41 chlamydia trachomatis + neisseria gonorrhoeae + trichomonas vaginalis DNA panel, SHELL+probe, unspecified specimen 2022 023 [facility], [address] [place], [place] [address]jorge luis [address], [address], [place], [address], 3 06:15:44 HIV 1 + 2, meaningful use set 2022 023 [facility], [address] [place] [address], [address], [place], [address], 3 06:15:46 RPR (rapid plasma reagin), serum 2022 023 [facility], [address] [place] [address], [address], [place], [address], 3 06:15:45 HBsAg (hepatitis B surface Ag), EIA, serum 2022 023 G[facility]IAN GAN, Felicit[address]ccabe, [address], [place], [address], 3 06:15:44 Hepatitis C IgG Ab, qual, serum 2022 023 [facility] GAN, Felicita [address]ccabe, [address], [place], [address], 3 06:15:43 test, urine 2022 023 [email or web address] 0 In-Office Order, Internal Use Only DO Not Attach Compendium DO Not Attach Compendium, Do Not Delete/merge, [id number] 3 14:33:58 chlamydia trachomatis + neisseria gonorrhoeae + trichomonas vaginalis DNA panel, SHELL+probe, unspecified specimen 2023 024 [facility] GAN, Felicit[address]abe, [address], [place], [address], 4 06:23:01 cytology report, thin prep, smear or scraping, cervical or vaginal 2023 024 [facility] GAN, Felicita cally [address]ccabe, [address], [place], [address], 4 15:24:14 bacterial vaginosis panel, vaginal 2023 024 [facility] GAN, Felicita cally [address], [address], [place], [address], 4 19:13:21 test, urine 2023 024 [email or web address] 0 In-Office Order, Internal Use Only DO Not Attach Compendium DO Not Attach Compendium, Do Not Delete/merge, [id number] 4 18:54:57 Referral None recorded. Procedures None recorded. Surgeries None recorded. Imaging US, pelvis, complete - pain in pelvis on left lower quadrantPel leah US ordered to assess for any uterine abnormality or ovarian cystF ULL BLADDER, NO SMALL CHILDREN, CURRENT INSURANCE CARD AND PICTURED I.D., ARRIVE 15 MIN. PRIOR TO YOUR APPT., TAKE THIS REFERRAL WITH YOU, IF YOU CAN'T KEEP THIS APPT. CALL THE NUMBER HIGHLIGHTED TO THE UPPER LEFT. THANKS TANA AND HAVE A GREAT DAY! 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 Patient Instructions Encounter Date Encounter Id Patient Instructions Last Modified By Organization Details Last Modified Time 07/26/2022 [id number] You had your pap smear completed today. You should have a well woman exam every year. If your pap smear comes back normal, you will not need another pap smear for 3 years. Do NOT douche as it disturbs the natural balance of bacteria in the vagina and can cause infection. Avoid scented soaps or lotions. Use a basic unscented soap for only the outer skin around your vagina. Wear cotton underwear, avoid thongs, avoid spandex, leggings and wear panty liners daily. You can try probiotics. Use a condom with EVERY sexual encounter to minimize your risk for sexually transmitted infection and unplanned . Your women's health annual exam today was unremarkable. Continue to practice breast self awareness like we discussed. Come back to the office with any breast changes, nipple discharge, change to your menstrual cycle, or with complaints of unusual odorous discharge. Otherwise, come back in 1 year for your next well woman annual exam. [email or web address] Not available 07/26/2022 15:46:11 07/30/2022 [id number] You currently have a chlamydia infection. This IS a sexually transmitted infection that you got from your partner. 1. Take Azithromycin 1 gm two pills at one time. If you throw up after taking the medication, you will need to call the clinic to get another dose. 2. Your partner NEEDS to be treated as well. 3. Do NOT have intercourse with your partner for one week after you BOTH HAVE BEEN TREATED. 4. You should be retested in 2 months. 5. Use a condom with EVERY sexual encounter to minimize your risk for sexually transmitted infection and unplanned . You currently have a gonorrhea infection. This IS a sexually transmitted infection that you got from your partner. 1. You an injection of Ceftriaxone 500 mg in the office. 2. NO intercourse with your partner until one week after you BOTH HAVE BEEN TREATED 3. You should return to the clinic in 3 months to be retested. 4. Use a condom with EVERY sexual encounter to minimize your risk for sexually transmitted infection and unplanned . The depo shot is a progesterone only control. You need to come back every 3 months to get your depo shot for continued protection against . It does not protect against sexually transmitted infections. You need to use a condom EVERY time. If this is your first shot, use a condom for at least the next 7 days. You may have spotting or irregular bleeding. Watch your diet intake as you may feel hungrier because of the hormone in the shot. If you stay aware of your diet, you should not gain weight. If you experience severe abdominal pain, chest pain, headaches unrelieved by Tylenol, difficulty breathing, vision changes or severe leg pain, STOP taking your control pills and go to the nearest ER. Your next shot is due: 10/15-10/29/2022 Because women that use Depo provera for a long time can have some bone loss, we recommend you take additional calcium. 2609-1120 mg a day. You cannot take it all at one time. You must divide it up during the day. You can also get calcium naturally in milk (300 mg/cup). You can take other dairy products or beans. Take your calcium supplement daily. Depo provera can temporarily weaken your bones, and this supplement can help decrease that side effect. In addition to calcium, take vitamin D3, 1000 IU daily. Not available 07/30/2022 14:32:06 08/23/2023 [id number] A healthy lifestyle: care instructions [email or web address] Not available 08/23/2023 15:12:56 Do NOT douche as it disturbs the natural balance of bacteria in the vagina and can cause infection. Avoid scented soaps or lotions. Use a basic unscented soap for only the outer skin around your vagina. Wear cotton underwear, avoid thongs, avoid spandex, leggings and wear panty liners daily. You can try probiotics. Use a condom with EVERY sexual encounter to minimize your risk for sexually transmitted infection and unplanned . Your referral was ordered today. It will be processed by our clinical data coordinator. Once it is processed, you should be able to make your appointment. Not available 08/23/2023 15:12:55 08/30/2023 [id number] A healthy lifestyle: care instructions [email or web address] Not available 08/30/2023 15:03:44 Make sure to eat lunch Take ibuprofen 1 hour prior to appointment No unprotected intercourse for 2 weeks prior to colposcopy [email or web address] Not available 08/30/2023 15:03:53 Reason for Referral None Reported. Results Created Date Observation Date Name Description Value Unit Range Abnormal Flag Note LastModifiedBy Organization Detail LastModifiedTime 11/28/2019 pregn meseret test, urine HCG negati ve Not Available In-Office Order Internal Use Only DO Not Attach Compendium DO Not Attach Compendium, Do Not Delete/merge, [id number] 11/28/2019 15:16:33 11/28/1911/30/2019 CT + NG + TV, DNA, urine /swab chlamydia by SHELL Negati ve negati ve Not Available [facility] (Lab) [address] [place], [address], 11/30/2019 02:08:22 11/28/1911/30/2019 CT + NG + TV, DNA, urine /swab gonococcus by SHELL Positi ve negati ve abnormal . Not Available [facility] (Lab) [address] [facility], [place], [address], 11/30/2019 02:08:22 11/28/1911/30/2019 CT + NG + TV, DNA, urine /swab trich vag by SHELL Negati ve negati ve Not Available [facility] (Lab) [address] [facility], [place], [address], 11/30/2019 02:08:22 07/27/1907/27/2022 HCV ANTIB EDY RFX TO QUANT PCR HCV Ab Non Reacti ve nonrea ctive Not Available [facility] ([facility]) [address] [place], [address], 07/29/2022 06:15:43 07/27/1907/27/2022 CT, NG, TRICH VAG BY SHELL trich vag by SHELL Negati ve negati ve Not Available [facility] ([facility]) [address] [place], [address], 07/29/2022 06:15:44 07/27/19 23 07/28/2022 CT, NG, TRICH VAG BY SHELL chlamydia by SHELL Positi ve negati ve abnormal Not Available [facility] ([facility]) [address] [place], [address], 07/29/2022 06:15:44 07/27/19 23 07/28/2022 CT, NG, TRICH VAG BY SHELL gonococcus by SHELL Positi ve negati ve abnormal Not Available [facility] ([facility]) [address] [place], [address], 07/29/2022 06:15:44 07/27/19 23 07/27/2022 HBSAG SCREE N HBsAg screen Negati ve negati ve Not Available [facility] ([facility]) [address] [facility], [place], [address], 07/29/2022 06:15:44 07/27/1907/27/2022 RPR, RFX QN RPR/C ONFIR M TP RPR Non Reacti ve nonrea ctive Not Available [facility] ([facility]) [address] [place], [address], 07/29/2022 06:15:45 07/27/19 23 07/27/2022 HIV AB/P2 4 AG WITH REFLE X HIV Ab/P24 Ag screen Non Reacti ve nonrea ctive HIV Negat rom HIV-1 /HIV- 2 antib odies and HIV-1 p24 antig en were NOT detec syeda. There is no labor atory evide nce of HIV infec tion. Not Available [facility] ([facility]) [address] [place], [address], 07/29/2022 06:15:46 07/27/1908/02/2022 IGP, RFX APTIM A HPV ASCU diagnosis: COMMEN T abnormal EPITH ELIAL CELL ABNOR MALIT Y. LOW GRADE SQUAM OUS INTRA EPITH ELIAL LESIO N (LSIL ). Not Available [facility] ([facility]) [address] [place], [address], 08/02/2022 15:09:41 07/27/19 23 08/02/2022 IGP, RFX APTIM A HPV ASCU specimen adequacy: COMMEN T Satis facto ry for evalu ation . Endoc ervic al and/o r squam ous metap lasti c cells (endo cervi nathalie compo nent) are prese nt. Not Available [facility] ([facility]) [address] [facility], [place], [address], 08/02/2022 15:09:41 07/27/19 23 08/02/2022 IGP, RFX APTIM A HPV ASCU clinician provided ICD10: DEBORA Lorenzana Z11.3 Z01.4 19 Not Available [facility] ([facility]) [address] [place], [address], 08/02/2022 15:09:41 07/27/19 23 08/02/2022 IGP, RFX APTIM A HPV ASCU performed by: DEBORA Angeles , Cytot echno logis t Not Available [facility] ([facility]) [address] [place], [address], 08/02/2022 15:09:41 07/27/19 23 08/02/2022 IGP, RFX APTIM A HPV ASCU electronical ly signed by: DEBORA Chao MD, Patho logis t Not Available [facility] ([facility]) [address] [place], [address], 08/02/2022 15:09:41 07/27/19 23 08/02/2022 IGP, RFX APTIM A HPV ASCU . . Not Available [facility] ([facility]) [address] [place], [address], 08/02/2022 15:09:41 07/27/19 23 08/02/2022 IGP, RFX APTIM A HPV ASCU pathologist provided ICD10: DEBORA Lorenzana R87.6 12 Not Available [facility] ([facility]) [address] [place], [address], 08/02/2022 15:09:41 05/08/20 23 08/02/2022 IGP, RFX APTIM A HPV ASCU note: COMMEN T The Pap smear is a scree lora test desig gonzalo to aid in the detec tion of lachelle ligna nt and malig nant condi tions of the uteri ne cervi x. It is not a diagn ostic proce dure and shoul d not be used as the sole means of detec ting cervi nathalie cance r. Both false -posi tive and false -nega tive repor ts do occur . Not Available [facility] ([facility]) [address] [facility], [place], [address], 08/02/2022 15:09:41 07/27/19 23 08/02/2022 IGP, RFX APTIM A HPV ASCU test methodology: COMMEN T This liqui d based ThinP rep(R ) pap test was scree gonzalo with the use of an image guide d systdarryl m. Not Available [facility] ([facility]) [address] [facility], [place], [address], 08/02/2022 15:09:41 07/27/19 23 08/02/2022 IGP, RFX APTIM A HPV ASCU . COMMEN T The HPV DNA refle x crite oleg were not met with this speci men resul t there fore, no HPV testi ng was perfo rmed. Not Available [facility] ([facility]) [address] [facility], [place], [address], 08/02/2022 15:09:41 07/27/19 23 07/27/2022 INTER PRETA TION: interpretati on: Commen t Not infec syeda with HCV unles s early or acute infec tion is suspe cted (whic h may be delay ed in an immun ocomp romis ed indiv idual ), or other evide nce exist s to indic ate HCV infec tion. Not Available [facility] ([facility]) [address] [facility], [place], [address], 07/29/2022 06:15:43 07/27/19 23 08/03/2022 CHET EN AUTHO RIZAT ION written authorizatio n Commen t Chet en Autho rizat ion Recei adia. Autho rizat ion recei adia from HERMINIO MAYBERRY ON 08-03 Logge d by Dayton lopez Not Available [facility] ([facility]) [address] [facility], [place], [address], 08/09/2022 20:08:47 07/27/19 23 08/09/2022 HPV GENOT YPES 16/18 ,45 HPV genotype 16 NEGATI VE negati ve Not Available [facility] ([facility]) [address] [facility], [place], [address], 08/09/2022 20:08:46 07/27/19 23 08/09/2022 HPV GENOT YPES 16/18 ,45 HPV genotype 18,45 NEGATI VE negati ve Not Available [facility] ([facility]) [address] [facility], [place], [address], 08/09/2022 20:08:46 07/27/19 23 08/06/2022 HPV, APTIM A HIGH 16/18 ,45 HPV aptima POSITI VE negati ve abnormal This nucle ic acid ampli ficat ion test detec ts fourt een high- risk HPV types (16,1 8,31, 33,35 ,39,4 5,51, 52,56 ,58,5 9,66, 68) witho ut diffe renti ation . Not Available [facility] ([facility]) [address] [facility], [place], [address], 08/09/2022 20:08:46 07/27/19 23 08/03/2022 VERBA L ORDER see below: Commen t: Pleas e provi de reque sted infor matio n and fax to [phone]. [place] s requi res a writt en and michael d reque st be forwa rded to a labor atory follo wing a verba l order of a labor atory test. Kanchan dan t us to meet this requi remen t and to compl ete our recor ds. Date: Diagn osis code( s) provi ded for this order : Z11.3 Z01.4 19 Addit ional Diagn osis Code( s):__ _ Pleas e Print ICD-10 Diagn osis Code( s):__ _ Physi tashi or Autho rized Desig nee:_ _ Pleas e Print Physi tashi or Autho rized Desig nee Signa ture: Your Signa ture Confi ellyn Your Order Of The Test( s) Liste d Not Available [facility] ([facility]) [address] [facility], [place], [address], 08/03/2022 15:10:11 07/27/19 23 08/03/2022 VERBA L ORDER additional test(s) requested Commen t: Test( s) added per Ailyn Mayberry on at accou nt 08-03 Logge d by Adelia Hurtado Test# [id number] HPV, Aptim a High 16/18 ,45 Not Available [facility] ([facility]) [address] [facility], [place], [address], 08/03/2022 15:10:11 07/31/19 23 07/30/2022 pregn meseret test, urine HCG negati ve Not Available In-Office Order Internal Use Only DO Not Attach Compendium DO Not Attach Compendium, Do Not Delete/merge, [id number] 07/30/2022 14:32:32 08/23/19 24 08/24/2023 NUSWA B BV AND NENITA DA, SHELL atopobium vaginae HIGH - 2 score abnormal Not Available [facility] ([facility]) [address] [facility], [place], [address], 08/24/2023 19:13:21 08/23/19 24 08/24/2023 NUSWA B BV AND NENITA DA, SHELL bvab 2 HIGH - 2 score abnormal Not Available [facility] ([facility]) [address] [facility], [place], [address], 08/24/2023 19:13:21 08/23/19 24 08/24/2023 NUSWA B BV AND NENITA DA, SHELL megasphaera 1 HIGH - 2 score abnormal Calcu late total score by naniin g the 3 indiv idual bacte rial vagin osis (BV) marke r score s toget her. Total score is inter prete d as follo ws: Total score 0-1: Indic ates the absen ce of BV. Total score 2: Indet ermin ate for BV. Addit ional clini nathalie data shoul d be evalu ated to estab lashonda a diagn osis. Total score 3-6: Indic ates the prese nce of BV. Not Available [facility] ([facility]) [address] [facility], [place], [address], 08/24/2023 19:13:21 08/23/19 24 08/24/2023 NUSWA B BV AND NENITA DA, SHELL connor albicans, SHELL NEGATI VE negati ve Not Available [facility] ([facility]) [address] [place], [address], 08/24/2023 19:13:21 08/23/19 24 08/24/2023 NUSWA B BV AND NENITA DA, SHELL connor glabrata, SHELL NEGATI VE negati ve Not Available [facility] ([facility]) [address] [place], [address], 08/24/2023 19:13:21 08/23/19 24 08/24/2023 CT, NG, TRICH VAG BY SHELL chlamydia by SHELL NEGATI VE negati ve Not Available [facility] ([facility]) [address] [place], [address], 08/25/2023 06:23:01 08/23/19 24 08/24/2023 CT, NG, TRICH VAG BY SHELL gonococcus by SHELL NEGATI VE negati ve Not Available [facility] ([facility]) [address] [place], [address], 08/25/2023 06:23:01 08/23/19 24 08/24/2023 CT, NG, TRICH VAG BY SHELL trich vag by SHELL NEGATI VE negati ve Not Available [facility] ([facility]) [address] [place], [address], 08/25/2023 06:23:01 08/23/19 24 08/24/2023 IGP, APTIM A HPV, RFX 16/18 ,45 HPV aptima POSITI VE negati ve abnormal This nucle ic acid ampli ficat ion test detec ts fourt een high- risk HPV types (16,1 8,31, 33,35 ,39,4 5,51, 52,56 ,58,5 9,66, 68) witho ut diffe renti ation . Not Available [facility] ([facility]) [address] [place], [address], 08/29/2023 15:24:14 08/23/19 24 08/29/2023 IGP, APTIM A HPV, RFX 16/18 ,45 diagnosis: DEBORA Lorenzana abnormal EPITH ELIAL CELL ABNOR MALIT Y. ATYPI NATHALIE SQUAM OUS CELLS OF UNDET ERMIN ED SIGNI FICAN CE (ASC- US). Not Available [facility] ([facility]) [address] [place], [address], 08/29/2023 15:24:14 08/23/19 24 08/29/2023 IGP, APTIM A HPV, RFX 16/18 ,45 recommendati on: DEBORA Lorenzana abnormal Sugge st follo w up as clini dagmar appro priat e. Not Available [facility] ([facility]) [address] [place], [address], 08/29/2023 15:24:14 08/23/19 24 08/29/2023 IGP, APTIM A HPV, RFX 16/18 ,45 specimen adequacy: DEBORA Lorenzana Satis facto ry for evalu ation . Endoc ervic al and/o r squam ous metap lasti c cells (endo cervi nathalie compo nent) are prese nt. Not Available [facility] ([facility]) [address] [place], [address], 08/29/2023 15:24:14 08/23/19 24 08/29/2023 IGP, APTIM A HPV, RFX 16/18 ,45 clinician provided ICD10: DEBORA Lorenzana R10.2 Z11.3 Not Available [facility] ([facility]) [address] [place], [address], 08/29/2023 15:24:14 08/23/19 24 08/29/2023 IGP, APTIM A HPV, RFX 16/18 ,45 performed by: DEBORA Mora ams, Cytot echelida strong t (ASCP ) Not Available [facility] ([facility]) [address] [place], [address], 08/29/2023 15:24:14 08/23/19 24 08/29/2023 IGP, APTIM A HPV, RFX 16/18 ,45 electronical ly signed by: DEBORA jorge MD, Patho ligia t Not Available [facility] ([facility]) [address] [facility], [place], [address], 08/29/2023 15:24:14 08/23/19 24 08/29/2023 IGP, APTIM A HPV, RFX 16/18 ,45 . . Not Available [facility] ([facility]) [address] [place], [address], 08/29/2023 15:24:14 08/23/19 24 08/29/2023 IGP, APTIM A HPV, RFX 16/18 ,45 pathologist provided ICD10: DEBORA Lorenzana R87.6 10 Not Available [facility] ([facility]) [address] [facility], [place], [address], 08/29/2023 15:24:14 08/23/1908/29/2023 IGP, APTIM A HPV, RFX 16/18 ,45 note: DEBORA Lorenzana The Pap smear is a scree lora test desig gonzalo to aid in the detec tion of lachelle ligna nt and malig nant condi tions of the uteri ne cervi x. It is not a diagn ostic proce dure and shoul d not be used as the sole means of detec ting cervi nathalie cance r. Both false -posi tive and false -nega tive repor ts do occur . Not Available [facility] ([facility]) [address] [facility], [place], [address], 08/29/2023 15:24:14 08/23/1908/29/2023 IGP, APTIM A HPV, RFX 16/18 ,45 test methodology: DEBORA Lorenzana This liqui d based ThinP rep(R ) pap test was scree gonzalo with the use of an image guide janna ricketts Not Available [facility] ([facility]) [address] [facility], [place], [address], 08/29/2023 15:24:14 08/23/19 24 08/29/2023 IGP, APTIM A HPV, RFX 16/18 ,45 HPV genotype reflex COMMEN T Crite oleg not met, HPV Genot ype not perfo rmed. Not Available [facility] ([facility]) [address] [facility], [place], [address], 08/29/2023 15:24:14 08/23/19 24 08/23/2023 pregn meseert test, urine HCG negati ve Not Available In-Office Order Internal Use Only DO Not Attach Compendium DO Not Attach Compendium, Do Not Delete/merge, [id number] 08/23/2023 15:17:22 Result Notes None recorded. Problems No Known Problems Procedures Surgical History Date Name Laterality Status Provider Name and Address Organization Details Recorded Time 4 Date of Last Pap Smear completed HERMINIO DICK NP Attn: Accounting,[address] [facility], [place], [address], [facility] 08/30/2023 11:59:29 3 Colposcopy cancelled KATY ALARCON MD Attn: Accounting,[address] [facility], [place], [address], [facility] 10/22/2022 08:42:13 0 Depo Injection completed Janette Grady PA - [facility] 11/28/2019 17:17:11 Imaging Results None recorded. Procedure Notes None recorded. Medical Equipment None Reported. Allergies Allergen ID Allergen Name Allergen Category Reaction Reaction Severity Criticality Documentation Date Start Date Code Code System Note Provider Name and Address Organization Details Recorded Time 438085 latex environme nt,medica tion itching Not available Not available 10/25/2019 81670 91 RxNorm Janette Grady null, [place] - [facility] 0 16:23:37 Medications Name Sig Start Date Stop Date Status Note LastModified by Organization Details LastModified Time doxycycline hyclate 100 mg capsule TAKE 1 CAPSULE BY MOUTH TWICE A DAY FOR 10 DAYS active Not Available Not Available No t Available metronidazo le 0.75 % (37.5 mg/5 gram) vaginal gel INSERT 1 APPLICATO RFUL EVERY DAY BY VAGINAL ROUTE AT BEDTIME FOR 5 DAYS, FOR BACTERIAL VAGINOSIS . active Not Available Not Available No t Available ceftriaxone 250 mg solution for injection inject 250mg IM x1 for treatment of gonorrhea 08/22 completed Not Available Not Available Not Available metronidazo le 500 mg tablet TAKE 1 TABLET BY MOUTH TWICE A DAY FOR 7 DAYS active Not Available Not Available No t Available tramadol 50 mg tablet TK 1 T PO Q 6 H PRN P 08/22 completed Not Available Not Available Not Available ceftriaxone 500 mg solution for injection Take 500 mg every day by injection route as directed for 1 day. 08/22 completed Not Available Not Available Not Available medroxyprog esterone 150 mg/mL intramuscul ar suspension Inject 1 mL every 3 months by intramusc ular route as directed for 90 days. active Not Available Not Available No t Available naproxen 500 mg tablet TK 1 T PO BID PRN WITH FOOD OR MILK 08/22 completed Not Available Not Available Not Available metoclopram misael 10 mg tablet active Not Available Not Available Not Available amoxicillin 875 mg-potassiu m clavulanate 125 mg tablet TK 1 T PO Q 12 H 08/22 completed Not Available Not Available Not Available Depo-Car Salesman a 150 mg/mL intramuscul ar syringe Inject 1 mL x1 by intramusc ular route for contracep tion 2019 active Not Available Not Available Not Avai lable azithromyci n 500 mg tablet take two tabs at one time for treatment of chlamydia 08/22 completed Not Available Not Available Not Available Vitals Date Recorded Body height Body mass index (BMI) Body weight Systolic blood pressure Diastolic blood pressure Provider Name and Address Organization Details Last Updated DateTime 12/03/2019 160.02 cm 24.3 kg/m2 80499.3 g 102 mm[Hg] 62 mm[Hg] Edyta Marie [place] [facility] 0 11:21:41 Date Recorded Body height Body mass index (BMI) Body weight Heart rate Systolic blood pressure Diastolic blood pressure Provider Name and Address Organization Details Last Updated DateTime 3 160.02 cm 24.5 kg/m2 88919.1 8 g 73 /min 110 mm[Hg] 69 mm[Hg] Arely Samaniego MA [facility] 3 15:07:18 Date Recorded Body height Body mass index (BMI) Body weight Heart rate Systolic blood pressure Diastolic blood pressure Provider Name and Address Organization Details Last Updated DateTime 3 160.02 cm 24.5 kg/m2 30815.0 3 g 80 /min 101 mm[Hg] 69 mm[Hg] Edyta Marie MA [facility] 3 14:12:51 Date Recorded Body height Body mass index (BMI) Body weight Heart rate Systolic blood pressure Diastolic blood pressure Provider Name and Address Organization Details Last Updated DateTime 4 160.02 cm 26.2 kg/m2 38831.9 5 g 70 /min 94 mm[Hg] 59 mm[Hg] Arely Samaniego MA [facility] 4 14:19:55 Date Recorded Body height Provider Name an d Address Organization Details Last Updated DateTime 08/30/2023 160.02 cm Jagdeep CLAYTON Attn: Accounting,[address] [place], [address], [facility] 08/30/2023 15:00:01 Social History Question Answer Notes LastModified by Organizat ion Details LastModified Time Tobacco Smoking Status Never Smoker Janette watt, [facility] 03/28/2019 15:47:54 What Was The Date Of Your Most Recent Tobacco Screening? 07/30/2022 [email or web address] Information not available 07/30/2022 Sex: Unknown Functional Status None recorded. Mental Status None recorded. Family History Relationship Description Onset Age of this Age Resolved Age Notes LastModified by Organization Details LastModified Time Father No current problems or disability [email or web address] Not available 03/28 15:47:51 Mother No current problems or disability [email or web address] Not available 03/28 15:47:51 Medical History No medical history recorded. Gynecological History Statement/Question Response Abnormal Pap Yes Flow Light On BCP's at Conception? N STIs/STDs N HPV Vaccine N Duration of Flow (days) 5 Age at Menarche 17 Current Control Method None Age at First Child 20 Sexually Active? Y Menses Monthly Y Date of Last Pap Smear 08/23/2023 Sexual Problems? N LMP Approximate Desired Control Method Hormonal In jection Obstetrics History GPAL:G 2 P 1 0 1 1 Type Value Full Term 1 Induced 1 Living 1 Total 2 Immunizations Vaccine Type Date Status Note Provider Nam e and Address Organization Details Recorded Time HPV9 03/28/2019 completed Not Available [facility] 04/07/2019 02:45:26 Influenza, split virus, quadrivalent, PF 03/28/2019 completed Not Available [facility] 0 02:39:15 Past Encounters Encounter ID Performer Location Encounter Start Date Encounter Closed Date Diagnosis/Indication Diagnosis SNOMED-CT Code Diagnosis ICD10 Code Diagnosis Note [id number] Janette Grady [facility] (ADVISORY SOFTWARE ENGINEER) [address] [place] [address] 03/28/2019 15:15:05 03/29/2019 12:32:23 Administration of influenza vaccine 04794433 Z23 Human obey lloma virus vaccination given 6538912259 9107 Z23 Venereal d isease screening 745539184 Z11.3 Contraception care 21072 5005 Z30.40 [id number] Janette Grady [facility] (ADVISORY SOFTWARE ENGINEER) [address] [facility] [place] [address] 05/21/2019 14:28:33 05/21/2019 15:49:57 Venereal disease screening 616938959 Z11.3 Retest after prior +TV, s/p treatment. Vaginal odor 816436256 N 89.8 +discharge , pH 5.5, +whiff test. +clue cells, rare trichomona ds.- Rx for metronidaz ole BID x 7 days Contracept ion care management 477943483 Z30.9 Discussed R/B/A of all options, including barrier methods, OCP, depo provera, Nexplanon, IUD. Denies contraindi cations to methods. Patient elects to proceed with Nexplanon and reviewed expectatio ns regarding bleeding for placement and bleeding. Has had this device before.- Will order device today, RTC for placement. - Strict condom use in the meantime. [id number] Janette Grady [facility] (ADVISORY SOFTWARE ENGINEER) [address] [facility] [place] [address] 08/16/2019 15:47:16 08/21/2019 08:34:23 Vaginal discharge 098148674 N89.8 5 days yellowish discharge, no irritation . Discussed options with patient, including trial of treatment of BV/yeast to avoid risks of in person clinic visit in the setting of the pandemic. After discussion of R/B, patient would prefer in person visit for appropriat e testing and treatment. - Assisted in scheduling appointmen t Lesion of vulva 33855487 6 N90.89 Clinically sound c/w folliculit is, exam early next week pending [id number] Janette Grady [facility] (ADVISORY SOFTWARE ENGINEER) [address] [place] [address] 08/20/2019 16:24:46 08/21/2019 08:57:52 Vaginal discharge 209575561 N89.8 1 week yellowish discharge, no irritation - pH 6.0/+whiff test/+clue cells/+dis charge, meets criteria for BV- no clear hyphae, trichomona ds, will follow up Nuswab- reviewed vaginal hygeine measures- call back if symptoms persist 1 week after tx Abnormal u terine bleeding 6021935008 9100 N93.9 Spotting since TAB on 06/25/2019, in the setting of depo. Most likely AUB-I 2/2 depo.- Pelvic exam benign, no CMT, normal involution , no bleeding on exam; reassuring Lesion of vulva 56735793 6 N90.89 C/w folliculit is, reviewed conservati ve measures-R TC PRN if worsening, painful Bacterial vaginosis 4197 69176 N76.0 [id number] Janette Grady [facility] (ADVISORY SOFTWARE ENGINEER) [address] [facility] [place] [address] 10/25/2019 16:07:25 10/25/2019 16:36:09 Bacterial vaginosis 462881776 N76.0 +BV/TV in clinic previously . Onset of symptoms again after douching. Instructed not to douche. Will presumptiv amparo treat at this time for both infections with flagyl BID. Contraception care 34029 5001 Z30.40 Assisted in rescheduli depo appointmen tReema Notes abstinence at this time, instructed to continue until depo appointmen t.- Checked, rx available at [facility]. [id number] Janette Grady [facility] (ADVISORY SOFTWARE ENGINEER) [address] [place] [address] 11/28/2019 14:59:30 11/28/2019 17:18:59 Contraception care 529498229 Z30.42 Desires restart of depo-prove ra for contracept ion (last does in 06/2019), no contraindi cations and denies acute complaints . Happy with method. UPT negative, currently on cycle.- S/p uncomplica syeda administra tion of depo- RTC in 12 weeks for next dose, refills available Venereal d isease screening 562912364 Z11.3 Retest after prior +TV, s/p treatment. [id number] Janette Grady [facility] (ADVISORY SOFTWARE ENGINEER) [address] [place] [address] 12/03/2019 11:11:18 12/03/2019 16:12:43 Gonococcal cervicitis 326939088 A54.03 Discussed results with patient. 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 Options for partner treatment reviewed. Discussed need for abstinence x 7 days after both partners treated. Reviewed notifying provider if vomiting within 1 hour of taking chlamydia prescripti on.- S/p rochephin 250mg IM- Rx sent for azithromyc in- Morbidity sheet completed- 100% condom use for prevention of STIs- Test of cure in 4 weeks Contraception care 67750 5005 Z30.42 Up to date on depo provera. 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 Pap done; pt has no pap history2. STI screening {{complete d* decline d}}. Pt verbally consented to HIV3. Pt is using {{condoms* DONTE patch ring prog estion only pill DMPA Nexplanon IUD BTL}} for control.4. Discussed breast self awareness5 . Pt interested in starting depo provera. Will return to clinic tomorrow to start6. Offered Covid vaccine. Patient {{declined * to receive today}}. Pt already received _0_ doses.7. Educated on STI reduction and prevention . Encouraged condom use.8. 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 Venereal d isease screening 073561736 Z11.3 STI screening per patient request. Patient verbally consented to HIV. Contracept ion care management 457431624 Z30.9 Contracept rom options were discussed. Reviewed DONTE, patch, ring, progestin only pill, DMPA, Nexplanon and IUD. Benefits, risks, side effects and danger signs discussed. The patient would like to use {{condoms DONTE patch ring proge stion only pill DMPA* Nexplanon IUD}} Denies hx of hypertensi on, unexplaine d vaginal bleeding, breast CA, liver disease, DVT or CVD. Will order depo today and pt to come back to clinic tomorrow for injection. [id number] HERMINIO DICK NP [facility] (ADVISORY SOFTWARE ENGINEER) [address] [place] [address] 07/30/2022 13:28:42 08/11/2022 09:52:51 Gonorrhea 64794388 A54.9 1. RX for Ceftriaxon e 500 mg IM x 12. Ceftriaxon e to be given to pt today3. Discussed RTC in 3 months for retesting. 4. Discussed condoms with every encounter. 5. Discussed warning s/sx of PID and when to go to the ER.6. Discussed need for abstinence for 1 week after both partners treated to prevent reinfectio n.7. Discussed need for partner to come to clinic for treatment. Chlamydial infection 105 237472 A74.9 1. RX for {{Azithrom ycin 1gm PO x 1* Doxycyc line 100mg 1 PO BID x 7 days}} sent to the pharmacy. 2. Discussed RTC in 2 months for GERMÁN 3. Discussed condom use for every encounter. 4. Discussed the warning signs and symptoms of PID and when to go to the ER. 5. Discussed the need for repeat dose if emesis in 23 hours after taking Azithromyc in. 6. Discussed the need for abstinence x 1 week to prevent reinfectio n. Initiation of depot contraception done [id number] 41657 Z30.013 UPT today: negative Unprotecte d intercours e in the past 2 weeks: {{Yes No*} } DMPA 150 mg IM x 1 given today. STI testing offered and accepted last visit and pt being treated for GC/CT Safe sex and condom use discussed. Last pap smear: 07/26/2022 Next due: 2025 Discussed the importance of adequate calcium intake and weight bearing exercises for bone loss prevention . Discussed benefits, side effects, and danger signs of DMPA use. No contraindi cations to DMPA use. FU in 3 months. [id number] HERMIN[facility] DICK [facility] (ADVISORY SOFTWARE ENGINEER) [address] [facility] [place] [address] 08/23/2023 14:00:31 08/24/2023 11:00:49 Pain in pelvis 62694398 R10.2 pain in pelvis on left lower quadrant Pelvic US ordered to assess for any uterine abnormalit y or ovarian cyst1. cultures sent for vaginitis2 . Encouraged NSAIDS for pain relief.3. STI screening completed4 . Educated on STI reduction and prevention . Encouraged condom use.5. Last pap smear: 07/26/2022 LSIL HPV+ other. Patient never went for colpo. Retested today and will set up for colpo. Venereal d isease screening 528577910 Z11.3 STI screening per patient request. Overweight 321087870 E66 .3 [id number] HERMINIO DICK NP [facility] (ADVISORY SOFTWARE ENGINEER) [address] [place] [address] 08/30/2023 14:57:49 08/31/2023 14:38:47 Abnormal cervical Papanicolaou smear with human papillomavirus deoxyribonucleic acid detected 566592899 R87.619 Pap smear showed ASCUS HRHPV +I reviewed with the patient her abnormal pap results and the need for colposcopy . The colposcopy procedure was reviewed as was HPV and its relationsh ip to cervical cancer. I reviewed the importance of getting the procedure done in a timely fashion. Reviewed taking Motrin prior to procedure, safer sex and avoiding tobacco.Co lpo scheduled for 09/26/2023 Overweight 716486707 E66 .3 Health Concerns Section Related Observation LastModified by Organization Detai ls LastModified Time None Recorded Concern Status LastModified by Organization Details LastModified Time None Recorded Advance Directives Directive None Recorded Payers Encounter Date Sequence Insurance Name Policy Number Policy Keatign Covered Member ID [place] Member ID Guarantor Name 12/03/[address] [facility] (MEDICAID HMO) Tana Toni [id number] Tana Muñoz 07/26/2022 1 [employer] [place]AC[place] - [place] Tana Toni [id number] Tana Toni 07/30/2022 1 [employer] [place] - [place] Tanamaximino Muñoz [id number] Tana Toni 08/23/2023 1 [employer] [place] - [place] Tana Toni [id number] Tana Muñoz 08/30/2023 1 [employer] [place] - [place]) Tana Toni [id number] Tana Muñoz Notes Date Note Type Note Provider Name and Address Organization Details Recorded Time 0 text/html Tana is a 24yo with recent diagnosis of gonorrhea here for treatment. At last visit, she had reported intermittent vaginal discharge, now resolved. She had a prior diagnosis of trichomonas for which she was treated. Retest revealed resolution of trichomonas, but +gonorrhea. She is currently using depo provera for control, and does have intermittent condom use. She denies current vaginal discharge, fevers, abdominal pain. 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 Reports {{irregular regular*}} menstrual cycles with __4-5_ days of {{light moderate* heavy} } flow using _6__ pads/tampon on their heaviest day. 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 Denies any breast changes/pain, fatigue/cold intolerance/hair loss/dry skin. Denies dyspareunia, pelvic pressure or bowel movement changes.Denies SOB/chest pain/dizziness. Denies any fever or chills. Denies any family history of breast, ovarian, endometrial or pancreatic cancer. LMP: 07/24/2022Last pap smear: none on filePap due: TodayPatient {{is* is not}} sexually active with a {{female male*}} partner. Patient has had __2__ {{male* female}} partners in the past year.Current contraception is {{condoms* DONTE patch rin g progestion only pill DMPA Nexplanon IUD BTL}}Patient is {{happy unhappy*}} with method and would like to start back on depo provera{{Desires* Declin es}} STI testing today. Verbal consent given for HIV testing. HERMINIO DICK NP Attn: Accounting[address] [place], [address], [facility] 07/26/2022 15:59:07 3 text/html Tana gong 27 yo presenting for treatment for gonorrhea and to start depo provera LMP: 07/24/2022Last pap smear: 07/26/2022UPT: NegativeUnprotected intercourse in the past 2 weeks: {{Yes No*}} Patient is sexually active with a male partner. Patient has had __2__ male partners in the past year.Current contraception is condomsPatient is unhappy with method and would like to start back on depo proveraSTI testing done on 07/26/22 was + for CT and GC HERMINIO DICK NP Attn: Accounting,[address] [place], [address], [facility] 07/30/2022 14:34:28 4 text/html Tana gong 28yo presents for lower left sided pelvic pain that started 1 week ago. Pain is located {{RUQ RLQ LLQ* LUQ gener alized lower abdomen}}Patient reports pain {{constant comes and goes*}}. Patient describes pain as {{dull aching* sharp johnnie oting stabbing}}. {{Has Has not*}} tried anything to make the pain better. Patient is sexually active with a male partner. Patient has had __2__ male partners in the past year. Patient {{has has not*}} been having unprotected intercourse.LMP: 07/25/2023Last STI testing: TodayLast pap smear: 07/26/2022 LSIL HPV+ otherUPT today: NegativeDenies any vaginal discharge, odor, burning or itching. Denies any urinary frequency, urgency or dysuria. HERMINIO DICK NP Attn: Accounting,[address] [facility], [place], [address], [facility] 08/23/2023 18:58:33 text/html Tana Muñoz a 28yo consenting for phone visit to review abnormal lab results. LMP: 07/25/2023t was seen for pelvic pain on 08/23/2023.Pap smear came back ASCUS HRHPV +I reviewed with the patient her abnormal pap results and the need for colposcopy. The colposcopy procedure was reviewed as was HPV and its relationship to cervical cancer. I reviewed the importance of getting the procedure done in a timely fashion. Reviewed taking Motrin prior to procedure, safer sex and avoiding tobacco.08/23/2023 Negative for STI08/23/2023 + for bacterial vaginosis and was already treated. HERMINIO DICK NP Attn: Accounting,[address] [facility], [place], [address], [facility] 08/30/2023 15:04:14 OBGyn Episode No OBEpisode recorded.
== END 2024-03-16 22:07 | disposition left against medical advice (07) ==
LOC: ANHED 03-17 00:04
PROVIDERS: Emergency Provider Physician Assistant
DX: O99.611 Diseases of the digestive system complicating pregnancy, first trimester (principal); K52.9 Noninfective gastroenteritis and colitis, unspecified; Z3A.01 Less than 8 weeks gestation of pregnancy
CPT/HCPCS: 99283